=== PATIENT | female | born 1960 | race Caucasian/White ===

== ENCOUNTER 2017-05-31 10:57 | Day surgery (SDC) | payer MEDICAID, SELFPAY ==
[2017-05-31 11:23] VITALS: BP 133/95; PULSE 97; TEMP 36.8; O2SAT 99; BMI 27.8
--- NOTE | 2017-05-31 13:07 | RAD_ITS ---
STUDY: X-RAY - CERVICAL SPINE REASON FOR EXAM: Female, 57 years old. C6-C7 epidural injection. TECHNIQUE: Single coned-down intraoperative view(s) of the cervical spine were obtained. COMPARISON: None FINDINGS: Fluoroscopic services provided for C6-C7 epidural injection. RAD/Spine 1 View Any Level IMPRESSION: Fluoroscopic services provided for C6-C7 epidural injection. Electronically Signed: Magdiel Neal MD at 14:36 EST Tel [phone], Service support ,
[2017-05-31] MEDS: Triamcinolone Acetonide 40 MG/ML Vial (13:24)
[2017-05-31 13:35] VITALS: BP 117/82; BP 133/95; PULSE 100; RESP 16; TEMP 36.6; O2SAT 100
[2017-05-31 13:40] VITALS: BP 115/81; BP 133/95; PULSE 97; RESP 16; O2SAT 99
[2017-05-31 13:45] VITALS: BP 121/86; BP 133/95; PULSE 89; RESP 16; O2SAT 100
[2017-05-31 13:50] VITALS: BP 123/83; BP 133/95; PULSE 89; RESP 16; TEMP 36.4; O2SAT 99
[2017-05-31 14:19] VITALS: BP 133/95
== END 2017-05-31 14:20 | disposition home or self-care (01) ==
LOC: SDC 10:59 → AC 11:06
PROVIDERS: Family Provider Family Medicine; PCP Family Medicine; Visit Provider Anesthesiology Pain Medicine
PROC: 3E0S3BZ Introduction of Anesthetic Agent into Epidural Space, Percutaneous Approach (ICD-10-PCS; CPT 62320; principal; 2017-05-31 12:10)
DX: M54.2 Cervicalgia (principal); J44.9 Chronic obstructive pulmonary disease, unspecified; E03.9 Hypothyroidism, unspecified; F17.200 Nicotine dependence, unspecified, uncomplicated; M79.603 Pain in arm, unspecified; F41.9 Anxiety disorder, unspecified; F32.9 Major depressive disorder, single episode, unspecified; Z79.899 Other long term (current) drug therapy
CPT/HCPCS: 01922; 62321; 64490; 72020; J7120; J3490

== ENCOUNTER → 2017-07-18 13:44 | Outpatient (CLI) | payer MEDICAID, SELFPAY ==
[2017-07-18 15:51] LABS: Absolute Lymphocyte Count 3.25 X10^3/ul (0.83-4.51); Absolute Neutrophil Count 3.1 X10^3/uL (2.0-7.7); Basophil# 0.05 X10^3/uL; Basophil% 0.7 % (0-1); Eosinophil# 0.13 X10^3/uL; Eosinophils% 1.7 % (0-5); Hematocrit 43.2 % (37-47); Hemoglobin 14.2 g/dl (12.0-15.0); Lymphocyte # 3.25 X10^3/ul (4.0); Lymphocyte % 43.3 % (19-41); Mean Corp Hgb Conc 32.9 g/gl (32-36); Mean Corpuscular Volume 100.5 fL (81-99); Mean Platelet Vol. 10.5 fl (6.2-12.0); Monocyte# 0.94 X10^3/uL; Monocyte% 12.5 % (0-10); Neutrophil % 41.3 % (47-70); Platelet Count 222 K/mm3 (150-450); RBC Distribution Width CV 13.6 % (11.6-14.6); RBC Distribution Width SD 49.7 fl (35.1-43.9); White Blood Count 7.5 K/mm3 (4.4-11.0)
[2017-07-18 15:54] LABS: POSITIVE COUNT NO; POSITIVE DIFFERENTIAL NO; POSITIVE MORPHOLOGY NO
[2017-07-18 16:12] LABS: Vitamin D,25 Hydroxy 75.1 ng/mL (29.95-100.01)
[2017-07-18 16:17] LABS: ALB/GLOB Ratio 0.7 RATIO (0.9-2.4); AST(SGOT) 154 U/L (15-37); Alanine Aminotransfer ALT/SGPT 97 U/L (13-56); Albumin, Serum 3.2 g/dL (3.2-5.0); Alkaline Phosphatase 150 U/L (45-117); Anion Gap 10 (5-15); BUN 6 mg/dL (7-18); BUN/Creat Ratio 8.4 RATIO (10-20); Calcium,Total 8.9 mg/dL (8.5-10.1); Chloride 96 mmol/L (98-107); Creatinine, Serum 0.71 mg/dL (0.55-1.02); EST Glomerular Filtration Rate 90 mL/min (>60); Est Glom Filt Rate - Afr Amer 109 mL/min (>60); Globulin 4.3 g/dL (2.2-4.2); Glucose 97 mg/dL (74-106); Potassium 3.5 mmol/L (3.5-5.1); Protein, Total 7.5 g/dL (6.4-8.2); Sodium Level 132 mmol/L (136-145); T4 Free Direct 0.82 ng/dL (0.76-1.46); Thyroid Stim Hormone (TSH) 4.07 uIU/mL (0.358-3.74)
== END ==
PROVIDERS: Visit Provider Family Medicine
DX: E55.9 Vitamin D deficiency, unspecified (principal); E06.3 Autoimmune thyroiditis; F17.200 Nicotine dependence, unspecified, uncomplicated
CPT/HCPCS: 80053; 82306; 84439; 84443; 85025

== ENCOUNTER → 2017-08-14 14:36 | Outpatient (CLI) | payer MEDICAID, SELFPAY ==
[2017-08-17 14:31] LABS: HPV Reflexed? NOT INDICATED
== END ==
PROVIDERS: Family Provider Family Medicine; PCP Family Medicine; Visit Provider Family Medicine
DX: Z01.419 Encounter for gynecological examination (general) (routine) without abnormal findings (principal)
CPT/HCPCS: 88175; G0145

== ENCOUNTER → 2017-08-16 13:56 | Outpatient (CLI) | payer MEDICAID, SELFPAY ==
--- NOTE | 2017-08-16 13:57 | BI_ITS ---
MAMMOGRAPHY - BILATERAL SCREENING 3-D KATTY SYNTHESIS REASON FOR EXAM: Female, 57 years old. Bilateral Screening 3-D tomosynthesis PERTINENT HISTORY: Positive family history. Sister at unknown age with breast cancer. Prior exams unavailable.. TECHNIQUE: 2-D mammograms and 3-D Katty synthesis of the breast (s) were performed. CAD was performed. COMPARISON: None. FINDINGS: The breast composition is composed of scattered fibroglandular density. No dense spiculated masses or suspicious microcalcifications are identified. No architectural distortion is identified. There is no skin thickening or retraction BI/SCREENING MAMM (CAD), BILAT IMPRESSION: No mammographic signs of malignancy. Routine yearly mammograms recommended. ASSESSMENT CATEGORY: BIRADS Category 1: Negative. A letter regarding these results will be sent to the patient by the facility within 30 days. FOLLOW UP RECOMMENDATION: Yearly follow up mammogram recommended. (A) Approximately 10% of breast cancers are not detected by mammography. A normal mammogram should not delay biopsy of a clinically suspicious abnormality. Electronically Signed: Yan Sood MD at 16:00 EDT , Service support ,
== END ==
PROVIDERS: Family Provider Family Medicine; PCP Family Medicine; Visit Provider Family Medicine
DX: Z12.31 Encounter for screening mammogram for malignant neoplasm of breast (principal)
CPT/HCPCS: 77063; 77067

== ENCOUNTER 2017-12-11 10:10 | Outpatient (RCR) | payer MEDICAID, SELFPAY ==
--- NOTE | 2017-12-12 13:19 | HP.FCE ---
HP OT Functional Capacity Eval - Task Lift Comments: Pt unemployed since 2009. - Reference Duration Sedentary Sedentary Light Light Light Medium Medium Medium Heavy Very Heavy Heavy Occasional (0-33% of day) Frequent (34-66% of day) Constant (67-100% of day) 10 # Negligible Negligible 15 # 8 # Negligible 20 # 10# Negli. 35 # 18 # 7 # 50 # 25 # 10 # 75 # 100 # >100 # 38 # 50 # >50 # 15 # 20 # >20 # - Patient Information Height: 5 ft 9.5 in Weight:: 86.183 kg Hand Dominance: Right handed - Medical History Medical History Including Restrictions: Chronic back pain, GERD, chronic alcohol abuse, tobacco abuse disorder, debility, epidural hematoma, Pt states; Degenitive Disc Disorder, short term memory loss from fall/concussion October 2016. R wrist fx from fall down steps. - Diagnoses Diagnoses: Chronic back pain, GERD, chronic alcohol abuse, tobacco abuse disorder, debility, epidural hematoma - Symptoms Symptoms: Pt states constant back pain lower back that effects bilateral hips - Pain Pain: 7/10 pain lower back during evaluation while sitting. Pt states gets shots from Dr. Renteria for lower back pain every 3 months and has had a shot in cervical spine previously. 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 She lives in the basement, but also goes up to the main level. Ambulates no device. Pt has std toilet seats, walk in shower with grab bars. She stands to shower. Independent with BADL's, IADL's, laundry on main level and she has to carry in basket up/down flight of steps, friend states it goes better when someone can carry the basket for her. Does not drive. Does go grocery shopping, pushes cart and carries grocery bags from car to house. Independent with caring for her cats and their liter box. - Physical Examination Physical Examination: Pt demonstrates increased edema bilateral feet/ankles, pitting edema. ROM: BUE WFL. BLE WFL Strength: Generalized BUE 3+/5, BLE 3+/5 Right Food Cooking Machine Operator Strength Average: 46.66 Left Food Cooking Machine Operator Strength Average: 40.00 Right Lateral Pinch Average: 10.00 Left Lateral Pinch Average: 13.33 Right Tripod Pinch Average: 10.66 Left Tripod Pinch Average: 10.00 Sensation: Pt states no numbness or tingling. Fine Motor: Pt states okay most of the time with fine motor skills other than sometimes feels her signature and writing looks a little different Balance: No falls in last 3 months, pt states feels pretty steady, pt feels uncomfortable to walk on feet secondary to edema. Pt did report she walks up/down the uneven driveway to get the mail. - Non Material Handling Activities Bendin slow bend down to touch floor plus 4 faster pace. Unable to complete all 10 bends secondary to pain in lower back. Squattin plus 4 faster pace squats, had to rest leaning on R side of desk unable to complete all ten secondary to pain in lower back. Kneelin plus 4 kneels unable to complete anymore secondary to pain in back. Reaching out/up: reaching out and up without any difficulty and no loss of balance. Pt demonstrates good righting reactions. Walking: Pt completed 15 minute walk test, taking one standing rest break to stretch back out during walk bending forward and backwards. Standing: Stands for comfort and to relieve back pain during evaluation instead of sitting down after lifting part of test. No difficulty with standing. Sitting: Pt sat for first 15 minutes of evaluation moving around in chair occassionally for increased comfort. No difficulty sitting or transfering from sit<>stand. Climbing Stairs: Pt completed 10 steps using R hand on handrail. Pt saw other flight of steps and decided to trial the 14 steps up to second floor. Pt completed 14 steps up and down using R hand on handrail. - Dynamic Occasional Lifting Capacity Floor Lift: 15# max weight Knee Lift: 15# max weight Waist Lift: 15# max weight Shoulder Lift: 15# max weight Overhead Lift: 15# max weight Carryin# max weight Comments: Pt completed functional activities questionnaire stating the following: No I don't exercise regularly. Yes I can do yard work if I pace myself and do it over the course of the day. No I can't sit through a movie play or concert. Yes I can walk around in my yard. No I can't walk the block. Yes I am able to shop for groceries. Yes I am able to carry my groceries into the house and put them away. No I am not able to do my laundry. No I can't walk up and down steps. Sometimes pending on the pain I am able to cook and do housework such as sweeping, vacumming and cleaning. No I am not able to bath, feed, dress and otherwise care for myself. I can drive or ride in a car for 1 hr before I need to get out and stretch. I can walk at a mall fair or event for 1 hr before I have to sit down. I usually sit for 2-3 hrs a day. I usually stand/walk for 1-2 hrs a day. I usually lie/recline for 4-5 hrs a day. My most comfortable position varies.
== END 2017-12-11 19:00 | disposition home or self-care (01) ==
LOC: OT 10:10
PROVIDERS: Family Provider Family Medicine; PCP Family Medicine; Visit Provider Anesthesiology Pain Medicine
DX: M54.9 Dorsalgia, unspecified (principal)
CPT/HCPCS: 97165; 97166

== ENCOUNTER → 2017-12-14 11:21 | Outpatient (CLI) | payer MEDICAID, SELFPAY ==
[2017-12-14 14:35] LABS: Absolute Lymphocyte Count 2.18 X10^3/ul (0.83-4.51); Absolute Neutrophil Count 2.8 X10^3/uL (2.0-7.7); Basophil# 0.04 X10^3/uL; Basophil% 0.7 % (0-1); Eosinophil# 0.11 X10^3/uL; Eosinophils% 1.9 % (0-5); Hemoglobin 13.1 g/dl (12.0-15.0); Lymphocyte # 2.18 X10^3/ul (4.0); Lymphocyte % 36.8 % (19-41); Mean Corp Hgb Conc 33.6 g/gl (32-36); Mean Corpuscular Hgb 33.9 pg (27.0-32.0); Mean Platelet Vol. 10.3 fl (6.2-12.0); Monocyte# 0.76 X10^3/uL; Monocyte% 12.8 % (0-10); Neutrophil % 47.3 % (47-70); Platelet Count 211 K/mm3 (150-450); RBC Distribution Width CV 12.7 % (11.6-14.6); RBC Distribution Width SD 46.3 fl (35.1-43.9); Red Blood Count 3.86 M/mm3 (4.2-5.4); White Blood Count 5.9 K/mm3 (4.4-11.0)
[2017-12-14 14:36] LABS: POSITIVE COUNT NO; POSITIVE DIFFERENTIAL NO; POSITIVE MORPHOLOGY NO; Vitamin D,25 Hydroxy 27.7 ng/mL (29.95-100.01)
[2017-12-14 14:40] LABS: ALB/GLOB Ratio 0.8 RATIO (0.9-2.4); AST(SGOT) 53 U/L (15-37); Alanine Aminotransfer ALT/SGPT 44 U/L (13-56); Albumin, Serum 3.2 g/dL (3.2-5.0); Alkaline Phosphatase 165 U/L (45-117); Anion Gap 12 (5-15); BUN 8 mg/dL (7-18); BUN/Creat Ratio 11.6 RATIO (10-20); Calcium,Total 8.2 mg/dL (8.5-10.1); Chloride 104 mmol/L (98-107); Creatinine, Serum 0.69 mg/dL (0.55-1.02); EST Glomerular Filtration Rate 93 mL/min (>60); Est Glom Filt Rate - Afr Amer 113 mL/min (>60); Globulin 4.2 g/dL (2.2-4.2); Glucose 74 mg/dL (74-106); Potassium 3.9 mmol/L (3.5-5.1); Protein, Total 7.4 g/dL (6.4-8.2); Sodium Level 139 mmol/L (136-145); T4 Free Direct 0.95 ng/dL (0.76-1.46); Thyroid Stim Hormone (TSH) 0.95 uIU/mL (0.358-3.74)
== END ==
PROVIDERS: Family Provider Family Medicine; PCP Family Medicine; Visit Provider Family Medicine
DX: E55.9 Vitamin D deficiency, unspecified (principal); E06.3 Autoimmune thyroiditis; F17.200 Nicotine dependence, unspecified, uncomplicated; F10.20 Alcohol dependence, uncomplicated
CPT/HCPCS: 36415; 80053; 82306; 84425; 84439; 84443; 85025

== ENCOUNTER → 2018-05-01 09:15 | Outpatient (CLI) | payer MEDICAID, SELFPAY ==
[2018-05-01 11:03] LABS: Vitamin D,25 Hydroxy 39.6 ng/mL (29.95-100.01)
[2018-05-01 11:21] LABS: Absolute Lymphocyte Count 2.61 X10^3/ul (0.83-4.51); Absolute Neutrophil Count 4.3 X10^3/uL (2.0-7.7); Basophil# 0.07 X10^3/uL; Basophil% 0.9 % (0-1); Differential Indicated SCAN CRITERIA MET; Eosinophil# 0.26 X10^3/uL; Eosinophils% 3.2 % (0-5); Hemoglobin 13.6 g/dl (12.0-15.0); Lymphocyte # 2.61 X10^3/ul (4.0); Lymphocyte % 31.9 % (19-41); Mean Corp Hgb Conc 32.4 g/gl (32-36); Mean Platelet Vol. 11.2 fl (6.2-12.0); Monocyte# 0.93 X10^3/uL; Monocyte% 11.4 % (0-10); Neutrophil # 4.26 X10^3/uL (2.7-7.7); Neutrophil % 52.1 % (47-70); POSITIVE COUNT YES; POSITIVE DIFFERENTIAL NO; POSITIVE MORPHOLOGY NO; Platelet Count 239 K/mm3 (150-450); RBC Distribution Width CV 13.4 % (11.6-14.6); RBC Distribution Width SD 51.6 fl (35.1-43.9); White Blood Count 8.2 K/mm3 (4.4-11.0)
[2018-05-01 11:22] LABS: BUN 3 mg/dL (7-18); Creatinine, Serum 0.64 mg/dL (0.55-1.02); EST Glomerular Filtration Rate 101 mL/min (>60); Glucose 91 mg/dL (74-106)
[2018-05-01 11:23] LABS: ALB/GLOB Ratio 0.7 RATIO (0.9-2.4); AST(SGOT) 86 U/L (15-37); Alanine Aminotransfer ALT/SGPT 61 U/L (13-56); Albumin, Serum 2.8 g/dL (3.2-5.0); Alkaline Phosphatase 233 U/L (45-117); Anion Gap 13 (5-15); BUN/Creat Ratio 4.7 RATIO (10-20); Calcium,Total 8.3 mg/dL (8.5-10.1); Chloride 105 mmol/L (98-107); Est Glom Filt Rate - Afr Amer 122 mL/min (>60); Potassium 3.4 mmol/L (3.5-5.1); Protein, Total 6.8 g/dL (6.4-8.2); Sodium Level 138 mmol/L (136-145); Thyroid Stim Hormone (TSH) 3.87 uIU/mL (0.358-3.74)
== END ==
PROVIDERS: Family Provider Family Medicine; PCP Family Medicine; Visit Provider Family Medicine
DX: E06.3 Autoimmune thyroiditis (principal); E55.9 Vitamin D deficiency, unspecified; F10.20 Alcohol dependence, uncomplicated; F17.200 Nicotine dependence, unspecified, uncomplicated
CPT/HCPCS: 36415; 80053; 82306; 84439; 84443; 85025

== ENCOUNTER → 2018-11-07 10:17 | Outpatient (CLI) | payer MEDICAID, SELFPAY ==
[2018-11-07 12:07] LABS: Absolute Lymphocyte Count 2.26 X10^3/uL (0.83-4.51); Absolute Neutrophil Count 4.1 X10^3/uL (2.0-7.7); Basophil# 0.08 X10^3/uL; Basophil% 1.1 % (0-1); Eosinophil# 0.15 X10^3/uL; Hematocrit 42.1 % (37-47); Hemoglobin 13.9 g/dL (12.0-15.0); Lymphocyte # 2.26 X10^3/ul (4.0); Lymphocyte % 30.3 % (19-41); Mean Corpuscular Hgb 35.1 pg (27.0-32.0); Mean Corpuscular Volume 106.3 fL (81-99); Mean Platelet Vol. 11.3 fl (6.2-12.0); Monocyte# 0.88 X10^3/uL; Monocyte% 11.8 % (0-10); NRBC Flagged by Analyzer 0 % (0-5); Neutrophil # 4.05 X10^3/uL (2.7-7.7); Neutrophil % 54.3 % (47-70); Platelet Count 241 K/mm3 (150-450); RBC Distribution Width CV 12.8 % (11.6-14.6); RBC Distribution Width SD 50.6 fl (35.1-43.9); Red Blood Count 3.96 M/mm3 (4.2-5.4); White Blood Count 7.5 K/mm3 (4.4-11.0)
[2018-11-07 12:22] LABS: Vitamin B12 723 pg/mL (211-911); Vitamin D,25 Hydroxy 43.8 ng/mL (29.95-100.01)
[2018-11-07 12:57] LABS: ALB/GLOB Ratio 0.6 RATIO (0.9-2.4); AST(SGOT) 153 U/L (15-37); Alanine Aminotransfer ALT/SGPT 73 U/L (13-56); Albumin, Serum 2.7 g/dL (3.2-5.0); Alkaline Phosphatase 223 U/L (45-117); Anion Gap 6 (5-15); BUN 4 mg/dL (7-18); BUN/Creat Ratio 6.7 RATIO (10-20); Calcium,Total 9.1 mg/dL (8.5-10.1); Chloride 103 mmol/L (98-107); Cholesterol 168 mg/dL (200); EST Glomerular Filtration Rate 109 mL/min (>60); Est Glom Filt Rate - Afr Amer 132 mL/min (>60); Globulin 4.4 g/dL (2.2-4.2); Glucose 90 mg/dL (74-106); High Density Lipoprotein 53 mg/dL; Potassium 3.7 mmol/L (3.5-5.1); Protein, Total 7.1 g/dL (6.4-8.2); Sodium Level 134 mmol/L (136-145); T4 Free Direct 1.32 ng/dL (0.76-1.46); Thyroid Stim Hormone (TSH) 1.33 uIU/mL (0.358-3.74); Triglycerides 158 mg/dL; Very Low Density Lipoprotein 32 mg/dL (5-40)
[2018-11-08 12:57] LABS: GGTP 527 U/L (5-55)
[2018-11-13 16:08] LABS: Vitamin B1, Thiamine 63.4 nmol/L (66.5-200.0)
== END ==
PROVIDERS: Family Provider Family Medicine; PCP Family Medicine; Referring Provider Family Medicine; Visit Provider Family Medicine
DX: R74.8 Abnormal levels of other serum enzymes (principal); E55.9 Vitamin D deficiency, unspecified; E06.3 Autoimmune thyroiditis; F10.20 Alcohol dependence, uncomplicated; F17.200 Nicotine dependence, unspecified, uncomplicated
CPT/HCPCS: 36415; 80053; 80061; 82306; 82607; 82746; 82977; 84425; 84439; 84443; 85025

== ENCOUNTER → 2018-11-13 10:01 | Outpatient (CLI) | payer MEDICAID, SELFPAY ==
--- NOTE | 2018-11-13 10:04 | US_ITS ---
STUDY: ABDOMINAL ULTRASOUND - RIGHT UPPER QUADRANT REASON FOR VISIT: Female, 58 years old. Elevated LFTs TECHNIQUE: Ultrasound evaluation of the right upper quadrant was performed with real-time and static sheppard-scale imaging. TECHNICAL QUALITY: Adequate. COMPARISON: 2014 FINDINGS: Liver: The liver measures 19.0 cm. There is increased echogenicity consistent with fatty infiltration. The bile ducts are within normal limits. There is hepatic color flow. The direction of portal flow is hepatopetal. There is no demonstrated mass lesion. There is a thin rim of ascites around the liver. Gallbladder: Normal distended gallbladder. The gallbladder wall measures 2.8 mm. There is a negative sonographic Mejia's sign. There is no pericholecystic fluid. There is biliary sludge dependent within the gallbladder. Common Bile Duct (C.B.D.): The common bile duct measures 3.3 mm. Pancreas: Normal size of the head, body and tail of the pancreas. There is normal echogenicity of the pancreas. There is no demonstrated pancreatic mass or cyst. Right Kidney: Normal size of the right kidney. The right kidney measures 10.2 x 4.7 x 3.8 cm. Normal renal cortex. The right cortex measures 1.4 cm. There is no demonstrated renal mass or cyst. There is no right hydronephrosis. US/Liver IMPRESSION: Diffuse fatty infiltration of liver, no discrete lesion Echogenic sludge within the gallbladder but no sonographic evidence of acute cholecystitis Thin rim of ascites around the periphery of the liver Electronically Signed: Matt Smith MD at 12:37 EDT , Service support ,
== END ==
PROVIDERS: Family Provider Family Medicine; PCP Family Medicine; Referring Provider Family Medicine; Visit Provider Family Medicine
DX: R94.5 Abnormal results of liver function studies (principal)
CPT/HCPCS: 76705

== ENCOUNTER → 2018-12-11 11:45 | Outpatient (CLI) | payer MEDICAID, SELFPAY ==
--- NOTE | 2018-12-11 11:54 | RAD_ITS ---
STUDY: X-RAY - SACRUM/COCCYX REASON FOR EXAM: Female, 58 years old. Fall, pain TECHNIQUE: 3 view(s) of the sacrum and coccyx were obtained. COMPARISON: None. FINDINGS: Normal bilateral sacroiliac joints. Normal visualized sacral ala and fused sacral bodies. Normal sacrococcygeal junction with a normal angulation. Normal coccygeal segments. The presacral soft tissue structures are unremarkable. RAD/Sacrum-Coccyx min 2 Views IMPRESSION: Normal x-rays of the sacrum and coccyx. Electronically Signed: Carlo Melendez MD at 12:38 EDT Tel , Service support ,
== END ==
PROVIDERS: Family Provider Family Medicine; PCP Family Medicine; Referring Provider Anesthesiology Pain Medicine; Visit Provider Anesthesiology Pain Medicine
DX: Z04.3 Encounter for examination and observation following other accident (principal)
CPT/HCPCS: 72220

== ENCOUNTER → 2019-03-19 13:40 | Outpatient (CLI) | payer MEDICARE, SELFPAY ==
[2019-03-19 17:43] LABS: Absolute Lymphocyte Count 2.48 X10^3/uL (0.83-4.51); Absolute Neutrophil Count 4.3 X10^3/uL (2.0-7.7); Basophil# 0.06 X10^3/uL; Basophil% 0.8 % (0-1); Eosinophil# 0.06 X10^3/uL; Eosinophils% 0.8 % (0-5); Hematocrit 46.2 % (37-47); Hemoglobin 15.2 g/dL (12.0-15.0); Lymphocyte # 2.48 X10^3/ul (4.0); Lymphocyte % 32.2 % (19-41); Mean Corp Hgb Conc 32.9 g/dL (32-36); Mean Corpuscular Hgb 35.2 pg (27.0-32.0); Mean Corpuscular Volume 106.9 fL (81-99); Mean Platelet Vol. 11.2 fl (6.2-12.0); Monocyte# 0.79 X10^3/uL; Monocyte% 10.3 % (0-10); NRBC Flagged by Analyzer 0 % (0-5); Neutrophil # 4.25 X10^3/uL (2.7-7.7); Neutrophil % 55.2 % (47-70); Platelet Count 208 K/mm3 (150-450); RBC Distribution Width CV 13.6 % (11.6-14.6); RBC Distribution Width SD 54.4 fl (35.1-43.9); Red Blood Count 4.32 M/mm3 (4.2-5.4); White Blood Count 7.7 K/mm3 (4.4-11.0)
[2019-03-19 18:06] LABS: Vitamin D,25 Hydroxy 59.9 ng/mL (29.95-100.01)
[2019-03-19 19:00] LABS: ALB/GLOB Ratio 0.7 RATIO (0.9-2.4); AST(SGOT) 92 U/L (15-37); Alanine Aminotransfer ALT/SGPT 52 U/L (13-56); Alkaline Phosphatase 242 U/L (45-117); Anion Gap 11 (5-15); BUN 3 mg/dL (7-18); BUN/Creat Ratio 3.8 RATIO (10-20); Calcium,Total 8.8 mg/dL (8.5-10.1); Chloride 97 mmol/L (98-107); Creatinine, Serum 0.79 mg/dL (0.55-1.02); EST Glomerular Filtration Rate 79 mL/min (>60); Est Glom Filt Rate - Afr Amer 95 mL/min (>60); Globulin 4.6 g/dL (2.2-4.2); Glucose 113 mg/dL (74-106); Potassium 3.5 mmol/L (3.5-5.1); Protein, Total 7.6 g/dL (6.4-8.2); Sodium Level 133 mmol/L (136-145); Thyroid Stim Hormone (TSH) 3.24 uIU/mL (0.358-3.74)
[2019-03-24 21:17] LABS: Vitamin B1, Thiamine 141.7 nmol/L (66.5-200.0)
== END ==
PROVIDERS: Family Provider Family Medicine; PCP Family Medicine; Referring Provider Family Medicine; Visit Provider Family Medicine
DX: E55.9 Vitamin D deficiency, unspecified (principal); F10.20 Alcohol dependence, uncomplicated; E06.3 Autoimmune thyroiditis; F17.200 Nicotine dependence, unspecified, uncomplicated
CPT/HCPCS: 36415; 80053; 82306; 82746; 84425; 84443; 85025

== ENCOUNTER → 2019-06-17 11:40 | Outpatient (CLI) | payer MEDICARE, SELFPAY ==
[2019-06-17 15:20] LABS: Absolute Lymphocyte Count 2.77 X10^3/uL (0.83-4.51); Absolute Neutrophil Count 7.6 X10^3/uL (2.0-7.7); Basophil# 0.07 X10^3/uL; Basophil% 0.6 % (0-1); Eosinophil# 0.07 X10^3/uL; Eosinophils% 0.6 % (0-5); Hematocrit 42.2 % (37-47); Hemoglobin 13.9 g/dL (12.0-15.0); Lymphocyte # 2.77 X10^3/ul (4.0); Lymphocyte % 23.5 % (19-41); Mean Corp Hgb Conc 32.9 g/dL (32-36); Mean Corpuscular Hgb 36.9 pg (27.0-32.0); Mean Corpuscular Volume 111.9 fL (81-99); Mean Platelet Vol. 11.1 fl (6.2-12.0); Monocyte# 1.21 X10^3/uL; Monocyte% 10.2 % (0-10); NRBC Flagged by Analyzer 0 % (0-5); Neutrophil # 7.57 X10^3/uL (2.7-7.7); Neutrophil % 64.1 % (47-70); Platelet Count 208 K/mm3 (150-450); RBC Distribution Width CV 13.6 % (11.6-14.6); RBC Distribution Width SD 56.8 fl (35.1-43.9); Red Blood Count 3.77 M/mm3 (4.2-5.4); White Blood Count 11.8 K/mm3 (4.4-11.0)
[2019-06-17 15:29] LABS: Vitamin B12 660 pg/mL (211-911); Vitamin D,25 Hydroxy 93.3 ng/mL
[2019-06-17 16:11] LABS: ALB/GLOB Ratio 0.5 RATIO (0.9-2.4); AST(SGOT) 87 U/L (15-37); Alanine Aminotransfer ALT/SGPT 37 U/L (13-56); Albumin, Serum 2.2 g/dL (3.2-5.0); Alkaline Phosphatase 398 U/L (45-117); Anion Gap 7 (5-15); BUN 2 mg/dL (7-18); BUN/Creat Ratio 2.9 RATIO (10-20); Calcium,Total 8.4 mg/dL (8.5-10.1); Chloride 101 mmol/L (98-107); Creatinine, Serum 0.68 mg/dL (0.55-1.02); EST Glomerular Filtration Rate 94 mL/min (>60); Est Glom Filt Rate - Afr Amer 114 mL/min (>60); Globulin 4.8 g/dL (2.2-4.2); Glucose 88 mg/dL (74-106); Potassium 3.3 mmol/L (3.5-5.1); Sodium Level 134 mmol/L (136-145); Thyroid Stim Hormone (TSH) 4.89 uIU/mL (0.358-3.74)
[2019-06-18 15:38] LABS: GGTP 1013 U/L (5-55)
== END ==
PROVIDERS: PCP Family Medicine; Referring Provider Family Medicine; Visit Provider Family Medicine
DX: F10.20 Alcohol dependence, uncomplicated (principal); E06.3 Autoimmune thyroiditis; F17.200 Nicotine dependence, unspecified, uncomplicated; E55.9 Vitamin D deficiency, unspecified
CPT/HCPCS: 36415; 80053; 82306; 82607; 82746; 82977; 84439; 84443; 85025

== ENCOUNTER → 2019-06-23 09:53 | Outpatient (CLI) | payer MEDICARE, SELFPAY ==
--- NOTE | 2019-06-23 09:56 | US_ITS ---
We are attempting to reach an attending provider to discuss findings. An addendum with communication details will be sent when the communication is complete. STUDY: ABDOMINAL ULTRASOUND - RIGHT UPPER QUADRANT REASON FOR VISIT: Female, 59 years old ELEVATED LFTS TECHNIQUE: Ultrasound evaluation of the right upper quadrant was performed with real-time and static sheppard-scale imaging. TECHNICAL QUALITY: Adequate. COMPARISON: CT abdomen and pelvis July 20, 2014 FINDINGS: Liver: The liver measures 22 cm. There is increased echogenicity consistent with fatty infiltration. The bile ducts are within normal limits. There is hepatic color flow. The direction of portal flow is hepatopetal. There is no demonstrated mass lesion. Gallbladder: The gallbladder is distended. The gallbladder wall measures 2.6 mm. There is a positive sonographic Mejia''s sign. There is no pericholecystic fluid. There is sludge in the gallbladder. Common Bile Duct (C.B.D.): The common bile duct measures 2. mm. Pancreas: Normal size of the head, body and tail of the pancreas. There is normal echogenicity of the pancreas. There is no demonstrated pancreatic mass or cyst. Right Kidney: Normal size of the right kidney. The right kidney measures 10.0 x 5.4 x 3.7 cm. Normal renal cortex. The right cortex measures 1.1 cm. There is no demonstrated renal mass or cyst. There is mild right pelviectasis. US/Abdomen Limited IMPRESSION: Enlarged fatty infiltrated liver. Gallbladder sludge. Positive sonographic Mejia''s sign. Borderline wall thickening of the gallbladder up to 2.6 mm. Normal common duct. Recommend correlation with clinical history clinical exam. A prior study July 20, 2014 CT abdomen and pelvis the gallbladder is also distended with sludge. Findings could represent chronic or acute cholecystitis with a positive sonographic Mejia sign. Mild right pelviectasis. Recommend correlation with renal laboratory values. Electronically Signed: Macie Payne MD at 13:57 EST Tel , Service support ,
== END ==
PROVIDERS: PCP Family Medicine; Referring Provider Family Medicine; Visit Provider Family Medicine
DX: R94.5 Abnormal results of liver function studies (principal)
CPT/HCPCS: 76705

== ENCOUNTER → 2019-07-04 12:42 | Outpatient (CLI) | payer MEDICARE, SELFPAY ==
[2019-06-30 13:34] VITALS: BMI 27.8
--- NOTE | 2019-07-04 12:46 | RAD_ITS ---
STUDY: X-RAY - RIGHT SHOULDER REASON FOR EXAM: Female, 59 years old. patient complains of neck pain and shoulder pain TECHNIQUE: 4 view(s) of the shoulder. COMPARISON: None. FINDINGS: There is mild degenerative arthrosis of the glenohumeral articulation. Normal acromioclavicular joint. Normal acromion. There is demineralization of the humerus and visualized osseous structures. The soft tissue structures are unremarkable. There is no demonstrated fracture. Normal visualized pulmonary apex. RAD/Shoulder min 2 Views IMPRESSION: Diffuse osteopenia along with mild degenerative disease as described. Otherwise normal x-ray examination of the shoulder. Electronically Signed: Mandy Marin MD at 1:36 EDT , Service support ,
--- NOTE | 2019-07-04 12:46 | RAD_ITS ---
STUDY: X-RAY - CERVICAL SPINE REASON FOR EXAM: Female, 59 years old. patient complains of neck pain and shoulder pain TECHNIQUE: 3 view(s) of the cervical spine were obtained. COMPARISON: None FINDINGS: There are degenerative changes of the anterior atlantoaxial articulation. Normal odontoid process. Normal cervical lordosis. There is multi-level endplate spondylosis. There is multi-level degenerative disc disease with multilevel disc space narrowing. Multilevel bilateral apophyseal hypertrophy. The soft tissue structures are unremarkable. There is no demonstrated fracture of the cervical spine. RAD/Cerv Spine 2 or 3 Views IMPRESSION: Multilevel spondylosis/degenerative disease with no acute fracture or subluxation. Electronically Signed: Mandy Marin MD at 1:35 EDT , Service support ,
--- NOTE | 2019-07-04 13:00 | RAD_ITS ---
STUDY: X-RAY - LEFT SHOULDER REASON FOR EXAM: Female, 59 years old. patient complains of neck pain and shoulder pain TECHNIQUE: 4 view(s) of the shoulder. COMPARISON: None. FINDINGS: There is mild degenerative arthrosis of the glenohumeral articulation. Normal acromioclavicular joint. Normal acromion. There is demineralization of the humerus and visualized osseous structures. The soft tissue structures are unremarkable. There is no demonstrated fracture. Normal visualized pulmonary apex. RAD/Shoulder min 2 Views IMPRESSION: Diffuse osteopenia along with mild degenerative disease. Otherwise normal x-ray examination of the shoulder. Electronically Signed: Mandy aMrin MD at 1:35 EDT , Service support ,
== END ==
PROVIDERS: PCP Family Medicine; Referring Provider Anesthesiology Pain Medicine; Visit Provider Anesthesiology Pain Medicine
DX: M54.2 Cervicalgia (principal); M25.519 Pain in unspecified shoulder
CPT/HCPCS: 72040; 73030

== ENCOUNTER 2019-07-14 07:11 | Day surgery (SDC) | payer MEDICARE, SELFPAY ==
[2019-06-30 13:34] VITALS: BMI 27.8
--- NOTE | 2019-07-02 04:27 | HP_ITS ---
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: No Is patient in pain?: No Allergies bee venom protein (honey bee) Allergy (Verified 06/30/19 14:30) Unknown oxycodone Adverse Reaction (Intermediate, Verified 06/30/19 14:30) Other Medications Potassium Chloride 10 meq PO BID 10/17/16 [History Confirmed 06/30/19] Albuterol Inhaler [Ventolin Hfa (SP)] 1 - 2 puff INHALATION Q4H PRN PRN 05/29/17 [History Confirmed 06/30/19] Furosemide [Lasix] 20 mg PO DAILY PRN 05/29/17 [History Confirmed 06/30/19] famotidine 20 mg tablet 20 mg PO DAILY 06/30/19 [History Confirmed 06/30/19] fluticasone furoate 100 mcg-vilanterol 25 mcg/dose inhalation powder 1 inh INHALATION DAILY 06/30/19 [History Confirmed 06/30/19] levothyroxine 75 mcg tablet 100 mcg PO DAILY tab 06/30/19 [History Confirmed 06/30/19] omeprazole 20 mg tablet,delayed release 40 mg PO DAILY tab 06/30/19 [History Confirmed 06/30/19] thiamine HCl (vitamin B1) 100 mg tablet 100 mg PO DAILY 06/30/19 [History Confirmed 06/30/19] tiotropium bromide 2.5 mcg/actuation mist for inhalation 2 puff INHALATION DAILY 06/30/19 [History Confirmed 06/30/19] [facility] Medical History Chronic back pain (Chronic) GERD (gastroesophageal reflux disease) (Chronic) Chronic alcohol abuse (Chronic) Tobacco abuse disorder (Chronic) Debility (Acute) Epidural hematoma (Acute) Social History (Updated 07/02/19 @ 16:[address] Jacoby Rodriguez MD) Smoking Status: Current every day smoker alcohol intake: current alcohol intake frequency: 3 or more drinks per day HPI HPI HPI: JUDY KLEIN, is a 59 F who presents to the office today for HPI HPI Surgical H&P: Yes HPI: JUDY KLEIN, is a 59 F who presents to the office today for Evaluation for vomiting. She normally vomits in the morning occasionally it has been coffee grounds. She has had some significant issues with morning vertigo she will state that this will get better throughout the day. She has continued her use of a PPI and added Pepcid at her last visit with her primary care physician however the vomiting has not really changed that much. She is undergone a gallbladder ultrasound which showed a distended gallbladder wall measured 2.6 mm she was tender for the ultrasound which she states that she is tender bilaterally in the subcostal areas. There was no pericholecystic fluid and there was sludge in the gallbladder itself. The common bile duct measured 2 mm. Patient is due for colonoscopy this fall. ROS General General: Yes weight change and fatigue; no appetite, colon cancer, breast cancer or weakness HEENT HEENT: No difficulty swallowing, eye injury, eye surgery, swollen glands or hoarseness Endo Endocrine: Yes thyroid disease; no diabetes mellitus, thyroid cancer, Hair loss, heat intolerance or cold intolerance Skin Skin: No rash or changing moles Breast Breast: No left breast lump, right breast lump, nipple discharge, breast pain, abnormal mammogram, abnormal US or breast enlargement Musc Musculoskeletal: Yes back problems; no arthritis, rheumatoid arthritis, gout or joint pain Cardio Cardiovascular: No murmur, pacemaker, heart disease, atrial fibrillation, high blood pressure, heart attack, heart stent, palpitations, shortness of breat with exertion or chest pain Psych Psychiatric: No depression, anxiety or hearing voices Resp Respiratory: Yes shortness of breath, No sleep apnea, No cough, Yes COPD, No asthma, No emphysema, No wheezing Gastro Gastrointestinal: Yes abdominal pain, Yes nausea or vomiting, Yes diarrhea, No constipation, No blood in stool, No acid reflux, No hemorrhoids, No ulcers, No gallbladder problem, No black,tarry stools David Hematologic: No blood thinners, No blood disorders, No bleeding, No anemia, No blood clots Neuro Neurologic: No system reviewed and no additional complaints, except as docu, No as per HPI, No abnormal walking, No abnormal hearing, No abnormal movements, No abnormal speech, No behavioral changes, No burning sensations, No confusion, No seizure-like activity, No unsteadiness, No dizziness, No localized weakness, No frequent falls, No headache(s), No lack of coordination, No loss of vision, No memory loss, No numbness, No other visual disturbances, No radiating pain, No restless legs, No sensory deficit, No fainting, No tingling, No tremor(s), No weakness, No other Exam Const General: no acute distress, well developed, well hydrated Orientation: oriented to person, oriented to place, oriented to time [facility] Head: normocephalic, atraumatic Ears: external ears normal Mouth: moist mucous membranes Eyes Sclera: sclerae normal Pupils: normal by confrontation Neck Neck: no lymphadenopathy noted Neck mass: No Thyroid: thyroid normal, symmetrical Chest Chest palpation & inspection: normal inspection of the chest Breast Palpation: No nipple discharge Resp Effort & Inspection: normal respiratory effort Auscultation: clear to auscultation bilaterally Percussion: percussion normal Cardio Rate: regular rate Rhythm: regular rhythm Heart Sounds: no murmurs GI Palpation: soft, no hepatosplenomegaly, no masses, nontender Rectal Exam: other Other: Rectal exam deferred. Extrem General: normal to inspection, no clubbing, cyanosis or edema Assessment & Plan Problems 1. Coffee ground emesis K92.0 2. Gallbladder sludge K82.8 3. Upper abdominal pain R10.10 Plan I have discussed the above with the patient. I have offered the patient esophagogastroduodenoscopy for evaluation. I have explained the risks/benefits of the procedure and described the procedure. I have discussed the risks with the patient, including but not limited to: infection, bleeding, perforation of the GI tract requiring emergency surgery, inability to complete the procedure, injury to any internal organs, complications of anesthesia, etc. - the patient understands and agrees to proceed. I have answered all the patient's questions to the patient's satisfaction and the patient has no further questions. The patient has been given instructions for the colon cleansing preparation. I do not think that her vomiting at this point is related to the gallbladder sludge. There does not appear to be a cause and effect with p.o. intake and emesis it seems to happen in the morning with no food intake triggering. If this EGD is negative then I think she is probably can have to have a gastric emptying study to make sure that the stomach is working properly and then probably have an ear nose and throat consultation to see if there is something going on with her inner ear. Coding Level of Care Code Off vis,new,level 3 Diagnoses Coffee ground emesis K92.0 Gallbladder sludge K82.8 Upper abdominal pain R10.10 07/02/19 1628 <Electronically signed by Jacoby cochran MD> Date _ Jacoby Rodriguez MD I have re-examined the patient. There are no clinical changes since date of exam.
[2019-07-14 07:43] VITALS: BP 119/74; PULSE 98; RESP 16; TEMP 37.2; O2SAT 98; BMI 28.0
[2019-07-14] MEDS: Lactated Ringers 1,000 ML 100 ML IV (07:53)
--- NOTE | 2019-07-14 08:30 | EGD_PTH ---
PATIENT: JUDY MAYO LOC: EN U#:[id number] AGE/SX: 59/F ROOM: RE07/14/[address]: Dr. Jacoby Rodriguez MD : 1960 BED: DIS: 07/14/2019 SPEC #: [id number] RECD: 07/14/19 09:53 STATUS: FIGUEROA LAURA #: [id number] REZA: 07/14/19 08:[address]: Jacoby Rodriguez DEPT: SURGICAL PATHOLOGY RECD BY: Gideon Quezada ENTERED: 07/14/19 11:56 SP TYPE: EGD BIOPSY OT DR: Dr. Tony Kulkarni MD Tissues: Gastric mucous membrane Procedures: Surgery Specimen Level IV HEADER OPERATION: EGD ([facility] [place]) PRE-OP DIAGNOSIS: Coffee ground emesis, abdomen pain TISSUE SUBMITTED: Antrum biopsy for histo and H. pylori MICROSCOPIC DIAGNOSIS Gastric antrum, biopsy: Mild chronic gastritis. See comment. AM:danyelle 07/15/19 COMMENT The results of immunohistochemistry for Helicobacter pylori will be reported separately ([id number]). MICROSCOPIC DESCRIPTION Slides are reviewed. GROSS DESCRIPTION Received in fixative is one container labeled with the patient's name and designated antrum biopsy. The specimen consists of one irregular fragment of light luna soft tissue that measures 0.6 x 0.3 x 0.1 cm. The specimen is totally submitted in one cassette. / SJ:danyelle 07/14/19 TC:3 CPT: 86383
--- NOTE | 2019-07-14 08:30 | IMM_PTH ---
PATIENT: JUDY MAYO LOC: EN U#:[id number] AGE/SX: 59/F ROOM: RE07/14/[address]: Dr. Jacoby Rodriguez MD : 1960 BED: DIS: 07/14/2019 SPEC #: [id number] RECD: 07/14/19 14:46 STATUS: FIGUEROA RENatanael #: [id number] REZA: 07/14/19 08:[address]: Jacoby Rodriguez DEPT: IMMUNOHISTOCHEMISTRY RECD BY: Janine Muse ENTERED: 07/14/19 14:46 SP TYPE: IMMUNO OTHR DR: Dr. Tony Kulkarni MD Tissues: Stomach, NOS Procedures: H Pylori (initial) PHYSICIAN & INSTITUTION [place] [id number] SPECIMEN INFORMATION: Tissue Source: Antrum biopsy Clinical Info: Coffee ground emesis, abdomen pain Specimen Number: [id number] CPT code: 66919 METHODOLOGY: Deparaffinized sections of prefer/formalin-fixed tissue or PAP/DQ stained slides are incubated with monoclonal/polyclonal antibodies/oligonucleotide probes. Localization is made via biotin free immunoperoxidase method. Appropriate controls are performed and reacted as expected. Results on target cell population are indicated in the following table: RESULTS: ANTIBODY / CLONE RESULT H Pylori (polyclonal) negative These tests were developed and their performance characteristics determined by [facility]. They may not have been cleared or approved by the U.S. Food and Drug Administration. The FDA has determined that such clearance or approval is not necessary. INTERPRETATION: Antrum biopsy: Negative for Helicobacter pylori organisms. AM:danyelle 07/15/19
[2019-07-14 08:51] VITALS: BP 119/74; BP 99/60; PULSE 99; RESP 14; TEMP 36.9; O2SAT 90
[2019-07-14 08:55] VITALS: BP 119/74; BP 98/75; PULSE 98; RESP 16; O2SAT 94
--- NOTE | 2019-07-14 08:57 | OP.EGD_ITS ---
Patient Name: Fouzia Gorman Procedure Date: 07/14/2019 8:18 AM Date of : 1960 Age: 59 Procedure: Upper GI endoscopy Indications: Epigastric abdominal pain, Coffee-ground emesis Providers: Jacoby Rodriguez MD Referring MD: Tony Kulkarni Medicines: See the Anesthesia note for documentation of the administered medications Patient Profile: This is a 59 year old female. Refer to note in patient chart for documentation of history and physical. Complications: No immediate complications. Procedure: Pre-Anesthesia Assessment: - Prior to the procedure, a History and Physical was performed, and patient medications and allergies were reviewed. The patient's tolerance of previous anesthesia was also reviewed. The risks and benefits of the procedure and the sedation options and risks were discussed with the patient. All questions were answered, and informed consent was obtained. Prior Anticoagulants: The patient has taken no previous anticoagulant or antiplatelet agents. ASA Grade Assessment: II - A patient with mild systemic disease. After reviewing the risks and benefits, the patient was deemed in satisfactory condition to undergo the procedure. After obtaining informed consent, the endoscope was passed under direct vision. Throughout the procedure, the patient's blood pressure, pulse, and oxygen saturations were monitored continuously. The gastroscope was introduced through the mouth, and advanced to the second part of duodenum. The upper GI endoscopy was accomplished without difficulty. The patient tolerated the procedure well. Scope In: 8:39:17 AM Scope Out: 8:44:46 AM Total Procedure Duration Time 0 hours 5 minutes 29 seconds Findings: The Z-line was regular and was found 40 cm from the incisors. No biopsies or other specimens were collected for this exam. The examined esophagus was normal. Diffuse mild inflammation characterized by congestion (edema), erythema, friability and granularity was found on the greater curvature of the stomach. Biopsies were taken with a cold forceps for Helicobacter pylori testing. The examined duodenum was normal. No biopsies or other specimens were collected for this exam. Impression: - Z-line regular, 40 cm from the incisors. No specimens collected. - Normal esophagus. - Mucosal changes suspicious for gastritis. Biopsied. - Normal examined duodenum. No specimens collected. Recommendation: - Discharge patient to home. - Resume previous diet. - Continue present medications. - Await pathology results. - Repeat upper endoscopy (date not yet determined) for surveillance. - Return to my office in 1 week. Procedure Code(s): --- Professional --- 73999, Esophagogastroduodenoscopy, flexible, transoral; with biopsy, single or multiple Diagnosis Code(s): --- Professional --- K31.89, Other diseases of stomach and duodenum R10.13, Epigastric pain K92.0, Hematemesis CPT copyright 2017 [employer]. All rights reserved. The codes documented in this report are preliminary and upon invoice coder review may be revised to meet current compliance requirements. MD Jcaoby Salinas MD 07/14/2019 8:57:13 AM This report has been signed electronically. Number of Addenda: 0 Note Initiated On: 07/14/2019 8:18 AM
--- NOTE | 2019-07-14 08:57 | OP.CCLET_ITS ---
07/14/2019 Tony Kulkarni [address] [place] [address] Re : Upper GI endoscopy procedure for Fouzia Espinosa Sherif Dear Dr. Kulkarni This procedure was performed on Sunday, July 14, 2019. My impressions and recommendations are as follows: Impressions : - Z-line regular, 40 cm from the incisors. No specimens collected. - Normal esophagus. - Mucosal changes suspicious for gastritis. Biopsied. - Normal examined duodenum. No specimens collected. Recommendations : - Discharge patient to home. - Resume previous diet. - Continue present medications. - Await pathology results. - Repeat upper endoscopy (date not yet determined) for surveillance. - Return to my office in 1 week. My findings are described in the full procedure note, which is enclosed. If I can be of further assistance, please feel free to contact me at Doctor phone number(s): , Fax: [phone], Work: . Sincerely, MD Jacoby Salinas MD 07/14/2019 8:57:13 AM This report has been signed electronically.
[2019-07-14 09:00] VITALS: BP 106/80; BP 119/74; PULSE 99; RESP 16; O2SAT 99
[2019-07-14 09:05] VITALS: BP 111/72; BP 119/74; PULSE 98; RESP 17; TEMP 36.8; O2SAT 99
[2019-07-14 09:30] VITALS: BP 119/74
== END 2019-07-14 09:48 | disposition home or self-care (01) ==
LOC: EN 07:12 → AC 07:14
PROVIDERS: PCP Family Medicine; Referring Provider Family Medicine; Visit Provider Surgery
PROC: 0DJ08ZZ Inspection of Upper Intestinal Tract, Via Natural or Artificial Opening Endoscopic (ICD-10-PCS; CPT 43235; principal; 2019-07-14 08:25)
DX: K29.50 Unspecified chronic gastritis without bleeding (principal); R10.13 Epigastric pain; K92.0 Hematemesis; K82.8 Other specified diseases of gallbladder; K21.9 Gastro-esophageal reflux disease without esophagitis; F10.10 Alcohol abuse, uncomplicated; Y90.9 Presence of alcohol in blood, level not specified; F17.200 Nicotine dependence, unspecified, uncomplicated
CPT/HCPCS: 43239; 88305; 88342; J7120; J2405

== ENCOUNTER → 2019-07-23 09:52 | Outpatient (CLI) | payer MEDICARE, SELFPAY ==
[2019-07-14 07:43] VITALS: BMI 28.0
[2019-07-23 12:43] LABS: ALB/GLOB Ratio 0.4 RATIO (0.9-2.4); AST(SGOT) 116 U/L (15-37); Alanine Aminotransfer ALT/SGPT 37 U/L (13-56); Albumin, Serum 2.3 g/dL (3.2-5.0); Alkaline Phosphatase 431 U/L (45-117); Anion Gap 11 (5-15); BUN 2 mg/dL (7-18); BUN/Creat Ratio 3.4 RATIO (10-20); Calcium,Total 8.4 mg/dL (8.5-10.1); Chloride 102 mmol/L (98-107); EST Glomerular Filtration Rate 109 mL/min (>60); Est Glom Filt Rate - Afr Amer 132 mL/min (>60); Globulin 5.2 g/dL (2.2-4.2); Glucose 117 mg/dL (74-106); Potassium 3.6 mmol/L (3.5-5.1); Protein, Total 7.5 g/dL (6.4-8.2); Sodium Level 136 mmol/L (136-145)
[2019-07-23 15:27] LABS: Prealbumin 10.5 mg/dL (20.0-40.0)
== END ==
PROVIDERS: PCP Family Medicine; Referring Provider Family Medicine; Visit Provider Family Medicine
DX: E88.09 Other disorders of plasma-protein metabolism, not elsewhere classified (principal); K70.0 Alcoholic fatty liver
CPT/HCPCS: 36415; 80053; 84134

== ENCOUNTER → 2019-08-14 09:53 | Outpatient (CLI) | payer MEDICARE, SELFPAY ==
--- NOTE | 2019-08-14 09:59 | ECHOD_ITS ---
Reason For Study: SOB Procedure This was a 2D Doppler, Color Flow transthoracic echocardiogram. Exam performed in department. Left Ventricle Normal LV size. The estimated ejection fraction is 60 %. No evidence for diastolic dysfunction. No regional wall motion abnormalities noted. Right Ventricle Normal RV size. Normal systolic function. Atria Normal left atrium. Normal right atrium. No doppler evidence for ASD. Mitral Valve There is no mitral valve stenosis. No mitral valve insufficiency. Tricuspid Valve There is no tricuspid stenosis. Trivial tricuspid valve insufficiency. Pulmonary artery systolic pressure is 35 mmHg. Aortic Valve The aortic valve is not well visualized. There is no aortic stenosis. No aortic valve insufficiency. Pulmonic Valve There is no pulmonic valvular stenosis. No pulmonic valve insufficiency. Great Vessels Normal aortic root. Pericardium/Pleural No pericardial effusion. MMode/2D Measurements & Calculations LVIDd: 5.1 cm IVSd: 1.1 cm Ao root diam: 3.0 cm LVIDs: 3.8 cm LVPWd: 1.0 cm RVDd: 3.0 cm FS: 25.7 % LAV(MOD-bp): 61.9 ml LA A4 area: 20.1 cm2 LA dimension(2D): 3.8 cm LAV(MOD-bp) Indexed: 31.3 ml/m2 LAV(MOD-sp2): 54.7 ml LAV(MOD-sp4): 66.6 ml RA A4 area: 12.8 cm2 Time Measurements MV dec time: 0.16 sec Doppler Measurements & Calculations MV E max manuel: 102.0 cm/sec Lat Peak E' Manuel: 14.3 cm/sec Med Peak E' Manuel: 13.4 cm/sec MV A max manuel: 36.3 cm/sec E/E' lat: 7.1 E/E' med: 7.6 MV E/A: 2.8 Ao V2 max: 119.6 cm/sec LV V1 max: 98.8 cm/sec PA V2 max: 84.9 cm/sec Ao max P.7 mmHg LV V1 max P.9 mmHg TR max manuel: 259.9 cm/sec TR max P.0 mmHg Interpretation Summary The estimated ejection fraction is 60 %. No evidence for diastolic dysfunction. Ordering Physician: Tony Kulkarni Referring Physician: Tony Kulkarni Performed By: Sally Pedro RDCS, RVT
--- NOTE | 2019-08-14 10:09 | NM_ITS ---
CLINICAL: Female, 59 years old. GASTRITIS -- VOMITING GASTRIC EMPTYING-SULFUR COLLOID TECHNIQUE: The patient was orally administered 1.1 mCi of Tc-sulfur colloid. Gamma camera imaging acquisitions at 1-60 minutes post radiopharmaceutical administration was performed. FINDINGS: There is normal filling and emptying of the stomach. NM/Gastric Emptying Study IMPRESSION: Normal gastric emptying nuclear medicine scan. Electronically Signed: Magdiel Neal, at 14:17 EDT , Service support ,
== END ==
PROVIDERS: PCP Family Medicine; Referring Provider Family Medicine; Visit Provider Family Medicine
DX: R06.02 Shortness of breath (principal)
CPT/HCPCS: 78264; 93306; A9541

== ENCOUNTER → 2019-08-19 11:43 | Outpatient (CLI) | payer MEDICARE, SELFPAY ==
[2019-08-19 15:15] LABS: ALB/GLOB Ratio 0.5 RATIO (0.9-2.4); AST(SGOT) 95 U/L (15-37); Alanine Aminotransfer ALT/SGPT 37 U/L (13-56); Albumin, Serum 2.1 g/dL (3.2-5.0); Alkaline Phosphatase 525 U/L (45-117); Anion Gap 8 (5-15); BUN 2 mg/dL (7-18); BUN/Creat Ratio 3.5 RATIO (10-20); Chloride 102 mmol/L (98-107); Creatinine, Serum 0.56 mg/dL (0.55-1.02); EST Glomerular Filtration Rate 116 mL/min (>60); Est Glom Filt Rate - Afr Amer 141 mL/min (>60); Globulin 4.6 g/dL (2.2-4.2); Glucose 86 mg/dL (74-106); Potassium 3.8 mmol/L (3.5-5.1); Prealbumin 7.6 mg/dL (20.0-40.0); Protein, Total 6.7 g/dL (6.4-8.2); Sodium Level 133 mmol/L (136-145)
== END ==
PROVIDERS: PCP Family Medicine; Referring Provider Family Medicine; Visit Provider Family Medicine
DX: E46 Unspecified protein-calorie malnutrition (principal)
CPT/HCPCS: 36415; 80053; 84134

== ENCOUNTER 2019-10-14 01:15 | Emergency (ER) | payer MEDICARE, SELFPAY ==
[2019-10-14 01:16] VITALS: BP 114/83; PULSE 80; RESP 18; TEMP 35.5; O2SAT 97; BMI 34.5
--- NOTE | 2019-10-14 01:54 | CT_ITS ---
STUDY: CT BRAIN WITHOUT CONTRAST REASON FOR EXAM: Female, 59 years old. FALL X 2,WEAKNESS -- HX:PRIOR BRAIN INJURY,HYPOTHYROID,COPD RADIATION DOSAGE (If Supplied By Facility): CTDIvol = ( 44.99 ) mGy, DLP = ( 796.11 ) mGycm TECHNIQUE: Transaxial CT imaging of the brain was performed without administration of intravenous contrast material. Individualized dose optimization techniques were used for this CT. COMPARISON: No relevant priors. FINDINGS: Normal soft tissue structures. There are postcraniotomy changes on the left side from prior evacuation of an epidural hematoma. Normal size ventricles and extra-axial spaces for the patient''s age. Cortical and subcortical low attenuation lesions are seen in bilateral frontal and temporal lobes consistent with resolved prior hemorrhagic contusions. There is possible new hemorrhagic contusion in the left temporal lobe. There are postcraniotomy changes on the left side from prior evacuation of an epidural hematoma. Normal basal ganglia and thalami. Normal brainstem. Normal cerebellum. There is no intracranial hemorrhage. There are no findings of an acute ischemic infarction. Normal visualized paranasal sinuses. CT/Brain/Head without Contrast IMPRESSION: There is possible new hemorrhagic contusion in the left temporal lobe measures 2 cm. Electronically Signed: Cleo Sierra, at 3:53 EDT Tel , Service support ,
--- NOTE | 2019-10-14 01:55 | RAD_ITS ---
STUDY: X-RAY CHEST REASON FOR EXAM: Female, 59 years old. S/P FALL -- DENIES ANY CHEST PAIN OR BREATHING PROBLEMS TECHNIQUE: Single AP portable view of the chest. COMPARISON: None. FINDINGS: The lungs are clear and expanded. There is no demonstrated pleural abnormality. Normal size heart. Normal mediastinum and eva. Normal visualized pulmonary arteries. Normal visualized aortic arch and descending thoracic aorta. Normal visualized thoracic spine. Normal visualized ribs, clavicles, and shoulders. There is no demonstrated abnormality of the visualized soft tissue structures of the upper abdomen. RAD/Chest 1 View (Portable) IMPRESSION: Normal x-ray examination of the chest. Electronically Signed: Cleo Sierra, at 3:46 EDT Tel , Service support ,
--- NOTE | 2019-10-14 01:55 | EKG12_ITS ---
Test Reason : FALL Blood Pressure : / mmHG Vent. Rate : 082 BPM Atrial Rate : 082 BPM P-R Int : 142 ms QRS Dur : 096 ms QT Int : 400 ms P-R-T Axes : 058 066 072 degrees QTc Int : 467 ms Sinus rhythm with Premature supraventricular complexes Otherwise normal ECG Confirmed by JESUS MACIAS ([id number]), video editor DIONNA MASTERSON ([id number]) on 10/21/2019 8:17:14 AM Referred By: SHAYLA Confirmed By:JESUS MACIAS
[2019-10-14 02:02] LABS: Absolute Lymphocyte Count 2.04 X10^3/uL (0.83-4.51); Absolute Neutrophil Count 9.8 X10^3/uL (2.0-7.7); Basophil# 0.07 X10^3/uL; Basophil% 0.5 % (0-1); Eosinophil# 0.16 X10^3/uL; Eosinophils% 1.2 % (0-5); Hematocrit 34.4 % (37-47); Hemoglobin 11.9 g/dL (12.0-15.0); Lymphocyte # 2.04 X10^3/ul (4.0); Lymphocyte % 15.2 % (19-41); Mean Corp Hgb Conc 34.6 g/dL (32-36); Mean Corpuscular Hgb 37.8 pg (27.0-32.0); Mean Corpuscular Volume 109.2 fL (81-99); Mean Platelet Vol. 10.9 fl (6.2-12.0); Monocyte# 1.15 X10^3/uL; Monocyte% 8.6 % (0-10); NRBC Flagged by Analyzer 0 % (0-5); Neutrophil # 9.75 X10^3/uL (2.7-7.7); Neutrophil % 72.9 % (47-70); Platelet Count 160 K/mm3 (150-450); RBC Distribution Width CV 12.7 % (11.6-14.6); RBC Distribution Width SD 50.6 fl (35.1-43.9); Red Blood Count 3.15 M/mm3 (4.2-5.4); White Blood Count 13.4 K/mm3 (4.4-11.0)
--- NOTE | 2019-10-14 02:05 | ED.DCSUM_ITS ---
- ER Visit Summary Date of Service: 10/14/19 Chief Complaint: Frequent falls History of Present Illness: The patient is a 59 F presenting due to frequent falls. She states she has fallen twice in the past 24 hours. She states she hit her head but did not lose consciousness. She states both times her legs just gave out. She feels generally weak. She denies fever. Denies chest pain or shortness of breath. Denies abdominal pain. Denies bowel or bladder incontinence. Physical Examination: Vitals are stable. Patient is afebrile. Alert no acute distress. Unkempt HEENT exam is unremarkable. Neck is supple. Lungs are clear and equal bilaterally. Heart is regular rate and rhythm. Abdomen is soft nontender nondistended. Erythema and excoriations of groin and buttock Extremities symmetric edema Skin skin tear left upper extremity No focal neurologic deficit. Answers questions appropriately, slow to respond Remainder of exam is unremarkable. Emergency Department Course and Treatment: Left upper extremity wound was cleaned and dressed. She was given tetanus IM. CBC shows white count 13.4, hemoglobin 11.9. Chemistries show sodium 115, potassium 5.2, glucose 122. Troponin 0.222. She was given IV fluids. EKG is sinus rhythm rate of 82 with no acute ischemic changes. CT head shows there is possible new hemorrhagic contusion in the left temporal lobe measures 2 cm. Patient prefers [facility]. Discussed with [facility] for transfer. Disposition: Transfer [facility] Impression: Hyponatremia, multiple falls, hemorrhagic contusion temporal lobe This note was generated with [employer] dictation software. It may contain incorrect words, spelling, and punctuation that were not noted in review of the chart prior to signing ED Disposition - Plan for ED Patient: Referrals: Tony Kulkarni MD [Primary Care Provider] -
[2019-10-14 02:26] LABS: Anion Gap 10 (5-15); BUN 2 mg/dL (7-18); BUN/Creat Ratio 3.8 RATIO (10-20); Calcium,Total 8.3 mg/dL (8.5-10.1); Chloride 85 mmol/L (98-107); Creatinine, Serum 0.52 mg/dL (0.55-1.02); EST Glomerular Filtration Rate 127 mL/min (>60); Est Glom Filt Rate - Afr Amer 154 mL/min (>60); Estimated Creatinine Clearance 120.24 ml/min; Glucose 122 mg/dL (74-106); Potassium 5.2 mmol/L (3.5-5.1); Sodium Level 115 mmol/L (136-145)
[2019-10-14] MEDS: 0.9% Normal Saline 1,000 ML 999 ML IV (02:45)
[2019-10-14 02:53] LABS: Mucous, Urine 0 SEEN /hpf (<or=2+); Red Blood Cells-Urine 0 SEEN /hpf (0-5)
[2019-10-14 02:55] LABS: Color, Urine Yellow (Yellow); Glucose, Dipstick Normal (Normal); Ketone-Dipstick Negative (Negative); Leukocyte Esterase-Dipstick 25 /ul (Negative); Nitrite-Dipstick Positive (Negative); Occult Blood-Urine Negative /ul (Negative); Protein-Dipstick Negative (Negative); Specific Gravity, Urine 1.015 (1.002-1.030); Urine Bilirubin Dipstick Negative (Negative); Urine Clarity Sl. Cloudy (Clear); Urine Urobilinogen 1 mg/dl (Normal)
[2019-10-14] MEDS: Diphth,Pertuss(Acell),Tet Vac 0.5 ML Vial IM (02:58)
[2019-10-14 03:08] LABS: Bacteria 4+ /hpf (None Seen)
[2019-10-14 03:09] LABS: Amorphous Sediment 2+
[2019-10-14 03:11] LABS: Squamous Epithelial Cells - UA 0-5 SEEN /hpf (5-10)
[2019-10-14 03:12] LABS: White Blood Cells 5-10 SEEN /hpf (0-5)
[2019-10-14 03:23] VITALS: BP 115/75; PULSE 90; RESP 15; O2SAT 97
[2019-10-14] MEDS: Acetaminophen 500 MG Tablet 1000 MG PO (03:33)
[2019-10-14] MEDS: Ceftriaxone 1 GM/50 ML BAG IV (03:43)
[2019-10-14 03:45] VITALS: BP 128/96; PULSE 102; RESP 18; TEMP 36.4; O2SAT 99
[2019-10-14 04:16] VITALS: BP 121/81; PULSE 102; RESP 18; O2SAT 98
== END 2019-10-14 04:54 | disposition short-term general hospital (02) ==
PROVIDERS: Emergency Provider Emergency Medicine; PCP Family Medicine
DX: E87.1 Hypo-osmolality and hyponatremia (principal); S06.2X0A Diffuse traumatic brain injury without loss of consciousness, initial encounter; W18.00XA Striking against unspecified object with subsequent fall, initial encounter; Y93.9 Activity, unspecified; Y92.89 Other specified places as the place of occurrence of the external cause; Y99.9 Unspecified external cause status; R29.6 Repeated falls; E03.9 Hypothyroidism, unspecified; J44.9 Chronic obstructive pulmonary disease, unspecified; N39.0 Urinary tract infection, site not specified; F10.129 Alcohol abuse with intoxication, unspecified; Y90.9 Presence of alcohol in blood, level not specified; K21.9 Gastro-esophageal reflux disease without esophagitis; Z72.0 Tobacco use; Z79.899 Other long term (current) drug therapy
CPT/HCPCS: 70450; 71045; 80048; 80320; 81001; 84484; 85025; 87077; 87086; 87088; 87186; 90715; 93005; 96361; 96365; 99285; J7030; J7050; A4216; G0480

== ENCOUNTER 2019-11-06 19:18 | Inpatient (IN) | payer MEDICARE, SELFPAY ==
[2019-11-06 19:21] VITALS: BP 116/78; PULSE 100; RESP 18; TEMP 36.7; O2SAT 99; BMI 37.7
--- NOTE | 2019-11-06 19:44 | EKG12_ITS ---
Test Reason : DYSRHYTHMIA Blood Pressure : / mmHG Vent. Rate : 104 BPM Atrial Rate : 104 BPM P-R Int : 146 ms QRS Dur : 086 ms QT Int : 388 ms P-R-T Axes : 079 056 067 degrees QTc Int : 510 ms Sinus tachycardia Low voltage QRS Borderline ECG Confirmed by MARIANA PEGUERO, SUSI ([id number]), editorial project manager DIONNA MASTERSON ([id number]) on 11/10/2019 11:02:22 AM Referred By: MAU Confirmed By:SUSI PEÑA MD
--- NOTE | 2019-11-06 19:45 | CT_ITS ---
STUDY: CT BRAIN WITHOUT CONTRAST REASON FOR EXAM: Female, 59 years old. AMS, URINARY RETENTION, CURRENT TX FOR UTI, NO BM FOR 7 DAYS, HX EPIDURAL HEMATOMA WITH SURGERY RADIATION DOSAGE (If Supplied By Facility): CTDIvol = ( 44.99 ) mGy, DLP = ( 796.11 ) mGycm TECHNIQUE: Transaxial CT imaging of the brain was performed without administration of intravenous contrast material. Individualized dose optimization techniques were used for this CT. COMPARISON: 10/14/2019. FINDINGS: Normal soft tissue structures. Prior left frontotemporoparietal craniotomy. There is mild cerebral atrophy with widening of the extra-axial spaces and ventricular dilatation. Left frontal microvascular ischemic changes are unchanged. There is no intracranial hemorrhage. No acute territorial infarct. 1.9 x 1.3 cm isodense lesion in the left temporal lobe is unchanged compared to the prior study, possible residual hematoma versus mass. Encephalomalacia in the left temporal lobe is unchanged. Encephalomalacic change in the right frontal and temporal lobes is unchanged. Mucosal thickening and fluid level in the right sphenoid sinus. CT/Brain/Head without Contrast IMPRESSION: 1. Stable left temporal density compared to the prior study, question residual hematoma versus mass. 2. Chronic encephalomalacic changes in the right frontal and temporal lobes. 3. Chronic microvascular ischemic changes in the left frontal lobe. Electronically Signed: Ashley Almazan MD at 21:30 EDT Tel , Service support ,
--- NOTE | 2019-11-06 19:47 | ED.DCSUM_ITS ---
History of Present Illness Chief Complaint: Constipation Informant: Inventory Checker, [facility] Onset: Days Context: Gradual Onset Timing: Intermittent Narrative: Patient is a 59-year-old female with history of encephalopathy, alcohol abuse and brain contusion [facility] for worsening mentation, concern for worsening UTI, urinary retention and constipation. Patient had a bowel movement past 7 days. Staff reports that the only way they can get her to urinate is rolling her from side to side. Patient seems to be moaning and having discomfort in her abdomen. They have tried lax atives and enemas with no success. Patient is currently on Bactrim and Macrobid for UTI. This was started 2 days ago. Patient is unable to contribute to her history. Per chart review patient had a fall and was seen in the ER on 10/13. She is on have a hemorrhagic contusion of the left temporal lobe and transferred to [facility]. Patient does not appear to be on any anticoagulation . Past Medical History - Allergies and Home Meds Allergies/Adverse Reactions: Allergies bee venom protein (honey bee) Allergy (Verified 10/14/19 01:39) Unknown oxycodone Adverse Reaction (Intermediate, Verified 10/14/19 01:39) Other LIGHTHEADED DIZZY Past Medical History: - - Chronic back pain, GERD, alcohol abuse, epidural hematoma [place]: [place] Smoking Status: Former smoker - Family History Maternal Family History: Reports: Unknown Paternal Family History: Reports: - - No reported market maternal or paternal family history including heart disease, diabetes or cancer but reported possible substance/alcohol abuse. Review of Systems ROS: Unable to Obtain - Secondary to mental status change Physical Exam Vital Signs/Narrative: Vital Signs Temp Pulse Resp BP Pulse Ox 11/06/19 19:21 98.1 F 100 18 116/78 99 Inital Vital Signs reviewed: Yes General: Well nourished, Well developed, Obese, No Acute Distress Head: Normocephalic, Atraumatic Eyes: Perrl, EOMI. Negative for: Scleral icterus ENT: Moist mucous membranes, No rhinorrhea Neck: Supple, Nontender, No JVD Cardiovascular: Regular rhythm, No murmurs, Tachycardia Respiratory: No distress, CTA bilaterally, Chest nontender Abdomen: Soft, Normal bowel sounds, Tender - Generalized, vague, - - Abdomen is diffusely distended, no fluid wave is appreciated. Negative for: Guarding, Rebound tenderness Rectal: - - Large amount of medium to soft stool in the rectal vault. Good amount is disimpacted however there is still a large amount of stool in her rectum. Back: Nontender, Normal Inspection Extremities: Nontender, Edema - 2+ bilateral up to the knees Skin: Normal color, No rash Neurological: Cranial nerves II-XII grossly intact, Normal Strength, Normal Sensation, - - Somnolent, moaning in bed, minimally responsive external stimuli Diagnostic/Tx/Re-eval Clinical Impression(s) from Imaging Studies Brain CT 11/06/19 19:45 IMPRESSION: 1. Stable left temporal density compared to the prior study, question residual hematoma versus mass. 2. Chronic encephalomalacic changes in the right frontal and temporal lobes. 3. Chronic microvascular ischemic changes in the left frontal lobe. Electronically Signed: Ashley Almazan MD at 21:30 EDT Tel , Service support , Abdomen/Pelvis CT 11/06/19 20:59 IMPRESSION: 1. Somewhat limited due to artifact. 2. Mild ascites. 3. Mild right hydronephrosis. No obstructing mass or stone is demonstrated. 4. Pancreatic head calcifications may be due to chronic pancreatitis versus CBD stone. 5. Extensive soft tissue edema. Electronically Signed: Ashley Almazan MD at 21:46 EDT Tel , Service support , Laboratory Data 11/06/19 11/06/19 11/06/19 19:46 19:46 19:46 WBC 10.2 RBC 3.04 L Hgb 11.0 L Hct 33.0 L MCV 108.6 H MCH 36.2 H MCHC 33.3 RDW Std Deviation 51.8 H RDW Coeff of Judith 13.1 Plt Count 179 MPV 12.5 H Immature Gran % (Auto) 0.600 Neut % (Auto) 62.8 Lymph % (Auto) 23.7 [place] % (Auto) 11.0 H Eos % (Auto) 1.1 Baso % (Auto) 0.8 Absolute Neuts (auto) 6.4 Absolute Lymphs (auto) 2.43 Nucleated RBC % 0 Sodium 136 Potassium 5.2 H Chloride 103 Carbon Dioxide 25.0 Anion Gap 8 BUN 24 H Creatinine 1.69 H Estim Creat Clear Calc 31.85 Est GFR (MDRD) Af Amer 40 L Est GFR (MDRD) Non-Af 33 L BUN/Creatinine Ratio 14.2 Glucose 88 Lactic Acid Calcium 8.6 Magnesium 2.1 Total Bilirubin 1.10 H Direct Bilirubin 0.47 H AST 51 H ALT 23 Alkaline Phosphatase 247 H Ammonia 89.0 H Troponin I 0.107 H Total Protein 6.4 Albumin 2.0 L Globulin 4.4 H Lipase 36 L TSH 3.72 Urine Color Urine Clarity Urine pH Ur Specific [place] Urine Protein Urine Glucose (UA) Urine Ketones Urine Occult Blood Urine Nitrite Urine Bilirubin Urine Urobilinogen Ur Leukocyte Esterase Urine RBC Urine WBC Ur Squamous Epith Cells Urine Bacteria Urine Mucus 11/06/19 11/06/19 19:46 20:14 WBC RBC Hgb Hct MCV MCH MCHC RDW Std Deviation RDW Coeff of Judith Plt Count MPV Immature Gran % (Auto) Neut % (Auto) Lymph % (Auto) [place] % (Auto) Eos % (Auto) Baso % (Auto) Absolute Neuts (auto) Absolute Lymphs (auto) Nucleated RBC % Sodium Potassium Chloride Carbon Dioxide Anion Gap BUN Creatinine Estim Creat Clear Calc Est GFR (MDRD) Af Amer Est GFR (MDRD) Non-Af BUN/Creatinine Ratio Glucose Lactic Acid 1.7 Calcium Magnesium Total Bilirubin Direct Bilirubin AST ALT Alkaline Phosphatase Ammonia Troponin I Total Protein Albumin Globulin Lipase TSH Urine Color Yellow Urine Clarity Cloudy Urine pH 8.0 Ur Specific [place] 1.010 Urine Protein 30 H Urine Glucose (UA) Normal Urine Ketones 5 H Urine Occult Blood 250 H Urine Nitrite Negative Urine Bilirubin Negative Urine Urobilinogen 8 H Ur Leukocyte Esterase 500 H Urine RBC 0-5 SEEN Urine WBC >100 SEEN Ur Squamous Epith Cells 0-5 SEEN Urine Bacteria 3+ Urine Mucus 0 SEEN - Rhythm Strip Rhythm Strip: Sinus Tach Rate: 104 Ectopy: None - EKG Initial EKG Interpretation: Sinus Tachycardia, - - Tachycardia at a rate of 104 Normal axis Normal intervals Normal ST segments Low voltage QRS Compared to prior EKG on patient has lower voltage but no other acute changes - Medical Decision Making Patient is evaluated for urinary retention, abdominal pain and change in mentation. Burns catheter is placed and patient has 1.5 L of urine that is blood-tinged and then grossly bloody out. She still seems to have abdominal pain but she is difficult exam secondary to her global encephalopathy. Given her recent head trauma, repeat head CT is obtained which does not show any acute intracranial process. Suspect patient is having encephalopathy. Her white blood cell count and lactate are normal. Patient does have acute kidney injury with almost triple her baseline creatinine which I suspect is associated with her acute renal urinary retention. Patient is started on maintenance fluid in the emergency room. She is also found to have an elevated troponin which could be correlated to her elevated acute kidney failure. EKG does not show any signs of ACS. Finally patient has an elevated ammonia level 89. Hepatic encephalopathy could be contributing to her presentation however I do not have a prior ammonia level to compare to. Patient only has a mild transaminitis with her AST and alkaline phosphatase. She is only minimally elevated bilirubin and is not jaundiced. Urinalysis is also consistent with infection which she has known UTI. Urine culture is pending. CT of the abdomen pelvis shows a large amount of stool and mild right hydronephrosis. Patient also has mild ascites on CT. I suspect patient has urinary tension secondary to her fecal impaction. Patient be admitted for further medical management. Family is at the bedside is agreeable with this plan. ED Disposition - Plan for ED Patient: Disposition: Acute [facility] Diagnosis: NAILA (acute kidney injury), Constipation, Fecal impaction, Elevation of cardiac enzymes, Urinary retention, UTI (urinary tract infection), Hyperammonemia, Encephalopathy
[2019-11-06 20:06] LABS: Absolute Lymphocyte Count 2.43 X10^3/uL (0.83-4.51); Absolute Neutrophil Count 6.4 X10^3/uL (2.0-7.7); Basophil# 0.08 X10^3/uL; Basophil% 0.8 % (0-1); Eosinophil# 0.11 X10^3/uL; Eosinophils% 1.1 % (0-5); Lymphocyte # 2.43 X10^3/ul (4.0); Lymphocyte % 23.7 % (19-41); Mean Corp Hgb Conc 33.3 g/dL (32-36); Mean Corpuscular Hgb 36.2 pg (27.0-32.0); Mean Corpuscular Volume 108.6 fL (81-99); Mean Platelet Vol. 12.5 fl (6.2-12.0); Monocyte# 1.13 X10^3/uL; NRBC Flagged by Analyzer 0 % (0-5); Neutrophil # 6.43 X10^3/uL (2.7-7.7); Neutrophil % 62.8 % (47-70); Platelet Count 179 K/mm3 (150-450); RBC Distribution Width CV 13.1 % (11.6-14.6); RBC Distribution Width SD 51.8 fl (35.1-43.9); Red Blood Count 3.04 M/mm3 (4.2-5.4); White Blood Count 10.2 K/mm3 (4.4-11.0)
[2019-11-06 20:22] LABS: Mucous, Urine 0 SEEN /hpf (<or=2+)
[2019-11-06 20:24] LABS: Color, Urine Yellow (Yellow); Glucose, Dipstick Normal (Normal); Ketone-Dipstick 5 mg/dl (Negative); Leukocyte Esterase-Dipstick 500 /ul (Negative); Nitrite-Dipstick Negative (Negative); Occult Blood-Urine 250 /ul (Negative); Protein-Dipstick 30 mg/dl (Negative); Urine Bilirubin Dipstick Negative (Negative); Urine Clarity Cloudy (Clear); Urine Urobilinogen 8 mg/dl (Normal)
[2019-11-06 20:26] VITALS: BP 102/63; PULSE 106; RESP 18; TEMP 36.9; O2SAT 100
[2019-11-06 20:31] LABS: Lactic Acid 1.7 mmol/L (0.4-1.9)
[2019-11-06 20:32] LABS: Squamous Epithelial Cells - UA 0-5 SEEN /hpf (5-10)
[2019-11-06 20:33] LABS: Bacteria 3+ /hpf (None Seen); Red Blood Cells-Urine 0-5 SEEN /hpf (0-5); White Blood Cells >100 SEEN /hpf (0-5)
[2019-11-06 20:55] LABS: AST(SGOT) 51 U/L (15-37); Alanine Aminotransfer ALT/SGPT 23 U/L (13-56); Alkaline Phosphatase 247 U/L (45-117); Anion Gap 8 (5-15); BUN 24 mg/dL (7-18); BUN/Creat Ratio 14.2 RATIO (10-20); Bilirubin, Direct 0.47 mg/dL (0.00-0.30); Calcium,Total 8.6 mg/dL (8.5-10.1); Chloride 103 mmol/L (98-107); Creatinine, Serum 1.69 mg/dL (0.55-1.02); EST Glomerular Filtration Rate 33 mL/min (>60); Est Glom Filt Rate - Afr Amer 40 mL/min (>60); Estimated Creatinine Clearance 31.85 ml/min; Globulin 4.4 g/dL (2.2-4.2); Glucose 88 mg/dL (74-106); Lipase 36 U/L (73-393); Potassium 5.2 mmol/L (3.5-5.1); Protein, Total 6.4 g/dL (6.4-8.2); Sodium Level 136 mmol/L (136-145)
--- NOTE | 2019-11-06 20:59 | CT_ITS ---
STUDY: CT ABDOMEN AND PELVIS WITHOUT CONTRAST REASON FOR EXAM: Female, 59 years old. AMS, URINARY RETENTION, CURRENT TX FOR UTI, NO BM FOR 7 DAYS, HX EPIDURAL HEMATOMA WITH SURGERY, KEARNS IS FULL OF BLOOD RADIATION DOSAGE (If Supplied By Facility): CTDIvol = ( 21.32 ) mGy, DLP = ( 1139.73 ) mGycm TECHNIQUE: Transaxial images were obtained from the dome of the diaphragm to the symphysis pubis without oral contrast, and without intravenous contrast. Sagittal and coronal images were reconstructed. Individualized dose optimization techniques were used for this CT. COMPARISON: None. FINDINGS: Images are degraded by patient motion and beam hardening artifact from arm position. Lung bases are clear. Heart size is normal. Mild ascites. The liver is unremarkable. The gallbladder is unremarkable. Spleen is unremarkable. Calcifications in the head of the pancreas or distal common duct. Pancreas is otherwise unremarkable. The adrenal glands are normal. Mild right hydronephrosis. Mild hydroureter. Transition in the mid ureter without visualized stone. Punctate nonobstructing calcifications in the left kidney. Left kidney is otherwise unremarkable. The aorta is normal in caliber. There is no free fluid, free air, or organized collection. No bowel obstruction or inflammatory change. Distended, stool-filled rectum. Urinary bladder is catheterized and decompressed. Extensive soft tissue edema along the flanks bilaterally. Normal osseous structures. CT/Abdomen/Pelvis without Cont IMPRESSION: 1. Somewhat limited due to artifact. 2. Mild ascites. 3. Mild right hydronephrosis. No obstructing mass or stone is demonstrated. 4. Pancreatic head calcifications may be due to chronic pancreatitis versus CBD stone. 5. Extensive soft tissue edema. Electronically Signed: Ashley Almazan MD at 21:46 EDT Tel , Service support ,
[2019-11-06 21:26] VITALS: BP 103/69; PULSE 104; RESP 18; TEMP 37; O2SAT 99
--- NOTE | 2019-11-06 22:04 | PCM.HP.STD ---
Problem List (1) UTI (urinary tract infection) Status: Acute Qualifiers: Urinary tract infection type: site unspecified (2) Urinary retention Status: Acute (3) Hyperammonemia Status: Acute (4) Elevation of cardiac enzymes Status: Acute (5) Constipation Status: Acute Qualifiers: Constipation type: unspecified constipation type Qualified Code(s): K59.00 - Constipation, unspecified (6) Fecal impaction Status: Acute (7) NAILA (acute kidney injury) Status: Acute (8) Hypothyroidism Status: Chronic Qualifiers: Hypothyroidism type: unspecified Qualified Code(s): E03.9 - Hypothyroidism, unspecified (9) Chronic back pain Status: Chronic Qualifiers: Back pain location: back pain in unspecified location Back pain laterality: unspecified Qualified Code(s): M54.9 - Dorsalgia, unspecified; G89.29 - Other chronic pain (10) GERD (gastroesophageal reflux disease) Status: Chronic Qualifiers: Esophagitis presence: esophagitis presence not specified Qualified Code(s): K21.9 - Gastro-esophageal reflux disease without esophagitis (11) Chronic alcohol abuse Status: Chronic (12) Tobacco abuse disorder Status: Chronic (13) Epidural hematoma Status: Resolved History of Present Illness Date of Admission: 11/06/19 Chief Complaint: Abdominal pain, constipation, confusion The patient is a 59 y/o F w/ PMHx: Tobacco use, GERD, HTN, HLD, EtOH Abuse history sober since recent hospitalization, Alcoholic Cirrhosis, Hypothyroidism, Hx Epidural hematoma s/p craniotomy/CVA with memory impairment, Chronic pain syndrome who presents to the [facility] ED on 11/06/19 with history of several days of failure to have a bowel movement with worsening lower quadrant abdominal discomfort, described as cramping and sharp, currently 10 out of 10 in severity with no specifically associated nausea or emesis and onset of urinary retention prompting referral by senior care facility to ED for evaluation. Patient and friend deny any recent fevers or chills. Work-up in the ED included T 98.1, heart rate 100, BP 116/78, respiratory rate 18, 99% on room air, CBC with WBC 10.2, hemoglobin 11, platelet 179 without any evidence of left shift, CMP potassium 5.2, BUN/creatinine 24/1.69, lactic acid 1.7, total bilirubin 1.10, direct bilirubin 0.47, AST/ALT 51/23, alk phos 247, ammonia level 89, troponin 0 0.107, lipase 36, evidence significant urinary retention with Burns placement with 1.5 L output with significant urinalysis for UTI, urine culture pending per ED, CT brain with stable left temporal density compared to prior study, chronic encephalomalacia changes in the right frontal and temporal lobes, chronic microvascular ischemic changes in the left frontal lobe, CT abdomen and pelvis limited secondary to artifact with noted mild ascites, mild right hydronephrosis with no obstructing mass or stone demonstrated, pancreatic head calcifications suspected secondary to chronic pancreatitis, distended stool filled rectum, urinary bladder catheterized and decompressed, soft tissue edema along the flanks bilaterally. In the ED patient disimpacted per ED physician. Past Medical History Past Medical History (Chronic Problems): Chronic Problems (Last Reviewed 07/02/19 @ 16:[address] Jacoby Rodriguez MD) Hypothyroidism (Chronic) Chronic back pain (Chronic) GERD (gastroesophageal reflux disease) (Chronic) Chronic alcohol abuse (Chronic) Tobacco abuse disorder (Chronic) Medical History: Medical History (Last Reviewed 07/02/19 @ 16:[address] Jacoby Rodriguez MD) Chronic back pain (Chronic) M54.9, G89.29 GERD (gastroesophageal reflux disease) (Chronic) K21.9 Chronic alcohol abuse (Chronic) F10.10 Tobacco abuse disorder (Chronic) Z72.0 Debility (Acute) R53.81 Epidural hematoma (Acute) S06.4X9A Allergies bee venom protein (honey bee) Allergy (Verified 10/14/19 01:39) Unknown oxycodone Adverse Reaction (Intermediate, Verified 10/14/19 01:39) Other LIGHTHEADED DIZZY Home Medications: Ambulatory Orders Medication Instructions Recorded Acetaminophen [Tylenol Extra 500 mg PO Q6H PRN PRN 11/06/19 Strength] Bumetanide [Bumex] 0.5 mg PO DAILY 11/06/19 Fluticasone Furoate [Veramyst] 1 spray NS DAILY 11/06/19 Lactobacillus Rhamnosus GG 1 cap PO DAILY 11/06/19 [Culturelle] Levothyroxine Sodium [Synthroid] 112 mcg PO DAILY 11/06/19 Midodrine HCl 10 mg PO TID 11/06/19 Multivitamin with Minerals 1 ea PO DAILY 11/06/19 [Multivitamins with Minerals] Nitrofurantoin Macrocrystal 100 mg PO BID 11/06/19 [Macrodantin] Omeprazole 40 mg PO DAILY 11/06/19 Potassium Chloride [Klor-Con M20] 20 meq PO DAILY 11/06/19 Pregabalin [Lyrica] 75 mg PO BID 11/06/19 Sodium Phosphate,[place]-Dibasic 1 bottle [place] DAILY PRN PRN 11/06/19 [Fleet Enema] Tiotropium [place] [Spiriva 2 puff INHALATION DAILY 11/06/19 Respimat] Surgical History: - - Craniotomy. 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 Paternal History Items: - - No reported market maternal or paternal family history including heart disease, diabetes or cancer but reported possible substance/alcohol abuse. Review of Systems Constitutional: Reports: Anorexia, Malaise, Weakness, Fatigue. Denies: Chills, Fever, Weight Change HEENT: Denies: Head Aches, Sinus Congestion, Sinus Drainage Cardiovascular: Denies: Chest Pain, Palpitations Respiratory: Denies: Cough, Shortness of breath at rest, Sputum production Gastrointestinal: Reports: Abdominal Pain, Constipation. Denies: Nausea, Vomiting Genitourinary: Reports: Retention. Denies: Dysuria Musculoskeletal: Reports: Back Pain, Joint Pain. Denies: Joint Tenderness Skin: Denies: Rash, Wounds Neurological: Reports: Confusion. Denies: Focal weakness, Numbness, Tingling Psychiatric: Denies: Anxiety, Depression, Homicidal Ideations, Suicidal Ideations Hematologic/ Lymphatic: Reports: Anemia, Easy Bruising, Easy Bleeding VTE Information - Inpt Only VTE Present on Admission: No VTE Mechan Device Prophylaxis: SCD's VTE Pharm Prophylaxis ordered?: Yes Patient Problems: Active and Suspected Problems (Last Reviewed 07/02/19 @ 16:[address] Jacoby Rodriguez MD) UTI (urinary tract infection) (Acute) Urinary retention (Acute) Hyperammonemia (Acute) Elevation of cardiac enzymes (Acute) Constipation (Acute) Fecal impaction (Acute) NAILA (acute kidney injury) (Acute) Subjective: Patient laying in the ED bed, uncomfortable appearing, groaning, prior to disimpaction. Objective: Physical Examination: General: awake, alert, oriented to self but confused and extremely uncomfortable, groaning, prior to disimpaction, following commands, laying in the ED bed, extremely uncomfortable appearing. Skin: normal color, turgor, no icterus, cyanosis. HEENT: AT/NC, EOMI, PERRLA, dry MM, no carotid bruits or JVD noted. Lungs: Diminished breath sounds, greater bases, decreased effort, no rales, ronchi or wheezing. Heart: Tachycardic with regular rhythm; no gallop, rub audible. Abdomen: soft, generalized discomfort, worse bilateral lower quadrants, suprapubic discomfort concurrently, Burns catheter now in place, moderately distended, hypoactive bowel sounds, difficult assessment of HSM secondary to discomfort. Extremities: no cyanosis, clubbing, or edema. Neurological: patient awake, alert, oriented as noted; cognitive function not baseline intact; pupils equally reactive to light and accomodation; cranial nerves II-XII grossly normal, moving all 4 extremities, no focal deficits, strength severely global decrease secondary to acute presentation and severe pain. Psychiatric: affect appears extremely uncomfortable, no acute evidence of depressive or anxiety feelings. - Physical Exam Vitals/I&O's: Vital Signs Temp Pulse Resp BP Pulse Ox 98.6 F 104 H 18 103/69 99 11/06/19 21:26 11/06/19 21:26 11/06/19 21:26 11/06/19 21:26 11/06/19 21:26 Oxygen Delivery Method Room Air Weight: 226 lb 10.163 oz Body Mass Index (BMI) 37.7 Laboratory Results 11/06/19 19:46: WBC 10.2, RBC 3.04 L, Hgb 11.0 L, Hct 33.0 L, MCV 108.6 H, MCH 36.2 H, MCHC 33.3, RDW Std Deviation 51.8 H, RDW Coeff of Judith 13.1, Plt Count 179, MPV 12.5 H, Immature Gran % (Auto) 0.600, Neut % (Auto) 62.8, Lymph % (Auto) 23.7, [place] % (Auto) 11.0 H, Eos % (Auto) 1.1, Baso % (Auto) 0.8, Absolute Neuts (auto) 6.4, Absolute Lymphs (auto) 2.43, Nucleated RBC % 0 11/06/19 19:46: Sodium 136, Potassium 5.2 H, Chloride 103, Carbon Dioxide 25.0, Anion Gap 8, BUN 24 H, Creatinine 1.69 H, Estim Creat Clear Calc 31.85, Est GFR (MDRD) Af Amer 40 L, Est GFR (MDRD) Non-Af 33 L, BUN/Creatinine Ratio 14.2, Glucose 88, Calcium 8.6, Total Bilirubin 1.10 H, Direct Bilirubin 0.47 H, AST 51 H, ALT 23, Alkaline Phosphatase 247 H, Troponin I 0.107 H, Total Protein 6.4, Albumin 2.0 L, Globulin 4.4 H, Lipase 36 L 11/06/19 19:46: Ammonia 89.0 H 11/06/19 19:46: Lactic Acid 1.7 11/06/19 20:14: Urine Color Yellow, Urine Clarity Cloudy, Urine pH 8.0, Ur Specific [place] 1.010, Urine Protein 30 H, Urine Glucose (UA) Normal, Urine Ketones 5 H, Urine Occult Blood 250 H, Urine Nitrite Negative, Urine Bilirubin Negative, Urine Urobilinogen 8 H, Ur Leukocyte Esterase 500 H, Urine RBC 0-5 SEEN, Urine WBC >100 SEEN, Ur Squamous Epith Cells 0-5 SEEN, Urine Bacteria 3+, Urine Mucus 0 SEEN Current Medications Iopamidol (Contrast Allergy Check) 0 ml IV X1 [facility] Assessment/Plan All Active Problems (Last Reviewed 07/02/19 @ 16:[address] Jacoby Rodriguez MD) UTI (urinary tract infection) (Acute) Urinary retention (Acute) Hyperammonemia (Acute) Elevation of cardiac enzymes (Acute) Constipation (Acute) Fecal impaction (Acute) NAILA (acute kidney injury) (Acute) Debility (Acute) Epidural hematoma (Resolved) The patient is a 59 y/o F w/ PMHx: Tobacco use, GERD, HTN, HLD, EtOH Abuse history sober since recent hospitalization, Alcoholic Cirrhosis, Hypothyroidism, Hx Epidural hematoma s/p craniotomy/CVA with memory impairment, Chronic pain syndrome who presents to the [facility] ED on 11/06/19 with history of several days of failure to have a bowel movement with worsening lower quadrant abdominal discomfort, described as cramping and sharp, currently 10 out of 10 in severity with no specifically associated nausea or emesis and onset of urinary retention prompting referral by senior care facility. 1. Acute Urinary Tract Infection with acute urinary retention likely secondary to acute on chronic constipation: UA upon ED evaluation remarkable, pending UCx, judicious IVFs, monitor I/Os, continue IV Rocephin from review of prior cultures has sensitivity w/ transition as able pending sensitivities and speciation. Continue Burns catheter given retention with expected improvement once resolution of acute on chronic constipation. 2. Hyperammonia with encephalopathy, mild, multifactorial with underlying alcoholic cirrhosis: Admission ammonia level 89, confusion also likely secondary to acute UTI, acute kidney injury and acute on chronic constipation, plan disimpaction in the ED with following initiation plan for lactulose aggressive regimen with repeat ammonia level in a.m. as well as repeat CMP with chronically elevated bilirubin, liver functions. 3. Indeterminate cardiac enzyme chronically elevated: Admission cardiac troponin 0 0.107, EKG with no acute evidence of ischemia, previous trending noted 10/14/2019 troponin 0 0.222, to be cautious given presentation will maintain on cardiac monitoring and trend cardiac enzymes. 4. Acute kidney injury: Secondary to urinary retention, UTI associate with acute on chronic constipation. Admission BUN/Cr 24/1.69, prior baseline creatinine noted to be 0.5. Will hydrate, hold nephrotoxic medications and repeat chemistry in AM. If no improvement would plan FeNa assessment. 5. Acute on chronic constipation with rectal impaction: Likely contributing to patient's UTI, urinary retention and hyperammonia presentation with confusion and can acute kidney injury, plan disimpaction in the emergency room with continued aggressive bowel regimen following including lactulose therapy given hyperammonia levels, maintain n.p.o. status except medications until bowel movements have been initiated and mental status improving with then allowance of diet once appropriate. 6. Hyperkalemia, mild: Admission potassium 5.2, judiciously hydrating given a liver cirrhosis, repeat CMP in a.m. 7. History epidural hematoma/CVA: Status post craniotomy, memory impairment is chronic deficit per discussion with friend present, defer any aspirin therapy, continue PT, OT, speech therapy evaluations, case management for discharge planning back to senior care facility once clinically appropriate. 8. Hypothyroidism: Continue home synthroid regimen, TSH pending. 9. Alcohol abuse history with alcoholic cirrhosis as noted above: Recent sobriety following recent admission and transition to rehab/senior care facility, will continue multivitamin/thiamine/folic acid regimen. 10. Tobacco Abuse: Encouraged cessation, inpatient consultation per RT, NR if desired. 11. GERD: We will continue PPI. 12. DVT prophylaxis: SCDs, defer chemoprophylaxis given history of recent epidural hematoma. 13. CODE status: Patient ROCAEL is her close friend who is present with whom she lives previous to senior care facility placement and living will is currently in place. Discussed CODE status at length including difference between FULL code, DNR-CCA and DNR-CC status. Following discussions about the differences in these status, requested continuation full CODE STATUS. Advanced Care Planning Face to Face Time: 16 minutes. Inpatient E&M: 45728 Init Hosp L3 Procedures: 64376 Advncd Care Plan 30 Min
[2019-11-06 22:26] VITALS: BP 109/61; PULSE 100; RESP 18; TEMP 36.9; O2SAT 100
--- NOTE | 2019-11-06 22:34 | ED.RN ---
[facility] made aware of admission
[2019-11-06] MEDS: 0.9% Normal Saline 1,000 ML 125 ML IV (22:55)
[2019-11-06 23:04] VITALS: BMI 33.3; BMI 33.4
[2019-11-06 23:24] VITALS: BP 105/64; PULSE 104; RESP 14; TEMP 36.7; O2SAT 99
[2019-11-06] MEDS: 0.9% Normal Saline 1,000 ML 100 ML IV (23:30)
[2019-11-06] MEDS: Lactulose 20 GM/30 ML UDC PO (23:47)
[2019-11-07] VITALS (14 sets, daily range): BP systolic 117–134; BP diastolic 68–77; PULSE 76–105; RESP 12–20; TEMP 36.2–36.6; O2SAT 96–99
[2019-11-07 00:14] LABS: Magnesium 2.1 mg/dL (1.6-2.6); Thyroid Stim Hormone (TSH) 3.72 uIU/mL (0.358-3.74)
[2019-11-07] MEDS: Morphine 2 MG/ML Syringe IV (04:57)
[2019-11-07] MEDS: Midodrine HCl 5 MG Tablet 10 MG PO ×3 (04:58→22:06)
[2019-11-07] MEDS: Lactulose 20 GM/30 ML UDC PO ×3 (04:58→17:27)
[2019-11-07] MEDS: Levothyroxine 112 MCG Tablet PO (04:58)
--- NOTE | 2019-11-07 05:55 | EKG12_ITS ---
Test Reason : AM EKG Blood Pressure : / mmHG Vent. Rate : 082 BPM Atrial Rate : 082 BPM P-R Int : 172 ms QRS Dur : 070 ms QT Int : 418 ms P-R-T Axes : 081 054 055 degrees QTc Int : 488 ms Normal sinus rhythm Low voltage QRS Septal infarct , age undetermined Abnormal ECG Confirmed by MARIANA PEGUERO, SUSI ([id number]), associate editor DIONNA MASTERSON ([id number]) on 11/10/2019 11:11:20 AM Referred By: AMY Confirmed By:SUSI PEÑA MD
[2019-11-07 06:12] LABS: Absolute Lymphocyte Count 2.77 X10^3/uL (0.83-4.51); Absolute Neutrophil Count 4.7 X10^3/uL (2.0-7.7); Basophil# 0.05 X10^3/uL; Basophil% 0.6 % (0-1); Eosinophil# 0.26 X10^3/uL; Eosinophils% 2.9 % (0-5); Hematocrit 31.2 % (37-47); Hemoglobin 10.4 g/dL (12.0-15.0); Lymphocyte # 2.77 X10^3/ul (4.0); Lymphocyte % 30.9 % (19-41); Mean Corp Hgb Conc 33.3 g/dL (32-36); Mean Corpuscular Hgb 35.9 pg (27.0-32.0); Mean Corpuscular Volume 107.6 fL (81-99); Monocyte# 1.04 X10^3/uL; Monocyte% 11.6 % (0-10); NRBC Flagged by Analyzer 0 % (0-5); Neutrophil # 4.74 X10^3/uL (2.7-7.7); Neutrophil % 52.9 % (47-70); POSITIVE MORPHOLOGY YES; Platelet Count 165 K/mm3 (150-450); RBC Distribution Width CV 12.7 % (11.6-14.6); RBC Distribution Width SD 50.2 fl (35.1-43.9)
[2019-11-07 06:17] LABS: Differential Indicated SCAN CRITERIA MET
[2019-11-07 06:34] LABS: Differential Comment SCANNED; Reactive Lymphocyte RARE
[2019-11-07 06:37] LABS: ALB/GLOB Ratio 0.5 RATIO (0.9-2.4); AST(SGOT) 27 U/L (15-37); Alanine Aminotransfer ALT/SGPT 18 U/L (13-56); Albumin, Serum 1.9 g/dL (3.2-5.0); Alkaline Phosphatase 214 U/L (45-117); Anion Gap 7 (5-15); BUN 20 mg/dL (7-18); Calcium,Total 8.2 mg/dL (8.5-10.1); Chloride 106 mmol/L (98-107); Creatinine, Serum 1.43 mg/dL (0.55-1.02); EST Glomerular Filtration Rate 40 mL/min (>60); Est Glom Filt Rate - Afr Amer 48 mL/min (>60); Estimated Creatinine Clearance 40.68 ml/min; Globulin 3.9 g/dL (2.2-4.2); Glucose 85 mg/dL (74-106); Potassium 3.6 mmol/L (3.5-5.1); Protein, Total 5.8 g/dL (6.4-8.2); Sodium Level 139 mmol/L (136-145)
[2019-11-07] MEDS: Ipratropium 0.5 MG/2.5 ML SOLUTION INHALATION ×2 (07:01→18:55)
[2019-11-07] MEDS: 0.9% Normal Saline 1,000 ML 100 ML IV ×2 (09:50→19:55)
[2019-11-07] MEDS: Pantoprazole Sodium 40 MG Tablet PO (09:51)
[2019-11-07] MEDS: Fluticasone 0.05% 1 SPRAY NASAL.SRY NASAL (09:51)
[2019-11-07] MEDS: Bumetanide 0.5 MG Tablet PO (09:51)
[2019-11-07] MEDS: Pregabalin 75 MG Capsule PO (09:52)
[2019-11-07] MEDS: Acetaminophen 325 MG Tablet 650 MG PO (09:57)
--- NOTE | 2019-11-07 10:05 | CASEMGMT ---
Social Work Pt is a current resident at [facility]. ALEC met with pt. Pt presents with eyes open and moaning. Pt does not respond to questions but does shake head when asked if ALEC can contact Rosanne, who is listed as pt contact. Phone call to Rosanne Temitope who states she is pt HCPOA. According to Rosanne, pt had a serious head injury 3 years ago and pt has been living with Rosanne and is able to bath and dress self as well as feed self although pt has not been eating well. In September pt had a fall and hit head and was admitted to [facility]. From [facility] pt went to [facility]. Rosanne reports pt has not been out of bed since she has been at [facility] (admitted October 22). Pt has not been talking either which is not the baseline for this patient. Of note, pt does have history of ETOH abuse but per Rosanne, last drink was October 13 when taken to ED after fall. Rosanne does not wish pt to return to [facility] but would prefer TCU. ALEC explained medicare coverage and that pt has 6 days of 100% Medicare coverage and then pt will be in copay days of $170/day. Rosanne stating pt will need to apply for Medicaid and ALEC explained TCU does not accept Medicaid. Area SNFs that would accept both medicare and medicaid provided to Rosanne. Rosanne states assisted plan is for pt to return home after rehabe. First choice is [facility] and second choice is [facility]. Rosanne will be in later today and bring HCPOA documents and ALEC will provide Medicaid application. Phone call to [facility] and they do not have beds available. Phone call to [facility] and they do have beds available. Referral faxed. Will await determination if they can accept. ALEC will meet with pt friend when she arrives. Plan: SNF, awaiting acceptance. STEPHEN Goldberg
--- NOTE | 2019-11-07 11:50 | CASEMGMT ---
Social Work Pt ROCAEL Lay present in room. Copy of Living will and Health Care POA made and placed on chart. SW received update from [place] and they cannot make decision of acceptance until they have more information. SW will fax additional information when is it available. SW updated pt and ROCAEL Lay. STEPHEN Goldberg
--- NOTE | 2019-11-07 12:15 | PN_ITS ---
<Angi Dumont - Last Filed: 11/07/19 12:51> Patient Problems: Active and Suspected Problems (Last Reviewed 07/02/19 @ 16:[address] Jacoby Rodriguez MD) UTI (urinary tract infection) (Acute) Urinary retention (Acute) Hyperammonemia (Acute) Elevation of cardiac enzymes (Acute) Constipation (Acute) Fecal impaction (Acute) NAILA (acute kidney injury) (Acute) Encephalopathy (Acute) Subjective: Patient seen and examined. Drowsy this morning. Awakens briefly during exam however falls asleep during conversation. Per daughter at bedside, patient had recent fall 10/14/2019 where she was seen at [facility] ED and transferred to [facility] due to hemorrhagic contusion of the left frontal lobe. Daughter reports prior to this episode, she was independent at home and functioning fairly well. She does have a history of alcohol abuse. Patient was discharged from [facility] to SNF and daughter reports patient has not gotten out of bed since that time and has had altered mental status. - Physical Exam Vitals/I&O's: Vital Signs Temp Pulse Resp BP Pulse Ox 97.5 F L 76 18 117/68 98 11/07/19 09:48 11/07/19 11:05 11/07/19 09:48 11/07/19 09:48 11/07/19 09:48 Oxygen Delivery Method Room Air Weight: 215 lb 6.266 oz Body Mass Index (BMI) 33.3 Intake and Output for Last 24 Hours 11/05/19 11/06/19 11/07/19 23:59 23:59 23:59 Intake Total 110.42 / 110.42 1060 / 1060 Output Total 650 / 650 650 / 650 Balance -539.58 / -539.58 410 / 410 General: - - Drowsy, no apparent distress HEENT: Atraumatic, PERRLA, EOMI, Normocephalic Oral: Dry Mucosa Neck: Supple, No JVD, Negative Carotid Bruits Lungs: Clear to auscultation, Diminished Cardiovascular: Regular rate, No murmurs Abdomen: Bowel Sounds Present, Soft, Non Tender, Non-Distended Extremities: No clubbing, No cyanosis, No edema Skin: No rashes, No breakdown Musculoskeletal: No Tenderness to Palpation of Joints or Extremities Neurological: Cranial nerves II-XII grossly intact, Neuro grossly intact Psych/Mental Status: Flat Affect Laboratory Results 11/06/19 19:46: WBC 10.2, RBC 3.04 L, Hgb 11.0 L, Hct 33.0 L, MCV 108.6 H, MCH 36.2 H, MCHC 33.3, RDW Std Deviation 51.8 H, RDW Coeff of Judith 13.1, Plt Count 179, MPV 12.5 H, Immature Gran % (Auto) 0.600, Neut % (Auto) 62.8, Lymph % (Auto) 23.7, [place] % (Auto) 11.0 H, Eos % (Auto) 1.1, Baso % (Auto) 0.8, Absolute Neuts (auto) 6.4, Absolute Lymphs (auto) 2.43, Nucleated RBC % 0 11/06/19 19:46: Sodium 136, Potassium 5.2 H, Chloride 103, Carbon Dioxide 25.0, Anion Gap 8, BUN 24 H, Creatinine 1.69 H, Estim Creat Clear Calc 31.85, Est GFR (MDRD) Af Amer 40 L, Est GFR (MDRD) Non-Af 33 L, BUN/Creatinine Ratio 14.2, Glucose 88, Calcium 8.6, Magnesium 2.1, Total Bilirubin 1.10 H, Direct Bilirubin 0.47 H, AST 51 H, ALT 23, Alkaline Phosphatase 247 H, Troponin I 0.107 H, Total Protein 6.4, Albumin 2.0 L, Globulin 4.4 H, Lipase 36 L, TSH 3.72 11/06/19 19:46: Ammonia 89.0 H 11/06/19 19:46: Lactic Acid 1.7 11/06/19 20:14: Urine Color Yellow, Urine Clarity Cloudy, Urine pH 8.0, Ur Specific [place] 1.010, Urine Protein 30 H, Urine Glucose (UA) Normal, Urine Ketones 5 H, Urine Occult Blood 250 H, Urine Nitrite Negative, Urine Bilirubin Negative, Urine Urobilinogen 8 H, Ur Leukocyte Esterase 500 H, Urine RBC 0-5 SEEN, Urine WBC >100 SEEN, Ur Squamous Epith Cells 0-5 SEEN, Urine Bacteria 3+, Urine Mucus 0 SEEN 11/07/19 00:53: Troponin I 0.104 H 11/07/19 03:30: Troponin I 0.096 H 11/07/19 06:00: WBC 9.0, RBC 2.90 L, Hgb 10.4 L, Hct 31.2 L, MCV 107.6 H, MCH 35.9 H, MCHC 33.3, RDW Std Deviation 50.2 H, RDW Coeff of Judith 12.7, Plt Count 165, MPV 12.0, Immature Gran % (Auto) 1.100 H, Neut % (Auto) 52.9, Lymph % (Auto) 30.9, [place] % (Auto) 11.6 H, Eos % (Auto) 2.9, Baso % (Auto) 0.6, Absolute Neuts (auto) 4.7, Absolute Lymphs (auto) 2.77, Nucleated RBC % 0, Differential Comment SCANNED, Reactive Lymphocytes RARE 11/07/19 06:00: Ammonia 51.0 H 11/07/19 06:00: Sodium 139, Potassium 3.6, Chloride 106, Carbon Dioxide 26.0, Anion Gap 7, BUN 20 H, Creatinine 1.43 H, Estim Creat Clear Calc 40.68, Est GFR (MDRD) Af Amer 48 L, Est GFR (MDRD) Non-Af 40 L, BUN/Creatinine Ratio 14.0, Glucose 85, Calcium 8.2 L, Total Bilirubin 0.80, AST 27, ALT 18, Alkaline Phos phatase 214 H, Troponin I 0.093 H, Total Protein 5.8 L, Albumin 1.9 L, Globulin 3.9, Albumin/Globulin Ratio 0.5 L Current Medications Acetaminophen (Tylenol) 650 mg RECTAL Q4H PRN PRN PRN Reason: Pain Score 1-10/Temp > 100.7 F Acetaminophen (Tylenol) 650 mg PO Q6H PRN PRN PRN Reason: Pain Score 1-10/Temp > 100.7 F Last Admin: 11/07/19 09:57 Dose: 650 mg Documented by: Al Hydroxide/Mg Hydroxide (Mylanta Ii) 30 ml PO Q6H PRN PRN PRN Reason: Gastric Burning Albuterol Sulfate (Ventolin Aerosols) 2.5 mg INHALATION Q2H PRN PRN PRN Reason: Dyspnea, wheezing Bisacodyl (Dulcolax) 5 mg PO DAILY PRN PRN PRN Reason: Constipation Bumetanide (Bumex) 0.5 mg PO DAILY [facility] Last Admin: 11/07/19 09:51 Dose: 0.5 mg Documented by: Calamine/Phenol (Calmoseptine Ointment) 1 applic TOPICAL TID [facility]; Protocol Dextrose (D50w Syringe) 0 gm IV X1 PRN; Protocol PRN Reason: Hypoglycemia Fluticasone Propionate (Flonase Nasal [place]) 1 spray NASAL DAILY [facility] Last Admin: 11/07/19 09:51 Dose: 1 spray Documented by: Glucagon () 1 mg IM .X1 PRN PRN Reason: Hypoglycemia Hydralazine HCl (Apresoline Iv) 10 mg IV Q4H PRN PRN PRN Reason: SBP > 160 Sodium Chloride () 1,000 mls @ 100 mls/hr IV .Q10H [facility] Last Admin: 11/07/19 09:50 Dose: 100 mls/hr Documented by: Ipratropium [place] (Atrovent) 0.5 mg INHALATION Q6HWA.RT [facility] Last Admin: 11/07/19 07:01 Dose: 0.5 mg Documented by: Lactobacillus Acidophilus (Acidophilus) 1 tablet PO DAILY [facility] Last Admin: 11/07/19 09:51 Dose: 1 tablet Documented by: Lactulose (Chronulac, Cephulac) 20 gm PO Q6H [facility] Last Admin: 11/07/19 11:54 Dose: 20 gm Documented by: Levothyroxine Sodium (Synthroid) 112 mcg PO DAILY@0600 [facility] Last Admin: 11/07/19 04:58 Dose: 112 mcg Documented by: Magnesium Hydroxide (Milk Of Magnesia) 30 ml PO DAILY PRN PRN PRN Reason: Constipation Melatonin (Melatonin) 3 mg PO QHS PRN PRN PRN Reason: INSOMNIA Midodrine (Proamatine) 10 mg PO TID [facility] Last Admin: 11/07/19 04:58 Dose: 10 mg Documented by: Morphine Sulfate () 2 mg IV Q3H PRN PRN PRN Reason: Pain Score 6-10/10 Last Admin: 11/07/19 04:57 Dose: 2 mg Documented by: Nicotine (Nicoderm Cq (Pbkc)) 21 mg TRANSDERM. DAILY [facility] Last Admin: 11/07/19 09:51 Dose: 21 mg Documented by: Nitroglycerin (Nitrostat) 0.4 mg SUBLINGUAL Q5M PRN PRN Reason: CARDIAC/CHEST PAIN Ondansetron HCl (Zofran) 4 mg IV Q8H PRN PRN PRN Reason: NAUSEA/VOMITING Oxycodone HCl (Oxyir) 5 mg PO Q4H PRN PRN PRN Reason: Pain Score 4-5/10 Pantoprazole Sodium (Protonix) 40 mg PO DAILY [facility] Last Admin: 11/07/19 09:51 Dose: 40 mg Documented by: Pregabalin (Lyrica) 75 mg PO BID [facility] Last Admin: 11/07/19 09:52 Dose: 75 mg Documented by: Prochlorperazine Edisylate (Compazine Iv) 5 mg IV Q4H PRN PRN PRN Reason: Breakthrough Nausea/Vomiting Psyllium Hydrophilic Mucilloid (Metamucil) 1 packet PO DAILY PRN PRN PRN Reason: Constipation Senna/Docusate Sodium (Senokot-S, Sherice-Colace) 2 tablet PO BID PRN PRN PRN Reason: Constipation Sodium Chloride () 10 - 40 ml IV UD PRN PRN Reason: SALINE FLUSH Medical Necessity - Tobacco Use Smoking Status: Current every day smoker Tobacco Use: Cigarettes Assessment/Plan All Active Problems (Last Reviewed 07/02/19 @ 16:[address] Jacoby Rodriguez MD) UTI (urinary tract infection) (Acute) Urinary retention (Acute) Hyperammonemia (Acute) Elevation of cardiac enzymes (Acute) Constipation (Acute) Fecal impaction (Acute) NAILA (acute kidney injury) (Acute) Encephalopathy (Acute) Debility (Acute) Epidural hematoma (Resolved) 1. Acute metabolic encephalopathy multifactorial secondary to acute UTI, NAILA, hyperammonia-treat underlying processes. PT/OT. Reduce home Lyrica regimen to 50 mg twice daily given lethargy. 2. Acute UTI-continue IV Rocephin pending urine cultures. 3. Acute on chronic constipation with rectal impaction-disimpacted in ER. Continue aggressive bowel regimen. 4. Acute urinary retention-suspect secondary to #2/#3. Burns in place. Voiding trial prior to discharge. 5. Acute kidney injury-secondary to retention. Creatinine trending down. Burns in place. Trend BMP. 6. Indeterminate troponin-enzymes chronically elevated. EKG without ST-T changes. Troponins did not trend. 7. Recent hemorrhagic contusion of the left frontal lobe-treated at [facility] following fall 10/14/2019. 8. Chronic alcohol abuse with alcoholic cirrhosis-continue lactulose regimen. Patient has history of prior falls related to alcohol use. Recent alcohol cessation secondary to hospitalization/SNF. 9. Hypotension-continue home midodrine regimen. 10. Hypothyroidism-continue Synthroid regimen. 11. GERD-continue PPI. 12. Tobacco dependence-encouraged cessation. Nicotine replacement patch. 13. History of left epidural hematoma status post craniotomy 2017 DVT prophylaxis-SCDs. Pharmacologic prophylaxis contraindicated due to recent hemorrhagic contusion. Discharge planning: Patient choosing a new SNF, return to SNF when medically stable. This patient was seen by GERA Tripp under the supervision of Dr. Tracy. <Phill Tracy - Last Filed: 11/07/19 14:47> - Physical Exam Vitals/I&O's: Vital Signs Temp Pulse Resp BP Pulse Ox 97.1 F L 89 18 131/76 H 99 11/07/19 14:01 11/07/19 14:01 11/07/19 14:01 11/07/19 14:01 11/07/19 14:01 Oxygen Delivery Method Room Air Weight: 97.7 kg Body Mass Index (BMI) 33.3 Intake and Output for Last 24 Hours 11/05/19 11/06/19 11/07/19 23:59 23:59 23:59 Intake Total 110.42 / 110.42 1060 / 1060 Output Total 650 / 650 650 / 650 Balance -539.58 / -539.58 410 / 410 Microbiology Past 72 Hours 11/06/19 20:14 Urine Catheter - Catheter Urine Culture - Preliminary Gram negative kami Laboratory Results 11/06/19 19:46: WBC 10.2, RBC 3.04 L, Hgb 11.0 L, Hct 33.0 L, MCV 108.6 H, MCH 36.2 H, MCHC 33.3, RDW Std Deviation 51.8 H, RDW Coeff of Judith 13.1, Plt Count 179, MPV 12.5 H, Immature Gran % (Auto) 0.600, Neut % (Auto) 62.8, Lymph % (Auto) 23.7, [place] % (Auto) 11.0 H, Eos % (Auto) 1.1, Baso % (Auto) 0.8, Absolute Neuts (auto) 6.4, Absolute Lymphs (auto) 2.43, Nucleated RBC % 0 11/06/19 19:46: Sodium 136, Potassium 5.2 H, Chloride 103, Carbon Dioxide 25.0, Anion Gap 8, BUN 24 H, Creatinine 1.69 H, Estim Creat Clear Calc 31.85, Est GFR (MDRD) Af Amer 40 L, Est GFR (MDRD) Non-Af 33 L, BUN/Creatinine Ratio 14.2, Glucose 88, Calcium 8.6, Magnesium 2.1, Total Bilirubin 1.10 H, Direct Bilirubin 0.47 H, AST 51 H, ALT 23, Alkaline Phosphatase 247 H, Troponin I 0.107 H, Total Protein 6.4, Albumin 2.0 L, Globulin 4.4 H, Lipase 36 L, TSH 3.72 11/06/19 19:46: Ammonia 89.0 H 11/06/19 19:46: Lactic Acid 1.7 11/06/19 20:14: Urine Color Yellow, Urine Clarity Cloudy, Urine pH 8.0, Ur Specific [place] 1.010, Urine Protein 30 H, Urine Glucose (UA) Normal, Urine Ketones 5 H, Urine Occult Blood 250 H, Urine Nitrite Negative, Urine Bilirubin Negative, Urine Urobilinogen 8 H, Ur Leukocyte Esterase 500 H, Urine RBC 0-5 SEEN, Urine WBC >100 SEEN, Ur Squamous Epith Cells 0-5 SEEN, Urine Bacteria 3+, Urine Mucus 0 SEEN 11/07/19 00:53: Troponin I 0.104 H 11/07/19 03:30: Troponin I 0.096 H 11/07/19 06:00: WBC 9.0, RBC 2.90 L, Hgb 10.4 L, Hct 31.2 L, MCV 107.6 H, MCH 35.9 H, MCHC 33.3, RDW Std Deviation 50.2 H, RDW Coeff of Judith 12.7, Plt Count 165, MPV 12.0, Immature Gran % (Auto) 1.100 H, Neut % (Auto) 52.9, Lymph % (Auto) 30.9, [place] % (Auto) 11.6 H, Eos % (Auto) 2.9, Baso % (Auto) 0.6, Absolute Neuts (auto) 4.7, Absolute Lymphs (auto) 2.77, Nucleated RBC % 0, Differential Comment SCANNED, Reactive Lymphocytes RARE 11/07/19 06:00: Ammonia 51.0 H 11/07/19 06:00: Sodium 139, Potassium 3.6, Chloride 106, Carbon Dioxide 26.0, Anion Gap 7, BUN 20 H, Creatinine 1.43 H, Estim Creat Clear Calc 40.68, Est GFR (MDRD) Af Amer 48 L, Est GFR (MDRD) Non-Af 40 L, BUN/Creatinine Ratio 14.0, Glucose 85, Calcium 8.2 L, Total Bilirubin 0.80, AST 27, ALT 18, Alkaline Ph osphatase 214 H, Troponin I 0.093 H, Total Protein 5.8 L, Albumin 1.9 L, Globulin 3.9, Albumin/Globulin Ratio 0.5 L Current Medications Acetaminophen (Tylenol) 650 mg RECTAL Q4H PRN PRN PRN Reason: Pain Score 1-10/Temp > 100.7 F Acetaminophen (Tylenol) 650 mg PO Q6H PRN PRN PRN Reason: Pain Score 1-10/Temp > 100.7 F Last Admin: 11/07/19 09:57 Dose: 650 mg Documented by: Al Hydroxide/Mg Hydroxide (Mylanta Ii) 30 ml PO Q6H PRN PRN PRN Reason: Gastric Burning Albuterol Sulfate (Ventolin Aerosols) 2.5 mg INHALATION Q2H PRN PRN PRN Reason: Dyspnea, wheezing Bisacodyl (Dulcolax) 5 mg PO DAILY PRN PRN PRN Reason: Constipation Bumetanide (Bumex) 0.5 mg PO DAILY [facility] Last Admin: 11/07/19 09:51 Dose: 0.5 mg Documented by: Calamine/Phenol (Calmoseptine Ointment) 1 applic TOPICAL TID [facility]; Protocol Last Admin: 11/07/19 13:57 Dose: 1 applicatio Documented by: Dextrose (D50w Syringe) 0 gm IV X1 PRN; Protocol PRN Reason: Hypoglycemia Fluticasone Propionate (Flonase Nasal [place]) 1 spray NASAL DAILY [facility] Last Admin: 11/07/19 09:51 Dose: 1 spray Documented by: Glucagon () 1 mg IM .X1 PRN PRN Reason: Hypoglycemia Hydralazine HCl (Apresoline Iv) 10 mg IV Q4H PRN PRN PRN Reason: SBP > 160 Sodium Chloride () 1,000 mls @ 100 mls/hr IV .Q10H [facility] Last Admin: 11/07/19 09:50 Dose: 100 mls/hr Documented by: Ceftriaxone Sodium 2 gm/ (Sodium Chloride) 50 mls @ 100 mls/hr IV Q24 [facility] Ipratropium [place] (Atrovent) 0.5 mg INHALATION Q6HWA.RT [facility] Last Admin: 11/07/19 13:17 Dose: Not Given Documented by: Lactobacillus Acidophilus (Acidophilus) 1 tablet PO DAILY [facility] Last Admin: 11/07/19 09:51 Dose: 1 tablet Documented by: Lactulose (Chronulac, Cephulac) 20 gm PO Q6H [facility] Last Admin: 11/07/19 11:54 Dose: 20 gm Documented by: Levothyroxine Sodium (Synthroid) 112 mcg PO DAILY@0600 [facility] Last Admin: 11/07/19 04:58 Dose: 112 mcg Documented by: Magnesium Hydroxide (Milk Of Magnesia) 30 ml PO DAILY PRN PRN PRN Reason: Constipation Melatonin (Melatonin) 3 mg PO QHS PRN PRN PRN Reason: INSOMNIA Midodrine (Proamatine) 10 mg PO TID [facility] Last Admin: 11/07/19 13:57 Dose: 10 mg Documented by: Morphine Sulfate () 2 mg IV Q3H PRN PRN PRN Reason: Pain Score 6-10/10 Last Admin: 11/07/19 04:57 Dose: 2 mg Documented by: Nicotine (Nicoderm Cq (Pbkc)) 21 mg TRANSDERM. DAILY [facility] Last Admin: 11/07/19 09:51 Dose: 21 mg Documented by: Nitroglycerin (Nitrostat) 0.4 mg SUBLINGUAL Q5M PRN PRN Reason: CARDIAC/CHEST PAIN Ondansetron HCl (Zofran) 4 mg IV Q8H PRN PRN PRN Reason: NAUSEA/VOMITING Oxycodone HCl (Oxyir) 5 mg PO Q4H PRN PRN PRN Reason: Pain Score 4-5/10 Pantoprazole Sodium (Protonix) 40 mg PO DAILY [facility] Last Admin: 11/07/19 09:51 Dose: 40 mg Documented by: Pregabalin (Lyrica) 50 mg PO BID [facility] Prochlorperazine Edisylate (Compazine Iv) 5 mg IV Q4H PRN PRN PRN Reason: Breakthrough Nausea/Vomiting Psyllium Hydrophilic Mucilloid (Metamucil) 1 packet PO DAILY PRN PRN PRN Reason: Constipation Senna/Docusate Sodium (Senokot-S, Sherice-Colace) 2 tablet PO BID PRN PRN PRN Reason: Constipation Sodium Chloride () 10 - 40 ml IV UD PRN PRN Reason: SALINE FLUSH Assessment/Plan This patient was seen in conjunction with GERA Tripp . I have inde pendently interviewed and examined the patient and reviewed pertinent historical, laboratory, and other data. Please refer to GERA Tripp note for details of this patient's presentation, findings, and recommendations. I have reviewed GERA Tripp note and concur with documented findings. In brief, patient is a 61-year-old lady admitted with acute encephalopathy diagnosed with acute cystitis as well as constipation admitted to a monitored bed for further management Physical Examination: GENERAL: Lethargic but arousable HEENT: Atraumatic; EYES; Anicteric, NECK; supple, normal thyroid, RESPIRATORY: Diminished to auscultation CARDIOVASCULAR: Regular S1 S2, GI: soft, normoactive bowel sounds, : No Renal angle tenderness; EXTREMITIES: No edema, no clubbing, NEURO: Awake; no lateralizing signs. SKIN: No Rash PSYCH; Flat affect Assessment: 1. Acute encephalopathy 2. Acute cystitis 3. Acute on chronic constipation 4. Hypothyroidism 5. GERD 6. Elevated troponin secondary to demand ischemia 7. Acute urinary retention 8. Hypotension?patient on midodrine 9. GERD 10. Tobacco dependence 11. Acute kidney injury Recommendations: 1. I have discussed the results of my overview and impressions with the patient 2. Options for management were reviewed Inpatient E&M: [id number] [facility] [place] [facility] L3
[2019-11-07] MEDS: Menthol/Lanolin/Calamine/Znox 113 GM Tube 1 APPLIC TOPICAL ×2 (13:57→22:09)
--- NOTE | 2019-11-07 14:07 | CASEMGMT ---
Social Work Pt POA completed medicaid john and application faxed to [facility]. Additional clinicals faxed to [facility]. SW notified LUCIO Yen that pt will need covid test to return to SNF. Plan: [facility], pending acceptance and negative covid test [facility] Goldberg
--- NOTE | 2019-11-07 16:17 | CASEMGMT ---
Social Work [facility] is able to accept pt when medically ready, However Pt cannot go to [facility] until she receives negative Covid test. Results will need to be faxed to [facility] prior to discharge. ALEC spoke with MAKENNA Lay and updated her and she is agreeable to d/c plan. Phone call to [facility] and informed pt will not be returning and requested HENS [id number] be faxed to [facility]. Plan: [facility], pending covid test [facility]
[2019-11-07] MEDS: Pregabalin 50 MG Capsule PO (22:05)
[2019-11-08] VITALS (13 sets, daily range): BP systolic 99–110; BP diastolic 64–69; PULSE 68–101; RESP 12–18; TEMP 36.5–36.6; O2SAT 95–99
[2019-11-08] MEDS: Lactulose 20 GM/30 ML UDC PO ×5 (00:10→23:23)
[2019-11-08] MEDS: 0.9% Normal Saline 1,000 ML 100 ML IV ×2 (06:22→18:49)
[2019-11-08] MEDS: Levothyroxine 112 MCG Tablet PO (06:24)
[2019-11-08] MEDS: Menthol/Lanolin/Calamine/Znox 113 GM Tube 1 APPLIC TOPICAL ×3 (06:24→23:14)
[2019-11-08] MEDS: Midodrine HCl 5 MG Tablet 10 MG PO ×3 (06:24→23:15)
[2019-11-08 06:39] LABS: Hemoglobin 10.2 g/dL (12.0-15.0); Mean Corp Hgb Conc 32.9 g/dL (32-36); Mean Corpuscular Hgb 35.8 pg (27.0-32.0); Mean Corpuscular Volume 108.8 fL (81-99); Mean Platelet Vol. 12.4 fl (6.2-12.0); Platelet Count 157 K/mm3 (150-450); RBC Distribution Width CV 12.8 % (11.6-14.6); RBC Distribution Width SD 51.7 fl (35.1-43.9); Red Blood Count 2.85 M/mm3 (4.2-5.4); White Blood Count 6.7 K/mm3 (4.4-11.0)
[2019-11-08 07:05] LABS: Anion Gap 9 (5-15); BUN 15 mg/dL (7-18); BUN/Creat Ratio 14.2 RATIO (10-20); Calcium,Total 7.9 mg/dL (8.5-10.1); Chloride 108 mmol/L (98-107); Creatinine, Serum 1.06 mg/dL (0.55-1.02); EST Glomerular Filtration Rate 56 mL/min (>60); Est Glom Filt Rate - Afr Amer 68 mL/min (>60); Estimated Creatinine Clearance 54.88 ml/min; Glucose 70 mg/dL (74-106); Potassium 3.1 mmol/L (3.5-5.1); Sodium Level 143 mmol/L (136-145)
[2019-11-08] MEDS: Ipratropium 0.5 MG/2.5 ML SOLUTION INHALATION ×3 (07:50→18:49)
[2019-11-08] MEDS: Pantoprazole Sodium 40 MG Tablet PO (11:03)
[2019-11-08] MEDS: Bumetanide 0.5 MG Tablet PO (11:03)
[2019-11-08] MEDS: Fluticasone 0.05% 1 SPRAY NASAL.SRY NASAL (11:03)
[2019-11-08] MEDS: Pregabalin 50 MG Capsule PO (11:04)
[2019-11-08] MEDS: Acetaminophen 325 MG Tablet 650 MG PO (11:07)
--- NOTE | 2019-11-08 11:16 | PN_ITS ---
<Angi Dumont - Last Filed: 11/08/19 11:31> Patient Problems: Active and Suspected Problems (Last Reviewed 07/02/19 @ 16:[address] Jacoby Rodriguez MD) UTI (urinary tract infection) (Acute) Urinary retention (Acute) Hyperammonemia (Acute) Elevation of cardiac enzymes (Acute) Constipation (Acute) Fecal impaction (Acute) NAILA (acute kidney injury) (Acute) Encephalopathy (Acute) Subjective: Patient seen and examined. Remains drowsy this morning however awakens to voice. Responding more appropriately today. Denies complaints. - Physical Exam Vitals/I&O's: Vital Signs Temp Pulse Resp BP Pulse Ox 97.7 F L 85 16 110/64 99 11/08/19 10:34 11/08/19 10:34 11/08/19 10:34 11/08/19 10:34 11/08/19 10:34 Oxygen Delivery Method Room Air Weight: 214 lb 15.211 oz Body Mass Index (BMI) 33.3 Intake and Output for Last 24 Hours 11/06/19 11/07/19 11/08/19 23:59 23:59 23:59 Intake Total 110.42 / 110.42 2590 / 2690 1300 / 1300 Output Total 650 / 650 900 / 1200 650 / 650 Balance -539.58 / -539.58 1690 / 1490 650 / 650 General: No apparent distress, - - Drowsy HEENT: Atraumatic, PERRLA, EOMI, Normocephalic Oral: Dry Mucosa Neck: Supple, No JVD, Negative Carotid Bruits Lungs: Clear to auscultation, Diminished Cardiovascular: Regular rate, No murmurs Abdomen: Bowel Sounds Present, Soft, Non Tender Extremities: No clubbing, No cyanosis, No edema, Capillary Refill Less than 3 Seconds Skin: No rashes, No breakdown Musculoskeletal: No Tenderness to Palpation of Joints or Extremities Neurological: Cranial nerves II-XII grossly intact, Neuro grossly intact Psych/Mental Status: Flat Affect Microbiology Past 72 Hours 11/06/19 20:14 Urine Catheter - Catheter Urine Culture - Preliminary Pseudomonas aeroginosa Laboratory Results 11/07/19 : COVID-19 ([facility]) Negative 11/08/19 05:45: WBC 6.7, RBC 2.85 L, Hgb 10.2 L, Hct 31.0 L, MCV 108.8 H, MCH 35.8 H, MCHC 32.9, RDW Std Deviation 51.7 H, RDW Coeff of Judith 12.8, Plt Count 157, MPV 12.4 H 11/08/19 05:45: Sodium 143, Potassium 3.1 L, Chloride 108 H, Carbon Dioxide 26.0, Anion Gap 9, BUN 15, Creatinine 1.06 H, Estim Creat Clear Calc 54.88, Est GFR (MDRD) Af Amer 68, Est GFR (MDRD) Non-Af 56 L, BUN/Creatinine Ratio 14.2, Glucose 70 L, Calcium 7.9 L Current Medications Acetaminophen (Tylenol) 650 mg RECTAL Q4H PRN PRN PRN Reason: Pain Score 1-10/Temp > 100.7 F Acetaminophen (Tylenol) 650 mg PO Q6H PRN PRN PRN Reason: Pain Score 1-10/Temp > 100.7 F Last Admin: 11/08/19 11:07 Dose: 650 mg Documented by: Al Hydroxide/Mg Hydroxide (Mylanta Ii) 30 ml PO Q6H PRN PRN PRN Reason: Gastric Burning Albuterol Sulfate (Ventolin Aerosols) 2.5 mg INHALATION Q2H PRN PRN PRN Reason: Dyspnea, wheezing Bisacodyl (Dulcolax) 5 mg PO DAILY PRN PRN PRN Reason: Constipation Bumetanide (Bumex) 0.5 mg PO DAILY [facility] Last Admin: 11/08/19 11:03 Dose: 0.5 mg Documented by: Calamine/Phenol (Calmoseptine Ointment) 1 applic TOPICAL TID [facility]; Protocol Last Admin: 11/08/19 06:24 Dose: 1 applicatio Documented by: Dextrose (D50w Syringe) 0 gm IV X1 PRN; Protocol PRN Reason: Hypoglycemia Fluticasone Propionate (Flonase Nasal [place]) 1 spray NASAL DAILY [facility] Last Admin: 11/08/19 11:03 Dose: 1 spray Documented by: Glucagon () 1 mg IM .X1 PRN PRN Reason: Hypoglycemia Hydralazine HCl (Apresoline Iv) 10 mg IV Q4H PRN PRN PRN Reason: SBP > 160 Sodium Chloride () 1,000 mls @ 100 mls/hr IV .Q10H [facility] Last Admin: 11/08/19 06:22 Dose: 100 mls/hr Documented by: Ceftriaxone Sodium 2 gm/ (Sodium Chloride) 50 mls @ 100 mls/hr IV Q24 [facility] Ipratropium Rossiter (Atrovent) 0.5 mg INHALATION Q6HWA.RT [facility] Last Admin: 11/08/19 07:50 Dose: 0.5 mg Documented by: Lactobacillus Acidophilus (Acidophilus) 1 tablet PO DAILY [facility] Last Admin: 11/08/19 11:03 Dose: 1 tablet Documented by: Lactulose (Chronulac, Cephulac) 20 gm PO Q6H [facility] Last Admin: 11/08/19 11:03 Dose: 20 gm Documented by: Levothyroxine Sodium (Synthroid) 112 mcg PO DAILY@0600 [facility] Last Admin: 11/08/19 06:24 Dose: 112 mcg Documented by: Magnesium Hydroxide (Milk Of Magnesia) 30 ml PO DAILY PRN PRN PRN Reason: Constipation Melatonin (Melatonin) 3 mg PO QHS PRN PRN PRN Reason: INSOMNIA Midodrine (Proamatine) 10 mg PO TID [facility] Last Admin: 11/08/19 06:24 Dose: 10 mg Documented by: Morphine Sulfate () 2 mg IV Q3H PRN PRN PRN Reason: Pain Score 6-10/10 Last Admin: 11/07/19 04:57 Dose: 2 mg Documented by: Nicotine (Nicoderm Cq (Pbkc)) 21 mg TRANSDERM. DAILY [facility] Last Admin: 11/08/19 11:04 Dose: 21 mg Documented by: Nitroglycerin (Nitrostat) 0.4 mg SUBLINGUAL Q5M PRN PRN Reason: CARDIAC/CHEST PAIN Ondansetron HCl (Zofran) 4 mg IV Q8H PRN PRN PRN Reason: NAUSEA/VOMITING Oxycodone HCl (Oxyir) 5 mg PO Q4H PRN PRN PRN Reason: Pain Score 4-5/10 Pantoprazole Sodium (Protonix) 40 mg PO DAILY [facility] Last Admin: 11/08/19 11:03 Dose: 40 mg Documented by: Pregabalin (Lyrica) 50 mg PO BID [facility] Last Admin: 11/08/19 11:04 Dose: 50 mg Documented by: Prochlorperazine Edisylate (Compazine Iv) 5 mg IV Q4H PRN PRN PRN Reason: Breakthrough Nausea/Vomiting Psyllium Hydrophilic Mucilloid (Metamucil) 1 packet PO DAILY PRN PRN PRN Reason: Constipation Senna/Docusate Sodium (Senokot-S, Sherice-Colace) 2 tablet PO BID PRN PRN PRN Reason: Constipation Sodium Chloride () 10 - 40 ml IV UD PRN PRN Reason: SALINE FLUSH Medical Necessity - Tobacco Use Smoking Status: Current every day smoker Tobacco Use: Cigarettes Assessment/Plan All Active Problems (Last Reviewed 07/02/19 @ 16:[address] Jacoby Rodriguez MD) UTI (urinary tract infection) (Acute) Urinary retention (Acute) Hyperammonemia (Acute) Elevation of cardiac enzymes (Acute) Constipation (Acute) Fecal impaction (Acute) NAILA (acute kidney injury) (Acute) Encephalopathy (Acute) Debility (Acute) Epidural hematoma (Resolved) 1. Acute metabolic encephalopathy multifactorial secondary to acute UTI, NAILA, hyperammonia-treat underlying processes. PT/OT. Reduce home Lyrica regimen to 25 mg twice daily given lethargy. 2. Acute Pseudomonas UTI-switch to IV cefepime given sensitivities. 3. Acute on chronic constipation with rectal impaction-disimpacted in ER. Continue aggressive bowel regimen. 4. Acute urinary retention-suspect secondary to #2/#3. Burns in place. Voiding trial prior to discharge. 5. Acute kidney injury-secondary to retention. Creatinine trending down. Burns in place. Trend BMP. 6. Indeterminate troponin-enzymes chronically elevated. EKG without ST-T changes. Troponins did not trend. 7. Recent hemorrhagic contusion of the left frontal lobe-treated at [facility] following fall 10/14/2019. 8. Chronic alcohol abuse with alcoholic cirrhosis-continue lactulose regimen. Patient has history of prior falls related to alcohol use. Recent alcohol cessation secondary to hospitalization/SNF. 9. Hypotension-continue home midodrine regimen. 10. Hypothyroidism-continue Synthroid regimen. 11. GERD-continue PPI. 12. Tobacco dependence-encouraged cessation. Nicotine replacement patch. 13. History of left epidural hematoma status post craniotomy 2017 DVT prophylaxis-SCDs. Pharmacologic prophylaxis contraindicated due to recent hemorrhagic contusion. Discharge planning: Patient choosing a new SNF, return to SNF when medically stable. This patient was seen by Angi Tim, [facility] under the supervision of Dr. Tracy. <Phill Tracy - Last Filed: 11/08/19 11:47> - Physical Exam Vitals/I&O's: Vital Signs Temp Pulse Resp BP Pulse Ox 97.7 F L 85 16 110/64 99 11/08/19 10:34 11/08/19 10:34 11/08/19 10:34 11/08/19 10:34 11/08/19 10:34 Oxygen Delivery Method Room Air Weight: 97.5 kg Body Mass Index (BMI) 33.3 Intake and Output for Last 24 Hours 11/06/19 11/07/19 11/08/19 23:59 23:59 23:59 Intake Total 110.42 / 110.42 2590 / 2690 1300 / 1300 Output Total 650 / 650 900 / 1200 650 / 650 Balance -539.58 / -539.58 1690 / 1490 650 / 650 Microbiology Past 72 Hours 11/06/19 20:14 Urine Catheter - Catheter Urine Culture - Preliminary Pseudomonas aeroginosa Laboratory Results 11/07/19 : COVID-19 ([facility]) Negative 11/08/19 05:45: WBC 6.7, RBC 2.85 L, Hgb 10.2 L, Hct 31.0 L, MCV 108.8 H, MCH 35.8 H, MCHC 32.9, RDW Std Deviation 51.7 H, RDW Coeff of Judith 12.8, Plt Count 157, MPV 12.4 H 11/08/19 05:45: Sodium 143, Potassium 3.1 L, Chloride 108 H, Carbon Dioxide 26.0, Anion Gap 9, BUN 15, Creatinine 1.06 H, Estim Creat Clear Calc 54.88, Est GFR (MDRD) Af Amer 68, Est GFR (MDRD) Non-Af 56 L, BUN/Creatinine Ratio 14.2, Glucose 70 L, Calcium 7.9 L Current Medications Acetaminophen (Tylenol) 650 mg RECTAL Q4H PRN PRN PRN Reason: Pain Score 1-10/Temp > 100.7 F Acetaminophen (Tylenol) 650 mg PO Q6H PRN PRN PRN Reason: Pain Score 1-10/Temp > 100.7 F Last Admin: 11/08/19 11:07 Dose: 650 mg Documented by: Al Hydroxide/Mg Hydroxide (Mylanta Ii) 30 ml PO Q6H PRN PRN PRN Reason: Gastric Burning Albuterol Sulfate (Ventolin Aerosols) 2.5 mg INHALATION Q2H PRN PRN PRN Reason: Dyspnea, wheezing Bisacodyl (Dulcolax) 5 mg PO DAILY PRN PRN PRN Reason: Constipation Bumetanide (Bumex) 0.5 mg PO DAILY [facility] Last Admin: 11/08/19 11:03 Dose: 0.5 mg Documented by: Calamine/Phenol (Calmoseptine Ointment) 1 applic TOPICAL TID [facility]; Protocol Last Admin: 11/08/19 06:24 Dose: 1 applicatio Documented by: Dextrose (D50w Syringe) 0 gm IV X1 PRN; Protocol PRN Reason: Hypoglycemia Fluticasone Propionate (Flonase Nasal [place]) 1 spray NASAL DAILY [facility] Last Admin: 11/08/19 11:03 Dose: 1 spray Documented by: Glucagon () 1 mg IM .X1 PRN PRN Reason: Hypoglycemia Hydralazine HCl (Apresoline Iv) 10 mg IV Q4H PRN PRN PRN Reason: SBP > 160 Sodium Chloride () 1,000 mls @ 100 mls/hr IV .Q10H [facility] Last Admin: 11/08/19 06:22 Dose: 100 mls/hr Documented by: Cefepime HCl 1 gm/ Sodium (Chloride) 50 mls @ 100 mls/hr IV Q8 [facility] Ipratropium Rossiter (Atrovent) 0.5 mg INHALATION Q6HWA.RT [facility] Last Admin: 11/08/19 07:50 Dose: 0.5 mg Documented by: Lactobacillus Acidophilus (Acidophilus) 1 tablet PO DAILY [facility] Last Admin: 11/08/19 11:03 Dose: 1 tablet Documented by: Lactulose (Chronulac, Cephulac) 20 gm PO Q6H [facility] Last Admin: 11/08/19 11:03 Dose: 20 gm Documented by: Levothyroxine Sodium (Synthroid) 112 mcg PO DAILY@0600 [facility] Last Admin: 11/08/19 06:24 Dose: 112 mcg Documented by: Magnesium Hydroxide (Milk Of Magnesia) 30 ml PO DAILY PRN PRN PRN Reason: Constipation Melatonin (Melatonin) 3 mg PO QHS PRN PRN PRN Reason: INSOMNIA Midodrine (Proamatine) 10 mg PO TID [facility] Last Admin: 11/08/19 06:24 Dose: 10 mg Documented by: Morphine Sulfate () 2 mg IV Q3H PRN PRN PRN Reason: Pain Score 6-10/10 Last Admin: 11/07/19 04:57 Dose: 2 mg Documented by: Nicotine (Nicoderm Cq (Pbkc)) 21 mg TRANSDERM. DAILY [facility] Last Admin: 11/08/19 11:04 Dose: 21 mg Documented by: Nitroglycerin (Nitrostat) 0.4 mg SUBLINGUAL Q5M PRN PRN Reason: CARDIAC/CHEST PAIN Ondansetron HCl (Zofran) 4 mg IV Q8H PRN PRN PRN Reason: NAUSEA/VOMITING Oxycodone HCl (Oxyir) 5 mg PO Q4H PRN PRN PRN Reason: Pain Score 4-5/10 Pantoprazole Sodium (Protonix) 40 mg PO DAILY [facility] Last Admin: 11/08/19 11:03 Dose: 40 mg Documented by: Pregabalin (Lyrica) 25 mg PO BID [facility] Prochlorperazine Edisylate (Compazine Iv) 5 mg IV Q4H PRN PRN PRN Reason: Breakthrough Nausea/Vomiting Psyllium Hydrophilic Mucilloid (Metamucil) 1 packet PO DAILY PRN PRN PRN Reason: Constipation Senna/Docusate Sodium (Senokot-S, Sherice-Colace) 2 tablet PO BID PRN PRN PRN Reason: Constipation Sodium Chloride () 10 - 40 ml IV UD PRN PRN Reason: SALINE FLUSH Assessment/Plan This patient was seen in conjunction with GERA Tripp . I have independently interviewed and examined the patient and reviewed pertinent historical, laboratory, and other data. Please refer to GERA Tripp note for details of this patient's presentation, findings, and recommendations. I have reviewed GERA Tripp note and concur with documented findings. In brief, patient is a 61-year-old lady admitted with acute encephalopathy diagnosed with acute cystitis as well as constipation admitted to a monitored bed for further management 11/08/2019: Patient seen still remains relatively lethargic. Urine culture came back positive for Pseudomonas on cefepime, potassium 3.1 Physical Examination: GENERAL: Lethargic but arousable HEENT: Atraumatic; EYES; Anicteric, NECK; supple, normal thyroid, RESPIRATORY: Diminished to auscultation CARDIOVASCULAR: Regular S1 S2, GI: soft, normoactive bowel sounds, : No Renal angle tenderness; EXTREMITIES: No edema, no clubbing, NEURO: Awake; no lateralizing signs. SKIN: No Rash PSYCH; Flat affect Assessment: 1. Acute encephalopathy 2. Acute cystitis with Pseudomonas 3. Acute on chronic constipation 4. Hypothyroidism 5. GERD 6. Elevated troponin secondary to demand ischemia 7. Acute urinary retention 8. Hypotension?patient on midodrine 9. GERD 10. Tobacco dependence 11. Acute kidney injury Recommendations: 1. I have discussed the results of my overview and impressions with the patient 2. Options for management were reviewed Inpatient E&M: [id number] [facility]
[2019-11-08] MEDS: 0.9% Saline Lock 10 ML Syringe IV (18:51)
[2019-11-08] MEDS: Pregabalin 25 MG Capsule PO (23:15)
[2019-11-09] VITALS (12 sets, daily range): BP systolic 105–116; BP diastolic 69–75; PULSE 80–100; RESP 16–18; TEMP 36.6–36.8; O2SAT 94–100
[2019-11-09] MEDS: 0.9% Normal Saline 1,000 ML 100 ML IV ×2 (05:04→15:19)
[2019-11-09] MEDS: Lactulose 20 GM/30 ML UDC PO ×4 (05:05→23:56)
[2019-11-09] MEDS: Menthol/Lanolin/Calamine/Znox 113 GM Tube 1 APPLIC TOPICAL ×3 (05:10→21:18)
[2019-11-09] MEDS: Midodrine HCl 5 MG Tablet 10 MG PO ×3 (05:11→21:20)
[2019-11-09] MEDS: Levothyroxine 112 MCG Tablet PO (05:12)
[2019-11-09 05:18] LABS: Hematocrit 31.8 % (37-47); Hemoglobin 10.4 g/dL (12.0-15.0); Mean Corp Hgb Conc 32.7 g/dL (32-36); Mean Platelet Vol. 11.8 fl (6.2-12.0); Platelet Count 166 K/mm3 (150-450); RBC Distribution Width SD 51.4 fl (35.1-43.9); Red Blood Count 2.89 M/mm3 (4.2-5.4); White Blood Count 6.6 K/mm3 (4.4-11.0)
[2019-11-09 05:43] LABS: Anion Gap 8 (5-15); BUN 10 mg/dL (7-18); BUN/Creat Ratio 11.3 RATIO (10-20); Calcium,Total 7.9 mg/dL (8.5-10.1); Chloride 112 mmol/L (98-107); Creatinine, Serum 0.88 mg/dL (0.55-1.02); EST Glomerular Filtration Rate 69 mL/min (>60); Est Glom Filt Rate - Afr Amer 84 mL/min (>60); Estimated Creatinine Clearance 66.11 ml/min; Glucose 71 mg/dL (74-106); Potassium 3.4 mmol/L (3.5-5.1); Sodium Level 144 mmol/L (136-145)
[2019-11-09] MEDS: Ipratropium 0.5 MG/2.5 ML SOLUTION INHALATION ×2 (06:25→20:59)
[2019-11-09] MEDS: Bumetanide 0.5 MG Tablet PO (10:13)
[2019-11-09] MEDS: Pantoprazole Sodium 40 MG Tablet PO (10:13)
[2019-11-09] MEDS: Fluticasone 0.05% 1 SPRAY NASAL.SRY NASAL (10:13)
[2019-11-09] MEDS: Pregabalin 25 MG Capsule PO ×2 (10:21→21:19)
--- NOTE | 2019-11-09 12:16 | PN_ITS ---
<Angi Dumont - Last Filed: 11/09/19 12:19> Patient Problems: Active and Suspected Problems (Last Reviewed 07/02/19 @ 16:[address] Jacoby Rodriguez MD) UTI (urinary tract infection) (Acute) Urinary retention (Acute) Hyperammonemia (Acute) Elevation of cardiac enzymes (Acute) Constipation (Acute) Fecal impaction (Acute) NAILA (acute kidney injury) (Acute) Encephalopathy (Acute) Subjective: Patient seen and examined. Continues to be drowsy this morning however responding more appropriately while awake. Denies symptoms or complaints. - Physical Exam Vitals/I&O's: Vital Signs Temp Pulse Resp BP Pulse Ox 97.9 F 88 16 115/73 98 11/09/19 09:59 11/09/19 09:59 11/09/19 09:59 11/09/19 09:59 11/09/19 09:59 Oxygen Delivery Method Room Air Weight: 223 lb 5.252 oz Body Mass Index (BMI) 33.3 Intake and Output for Last 24 Hours 11/07/19 11/08/19 11/09/19 23:59 23:59 23:59 Intake Total 2590 / 2690 3496.67 / 3496.67 1013.33 / 1013.33 Output Total 900 / 1200 1650 / 1650 550 / 550 Balance 1690 / 1490 1846.67 / 1846.67 463.33 / 463.33 General: No apparent distress, - - Drowsy, awakens to voice HEENT: Atraumatic, PERRLA, EOMI, Normocephalic Oral: Dry Mucosa Neck: Supple, No JVD, Negative Carotid Bruits Lungs: Clear to auscultation, Diminished Cardiovascular: Regular rate, No murmurs Abdomen: Bowel Sounds Present, Soft, Non Tender, Non-Distended Extremities: No clubbing, No cyanosis, No edema, Capillary Refill Less than 3 Seconds Skin: No rashes, No breakdown Musculoskeletal: No Tenderness to Palpation of Joints or Extremities Neurological: Cranial nerves II-XII grossly intact, Neuro grossly intact Psych/Mental Status: Flat Affect Microbiology Past 72 Hours 11/06/19 20:14 Urine Catheter - Catheter Urine Culture - Final Pseudomonas aeroginosa Laboratory Results 11/09/19 05:08: WBC 6.6, RBC 2.89 L, Hgb 10.4 L, Hct 31.8 L, MCV 110.0 H, MCH 36.0 H, MCHC 32.7, RDW Std Deviation 51.4 H, RDW Coeff of Judith 13.0, Plt Count 166, MPV 11.8 11/09/19 05:08: Sodium 144, Potassium 3.4 L, Chloride 112 H, Carbon Dioxide 24.0, Anion Gap 8, BUN 10, Creatinine 0.88, Estim Creat Clear Calc 66.11, Est GFR (MDRD) Af Amer 84, Est GFR (MDRD) Non-Af 69, BUN/Creatinine Ratio 11.3, Glucose 71 L, Calcium 7.9 L 11/09/19 05:08: Ammonia 27.0 Current Medications Acetaminophen (Tylenol) 650 mg RECTAL Q4H PRN PRN PRN Reason: Pain Score 1-10/Temp > 100.7 F Acetaminophen (Tylenol) 650 mg PO Q6H PRN PRN PRN Reason: Pain Score 1-10/Temp > 100.7 F Last Admin: 11/08/19 11:07 Dose: 650 mg Documented by: Al Hydroxide/Mg Hydroxide (Mylanta Ii) 30 ml PO Q6H PRN PRN PRN Reason: Gastric Burning Albuterol Sulfate (Ventolin Aerosols) 2.5 mg INHALATION Q2H PRN PRN PRN Reason: Dyspnea, wheezing Bisacodyl (Dulcolax) 5 mg PO DAILY PRN PRN PRN Reason: Constipation Bumetanide (Bumex) 0.5 mg PO DAILY [facility] Last Admin: 11/09/19 10:13 Dose: 0.5 mg Documented by: Calamine/Phenol (Calmoseptine Ointment) 1 applic TOPICAL TID [facility]; Protocol Last Admin: 11/09/19 05:10 Dose: 1 applicatio Documented by: Dextrose (D50w Syringe) 0 gm IV X1 PRN; Protocol PRN Reason: Hypoglycemia Fluticasone Propionate (Flonase Nasal [place]) 1 spray NASAL DAILY [facility] Last Admin: 11/09/19 10:13 Dose: 1 spray Documented by: Glucagon () 1 mg IM .X1 PRN PRN Reason: Hypoglycemia Hydralazine HCl (Apresoline Iv) 10 mg IV Q4H PRN PRN PRN Reason: SBP > 160 Sodium Chloride () 1,000 mls @ 100 mls/hr IV .Q10H [facility] Last Admin: 11/09/19 05:04 Dose: 100 mls/hr Documented by: Cefepime HCl 1 gm/ Sodium (Chloride) 50 mls @ 100 mls/hr IV Q8 [facility] Last Infusion: 11/09/19 05:40 Dose: Infused Documented by: Ipratropium [place] (Atrovent) 0.5 mg INHALATION Q6HWA.RT [facility] Last Admin: 11/09/19 06:25 Dose: 0.5 mg Documented by: Lactobacillus Acidophilus (Acidophilus) 1 tablet PO DAILY [facility] Last Admin: 11/09/19 10:13 Dose: 1 tablet Documented by: Lactulose (Chronulac, Cephulac) 20 gm PO Q6H [facility] Last Admin: 11/09/19 12:01 Dose: 20 gm Documented by: Levothyroxine Sodium (Synthroid) 112 mcg PO DAILY@0600 [facility] Last Admin: 11/09/19 05:12 Dose: 112 mcg Documented by: Magnesium Hydroxide (Milk Of Magnesia) 30 ml PO DAILY PRN PRN PRN Reason: Constipation Melatonin (Melatonin) 3 mg PO QHS PRN PRN PRN Reason: INSOMNIA Midodrine (Proamatine) 10 mg PO TID [facility] Last Admin: 11/09/19 05:11 Dose: 10 mg Documented by: Morphine Sulfate () 2 mg IV Q3H PRN PRN PRN Reason: Pain Score 6-10/10 Last Admin: 11/07/19 04:57 Dose: 2 mg Documented by: Nicotine (Nicoderm Cq (Pbkc)) 21 mg TRANSDERM. DAILY [facility] Last Admin: 11/09/19 10:13 Dose: 21 mg Documented by: Nitroglycerin (Nitrostat) 0.4 mg SUBLINGUAL Q5M PRN PRN Reason: CARDIAC/CHEST PAIN Ondansetron HCl (Zofran) 4 mg IV Q8H PRN PRN PRN Reason: NAUSEA/VOMITING Oxycodone HCl (Oxyir) 5 mg PO Q4H PRN PRN PRN Reason: Pain Score 4-5/10 Pantoprazole Sodium (Protonix) 40 mg PO DAILY [facility] Last Admin: 11/09/19 10:13 Dose: 40 mg Documented by: Pregabalin (Lyrica) 25 mg PO BID [facility] Last Admin: 11/09/19 10:21 Dose: 25 mg Documented by: Prochlorperazine Edisylate (Compazine Iv) 5 mg IV Q4H PRN PRN PRN Reason: Breakthrough Nausea/Vomiting Psyllium Hydrophilic Mucilloid (Metamucil) 1 packet PO DAILY PRN PRN PRN Reason: Constipation Senna/Docusate Sodium (Senokot-S, Sherice-Colace) 2 tablet PO BID PRN PRN PRN Reason: Constipation Sodium Chloride () 10 - 40 ml IV UD PRN PRN Reason: SALINE FLUSH Last Admin: 11/08/19 18:51 Dose: 10 ml Documented by: Medical Necessity - Tobacco Use Smoking Status: Current every day smoker Tobacco Use: Cigarettes Assessment/Plan All Active Problems (Last Reviewed 07/02/19 @ 16:[address] Jacoby Rodriguez MD) UTI (urinary tract infection) (Acute) Urinary retention (Acute) Hyperammonemia (Acute) Elevation of cardiac enzymes (Acute) Constipation (Acute) Fecal impaction (Acute) NAILA (acute kidney injury) (Acute) Encephalopathy (Acute) Debility (Acute) Epidural hematoma (Resolved) 1. Acute metabolic encephalopathy multifactorial secondary to acute UTI, NAILA, hyperammonia-treat underlying processes. PT/OT. Reduce home Lyrica regimen to 25 mg twice daily given lethargy. 2. Acute Pseudomonas UTI-continue IV cefepime. 3. Acute on chronic constipation with rectal impaction-disimpacted in ER. Continue aggressive bowel regimen. 4. Acute urinary retention-suspect secondary to #2/#3. Burns in place. Voiding trial prior to discharge. 5. Acute kidney injury-secondary to retention. Creatinine now normal. Burns in place. Trend BMP. 6. Indeterminate troponin-enzymes chronically elevated. EKG without ST-T changes. Troponins did not trend. 7. Recent hemorrhagic contusion of the left frontal lobe-treated at [facility] following fall 10/14/2019. 8. Chronic alcohol abuse with alcoholic cirrhosis-continue lactulose regimen. Patient has history of prior falls related to alcohol use. Recent alcohol cessation secondary to hospitalization/SNF. 9. Hypotension-continue home midodrine regimen. 10. Hypothyroidism-continue Synthroid regimen. 11. GERD-continue PPI. 12. Tobacco dependence-encouraged cessation. Nicotine replacement patch. 13. History of left epidural hematoma status post craniotomy 2017 DVT prophylaxis-SCDs. Pharmacologic prophylaxis contraindicated due to recent hemorrhagic contusion. Discharge planning: Patient choosing a new SNF, return to SNF when medically stable/pending approval. This patient was seen by GERA Tripp under the supervision of Dr. Tracy. <Phill Tracy - Last Filed: 11/09/19 13:24> - Physical Exam Vitals/I&O's: Vital Signs Temp Pulse Resp BP Pulse Ox 97.9 F 88 16 115/73 98 11/09/19 09:59 11/09/19 09:59 11/09/19 09:59 11/09/19 09:59 11/09/19 09:59 Oxygen Delivery Method Room Air Weight: 101.3 kg Body Mass Index (BMI) 33.3 Intake and Output for Last 24 Hours 11/07/19 11/08/19 11/09/19 23:59 23:59 23:59 Intake Total 2590 / 2690 3496.67 / 3496.67 1013.33 / 1013.33 Output Total 900 / 1200 1650 / 1650 550 / 550 Balance 1690 / 1490 1846.67 / 1846.67 463.33 / 463.33 Microbiology Past 72 Hours 11/06/19 20:14 Urine Catheter - Catheter Urine Culture - Final Pseudomonas aeroginosa Laboratory Results 11/09/19 05:08: WBC 6.6, RBC 2.89 L, Hgb 10.4 L, Hct 31.8 L, MCV 110.0 H, MCH 36.0 H, MCHC 32.7, RDW Std Deviation 51.4 H, RDW Coeff of Judith 13.0, Plt Count 166, MPV 11.8 11/09/19 05:08: Sodium 144, Potassium 3.4 L, Chloride 112 H, Carbon Dioxide 24.0, Anion Gap 8, BUN 10, Creatinine 0.88, Estim Creat Clear Calc 66.11, Est GFR (MDRD) Af Amer 84, Est GFR (MDRD) Non-Af 69, BUN/Creatinine Ratio 11.3, Glucose 71 L, Calcium 7.9 L 11/09/19 05:08: Ammonia 27.0 Current Medications Acetaminophen (Tylenol) 650 mg RECTAL Q4H PRN PRN PRN Reason: Pain Score 1-10/Temp > 100.7 F Acetaminophen (Tylenol) 650 mg PO Q6H PRN PRN PRN Reason: Pain Score 1-10/Temp > 100.7 F Last Admin: 11/08/19 11:07 Dose: 650 mg Documented by: Al Hydroxide/Mg Hydroxide (Mylanta Ii) 30 ml PO Q6H PRN PRN PRN Reason: Gastric Burning Albuterol Sulfate (Ventolin Aerosols) 2.5 mg INHALATION Q2H PRN PRN PRN Reason: Dyspnea, wheezing Bisacodyl (Dulcolax) 5 mg PO DAILY PRN PRN PRN Reason: Constipation Bumetanide (Bumex) 0.5 mg PO DAILY [facility] Last Admin: 11/09/19 10:13 Dose: 0.5 mg Documented by: Calamine/Phenol (Calmoseptine Ointment) 1 applic TOPICAL TID [facility]; Protocol Last Admin: 11/09/19 05:10 Dose: 1 applicatio Documented by: Dextrose (D50w Syringe) 0 gm IV X1 PRN; Protocol PRN Reason: Hypoglycemia Fluticasone Propionate (Flonase Nasal [place]) 1 spray NASAL DAILY [facility] Last Admin: 11/09/19 10:13 Dose: 1 spray Documented by: Glucagon () 1 mg IM .X1 PRN PRN Reason: Hypoglycemia Hydralazine HCl (Apresoline Iv) 10 mg IV Q4H PRN PRN PRN Reason: SBP > 160 Sodium Chloride () 1,000 mls @ 100 mls/hr IV .Q10H [facility] Last Admin: 11/09/19 05:04 Dose: 100 mls/hr Documented by: Cefepime HCl 1 gm/ Sodium (Chloride) 50 mls @ 100 mls/hr IV Q8 [facility] Last Infusion: 11/09/19 05:40 Dose: Infused Documented by: Ipratropium [place] (Atrovent) 0.5 mg INHALATION Q6HWA.RT [facility] Last Admin: 11/09/19 06:25 Dose: 0.5 mg Documented by: Lactobacillus Acidophilus (Acidophilus) 1 tablet PO DAILY [facility] Last Admin: 11/09/19 10:13 Dose: 1 tablet Documented by: Lactulose (Chronulac, Cephulac) 20 gm PO Q6H [facility] Last Admin: 11/09/19 12:01 Dose: 20 gm Documented by: Levothyroxine Sodium (Synthroid) 112 mcg PO DAILY@0600 [facility] Last Admin: 11/09/19 05:12 Dose: 112 mcg Documented by: Magnesium Hydroxide (Milk Of Magnesia) 30 ml PO DAILY PRN PRN PRN Reason: Constipation Melatonin (Melatonin) 3 mg PO QHS PRN PRN PRN Reason: INSOMNIA Midodrine (Proamatine) 10 mg PO TID [facility] Last Admin: 11/09/19 05:11 Dose: 10 mg Documented by: Morphine Sulfate () 2 mg IV Q3H PRN PRN PRN Reason: Pain Score 6-10/10 Last Admin: 11/07/19 04:57 Dose: 2 mg Documented by: Nicotine (Nicoderm Cq (Pbkc)) 21 mg TRANSDERM. DAILY [facility] Last Admin: 11/09/19 10:13 Dose: 21 mg Documented by: Nitroglycerin (Nitrostat) 0.4 mg SUBLINGUAL Q5M PRN PRN Reason: CARDIAC/CHEST PAIN Ondansetron HCl (Zofran) 4 mg IV Q8H PRN PRN PRN Reason: NAUSEA/VOMITING Oxycodone HCl (Oxyir) 5 mg PO Q4H PRN PRN PRN Reason: Pain Score 4-5/10 Pantoprazole Sodium (Protonix) 40 mg PO DAILY [facility] Last Admin: 11/09/19 10:13 Dose: 40 mg Documented by: Pregabalin (Lyrica) 25 mg PO BID [facility] Last Admin: 11/09/19 10:21 Dose: 25 mg Documented by: Prochlorperazine Edisylate (Compazine Iv) 5 mg IV Q4H PRN PRN PRN Reason: Breakthrough Nausea/Vomiting Psyllium Hydrophilic Mucilloid (Metamucil) 1 packet PO DAILY PRN PRN PRN Reason: Constipation Senna/Docusate Sodium (Senokot-S, Sherice-Colace) 2 tablet PO BID PRN PRN PRN Reason: Constipation Sodium Chloride () 10 - 40 ml IV UD PRN PRN Reason: SALINE FLUSH Last Admin: 11/08/19 18:51 Dose: 10 ml Documented by: Assessment/Plan This patient was seen in conjunction with EMANUEL TrippC . I have independently interviewed and examined the patient and reviewed pertinent historical, laboratory, and other data. Please refer to GERA Tripp note for details of this patient's presentation, findings, and recommendations. I have reviewed GERA Tripp note and concur with documented findings. In brief, patient is a 61-year-old lady admitted with acute encephalopathy diagnosed with acute cystitis as well as constipation admitted to a monitored bed for further management 11/08/2019: Patient seen still remains relatively lethargic. Urine culture came back positive for Pseudomonas on cefepime, potassium 3.1 11/09/2019: Seen still remains drowsy Physical Examination: GENERAL: Drowsy HEENT: Atraumatic; EYES; Anicteric, NECK; supple, normal thyroid, RESPIRATORY: Diminished to auscultation CARDIOVASCULAR: Regular S1 S2, GI: soft, normoactive bowel sounds, : No Renal angle tenderness; EXTREMITIES: No edema, no clubbing, NEURO: no lateralizing signs. SKIN: No Rash Assessment: 1. Acute encephalopathy 2. Acute cystitis with Pseudomonas 3. Acute on chronic constipation 4. Hypothyroidism 5. GERD 6. Elevated troponin secondary to demand ischemia 7. Acute urinary retention 8. Hypotension?patient on midodrine 9. GERD 10. Tobacco dependence 11. Acute kidney injury Recommendations: 1. I have discussed the results of my overview and impressions with the patient 2. Options for management were reviewed Inpatient E&M: 33183 Subs Hosp L2
[2019-11-10] MEDS: 0.9% Normal Saline 1,000 ML 100 ML IV (02:17)
[2019-11-10 03:00] VITALS: PULSE 100
[2019-11-10 03:11] VITALS: BP 99/62; PULSE 99; RESP 18; TEMP 36.8; O2SAT 98
[2019-11-10] MEDS: Lactulose 20 GM/30 ML UDC PO ×2 (05:09→10:49)
[2019-11-10] MEDS: Menthol/Lanolin/Calamine/Znox 113 GM Tube 1 APPLIC TOPICAL (05:11)
[2019-11-10] MEDS: Midodrine HCl 5 MG Tablet 10 MG PO (05:14)
[2019-11-10] MEDS: Levothyroxine 112 MCG Tablet PO (05:14)
[2019-11-10 05:37] LABS: Anion Gap 7 (5-15); BUN 7 mg/dL (7-18); BUN/Creat Ratio 8.8 RATIO (10-20); Calcium,Total 7.6 mg/dL (8.5-10.1); Chloride 113 mmol/L (98-107); EST Glomerular Filtration Rate 78 mL/min (>60); Est Glom Filt Rate - Afr Amer 94 mL/min (>60); Estimated Creatinine Clearance 72.72 ml/min; Glucose 78 mg/dL (74-106); Potassium 3.3 mmol/L (3.5-5.1); Sodium Level 142 mmol/L (136-145)
[2019-11-10 06:47] VITALS: PULSE 98; RESP 16
[2019-11-10] MEDS: Ipratropium 0.5 MG/2.5 ML SOLUTION INHALATION (06:47)
[2019-11-10 07:38] VITALS: PULSE 93
[2019-11-10 09:00] VITALS: BP 124/71; PULSE 94; RESP 16; TEMP 36.9; O2SAT 99
--- NOTE | 2019-11-10 09:28 | CASEMGMT ---
[facility] faxed updated information along with negative COVID test result to [place]. Daksha DOLAN TRAVERSE ROD ASSEMBLER
--- NOTE | 2019-11-10 10:48 | TREXTCA.CO_ITS ---
- Diet 11/07/19 12:23 Diet: Regular Diet Food consistency:: Soft Liquid Consistency:: Regular/Thin Is pt able to select menu?: No Diet Comments: Direct 1:1 supervision, GERD precautions - Routine Orders/Code Status Enema Type: Fleetz Enema Frequency: Daily PRN Suppository Type: Dulcolax 10mg Suppository Frequency: Daily PRN Routine Lab Work: - - BMP daily X3 days to repeat potassium. Then weekly BMP, CBC. Code Status: Full Code - Suggestions for Active Care Change Position every (hours): 2 Times a day to sit in chair: 3 - Therapies Physical Therapy: Eval and Treat Occupational Therapy: Eval and Treat Speech Therapy: Eval and Treat - Problem/Diagnosis (1) UTI (urinary tract infection) Status: Acute Comment: Pseudomonas Current Visit: Yes (2) Urinary retention Status: Acute Current Visit: Yes (3) Hyperammonemia Status: Acute Current Visit: Yes (4) Elevation of cardiac enzymes Status: Chronic Current Visit: Yes (5) Fecal impaction Status: Acute Current Visit: Yes (6) NAILA (acute kidney injury) Status: Acute Current Visit: Yes (7) Hypothyroidism Status: Chronic Current Visit: No (8) Encephalopathy Status: Acute Current Visit: Yes (9) Chronic back pain Status: Chronic Current Visit: No (10) GERD (gastroesophageal reflux disease) Status: Chronic Current Visit: No (11) Chronic alcohol abuse Status: Chronic Current Visit: No (12) Tobacco abuse disorder Status: Chronic Current Visit: No (13) Epidural hematoma Status: Resolved Current Visit: No - Allergies/Procedures Done in Hospital Allergies/Adverse Reactions: Allergies bee venom protein (honey bee) Allergy (Verified 10/14/19 01:39) Unknown oxycodone Adverse Reaction (Intermediate, Verified 10/14/19 01:39) Other [facility] Procedures: None - Type of Care/Length of Stay Estimated LOS: Convalescent Care Less Than 30 days Type of Care Needed: Skilled Rehab Potential: Fair Prognosis: Fair - Additional Orders/Day of Discharge H&P will serve as current which was dated: 11/06/19 Day of Discharge: 11/10/19 - Dietary and Speech Recommendations Dietitian Recommendations/Changes: Will continue Regular diet at this time as PO intake to be established and ensure pt tolerating soft diet. If pt w/ good intake will adjust diet to Cardiac/low cholesterol/ low sodium w/ fluid restriction as indicated d/t pt hx of CHF- texture modifications per ATTENDANT ARCADE. Will provide ONS as indicated. Speech Linguistic Eval Summary: Pt's friend and POA, Rosanne, present for evaluation. Rosanne reported she has not seen Fouzia in a month. She has improved cognition from last night but still is not at baseline function. Orientation: Pt oriented to self, , and year. Reoriented pt to place (twice during session d/t poor recall), age, month. Verbal expression: Pt appeared to have anomia in simple conversation with ATTENDANT ARCADE. Pt would hesitate mid sentence and change what she was saying. Pt with deficited attention which also negatively affected verbal communication. Immediate recall: 2/3 accuracy. Poor recall t hroughout session during orientation and following direction tasks. Following directions: 1-step - 90% acc, 2-step 70% acc independently. Attention: Pt with frequent topic changes and required frequent redirection to task. Pt with impulsivity in responses and actions. Social interaction: Pt impulsive and with inappropriate responses and actions throughout session (e.g. frog noises, pig noises). Pt presents with mod-severe cognitive-linguistic impairment characterized by deficits in orientation, attention, recall, expressive/receptive language, and social interaction. Plan to follow for jaime oing cognitive assessment to set additional goals as needed. - Follow Up Care Primary Care Physician: Tony Kulkarni MD [STAFF PHYSICIAN] - Please follow up with your Primary Care Physician in: 1 Week
[2019-11-10] MEDS: Pantoprazole Sodium 40 MG Tablet PO (10:49)
[2019-11-10] MEDS: Pregabalin 25 MG Capsule PO (10:49)
[2019-11-10] MEDS: Fluticasone 0.05% 1 SPRAY NASAL.SRY NASAL (10:49)
[2019-11-10] MEDS: Bumetanide 0.5 MG Tablet PO (10:49)
--- NOTE | 2019-11-10 10:53 | CASEMGMT ---
CAGE/VAULT SUPERVISOR indicated patient will need IV Cefepime 1g Q8 until 7. ALEC called Debby at [facility] and asked if this would be a problem. She will check on cost and get back to ALEC. Daksha DOLAN TELEVISION DIRECTOR
--- NOTE | 2019-11-10 10:58 | DS.PCM_ITS ---
<Angi Dumont - Last Filed: 11/10/19 11:03> Discharge Date and Diagnosis Date of Admission: 11/06/19 Date of Discharge: 11/10/19 - Primary Discharge Diagnosis Acute Problems: Active Problems (Last Reviewed 07/02/19 @ 16:[address] Jacoby Rodriguez MD) 1. Acute metabolic encephalopathy multifactorial secondary to acute UTI, NAILA, hyperammonia 2. Acute Pseudomonas UTI 3. Acute on chronic constipation with rectal impaction 4. Acute urinary retention 5. Acute kidney injury 6. Indeterminate troponin, ACS ruled out 7. Recent hemorrhagic contusion of the left frontal lobe-treated at [facility] following fall 10/14/2019. 8. Chronic alcohol abuse with alcoholic cirrhosis 9. Hypotension 10. Hypothyroidism 11. GERD 12. Tobacco dependence 13. History of left epidural hematoma status post craniotomy 2017 - Secondary Discharge Diagnosis Chronic Problems: Chronic Problems (Last Reviewed 07/02/19 @ 16:[address] Jacoby Rodriguez MD) Elevation of cardiac enzymes (Chronic) Hypothyroidism (Chronic) Chronic back pain (Chronic) GERD (gastroesophageal reflux disease) (Chronic) Chronic alcohol abuse (Chronic) Tobacco abuse disorder (Chronic) Hospital Course and Treatment Imaging Results: Diagnostic Data Brain CT 11/06/19 19:45 IMPRESSION: 1. Stable left temporal density compared to the prior study, question residual hematoma versus mass. 2. Chronic encephalomalacic changes in the right frontal and temporal lobes. 3. Chronic microvascular ischemic changes in the left frontal lobe. Electronically Signed: Ashley Almazan MD at 21:30 EDT Tel , Service support , Abdomen/Pelvis CT 11/06/19 20:59 IMPRESSION: 1. Somewhat limited due to artifact. 2. Mild ascites. 3. Mild right hydronephrosis. No obstructing mass or stone is demonstrated. 4. Pancreatic head calcifications may be due to chronic pancreatitis versus CBD stone. 5. Extensive soft tissue edema. Electronically Signed: Ashley Almazan MD at 21:46 EDT Tel , Service support , Operations: None Procedures: None Summary of Care Provided: The patient is a 59 year old F admitted 11/06/2019 due to abdominal pain, c onstipation and confusion. 1. Acute metabolic encephalopathy multifactorial secondary to acute UTI, NAILA, hyperammonia-significantly improved following treatment of underlying processes. Home Lyrica regimen reduced to 25 mg twice daily given previous lethargy. Recommend continuing this dose at discharge. Return to SNF at discharge. 2. Acute Pseudomonas UTI-continue IV cefepime for 7-day course. 3. Acute on chronic constipation with rectal impaction-disimpacted in ER. Continue lactulose and PRN bowel regimen. 4. Acute urinary retention-suspect secondary to #2/#3. Voiding trial prior to discharge. 5. Acute kidney injury-secondary to retention and home diuretic regimen with poor oral intake. Creatinine now normal. Bumex discontinued at discharge. 6. Indeterminate troponin-enzymes chronically elevated. EKG without ST-T changes. Troponins did not trend. Patient asymptomatic. 7. Recent hemorrhagic contusion of the left frontal lobe-treated at [facility] following fall 10/14/2019. 8. Chronic alcohol abuse with alcoholic cirrhosis-continue lactulose regimen. Patient has history of prior falls related to alcohol use. Recent alcohol cessation secondary to hospitalization/SNF. 9. Hypotension-continue home midodrine regimen. 10. Hypothyroidism-continue Synthroid regimen. 11. GERD-continue PPI. 12. Tobacco dependence-encouraged cessation. Nicotine replacement patch. 13. History of left epidural hematoma status post craniotomy 2017 General: No apparent distress, alert and oriented HEENT: Atraumatic, PERRLA, EOMI, Normocephalic Oral: Dry Mucosa Neck: Supple, No JVD, Negative Carotid Bruits Lungs: Clear to auscultation, Diminished Cardiovascular: Regular rate, No murmurs Abdomen: Bowel Sounds Present, Soft, Non Tender, Non-Distended Extremities: No clubbing, No cyanosis, No edema, Capillary Refill Less than 3 Seconds Skin: No rashes, No breakdown Musculoskeletal: No Tenderness to Palpation of Joints or Extremities Neurological: Cranial nerves II-XII grossly intact, Neuro grossly intact Psych/Mental Status: Flat Affect Patient seen and examined prior to discharge. Physical assessment as noted above. Patient is stable for discharge with follow up recommendations as noted above. This patient was seen by GERA Tripp under the supervision of Dr. Campos. - Physical Exam Vitals/I&O's: Vital Signs Temp Pulse Resp BP Pulse Ox 98.4 F 94 16 124/71 H 99 11/10/19 09:00 11/10/19 09:00 11/10/19 09:00 11/10/19 09:00 11/10/19 09:00 Oxygen Delivery Method Room Air Weight: 223 lb 12.307 oz Body Mass Index (BMI) 33.3 Intake and Output for Last 24 Hours 11/08/19 11/09/19 11/10/19 23:59 23:59 23:59 Intake Total 3496.67 / 3496.67 3900.00 / 3900.00 423.33 / 423.33 Output Total 1650 / 1650 1900 / 1900 350 / 350 Balance 1846.67 / 1846.67 1999.00 / 1999. 73.33 / 73.33 Microbiology Past 72 Hours 11/06/19 20:14 Urine Catheter - Catheter Urine Culture - Final Pseudomonas aeroginosa Laboratory Results 11/10/19 04:58: Sodium 142, Potassium 3.3 L, Chloride 113 H, Carbon Dioxide 22.0, Anion Gap 7, BUN 7, Creatinine 0.80, Estim Creat Clear Calc 72.72, Est GFR (MDRD) Af Amer 94, Est GFR (MDRD) Non-Af 78, BUN/Creatinine Ratio 8.8 L, Glucose 78, Calcium 7.6 L Current Medications Acetaminophen (Tylenol) 650 mg RECTAL Q4H PRN PRN PRN Reason: Pain Score 1-10/Temp > 100.7 F Acetaminophen (Tylenol) 650 mg PO Q6H PRN PRN PRN Reason: Pain Score 1-10/Temp > 100.7 F Last Admin: 11/08/19 11:07 Dose: 650 mg Documented by: Al Hydroxide/Mg Hydroxide (Mylanta Ii) 30 ml PO Q6H PRN PRN PRN Reason: Gastric Burning Albuterol Sulfate (Ventolin Aerosols) 2.5 mg INHALATION Q2H PRN PRN PRN Reason: Dyspnea, wheezing Bisacodyl (Dulcolax) 5 mg PO DAILY PRN PRN PRN Reason: Constipation Bumetanide (Bumex) 0.5 mg PO DAILY [facility] Last Admin: 11/10/19 10:49 Dose: 0.5 mg Documented by: Calamine/Phenol (Calmoseptine Ointment) 1 applic TOPICAL TID [facility]; Protocol Last Admin: 11/10/19 05:11 Dose: 1 applicatio Documented by: Dextrose (D50w Syringe) 0 gm IV X1 PRN; Protocol PRN Reason: Hypoglycemia Fluticasone Propionate (Flonase Nasal [place]) 1 spray NASAL DAILY [facility] Last Admin: 11/10/19 10:49 Dose: 1 spray Documented by: Glucagon () 1 mg IM .X1 PRN PRN Reason: Hypoglycemia Hydralazine HCl (Apresoline Iv) 10 mg IV Q4H PRN PRN PRN Reason: SBP > 160 Sodium Chloride () 1,000 mls @ 100 mls/hr IV .Q10H [facility] Last Admin: 11/10/19 02:17 Dose: 100 mls/hr Documented by: Cefepime HCl 1 gm/ Sodium (Chloride) 50 mls @ 100 mls/hr IV Q8 [facility] Last Infusion: 11/10/19 05:45 Dose: Infused Documented by: Ipratropium [place] (Atrovent) 0.5 mg INHALATION Q6HWA.RT [facility] Last Admin: 11/10/19 06:47 Dose: 0.5 mg Documented by: Lactobacillus Acidophilus (Acidophilus) 1 tablet PO DAILY [facility] Last Admin: 11/10/19 10:49 Dose: 1 tablet Documented by: Lactulose (Chronulac, Cephulac) 20 gm PO Q6H [facility] Last Admin: 11/10/19 10:49 Dose: 20 gm Documented by: Levothyroxine Sodium (Synthroid) 112 mcg PO DAILY@0600 [facility] Last Admin: 11/10/19 05:14 Dose: 112 mcg Documented by: Magnesium Hydroxide (Milk Of Magnesia) 30 ml PO DAILY PRN PRN PRN Reason: Constipation Melatonin (Melatonin) 3 mg PO QHS PRN PRN PRN Reason: INSOMNIA Midodrine (Proamatine) 10 mg PO TID [facility] Last Admin: 11/10/19 05:14 Dose: 10 mg Documented by: Morphine Sulfate () 2 mg IV Q3H PRN PRN PRN Reason: Pain Score 6-10/10 Last Admin: 11/07/19 04:57 Dose: 2 mg Documented by: Nicotine (Nicoderm Cq (Pbkc)) 21 mg TRANSDERM. DAILY [facility] Last Admin: 11/10/19 10:48 Dose: Not Given Documented by: Nitroglycerin (Nitrostat) 0.4 mg SUBLINGUAL Q5M PRN PRN Reason: CARDIAC/CHEST PAIN Ondansetron HCl (Zofran) 4 mg IV Q8H PRN PRN PRN Reason: NAUSEA/VOMITING Oxycodone HCl (Oxyir) 5 mg PO Q4H PRN PRN PRN Reason: Pain Score 4-5/10 Pantoprazole Sodium (Protonix) 40 mg PO DAILY [facility] Last Admin: 11/10/19 10:49 Dose: 40 mg Documented by: Pregabalin (Lyrica) 25 mg PO BID [facility] Last Admin: 11/10/19 10:49 Dose: 25 mg Documented by: Prochlorperazine Edisylate (Compazine Iv) 5 mg IV Q4H PRN PRN PRN Reason: Breakthrough Nausea/Vomiting Psyllium Hydrophilic Mucilloid (Metamucil) 1 packet PO DAILY PRN PRN PRN Reason: Constipation Senna/Docusate Sodium (Senokot-S, [place]-Colace) 2 tablet PO BID PRN PRN PRN Reason: Constipation Sodium Chloride () 10 - 40 ml IV UD PRN PRN Reason: SALINE FLUSH Last Admin: 11/08/19 18:51 Dose: 10 ml Documented by: Home Medications: Medications to take at Discharge Acetaminophen [Tylenol] 500 mg PO Q6H PRN PRN 11/06/19 Fluticasone Furoate [Veramyst] 1 spray NS DAILY 11/06/19 Lactobacillus Rhamnosus GG [Culturelle] 1 cap PO DAILY 11/06/19 Levothyroxine Sodium [Synthroid] 112 mcg PO DAILY 11/06/19 Midodrine HCl 10 mg PO TID 11/06/19 Multivitamin with Minerals [Multivitamins with Minerals] 1 ea PO DAILY 11/06/19 Omeprazole 40 mg PO DAILY 11/06/19 Potassium Chloride [Klor-Con M20] 20 meq PO DAILY 11/06/19 Sodium Phosphate,[place]-Dibasic [Fleet Enema] 1 bottle [place] DAILY PRN PRN 11/06/19 Tiotropium [place] [Spiriva Respimat] 2 puff INHALATION DAILY 11/06/19 Cefepime HCl [Maxipime] 1 gm IV Q8 vial 11/10/19 Lactulose [Chronulac] 20 gm PO Q8H udc 11/10/19 Nicotine [Nicoderm Cq] 21 mg TRANSDERM. DAILY patch 11/10/19 Pregabalin [Lyrica] 25 mg PO BID cap 11/10/19 Primary Care Physician: Tony Kulkarni MD [STAFF PHYSICIAN] - Please follow up with your Primary Care Physician in: 1 Week Disposition: Senior Care facility Minutes spent on discharge:: 35 Patient Condition:: Stable Medical Necessity - Tobacco Use Smoking Status: Current every day smoker Tobacco Use: Cigarettes Meaningful Use Info Meaningful Use Diagnoses (Choose all that apply): None applicable <Arthur Campos Nereida - Last Filed: 11/10/19 12:00> Discharge Date and Diagnosis - Secondary Discharge Diagnosis Chronic Problems: Chronic Problems (Last Reviewed 07/02/19 @ 16:[address] Jacoby Rodriguez MD) Elevation of cardiac enzymes (Chronic) Hypothyroidism (Chronic) Chronic back pain (Chronic) GERD (gastroesophageal reflux disease) (Chronic) Chronic alcohol abuse (Chronic) Tobacco abuse disorder (Chronic) Hospital Course and Treatment Summary of Care Provided: Hospitalist note: Discharge summary above reviewed and I concur with the above discharge treatment plan. Patient presented to the emergency room because of constipation with fecal impaction, found to have acute cystitis, acute urinary tension, acute kidney injury as well as acute metabolic encephalopathy. CT scan abdomen and pelvis revealed mild ascites, mild right hydronephrosis without evidence of obstructing kidney stones or masses. CT scan brain without contrast revealed stable left temporal density with questionable residual hematoma, chronic encephalomalacia, no acute infarct or hemorrhage. Patient was treated conservatively with laxatives and stool softeners as well as IV fluids. She was found to have acute kidney injury which was treated with IV fluids and her kidney function returned back to normal. She was treated with IV cefepime for pseudomonas aeruginosa acute cystitis. She was found to have indeterminate troponin which seemed to be chronic. Patient had a chest pain during this hospital stay. Her EKG revealed low voltage EKG, normal sinus rhythm, no evidence of acute segment changes. She had 2D echocardiogram done on July, that revealed ejection fraction of 60%, there was no evidence of wall motion abnormalities or diastolic dysfunction. At that time, her troponin was also slightly elevated. Patient discharged to custodial facility in a stable medical condition, discharged on IV cefepime to complete total of 7 days of treatment for pseudomonas aeruginosa acute cystitis, discharged on lactulose, discharged on her previous home medications without any changes, recommended follow-up with PCP in 1 week. - Physical Exam General: Alert, Oriented , Cooperative, No apparent distress. HEENT: Atraumatic, PERRLA, EOMI. Neck: Supple, No JVD, Negative Carotid Bruits, Trachea Midline, Thyroid Normal. Lungs: Clear to auscultation, Normal air movement, No rhonchi, No wheeze, No rales. Cardiovascular: Regular rate, Regular Rhythm, Normal S1, Normal S2, PMI Normal. Abdomen: Bowel Sounds Present, Soft, Non Tender, Non-Distended, No Hepato- splenomegaly. Extremities: No clubbing, No cyanosis, edema Skin: No rashes, No breakdown Neurological: Cranial nerves are intact, neuro grossly intact Vital Signs are stable. This note was generated with [employer] dictation software. It may contain incorrect words, spelling, and punctuation that were not noted in checking the note before signing. - Physical Exam Vitals/I&O's: Vital Signs Temp Pulse Resp BP Pulse Ox 98.4 F 94 16 124/71 H 99 11/10/19 09:00 11/10/19 09:00 11/10/19 09:00 11/10/19 09:00 11/10/19 09:00 Oxygen Delivery Method Room Air Weight: 223 lb 12.307 oz Body Mass Index (BMI) 33.3 Intake and Output for Last 24 Hours 11/08/19 11/09/19 11/10/19 23:59 23:59 23:59 Intake Total 3496.67 / 3496.67 3900.00 / 3900.00 423.33 / 423.33 Output Total 1650 / 1650 1900 / 1900 350 / 350 Balance 1846.67 / 1846.67 2000.00 / 1999.00 73.33 / 73.33 Microbiology Past 72 Hours 11/06/19 20:14 Urine Catheter - Catheter Urine Culture - Final Pseudomonas aeroginosa Laboratory Results 11/10/19 04:58: Sodium 142, Potassium 3.3 L, Chloride 113 H, Carbon Dioxide 22.0, Anion Gap 7, BUN 7, Creatinine 0.80, Estim Creat Clear Calc 72.72, Est GFR (MDRD) Af Amer 94, Est GFR (MDRD) Non-Af 78, BUN/Creatinine Ratio 8.8 L, Glucose 78, Calcium 7.6 L Current Medications Acetaminophen (Tylenol) 650 mg RECTAL Q4H PRN PRN PRN Reason: Pain Score 1-10/Temp > 100.7 F Acetaminophen (Tylenol) 650 mg PO Q6H PRN PRN PRN Reason: Pain Score 1-10/Temp > 100.7 F Last Admin: 11/08/19 11:07 Dose: 650 mg Documented by: Al Hydroxide/Mg Hydroxide (Mylanta Ii) 30 ml PO Q6H PRN PRN PRN Reason: Gastric Burning Albuterol Sulfate (Ventolin Aerosols) 2.5 mg INHALATION Q2H PRN PRN PRN Reason: Dyspnea, wheezing Bisacodyl (Dulcolax) 5 mg PO DAILY PRN PRN PRN Reason: Constipation Bumetanide (Bumex) 0.5 mg PO DAILY [facility] Last Admin: 11/10/19 10:49 Dose: 0.5 mg Documented by: Calamine/Phenol (Calmoseptine Ointment) 1 applic TOPICAL TID [facility]; Protocol Last Admin: 11/10/19 05:11 Dose: 1 applicatio Documented by: Dextrose (D50w Syringe) 0 gm IV X1 PRN; Protocol PRN Reason: Hypoglycemia Fluticasone Propionate (Flonase Nasal [place]) 1 spray NASAL DAILY [facility] Last Admin: 11/10/19 10:49 Dose: 1 spray Documented by: Glucagon () 1 mg IM .X1 PRN PRN Reason: Hypoglycemia Hydralazine HCl (Apresoline Iv) 10 mg IV Q4H PRN PRN PRN Reason: SBP > 160 Sodium Chloride () 1,000 mls @ 100 mls/hr IV .Q10H [facility] Last Admin: 11/10/19 02:17 Dose: 100 mls/hr Documented by: Cefepime HCl 1 gm/ Sodium (Chloride) 50 mls @ 100 mls/hr IV Q8 [facility] Last Infusion: 11/10/19 05:45 Dose: Infused Documented by: Ipratropium [place] (Atrovent) 0.5 mg INHALATION Q6HWA.RT [facility] Last Admin: 11/10/19 06:47 Dose: 0.5 mg Documented by: Lactobacillus Acidophilus (Acidophilus) 1 tablet PO DAILY [facility] Last Admin: 11/10/19 10:49 Dose: 1 tablet Documented by: Lactulose (Chronulac, Cephulac) 20 gm PO Q6H [facility] Last Admin: 11/10/19 10:49 Dose: 20 gm Documented by: Levothyroxine Sodium (Synthroid) 112 mcg PO DAILY@0600 [facility] Last Admin: 11/10/19 05:14 Dose: 112 mcg Documented by: Magnesium Hydroxide (Milk Of Magnesia) 30 ml PO DAILY PRN PRN PRN Reason: Constipation Melatonin (Melatonin) 3 mg PO QHS PRN PRN PRN Reason: INSOMNIA Midodrine (Proamatine) 10 mg PO TID [facility] Last Admin: 11/10/19 05:14 Dose: 10 mg Documented by: Morphine Sulfate () 2 mg IV Q3H PRN PRN PRN Reason: Pain Score 6-10/10 Last Admin: 11/07/19 04:57 Dose: 2 mg Documented by: Nicotine (Nicoderm Cq (Pbkc)) 21 mg TRANSDERM. DAILY [facility] Last Admin: 11/10/19 10:48 Dose: Not Given Documented by: Nitroglycerin (Nitrostat) 0.4 mg SUBLINGUAL Q5M PRN PRN Reason: CARDIAC/CHEST PAIN Ondansetron HCl (Zofran) 4 mg IV Q8H PRN PRN PRN Reason: NAUSEA/VOMITING Oxycodone HCl (Oxyir) 5 mg PO Q4H PRN PRN PRN Reason: Pain Score 4-5/10 Pantoprazole Sodium (Protonix) 40 mg PO DAILY [facility] Last Admin: 11/10/19 10:49 Dose: 40 mg Documented by: Pregabalin (Lyrica) 25 mg PO BID [facility] Last Admin: 11/10/19 10:49 Dose: 25 mg Documented by: Prochlorperazine Edisylate (Compazine Iv) 5 mg IV Q4H PRN PRN PRN Reason: Breakthrough Nausea/Vomiting Psyllium Hydrophilic Mucilloid (Metamucil) 1 packet PO DAILY PRN PRN PRN Reason: Constipation Senna/Docusate Sodium (Senokot-S, [place]ice-Colace) 2 tablet PO BID PRN PRN PRN Reason: Constipation Sodium Chloride () 10 - 40 ml IV UD PRN PRN Reason: SALINE FLUSH Last Admin: 11/08/19 18:51 Dose: 10 ml Documented by: Disposition: Senior Care facility Minutes spent on discharge:: 32 Patient Condition:: Stable Meaningful Use Info Meaningful Use Diagnoses (Choose all that apply): None applicable Inpatient E&M: 13660 Disch Hosp
--- NOTE | 2019-11-10 11:22 | PHA.DC.MR ---
Pharmacy Service has performed discharge medication reconciliation for this patient upon transfer to [facility]. The patient's discharge medication list was reviewed for discrepancies and discrepancies were resolved. Home Medications Acetaminophen [Tylenol] 500 mg PO Q6H PRN PRN 11/06/19 Fluticasone Furoate [Veramyst] 1 spray NS DAILY 11/06/19 Lactobacillus Rhamnosus GG [Culturelle] 1 cap PO DAILY 11/06/19 Levothyroxine Sodium [Synthroid] 112 mcg PO DAILY 11/06/19 Midodrine HCl 10 mg PO TID 11/06/19 Multivitamin with Minerals [Multivitamins with Minerals] 1 ea PO DAILY 11/06/19 Omeprazole 40 mg PO DAILY 11/06/19 Potassium Chloride [Klor-Con M20] 20 meq PO DAILY 11/06/19 Sodium Phosphate,[place]-Dibasic [Fleet Enema] 1 bottle [place] DAILY PRN PRN 11/06/19 Tiotropium [place] [Spiriva Respimat] 2 puff INHALATION DAILY 11/06/19 Cefepime HCl [Maxipime] 1 gm IV Q8 vial 11/10/19 Lactulose [Chronulac] 20 gm PO Q8H udc 11/10/19 Nicotine [Nicoderm Cq] 21 mg TRANSDERM. DAILY patch 11/10/19 Pregabalin [Lyrica] 25 mg PO BID cap 11/10/19
--- NOTE | 2019-11-10 11:47 | CASEMGMT ---
Patient is ready for discharge to [facility]. She will be on IV Cefepime until 725. ALEC spoke with Debby at [facility] and she said that is not a problem. ALEC obtained orders and faxed them to [facility]. SW called [facility] and arranged for patient to get picked up at via cot. SW notified RN, administrative secretary, Debby at [facility], and left a message for patient's HCPOA, Rosanne. Plan: d/c to [facility] under skilled level of care. [facility] transported patient via cot. Daksha [employer]
--- NOTE | 2019-11-10 12:37 | NURSING ---
Report called to [facility], spoke with nurse Florencia at 1232.
== END 2019-11-10 13:30 | disposition skilled nursing facility (03) | DRG 689 ==
LOC: ED 19:53 → PCU 11-07 01:05
PROVIDERS: Nurse Practitioner Family; Admitting Provider Family Medicine; Emergency Provider Emergency Medicine; PCP Family Medicine; Visit Provider Hospitalist
DX: N13.6 Pyonephrosis (principal); G93.41 Metabolic encephalopathy; I24.8 Other forms of acute ischemic heart disease; K56.49 Other impaction of intestine; E72.20 Disorder of urea cycle metabolism, unspecified; N17.9 Acute kidney failure, unspecified; N39.0 Urinary tract infection, site not specified; K56.41 Fecal impaction; F10.10 Alcohol abuse, uncomplicated; K21.9 Gastro-esophageal reflux disease without esophagitis; I10 Essential (primary) hypertension; E87.5 Hyperkalemia; B96.5 Pseudomonas (aeruginosa) (mallei) (pseudomallei) as the cause of diseases classified elsewhere; K70.31 Alcoholic cirrhosis of liver with ascites; E03.9 Hypothyroidism, unspecified; I95.9 Hypotension, unspecified; M54.9 Dorsalgia, unspecified; G89.29 Other chronic pain; Z91.81 History of falling; G93.89 Other specified disorders of brain; Z86.73 Personal history of transient ischemic attack (TIA), and cerebral infarction without residual deficits; Z79.890 Hormone replacement therapy; F17.210 Nicotine dependence, cigarettes, uncomplicated; Z66 Do not resuscitate; E78.5 Hyperlipidemia, unspecified; S06.32 Contusion and laceration of left cerebrum; W19.XXXD Unspecified fall, subsequent encounter; Y90.9 Presence of alcohol in blood, level not specified
CPT/HCPCS: 36415; 51702; 70450; 74176; 80048; 80053; 80076; 81001; 82140; 83605; 83690; 83735; 84443; 84484; 85025; 85027; 87077; 87086; 87088; 87184; 87186; 87635; 92523; 92526; 92610; 93005; 94640; 97110; 97116; 97162; 97166; 97530; 97535; 99251; 99285; 99406; G2023; J7030; A4216; G0463; J0696; U0003

== ENCOUNTER → 2019-12-18 12:26 | Outpatient (CLI) | payer MEDICARE, SELFPAY ==
[2019-11-06 23:04] VITALS: BMI 33.3
[2019-12-18 16:17] LABS: ALB/GLOB Ratio 0.5 RATIO (0.9-2.4); AST(SGOT) 67 U/L (15-37); Alanine Aminotransfer ALT/SGPT 23 U/L (13-56); Albumin, Serum 2.3 g/dL (3.2-5.0); Alkaline Phosphatase 180 U/L (45-117); Anion Gap 10 (5-15); BUN 3 mg/dL (7-18); BUN/Creat Ratio 4.3 RATIO (10-20); Calcium,Total 8.3 mg/dL (8.5-10.1); Chloride 102 mmol/L (98-107); EST Glomerular Filtration Rate 90 mL/min (>60); Est Glom Filt Rate - Afr Amer 109 mL/min (>60); Globulin 4.5 g/dL (2.2-4.2); Glucose 78 mg/dL (74-106); Potassium 3.7 mmol/L (3.5-5.1); Prealbumin 5.6 mg/dL (20.0-40.0); Protein, Total 6.8 g/dL (6.4-8.2); Sodium Level 136 mmol/L (136-145)
== END ==
PROVIDERS: PCP Family Medicine; Referring Provider Family Medicine; Visit Provider Family Medicine
DX: E46 Unspecified protein-calorie malnutrition (principal)
CPT/HCPCS: 36415; 80053; 82140; 84134

== ENCOUNTER → 2020-01-23 13:54 | Outpatient (CLI) | payer MEDICARE, SELFPAY ==
[2019-11-06 23:04] VITALS: BMI 33.3
[2020-01-23 15:15] LABS: Absolute Lymphocyte Count 2.08 X10^3/uL (0.83-4.51); Absolute Neutrophil Count 2.4 X10^3/uL (2.0-7.7); Basophil# 0.07 X10^3/uL; Basophil% 1.3 % (0-1); Eosinophil# 0.09 X10^3/uL; Eosinophils% 1.7 % (0-5); Hematocrit 36.8 % (37-47); Hemoglobin 12.8 g/dL (12.0-15.0); Lymphocyte # 2.08 X10^3/ul (4.0); Lymphocyte % 38.7 % (19-41); Mean Corp Hgb Conc 34.8 g/dL (32-36); Mean Corpuscular Hgb 32.7 pg (27.0-32.0); Mean Corpuscular Volume 94.1 fL (81-99); Mean Platelet Vol. 10.5 fl (6.2-12.0); NRBC Flagged by Analyzer 0 % (0-5); Neutrophil # 2.42 X10^3/uL (2.7-7.7); Neutrophil % 44.9 % (47-70); Platelet Count 191 K/mm3 (150-450); RBC Distribution Width CV 18.3 % (11.6-14.6); RBC Distribution Width SD 63.2 fl (35.1-43.9); Red Blood Count 3.91 M/mm3 (4.2-5.4); White Blood Count 5.4 K/mm3 (4.4-11.0)
[2020-01-23 15:50] LABS: Vitamin B12 637 pg/mL (211-911); Vitamin D,25 Hydroxy 55.4 ng/mL
[2020-01-23 16:37] LABS: ALB/GLOB Ratio 0.5 RATIO (0.9-2.4); AST(SGOT) 80 U/L (15-37); Alanine Aminotransfer ALT/SGPT 26 U/L (13-56); Albumin, Serum 2.3 g/dL (3.2-5.0); Alkaline Phosphatase 359 U/L (45-117); Anion Gap 8 (5-15); BUN 3 mg/dL (7-18); BUN/Creat Ratio 5.7 RATIO (10-20); Calcium,Total 8.3 mg/dL (8.5-10.1); Chloride 96 mmol/L (98-107); Creatinine, Serum 0.53 mg/dL (0.55-1.02); EST Glomerular Filtration Rate 125 mL/min (>60); Est Glom Filt Rate - Afr Amer 152 mL/min (>60); Globulin 4.8 g/dL (2.2-4.2); Glucose 78 mg/dL (74-106); Potassium 3.6 mmol/L (3.5-5.1); Prealbumin 12.3 mg/dL (20.0-40.0); Protein, Total 7.1 g/dL (6.4-8.2); Sodium Level 128 mmol/L (136-145); T4 Free Direct 1.22 ng/dL (0.76-1.46); Thyroid Stim Hormone (TSH) 8.19 uIU/mL (0.358-3.74)
[2020-01-29 05:12] LABS: Vitamin B1, Thiamine 98.5 nmol/L (66.5-200.0)
== END ==
PROVIDERS: PCP Family Medicine; Referring Provider Family Medicine; Visit Provider Family Medicine
DX: E06.3 Autoimmune thyroiditis (principal); E46 Unspecified protein-calorie malnutrition; F10.20 Alcohol dependence, uncomplicated; J44.9 Chronic obstructive pulmonary disease, unspecified; E55.9 Vitamin D deficiency, unspecified
CPT/HCPCS: 36415; 80053; 82140; 82306; 82607; 82746; 84134; 84425; 84439; 84443; 85025

== ENCOUNTER → 2020-02-26 14:54 | Outpatient (CLI) | payer MEDICARE, SELFPAY ==
[2019-11-06 23:04] VITALS: BMI 33.3
--- NOTE | 2020-02-26 15:05 | RAD_ITS ---
STUDY: X-RAY - THORACIC SPINE REASON FOR EXAM: Female, 59 years old. severe pain TECHNIQUE: 3 view(s) of the thoracic spine were obtained. COMPARISON: Prior PA and lateral chest of 03/22/2017 FINDINGS: Increased lower thoracic kyphosis. There is no substantial scoliosis. She has bilateral cervical ribs at C7. Chronic moderate compression deformities at T11 and T12 which are not substantially changed from prior chest radiograph of 03/22/2017. Normal vertebral body height at other thoracic levels. Degenerative disc findings are mild to moderate without extensive spondylitic endplate changes. The soft tissue structures are unremarkable. RAD/Thoracic Spine 3 Views IMPRESSION: Increased lower thoracic kyphosis secondary to moderate chronic compression deformities at T11 and T12 which are not substantially changed from prior chest radiograph of 03/22/2017. Mild to moderate degenerative disc narrowing without extensive spondylitic endplate changes. Electronically Signed: Kennedi Ivey MD at 16:13 EST , Service support ,
== END ==
PROVIDERS: PCP Family Medicine; Referring Provider Anesthesiology Pain Medicine; Visit Provider Anesthesiology Pain Medicine
DX: M54.9 Dorsalgia, unspecified (principal)
CPT/HCPCS: 72072

== ENCOUNTER → 2020-04-28 09:51 | Outpatient (CLI) | payer MEDICARE, SELFPAY ==
[2019-11-06 23:04] VITALS: BMI 33.3
[2020-04-28 12:39] LABS: Vitamin B12 800 pg/mL (211-911)
[2020-04-28 12:51] LABS: Absolute Lymphocyte Count 2.57 X10^3/uL (0.83-4.51); Absolute Neutrophil Count 3.3 X10^3/uL (2.0-7.7); Basophil# 0.09 X10^3/uL; Basophil% 1.3 % (0-1); Eosinophil# 0.07 X10^3/uL; Hematocrit 43.3 % (37-47); Hemoglobin 14.3 g/dL (12.0-15.0); Lymphocyte # 2.57 X10^3/ul (4.0); Lymphocyte % 37.6 % (19-41); Mean Corpuscular Hgb 34.7 pg (27.0-32.0); Mean Corpuscular Volume 105.1 fL (81-99); Mean Platelet Vol. 10.8 fl (6.2-12.0); Monocyte# 0.78 X10^3/uL; Monocyte% 11.4 % (0-10); NRBC Flagged by Analyzer 0 % (0-5); Neutrophil % 48.4 % (47-70); Platelet Count 219 K/mm3 (150-450); RBC Distribution Width CV 13.7 % (11.6-14.6); RBC Distribution Width SD 54.1 fl (35.1-43.9); Red Blood Count 4.12 M/mm3 (4.2-5.4); White Blood Count 6.8 K/mm3 (4.4-11.0)
[2020-04-28 13:44] LABS: ALB/GLOB Ratio 0.8 RATIO (0.9-2.4); AST(SGOT) 62 U/L (15-37); Alanine Aminotransfer ALT/SGPT 33 U/L (13-56); Albumin, Serum 3.3 g/dL (3.2-5.0); Alkaline Phosphatase 282 U/L (45-117); Anion Gap 11 (5-15); BUN 8 mg/dL (7-18); BUN/Creat Ratio 9.9 RATIO (10-20); Calcium,Total 9.1 mg/dL (8.5-10.1); Chloride 94 mmol/L (98-107); Creatinine, Serum 0.81 mg/dL (0.55-1.02); EST Glomerular Filtration Rate 76 mL/min (>60); Est Glom Filt Rate - Afr Amer 92 mL/min (>60); Globulin 4.1 g/dL (2.2-4.2); Glucose 76 mg/dL (74-106); Potassium 3.8 mmol/L (3.5-5.1); Prealbumin 13.8 mg/dL (20.0-40.0); Protein, Total 7.4 g/dL (6.4-8.2); Sodium Level 130 mmol/L (136-145); T4 Free Direct 1.41 ng/dL (0.76-1.46); Thyroid Stim Hormone (TSH) 2.22 uIU/mL (0.358-3.74)
[2020-05-06 08:55] LABS: Vitamin B1, Thiamine 104.4 nmol/L (66.5-200.0)
== END ==
PROVIDERS: PCP Family Medicine; Referring Provider Family Medicine; Visit Provider Family Medicine
DX: F10.20 Alcohol dependence, uncomplicated (principal); E46 Unspecified protein-calorie malnutrition; E06.3 Autoimmune thyroiditis; E72.20 Disorder of urea cycle metabolism, unspecified
CPT/HCPCS: 36415; 80053; 82140; 82607; 82746; 84134; 84425; 84439; 84443; 85025

== ENCOUNTER → 2020-05-07 13:42 | Outpatient (CLI) | payer MEDICARE, SELFPAY ==
[2019-11-06 23:04] VITALS: BMI 33.3
[2020-05-07 17:52] LABS: AST(SGOT) 86 U/L (15-37); Alanine Aminotransfer ALT/SGPT 51 U/L (13-56); Albumin, Serum 3.2 g/dL (3.2-5.0); Alkaline Phosphatase 251 U/L (45-117); Bilirubin, Direct 0.42 mg/dL (0.00-0.30); Globulin 4.4 g/dL (2.2-4.2); Protein, Total 7.6 g/dL (6.4-8.2)
== END ==
PROVIDERS: PCP Family Medicine; Referring Provider Family Medicine; Visit Provider Family Medicine
DX: R17 Unspecified jaundice (principal)
CPT/HCPCS: 36415; 80076

== ENCOUNTER → 2020-05-19 13:09 | Outpatient (CLI) | payer MEDICARE, SELFPAY ==
[2019-11-06 23:04] VITALS: BMI 33.3
--- NOTE | 2020-05-19 13:11 | CT_ITS ---
STUDY: CT ABDOMEN AND PELVIS WITH CONTRAST REASON FOR EXAM: Female, 60 years old. HYPERBILIRUBINEMIA, FOLLOW UP FROM LAB WORK RADIATION DOSAGE (If Supplied By Facility): CTDIvol = ( 14.02 ) mGy, DLP = ( 971.71 ) mGycm TECHNIQUE: Transaxial images were obtained from the dome of the diaphragm to the symphysis pubis with oral contrast. Oral and amp; IV Readi-CAT and amp; 100mL Isovue-300 was administered. Sagittal and coronal images were reconstructed. Individualized dose optimization techniques were used for this CT. COMPARISON: Comparison is made with prior study dated 11/06/2019. FINDINGS: The visualized lung bases are unremarkable. Coronary artery calcification. Heterogeneous appearance of the liver with evidence of scattered low density nodular densities. The largest is in the medial inferior aspect of the right lobe measuring 2.8 cm x 2.8 cm. There are multiple gallstones. Normal spleen. Normal pancreas. Normal bilateral adrenal glands. Normal right kidney. Normal left kidney. Normal visualized stomach. Normal small intestine. There are scattered colonic diverticula consistent with diverticulosis. The appendix is visualized and appears normal. There is diffuse atherosclerotic calcification of the abdominal aorta, without a demonstrated aneurysm. Normal inferior vena cava. There is borderline retroperitoneal lymphadenopathy with enlarged nodes no greater than 10mm in the short axis diameter. Mild degree of diffusely thickened urinary bladder wall. Small bilateral inguinal lymph nodes. Normal abdominal wall. There are diffuse degenerative changes of the visualized lumbar spine. This almost complete collapse of the T10 and T11 vertebrae. CT/Abdomen/Pelvis WITH Contrast IMPRESSION: Heterogeneous appearance of the liver with the innumerable small hypodense nodules. The largest is in the inferior medial portion of the right lobe and measures 2.8 cm x 2.8 cm. Gallstones. Thickening of the urinary bladder wall. Electronically Signed: Magdiel Neal MD at 14:05 EST , Service support ,
== END ==
PROVIDERS: PCP Family Medicine; Referring Provider Family Medicine; Visit Provider Family Medicine
DX: E80.6 Other disorders of bilirubin metabolism (principal)
CPT/HCPCS: 74177; Q9967

== ENCOUNTER → 2020-08-25 11:15 | Outpatient (CLI) | payer MEDICARE, SELFPAY ==
[2019-11-06 23:04] VITALS: BMI 33.3
--- NOTE | 2020-08-25 11:19 | RAD_ITS ---
STUDY: X-RAY CHEST REASON FOR EXAM: Female, 60 years old. ABD WEIGHT LOSS TECHNIQUE: 2 views COMPARISON: Prior portable chest of 10/14/2019 and prior PA and lateral chest of 03/22/2017 FINDINGS: The lungs are clear and expanded. There is no demonstrated pleural abnormality. Normal size heart. Normal mediastinum and eva. Normal visualized pulmonary arteries. There is atherosclerotic calcification of the aortic arch with tortuosity. She hasn''t increased lower thoracic kyphosis secondary to multiple chronic appearing compression deformities. Normal visualized ribs, clavicles, and shoulders. There is no demonstrated abnormality of the visualized soft tissue structures of the upper abdomen. RAD/Chest PA and Lateral IMPRESSION: No acute cardiopulmonary findings or changes. Negative for new consolidation, atelectasis, pulmonary nodules or masses. Negative for gross mediastinal adenopathy. Normal cardiac size. Increased lower thoracic kyphosis from 2017 secondary to multiple chronic appearing compression deformities. Electronically Signed: Kennedi Ivey MD at 17:40 EDT , Service support ,
[2020-08-25 12:39] LABS: Absolute Neutrophil Count 8.1 X10^3/uL (2.0-7.7); Basophil# 0.07 X10^3/uL; Basophil% 0.6 % (0-1); Eosinophil# 0.01 X10^3/uL; Eosinophils% 0.1 % (0-5); Hematocrit 34.1 % (37-47); Lymphocyte % 17.7 % (19-41); Mean Corp Hgb Conc 35.2 g/dL (32-36); Mean Corpuscular Hgb 37.9 pg (27.0-32.0); Mean Corpuscular Volume 107.6 fL (81-99); Mean Platelet Vol. 10.8 fl (6.2-12.0); Monocyte# 0.97 X10^3/uL; Monocyte% 8.6 % (0-10); NRBC Flagged by Analyzer 0 % (0-5); Neutrophil # 8.13 X10^3/uL (2.7-7.7); Platelet Count 194 K/mm3 (150-450); RBC Distribution Width CV 14.1 % (11.6-14.6); RBC Distribution Width SD 55.8 fl (35.1-43.9); Red Blood Count 3.17 M/mm3 (4.2-5.4); White Blood Count 11.3 K/mm3 (4.4-11.0)
[2020-08-25 12:45] LABS: Ammonia < 10.0 umol/L (11-32)
[2020-08-25 13:13] LABS: Vitamin B12 1859 pg/mL (211-911); Vitamin D,25 Hydroxy 82.4 ng/mL
[2020-08-25 13:53] LABS: ALB/GLOB Ratio 0.5 RATIO (0.9-2.4); AST(SGOT) 92 U/L (15-37); Alanine Aminotransfer ALT/SGPT 27 U/L (13-56); Albumin, Serum 2.5 g/dL (3.2-5.0); Alkaline Phosphatase 232 U/L (45-117); Anion Gap 12 (5-15); BUN 9 mg/dL (7-18); BUN/Creat Ratio 7.6 RATIO (10-20); Chloride 78 mmol/L (98-107); Creatinine, Serum 1.19 mg/dL (0.55-1.02); EST Glomerular Filtration Rate 49 mL/min (>60); Est Glom Filt Rate - Afr Amer 59 mL/min (>60); Globulin 5.2 g/dL (2.2-4.2); Glucose 131 mg/dL (74-106); Potassium 2.1 mmol/L (3.5-5.1); Protein, Total 7.7 g/dL (6.4-8.2); Sodium Level 123 mmol/L (136-145); T4 Free Direct 1.68 ng/dL (0.76-1.46)
[2020-08-30 08:00] LABS: Vitamin B1, Thiamine 81.2 nmol/L (66.5-200.0)
== END ==
PROVIDERS: PCP Family Medicine; Referring Provider Family Medicine; Visit Provider Family Medicine
DX: R63.4 Abnormal weight loss (principal); E55.9 Vitamin D deficiency, unspecified; F17.200 Nicotine dependence, unspecified, uncomplicated; F10.20 Alcohol dependence, uncomplicated; E46 Unspecified protein-calorie malnutrition; E51.9 Thiamine deficiency, unspecified; E72.20 Disorder of urea cycle metabolism, unspecified; E06.3 Autoimmune thyroiditis
CPT/HCPCS: 36415; 71046; 80053; 82140; 82306; 82607; 82746; 84134; 84425; 84439; 84443; 85025

== ENCOUNTER 2020-08-25 14:38 | Inpatient (IN) | payer MEDICARE, SELFPAY ==
[2019-11-06 23:04] VITALS: BMI 33.3
[2020-08-25] VITALS (7 sets, daily range): BP systolic 80–105; BP diastolic 44–74; PULSE 95–111; RESP 14–18; TEMP 36.2–37; O2SAT 97–100; BMI 20.7; BMI 20.8
--- NOTE | 2020-08-25 15:03 | EKG12_ITS ---
Test Reason : ABN LABS Blood Pressure : / mmHG Vent. Rate : 097 BPM Atrial Rate : 097 BPM P-R Int : 200 ms QRS Dur : 086 ms QT Int : 382 ms P-R-T Axes : 086 054 052 degrees QTc Int : 485 ms Normal sinus rhythm Low voltage QRS Nonspecific ST and T wave abnormality Prolonged QT Abnormal ECG Confirmed by MARIANA PEGUREO, SUSI ([id number]), assistant film editor DIONNA MASTERSON ([id number]) on 08/30/2020 12:26:18 PM Referred By: ALINA Confirmed By:SUSI PEÑA MD
[2020-08-25] MEDS: 0.9% Normal Saline 1,000 ML 1000 ML IV (15:23)
[2020-08-25] MEDS: Potassium Chloride Oral Tablet 20 MEQ 60 MEQ PO (15:24)
--- NOTE | 2020-08-25 15:25 | EX.ED.DYSGE1 ---
HPI History of Present Illness Chief Complaint: Abn Labs Informant: patient and family Onset/Context/Timing Context: Gradual Onset Quality: Off balance Location: Generalized Narrative Narrative: Patient presents with abnormal labs that were noticed today. Patient had outpatient labs drawn by her primary care physician which showed a hypokalemia of 2.1. Patient also has a hyponatremia of 123. Patient states she has been feeling off balance. Family states that the patient has been noncompliant with her medications for the past 2 weeks. Patient also admits to approximately 30 pound weight loss over the last 5 months. Patient denies any fevers or chills. Patient does admit to some nausea and vomiting. Patient also admits to drinking 4-6 beers per day. [facility] Medical History (Updated 08/25/20 @ 18:[address] Juan Ramon Holcomb, ) Chronic alcohol abuse Chronic back pain COPD (chronic obstructive pulmonary disease) Debility Degenerated intervertebral disc Epidural hematoma GERD (gastroesophageal reflux disease) Hypothyroidism Smoker TBI (traumatic brain injury) Tobacco abuse disorder Home Medications acetaminophen 500 - 1,000 mg PO Q6H PRN PRN 11/06/19 [History Last Taken 11/04/19] levothyroxine 112 mcg PO DAILY 11/06/19 [History Last Taken 11/06/19] multivitamin with minerals 1 ea PO DAILY 11/06/19 [History Last Taken 11/06/19] omeprazole 40 mg PO DAILY 11/06/19 [History Last Taken 11/06/19] tiotropium bromide 2 puff INHALATION DAILY 11/06/19 [History Last Taken 11/06/19] lactulose 20 gm PO Q8H udc 11/10/19 [Rx Last Taken Unknown] fluticasone propionate 1 spray INTRANASAL DAILY 08/25/20 [History Last Taken 08/25/20] furosemide 20 mg PO DAILY 08/25/20 [History Last Taken Unknown] potassium chloride 20 meq PO DAILY 08/25/20 [History Last Taken Unknown] Allergy/AdvReac Type Severity Reaction Status Date / Time bee venom protein (honey bee) Allergy Unknown Verified 08/25/20 14:41 oxycodone AdvReac Intermediate Other Verified 08/25/20 14:41 Family History (Updated 08/25/20 @ 17:54 by Winifred Medellin) Father Cancer Mother COPD (chronic obstructive pulmonary disease) Uncle Pulmonary embolism Surgical History (Updated 08/25/20 @ 15:[address] Juan Ramon Holcomb, DO) History of craniotomy Social History (Updated 08/25/20 @ 17:56 by Winifred Medellin) Smoking Status: Current every day smoker Tobacco: How many years used: 45 alcohol intake: current alcohol intake frequency: 3 or more drinks per day ROS ROS ED Constitutional Constitutional ED: Denies chills or fever(s) Eyes Eyes: Denies blurry vision or change in vision ENT ENT ED: Denies rhinorrhea or sore throat Cardiovascular Cardiovascular: Denies chest pain or palpitations Respiratory/Chest Respiratory/Chest: Denies cough or dyspnea Gastrointestinal Gastrointestinal: Reports nausea and vomiting Genitourinary Genitourinary ED: Denies dysuria or hematuria Musculoskeletal Musculoskeletal: Reports back pain and neck pain Integumentary Denies abscess or rash Neurologic Neurologic: Denies paresthesias or weakness Hematologic/Lymphatic Hematologic/Lymphatic: Reports easy bruising Allergic/Immunologic Allergic/Immunologic ED: Denies mouth swelling or urticaria EXAM Physical Exam Const Vital Signs: 08/25/20 14:39 08/25/20 14:59 08/25/20 16:38 Temperature 97.6 F L Temperature Source Temporal Pulse Rate 111 H 100 Respiratory Rate 16 14 Respiratory Effort Normal Blood Pressure 92/55 L 101/74 Blood Pressure Mean 67 83 Blood Pressure Source Blood Pressure Position Blood Pressure Location Pulse Ox 99 99 Oxygen Delivery Method Room Air Room Air 08/25/20 16:56 Temperature Temperature Source Pulse Rate 98 Respiratory Rate 18 Respiratory Effort Blood Pressure 104/63 Blood Pressure Mean 76 Blood Pressure Source Monitor Blood Pressure Position Semi-Fowlers Blood Pressure Location Right Arm Pulse Ox 99 Oxygen Delivery Method Room Air Positive well nourished and well developed General Appearance ED: well developed HEENT Reports moist mucous membranes Neck supple and no JVD Resp normal respiratory effort and clear to auscultation bilaterally Cardio regular rate and regular rhythm GI normal to inspection, nondistended, normoactive bowel sounds GI Narrative: There is mild diffuse tenderness. There is no rebound or guarding noted. Palpation: soft and tender LLQ, RLQ, LUQ and RUQ; Negative for guarding or rebound tenderness present Extremity General Extremety ED: Negative for edema or tenderness General Extremity: Negative for edema Neuro oriented x3, CN's II-XII intact bilaterally and no sensory deficits noted Sensorium / Orientation: alert Motor Exam: strength 5/5 throughout Psych mental status grossly normal MDM MDM MDM Narrative Medical decision making narrative: Patient's labs from earlier were reviewed which showed a potassium of 2.1 and a sodium of 123. Total bilirubin was also elevated at 5.0. PT with INR and PTT were obtained here and INR was 1.4. Magnesium was obtained and was 1.7. Troponin was obtained and was slightly elevated at 0.325. I recommended admission to the hospital. Patient is agreeable with this. Case was discussed with the hospitalist. He recommended getting a CT scan of the abdomen and pelvis. This was ordered. There is no evidence of cancer. There is a distended gallbladder with bile or sludge. There are no other acute findings. Hospitalist will admit the patient to PCU. Patient and family understood and were agreeable with the plan. All questions were answered. Lab Data Attestation: I reviewed the patient's lab results. Labs: Laboratory Results - last 24 hr 08/25/20 08/25/20 15:15 15:15 PT 16.2 H INR 1.4 APTT 37.8 H Magnesium 1.7 Troponin I 0.325 H Radiography Diagnostic Testing: Radiology Impression Abdomen/Pelvis CT 08/25/20 17:15 IMPRESSION: The liver appears generally normal in size and density. She does have a portal vein that measures smaller than normal, 9 mm which suggests portal hypertension. Spleen size remains within normal limits, coronal length of 11 cm. Large volume gallbladder with a dense layer of bile or sludge. There is no dilatation of the common bile duct or intrahepatic bile ducts. The pancreas generally appears normal in size and density without dilatation of the pancreatic duct. There are 2 tiny calcifications of the pancreatic head which I would described as linear or curvilinear of uncertain etiology. These have been present on preceding exams of 05/19/2020 and 11/08/2019 but not present on a prior exam of 07/20/2014. These don''t appear to be causing dilatation of the common bile duct. 1 nonobstructing calcification in the upper left kidney with an otherwise unremarkable left kidney. Normal right kidney. No acute bowel related findings. Nondistended thick walled urinary bladder. Negative for pelvic mass. Electronically Signed: Kennedi Ivey MD at 18:35 EDT , Service support , EKG Initial EKG: Attestation: I personally reviewed and interpreted this EKG as follows: Interpretation: Sinus Rhythm (97) and Non-Specific ST Changes Prior EKG tracings: available for review Prior: Unchanged (11/06/2019) Treatment and Re-Evaluation Vital Sign Attestation:: Vital signs were reviewed and were stable prior to admission. Discharge Plan Dx/Rx/DC Orders Clinical Impression: Acute hypokalemia, Acute hyponatremia, Elevated troponin Disposition Disposition: Acute Care Hospital [facility]
[2020-08-25] MEDS: Potassium Chloride 10mEq/100mL 10 MEQ/100 ML IV.SOLN. 100 MEQ IV BOLUS (15:28)
[2020-08-25 15:38] LABS: International Normalized Ratio 1.4; Prothrombin Time (Protime)PT. 16.2 SECONDS (11.7-14.9)
[2020-08-25 15:39] LABS: Partial Thromboplast Time 37.8 Seconds (24.1-36.2)
[2020-08-25 15:40] LABS: Magnesium 1.7 mg/dL (1.6-2.6)
[2020-08-25] MEDS: Aspirin 81 MG TAB.CHEW 324 MG PO (16:50)
--- NOTE | 2020-08-25 17:12 | NURSING ---
DR CISNEROS FOR DR ANGULO
--- NOTE | 2020-08-25 17:15 | CT_ITS ---
STUDY: CT ABDOMEN AND PELVIS WITH CONTRAST REASON FOR EXAM: Female, 60 years old. Jaundice RADIATION DOSAGE (If Supplied By Facility): CTDIvol = ( 18.42 ) mGy, DLP = ( 696.76 ) mGycm TECHNIQUE: Transaxial images were obtained from the dome of the diaphragm to the symphysis pubis without oral contrast. IV 100mL Isovue-300 was administered. Sagittal and coronal images were reconstructed. Individualized dose optimization techniques were used for this CT. COMPARISON: Prior abdomen and pelvic CT exam of 05/19/2020 and 11/08/2019 and 07/20/2014 FINDINGS: The visualized lung bases are unremarkable. The visualized portions of the heart are within normal limits. Normal size and density of the liver. She does have a small diameter portal vein, 9 mm diameter, less than normal Large volume gallbladder with a layer of dense bile or sludge without well formed visible stones. There are 2 juxtaposed calcifications appearing in the pancreatic head which could be related to the common bile duct but there is no distention of the common bile duct or intrahepatic bile ducts. Normal spleen. The pancreas is otherwise unremarkable without mass density or dilatation of the pancreatic duct. Normal bilateral adrenal glands. Normal right kidney. 1 mm nonobstructing calcification in the upper pole of the left kidney with an otherwise unremarkable left kidney. Food filled stomach. Normal small intestine. Diverticulosis of the colon without evidence of acute diverticulitis. The appendix is visualized and appears normal. There is diffuse atherosclerotic calcification of the abdominal aorta, without a demonstrated aneurysm. Normal inferior vena cava. Normal retroperitoneum. Nondistended thick walled urinary bladder. Negative for pelvic mass or free fluid of the pelvis. Normal abdominal wall. Degenerative changes of the lumbar spine. Old stable lower thoracic compression deformities. CT/Abdomen/Pelvis W IV Cont ONLY IMPRESSION: The liver appears generally normal in size and density. She does have a portal vein that measures smaller than normal, 9 mm which suggests portal hypertension. Spleen size remains within normal limits, coronal length of 11 cm. Large volume gallbladder with a dense layer of bile or sludge. There is no dilatation of the common bile duct or intrahepatic bile ducts. The pancreas generally appears normal in size and density without dilatation of the pancreatic duct. There are 2 tiny calcifications of the pancreatic head which I would described as linear or curvilinear of uncertain etiology. These have been present on preceding exams of 05/19/2020 and 11/08/2019 but not present on a prior exam of 07/20/2014. These don''t appear to be causing dilatation of the common bile duct. 1 nonobstructing calcification in the upper left kidney with an otherwise unremarkable left kidney. Normal right kidney. No acute bowel related findings. Nondistended thick walled urinary bladder. Negative for pelvic mass. Electronically Signed: Kennedi Ivey MD at 18:35 EDT , Service support ,
[2020-08-25] MEDS: Ondansetron 4 MG/2 ML Vial IV (17:47)
--- NOTE | 2020-08-25 19:06 | HP.PCM_ITS ---
Documented by User: GERA Marr 08/25/20 19:55 HPI - General General Date of Admission: 08/25/20 HPI Narrative JUDY KLEIN, is a 60 F who presents today from her PCP with abnormal labs. Patient reports that she has stopped taking her meds for approximately the past month. Patient states that she stopped taking them because they are not making her feel any better and she is sick of taking them. Patient also complains of nausea, 30 pound unintentional weight loss over the past 5 months, and poor appetite. [facility] Medical History Chronic alcohol abuse Chronic back pain COPD (chronic obstructive pulmonary disease) Debility Degenerated intervertebral disc Epidural hematoma GERD (gastroesophageal reflux disease) Hypothyroidism Smoker TBI (traumatic brain injury) Tobacco abuse disorder Home Medications acetaminophen 500 - 1,000 mg PO Q6H PRN PRN 11/06/19 [History Last Taken 0 11/04/19] levothyroxine 112 mcg PO DAILY 11/06/19 [History Last Taken 11/06/19] multivitamin with minerals 1 ea PO DAILY 11/06/19 [History Last Taken 11/06/19] omeprazole 40 mg PO DAILY 11/06/19 [History Last Taken 11/06/19] tiotropium bromide 2 puff INHALATION DAILY 11/06/19 [History Last Taken 11/06/19] lactulose 20 gm PO Q8H udc 11/10/19 [Rx Last Taken Unknown] fluticasone propionate 1 spray INTRANASAL DAILY 08/25/20 [History Last Taken 08/25/20] furosemide 20 mg PO DAILY 08/25/20 [History Last Taken Unknown] potassium chloride 20 meq PO DAILY 08/25/20 [History Last Taken Unknown] Allergy/AdvReac Type Severity Reaction Status Date / Time bee venom protein (honey bee) Allergy Unknown Verified 08/25/20 14:41 oxycodone AdvReac Intermediate Other Verified 08/25/20 14:41 Family History Father Cancer Mother COPD (chronic obstructive pulmonary disease) Uncle Pulmonary embolism Surgical History History of craniotomy Social History Smoking Status: Current every day smoker Tobacco: How many years used: 45 alcohol intake: current alcohol intake frequency: 3 or more drinks per day ROS Constitutional Constitutional: Reports change in weight, malaise, weakness and weight loss; Denies chills or fever(s) Cardiovascular Cardiovascular: Denies chest pain, edema or palpitations Respiratory/Chest Respiratory/Chest: Denies cough or hemoptysis Gastrointestinal Gastrointestinal: Reports nausea and vomiting; Denies abdominal pain Genitourinary Genitourinary: Denies dysuria Musculoskeletal Musculoskeletal: Reports back pain; Denies extremity pain Integumentary Integumentary: Reports jaundice; Denies dry skin Neurologic Neurologic: Reports lack of coordination and weakness Psychiatric Psychiatric: Denies anxiety or depression Endocrine Endocrinology: Denies change in body appearance Hematologic/Lymphatic Hematologic/Lymphatic: Reports easy bruising Vital Signs Vital Signs Vital Signs: 08/25/20 14:39 08/25/20 14:59 08/25/20 16:38 Temperature 97.6 F L Temperature Source Temporal Pulse Rate 111 H 100 Respiratory Rate 16 14 Respiratory Effort Normal Blood Pressure 92/55 L 101/74 Blood Pressure Mean 67 83 Blood Pressure Source Blood Pressure Position Blood Pressure Location Pulse Ox 99 99 Oxygen Delivery Method Room Air Room Air 08/25/20 16:56 08/25/20 18:57 Temperature 97.1 F L Temperature Source Temporal Pulse Rate 98 99 Respiratory Rate 18 16 Respiratory Effort Blood Pressure 104/63 105/67 Blood Pressure Mean 76 79 Blood Pressure Source Monitor Blood Pressure Position Semi-Fowlers Blood Pressure Location Right Arm Pulse Ox 99 100 Oxygen Delivery Method Room Air Room Air Physical Exam Const alert and oriented x3 General Appearance: cooperative HEENT normocephalic and head/scalp atraumatic Eyes PERRL and EOMs intact bilaterally Sclera: sclera abnormal Positive for bilateral Details: other (Scleral icterus noted) Neck supple and no JVD General: trachea midline Lymph Lymphatic: no lymphadenopathy noted Resp normal respiratory effort, normal air movement and clear to auscultation bilaterally Cardio regular rate, regular rhythm, S1 normal heart sound and S2 normal heart sound GI normal to inspection, nondistended, normoactive bowel sounds and soft to palpation Palpation: tender Extremity normal capillary refill and no clubbing, cyanosis or edema General Extremity: no tenderness to palpation of joints or extremities Skin no rashes or lesions noted and no wounds General Skin Exam: turgor normal and jaundice Rashes: no rashes Neuro CN's II-XII intact bilaterally Psych cooperative Appearance: appropriate Mood & Affect: flat affect Lab / Micro Data Labs: Laboratory Results - last 24 hr 08/25/20 08/25/20 15:15 15:15 PT 16.2 H INR 1.4 APTT 37.8 H Magnesium 1.7 Troponin I 0.325 H Radiology Impression Abdomen/Pelvis CT 08/25/20 17:15 IMPRESSION: The liver appears generally normal in size and density. She does have a portal vein that measures smaller than normal, 9 mm which suggests portal hypertension. Spleen size remains within normal limits, coronal length of 11 cm. Large volume gallbladder with a dense layer of bile or sludge. There is no dilatation of the common bile duct or intrahepatic bile ducts. The pancreas generally appears normal in size and density without dilatation of the pancreatic duct. There are 2 tiny calcifications of the pancreatic head which I would described as linear or curvilinear of uncertain etiology. These have been present on preceding exams of 05/19/2020 and 11/08/2019 but not present on a prior exam of 07/20/2014. These don''t appear to be causing dilatation of the common bile duct. 1 nonobstructing calcification in the upper left kidney with an otherwise unremarkable left kidney. Normal right kidney. No acute bowel related findings. Nondistended thick walled urinary bladder. Negative for pelvic mass. Electronically Signed: Kennedi Ivey MD at 18:35 EDT , Service support , Assessment & Plan Assessment/Plan (1) Elevated troponin: (2) Acute hyponatremia: (3) Acute hypokalemia: (4) Jaundice: (5) GERD (gastroesophageal reflux disease): QUALIFIERS: Esophagitis presence: esophagitis presence not specified Qualified Code(s): K21.9 - Gastro-esophageal reflux disease without esophagitis (6) Chronic back pain: QUALIFIERS: Back pain laterality: unspecified Back pain location: back pain in unspecified location Qualified Code(s): M54.9 - Dorsalgia, unspecified; G89.29 - Other chronic pain (7) Hypothyroidism: QUALIFIERS: Hypothyroidism type: unspecified Qualified Code(s): E03.9 - Hypothyroidism, unspecified (8) Tobacco abuse disorder: (9) Chronic alcohol abuse: PLAN: 1. Elevated troponin -Admit to PCU for cardiac monitoring due to low potassium -Trend cardiac enzymes -CMP in a.m. -Vital signs per protocol -Strict intake and output 2. Acute hypokalemia -Patient received 10 mEq IV potassium chloride and 60 mEq p.o. potassium chloride in ER -CMP in a.m. -Continuous cardiac monitoring 3. Acute hyponatremia -Patient received 1 L sodium chloride bolus in ER -CMP in a.m. -Normal saline 125ml/hr 4. Jaundice -Direct bilirubin ordered -Liver ultrasound ordered -Trend liver enzymes 5. Acute kidney injury -CMP daily -Normal saline 125ml/hr -Strict I&O to monitor urinary output 6. GERD -Continue pantoprazole 7. Chronic back pain 8. Hypothyroidism -Will restart patient home dose levothyroxine 112 mcg daily 9. Tobacco abuse disorder -Patient denies need for NicoDerm patch at this time 10. chronic alcohol abuse -CIWA per protocol with Ativan per protocol ordered -Thiamine and folic acid ordered DVT prophylaxis- This patient was seen by GERA Marr under the supervision of Dr. Morfin. Documented by User: Dr. Rogelio Morfin MD 08/25/20 20:04 HPI - General General Date of Admission: 08/25/20 [facility] Medical History Chronic alcohol abuse Chronic back pain COPD (chronic obstructive pulmonary disease) Debility Degenerated intervertebral disc Epidural hematoma GERD (gastroesophageal reflux disease) Hypothyroidism Smoker TBI (traumatic brain injury) Tobacco abuse disorder Home Medications acetaminophen 500 - 1,000 mg PO Q6H PRN PRN 11/06/19 [History Last Taken 11/04/19] levothyroxine 112 mcg PO DAILY 11/06/19 [History Last Taken 11/06/19] multivitamin with minerals 1 ea PO DAILY 11/06/19 [History Last Taken 11/06/19] omeprazole 40 mg PO DAILY 11/06/19 [History Last Taken 11/06/19] tiotropium bromide 2 puff INHALATION DAILY 11/06/19 [History Last Taken 11/06/19] lactulose 20 gm PO Q8H udc 11/10/19 [Rx Last Taken Unknown] fluticasone propionate 1 spray INTRANASAL DAILY 08/25/20 [History Last Taken 08/25/20] furosemide 20 mg PO DAILY 08/25/20 [History Last Taken Unknown] potassium chloride 20 meq PO DAILY 08/25/20 [History Last Taken Unknown] Allergy/AdvReac Type Severity Reaction Status Date / Time bee venom protein (honey bee) Allergy Unknown Verified 08/25/20 14:41 oxycodone AdvReac Intermediate Other Verified 08/25/20 14:41 Family History Father Cancer Mother COPD (chronic obstructive pulmonary disease) Uncle Pulmonary embolism Surgical History History of craniotomy Social History Smoking Status: Current every day smoker Tobacco: How many years used: 45 alcohol intake: current alcohol intake frequency: 3 or more drinks per day Addendum Addendum: Dr. Morfin: I personally reviewed the chart and examined the patient, and agree with the above findings. 60-year-old female presents from her PCPs office for abnormal labs. She also states that she has had a 30 pound weight loss since April that was partially unintentional. Her potassium was 2.1 and she stopping potassium supplementation she is on lactulose and Lasix. She has had an elevated bilirubin here in the ER and has jaundice and scleral icterus. She has a slight NAILA, her baseline creatinine is around 0.7 and she is currently 1.2. We will continue with IV fluids and placed on a CIWA protocol secondary to her 4-6 beers a day habit. Her troponin is elevated but she is negative for chest pain, will trend. She did have a CT scan of her abdomen and pelvis in the ER secondary to painless jaundice and this was negative for a pancreatic cancer however will obtain a right upper quadrant ultrasound and she may need an MRCP for further characterization of her biliary tree. In the meantime will continue with IV fluids for her hyponatremia and hypochloremia. Also her hypothyroidism is out of control, her TSH is 11.4 and she has not been taking her Synthroid, will restarted her home dose. Visit Charges Inpatient E&M: 89151 Init Hosp L3
--- NOTE | 2020-08-25 20:35 | US_ITS ---
STUDY: ABDOMINAL ULTRASOUND - RIGHT UPPER QUADRANT REASON FOR VISIT: Female, 60 years old jaundice, elevated liver enzymes TECHNIQUE: Ultrasound evaluation of the right upper quadrant was performed with real-time and static sheppard-scale imaging. TECHNICAL QUALITY: Adequate. COMPARISON: Abdomen and pelvic CT exam of 08/25/2020 FINDINGS: Liver: The liver measures 18.5 cm. There is increased echogenicity consistent with fatty infiltration. The bile ducts are within normal limits. There is hepatic color flow. There is no demonstrated mass lesion. Gallbladder: [place] distended. The gallbladder wall measures 3 mm. There is a negative sonographic Mejia''s sign. There is no pericholecystic fluid. Large amount of sludge and one identified small gallstone. Common Bile Duct (C.B.D.): The common bile duct measures 3 mm. Pancreas: Normal head and body of the pancreas. Nonvisualized pancreatic tail secondary to bowel gas. There is normal echogenicity of the pancreas. There is no demonstrated pancreatic mass or cyst. Right Kidney: Normal size of the right kidney. The right kidney measures 9.8 x 4.2 x 3.8 cm. Normal renal cortex. The right cortex measures 1.6 cm. There is no demonstrated renal mass or cyst. There is no right hydronephrosis. US/Liver IMPRESSION: Hepatomegaly with heterogeneous mildly echogenic parenchyma/mild diffuse fatty change. [place] distended gallbladder with a large amount of sludge and one identified small gallstone. Nondistended common bile duct. Normal pancreatic head and body. Tail obscured by bowel gas. Normal right kidney. Electronically Signed: Kennedi Ivey MD at 22:48 EDT , Service support ,
[2020-08-25] MEDS: 0.9% Normal Saline 1,000 ML 125 ML IV (21:32)
[2020-08-25 21:42] LABS: Bilirubin, Direct 2.93 mg/dL (0.00-0.30)
[2020-08-26] VITALS (14 sets, daily range): BP systolic 79–92; BP diastolic 47–64; PULSE 63–94; RESP 16; TEMP 36.3–37.1; O2SAT 94–99; BMI 20.8
[2020-08-26] MEDS: 0.9% Normal Saline 1,000 ML 125 ML IV ×3 (01:43→17:09)
--- NOTE | 2020-08-26 02:24 | PCM.PN.BLA ---
Progress Note Patient with persistent hypotension despite fluid boluses. Patient with a history of liver disease. Will start patient on midodrine. Of note review of records shows that in the past patient had received midodrine for hypotension. Will give 25 g of albumin x1.
[2020-08-26] MEDS: Midodrine HCl 5 MG Tablet 10 MG PO ×4 (03:04→17:05)
[2020-08-26] MEDS: Albumin Human 25% (100 mL) 25 GM/100 ML BAG IV (03:22)
[2020-08-26 03:43] LABS: Absolute Lymphocyte Count 2.53 X10^3/uL (0.83-4.51); Absolute Neutrophil Count 4.5 X10^3/uL (2.0-7.7); Basophil# 0.05 X10^3/uL; Basophil% 0.6 % (0-1); Eosinophil# 0.07 X10^3/uL; Eosinophils% 0.9 % (0-5); Hematocrit 25.1 % (37-47); Hemoglobin 8.7 g/dL (12.0-15.0); Lymphocyte # 2.53 X10^3/ul (0.83-4.51); Lymphocyte % 32.1 % (19-41); Mean Corp Hgb Conc 34.7 g/dL (32-36); Mean Corpuscular Hgb 37.5 pg (27.0-32.0); Mean Corpuscular Volume 108.2 fL (81-99); Mean Platelet Vol. 10.9 fl (6.2-12.0); Monocyte# 0.65 X10^3/uL; Monocyte% 8.3 % (0-10); NRBC Flagged by Analyzer 0 % (0-5); Neutrophil # 4.54 X10^3/uL (2.7-7.7); Neutrophil % 57.7 % (47-70); Platelet Count 108 K/mm3 (150-450); RBC Distribution Width CV 13.9 % (11.6-14.6); RBC Distribution Width SD 55.2 fl (35.1-43.9); Red Blood Count 2.32 M/mm3 (4.2-5.4); White Blood Count 7.9 K/mm3 (4.4-11.0)
[2020-08-26 04:19] LABS: ALB/GLOB Ratio 0.5 RATIO (0.9-2.4); AST(SGOT) 69 U/L (15-37); Alanine Aminotransfer ALT/SGPT 20 U/L (13-56); Albumin, Serum 1.8 g/dL (3.2-5.0); Alkaline Phosphatase 187 U/L (45-117); Anion Gap 9 (5-15); BUN 9 mg/dL (7-18); BUN/Creat Ratio 8.7 RATIO (10-20); Calcium,Total 7.8 mg/dL (8.5-10.1); Chloride 88 mmol/L (98-107); Creatinine, Serum 1.04 mg/dL (0.55-1.02); EST Glomerular Filtration Rate 57 mL/min (>60); Est Glom Filt Rate - Afr Amer 69 mL/min (>60); Estimated Creatinine Clearance 57.48 ml/min; Globulin 3.7 g/dL (2.2-4.2); Glucose 104 mg/dL (74-106); Potassium 2.7 mmol/L (3.5-5.1); Protein, Total 5.5 g/dL (6.4-8.2); Sodium Level 128 mmol/L (136-145)
[2020-08-26] MEDS: Potassium Chloride 10mEq/100mL 10 MEQ/100 ML IV.SOLN. 100 MEQ IV BOLUS ×4 (04:59→07:55)
[2020-08-26] MEDS: Magnesium Sulfate 4gm/100mL 4 GM/100 ML IV.SOLN. IV (05:04)
[2020-08-26] MEDS: Potassium Chloride Oral Tablet 20 MEQ 40 MEQ PO ×3 (05:28→17:05)
[2020-08-26] MEDS: Levothyroxine 112 MCG Tablet PO (05:29)
[2020-08-26] MEDS: Thiamine Hydrochloride 100 MG Tablet PO ×2 (09:43→17:06)
[2020-08-26] MEDS: Pantoprazole Sodium 40 MG Tablet PO (09:44)
[2020-08-26] MEDS: Folic Acid 1 MG Tablet PO (09:44)
[2020-08-26] MEDS: Fluticasone 0.05% 1 SPRAY NASAL.SRY NASAL (09:45)
[2020-08-26 11:02] LABS: Anion Gap 6 (5-15); BUN 8 mg/dL (7-18); BUN/Creat Ratio 10.7 RATIO (10-20); Calcium,Total 8.2 mg/dL (8.5-10.1); Chloride 93 mmol/L (98-107); Creatinine, Serum 0.75 mg/dL (0.55-1.02); EST Glomerular Filtration Rate 83 mL/min (>60); Est Glom Filt Rate - Afr Amer 101 mL/min (>60); Estimated Creatinine Clearance 79.71 ml/min; Glucose 86 mg/dL (74-106); Potassium 3.9 mmol/L (3.5-5.1); Sodium Level 128 mmol/L (136-145)
--- NOTE | 2020-08-26 11:05 | CASEMGMT ---
[address] Assessment: Face to Face with pt for initial transition planning/care coordination assessment. [facility] [address] introduced self and role at [facility], pt voices understanding and consents to assessment. Pt is A/O x4 and answers all questions appropriately at this time. Pt sitting up in bed in no distress. Care providers, pharmacy, and demographics verified/updated. Admitting Dx: hypokalemia and hyperbilirubinemia PCP: [facility] Specialists: Pt denies having any specialists. Preferred Pharmacy: [facility] Insurance: [facility] Prescription Benefit: yes LW/HPOA: Pt has a LW/DPOA and it is on file at [facility]. DPOA is her friend Rosanen Linn. LNOK: Rosanne Linn, friend Living Arrangements: Pt lives in the basement of a 2 story house with 2 steps to enter. Pt lives in the basement which has 17 steps down with rail. Pt friend Rosanne and her live in the upstairs. Pt and Rosanne's adult son live in the basement. Pt reports she is I in ADL's. Denies concerns at home. Transportation: Rosanne provides transportation to pt. Denies concerns with transportation. DME/HHC/SNF: Pt reports having a walker and elevated toilet seat. Pt states she has previously had HHC but is unsure from which agency. Pt has been at [facility] prior. Pt states no concerns with going home at time of dc. Pt states no further concerns/needs. Pt did state she loses her balance at time. CM asked if pt would be open to therapy in the home if it is recommended. Pt states she teaches herself exercises and denies need for HHC. CM to follow therapy. Advised pt to ask CM if any further question/concerns/needs arise, voices understanding. Pt Goal: Home Plan: Home with friend support, follow therapy.
--- NOTE | 2020-08-26 11:11 | CASEMGMT ---
Social Work SW met with pt for alcohol use. SW introduced self and role of SW. Pt states she drinks 3-4 beers daily and has for many many years. Pt states she attempted to go through an alcohol program several years ago and it was unsuccessful. SW offered information on [facility] programs for alcohol cessation and pt declines. Pt states she has no intentions to stop drinking. Pt states alcohol use does not prohibit her life and that she is a functional drunk. Pt states she will accept written information from [facility] and will read it, but she will not followup with any community programs. Alcohol Cessation program information left with pt. No further SW needs. STEPHEN Goldberg
[2020-08-26] MEDS: Lactulose 20 GM/30 ML UDC PO ×2 (13:11→21:03)
--- NOTE | 2020-08-26 13:32 | PCM.PN.HOSP ---
Documented by User: Angi Dumont NP, [employer] 08/26/20 15:45 Subjective Subjective: Patient seen and examined. Denies abdominal pain. States she stopped taking her medications and stopped eating a month ago because she was tired of taking her medications and they made her feel sick. She continues to drink daily and is not interested in quitting. Objective Data Objective Data Vital Signs: Vital Signs Temp Pulse Resp BP Pulse Ox 98.7 F 66 16 85/53 L 95 08/26/20 13:00 08/26/20 13:00 08/26/20 13:00 08/26/20 13:00 08/26/20 13:00 Oxygen Delivery Method Room Air Weight: 141 lb 5.061 oz Body Mass Index (BMI) 20.8 Intake & Output: Intake and Output for Last 24 Hours 08/24/20 08/25/20 08/26/20 23:59 23:59 23:59 Intake Total 1100 / 1100 2742.92 / 2742.92 Output Total 0 / 0 Balance 1100 / 1100 2742.92 / 2742.92 Lab / Micro Data Result Diagrams: 08/26/20 03:16 08/26/20 10:34 Labs: Laboratory Results - last 24 hr 08/25/20 08/25/20 08/25/20 15:15 15:15 21:05 WBC RBC Hgb Hct MCV MCH MCHC RDW Std Deviation RDW Coeff of Judith Plt Count MPV Immature Gran % (Auto) Neut % (Auto) Lymph % (Auto) [place] % (Auto) Eos % (Auto) Baso % (Auto) Absolute Neuts (auto) Absolute Lymphs (auto) Nucleated RBC % PT 16.2 H INR 1.4 APTT 37.8 H Sodium Potassium Chloride Carbon Dioxide Anion Gap BUN Creatinine Estim Creat Clear Calc Est GFR (MDRD) Af Amer Est GFR (MDRD) Non-Af BUN/Creatinine Ratio Glucose Calcium Magnesium 1.7 Total Bilirubin Direct Bilirubin 2.93 H AST ALT Alkaline Phosphatase Troponin I 0.325 H 0.305 H Total Protein Albumin Globulin Albumin/Globulin Ratio 08/26/20 08/26/20 08/26/20 00:05 03:16 03:16 WBC 7.9 RBC 2.32 L Hgb 8.7 L Hct 25.1 L MCV 108.2 H MCH 37.5 H MCHC 34.7 RDW Std Deviation 55.2 H RDW Coeff of Judith 13.9 Plt Count 108 L MPV 10.9 Immature Gran % (Auto) 0.400 Neut % (Auto) 57.7 Lymph % (Auto) 32.1 [place] % (Auto) 8.3 Eos % (Auto) 0.9 Baso % (Auto) 0.6 Absolute Neuts (auto) 4.5 Absolute Lymphs (auto) 2.53 Nucleated RBC % 0 PT INR APTT Sodium 128 L Potassium 2.7 L* Chloride 88 L Carbon Dioxide 31.0 Anion Gap 9 BUN 9 Creatinine 1.04 H Estim Creat Clear Calc 57.48 Est GFR (MDRD) Af Amer 69 Est GFR (MDRD) Non-Af 57 L BUN/Creatinine Ratio 8.7 L Glucose 104 Calcium 7.8 L Magnesium Total Bilirubin 2.90 H Direct Bilirubin AST 69 H ALT 20 Alkaline Phosphatase 187 H Troponin I 0.294 H Total Protein 5.5 L Albumin 1.8 L Globulin 3.7 Albumin/Globulin Ratio 0.5 L 08/26/20 08/26/20 03:16 10:34 WBC RBC Hgb Hct MCV MCH MCHC RDW Std Deviation RDW Coeff of Judith Plt Count MPV Immature Gran % (Auto) Neut % (Auto) Lymph % (Auto) [place] % (Auto) Eos % (Auto) Baso % (Auto) Absolute Neuts (auto) Absolute Lymphs (auto) Nucleated RBC % PT INR APTT Sodium 128 L Potassium 3.9 Chloride 93 L Carbon Dioxide 29.0 Anion Gap 6 BUN 8 Creatinine 0.75 Estim Creat Clear Calc 79.71 Est GFR (MDRD) Af Amer 101 Est GFR (MDRD) Non-Af 83 BUN/Creatinine Ratio 10.7 Glucose 86 Calcium 8.2 L Magnesium Total Bilirubin Direct Bilirubin AST ALT Alkaline Phosphatase Troponin I 0.269 H Total Protein Albumin Globulin Albumin/Globulin Ratio Radiography Diagnostic Testing: Radiology Impression Abdomen/Pelvis CT 08/25/20 17:15 IMPRESSION: The liver appears generally normal in size and density. She does have a portal vein that measures smaller than normal, 9 mm which suggests portal hypertension. Spleen size remains within normal limits, coronal length of 11 cm. Large volume gallbladder with a dense layer of bile or sludge. There is no dilatation of the common bile duct or intrahepatic bile ducts. The pancreas generally appears normal in size and density without dilatation of the pancreatic duct. There are 2 tiny calcifications of the pancreatic head which I would described as linear or curvilinear of uncertain etiology. These have been present on preceding exams of 05/19/2020 and 11/08/2019 but not present on a prior exam of 07/20/2014. These don''t appear to be causing dilatation of the common bile duct. 1 nonobstructing calcification in the upper left kidney with an otherwise unremarkable left kidney. Normal right kidney. No acute bowel related findings. Nondistended thick walled urinary bladder. Negative for pelvic mass. Electronically Signed: Kennedi Ivey MD at 18:35 EDT , Service support , Liver Ultrasound 08/25/20 20:35 IMPRESSION: Hepatomegaly with heterogeneous mildly echogenic parenchyma/mild diffuse fatty change. [place] distended gallbladder with a large amount of sludge and one identified small gallstone. Nondistended common bile duct. Normal pancreatic head and body. Tail obscured by bowel gas. Normal right kidney. Electronically Signed: Kennedi Ivey MD at 22:48 EDT , Service support , Physical Exam Const alert, oriented x3 and no apparent distress Orientation / Consciousness: awake, oriented to person, oriented to place and oriented to time HEENT normocephalic and moist oral mucous membranes Eyes PERRL, EOMs intact bilaterally and conjunctivae normal Neck no lymphadenopathy Resp normal respiratory effort and clear to auscultation bilaterally Cardio regular rate, regular rhythm and no murmurs Peripheral Pulses: pulses 2+ throughout GI normal to inspection, nondistended, normoactive bowel sounds, non-tender and non-distended Extremity normal to inspection Skin no rashes or lesions noted General Skin Exam: jaundice Lesions: no lesions Rashes: no rashes Trauma: no lacerations or abrasions Neuro oriented x3 Sensorium / Orientation: awake and alert Psych affect normal Assessment & Plan Assessment/Plan (1) Acute hypokalemia: (2) Acute hyponatremia: (3) Elevated troponin: (4) Jaundice: PLAN: 1. Hypokalemia/hyponatremia-due to hypovolemia, poor oral intake. Improving, replace per protocol. Trend BMP. 2. Hyperbilirubinemia/jaundice-bilirubin trending down., Nondistended, bile duct. Will obtain MRCP to be cautious. 3. Abnormal troponin-patient has chronically elevated enzymes. Asymptomatic. EKG without ST-T changes. Liver ultrasound shows overly distended gallbladder with large amount of sludge 4. Acute kidney injury-resolved with IV fluids. 5. Hypotension-IV fluids, initiated on midodrine. Asymptomatic. 6. Chronic alcohol abuse with alcoholic cirrhosis-not interested in quitting drinking. Thiamine, folic acid, multivitamin supplementation. CIWA protocol. 7. Hypothyroidism-thyroid studies abnormal due to patient being off medication for 1 month. Home Synthroid resumed. 8. GERD-continue PPI. 9. Tobacco dependence-encouraged cessation. DVT prophylaxis- Lovenox sc This patient was seen by GERA Tripp under the supervision of Dr. Iniguez. Documented by User: Dr. Hua Iniguez MD 08/26/20 16:28 Subjective Subjective: Patient history of chronic alcohol use, drinks about 4-6 beers every day since age of 15. Patient also has low blood pressure seems chronically low as her BMI is 20.9 kg/m? and looks chronically severely malnourished. Patient lost 30 pounds in last 5 months. Denies history of cirrhosis. Objective Data Lab / Micro Data Result Diagrams: 08/26/20 03:16 08/26/20 10:34 Physical Exam Narrative Denies dizziness, lightheadedness or fainting. General: Alert, Oriented x3, Cooperative, severely malnourished HEENT: Atraumatic, PERRLA, EOMI, Normocephalic Oral: No Gingival or Mucosal Lesions/ Ulcerations Neck: Supple, No JVD, Negative Carotid Bruits Lungs: Air entry diminished in bilateral lung bases. No crepitation/rhonchi Cardiovascular: Regular rate, Regular Rhythm, Normal S1, Normal S2, No murmurs Abdomen: Bowel Sounds Present, Soft, Non Tender, Non-Distended : No renal angle tenderness. No suprapubic tenderness. Extremities: No edema, Capillary Refill Less than 3 Seconds Skin: No rashes, No breakdown Musculoskeletal: Moderate atrophy of muscles of extremities loss of subcutaneous fat. No Tenderness to Palpation of Joints or Extremities Neurological: Cranial nerves II-XII grossly intact, Deep Tendon Reflexes 2+/4 and Symmetrical, Neuro grossly intact Psych/Mental Status: Flat affect Assessment & Plan Assessment/Plan (1) Acute hypokalemia: (2) Acute hyponatremia: (3) Jaundice: (4) Chronic alcohol abuse: (5) NAILA (acute kidney injury): PLAN: This patient was seen in conjunction with Angi BERMAN. I have independently interviewed and examined the patient and reviewed pertinent history, examination findings, laboratory and plan of management. I have reviewed the note and agree with the documented findings with the few additional points. In brief, patient is admitted for abnormal labs, not eating or drinking and stopped taking medication for past month. Patient also had severe weight loss 30 pounds in last 5 months. Chronic alcohol use and severely malnourished. Patient is admitted with hypokalemia, hyponatremia and hypotension. Patient does not have symptoms of hypotension. Patient also has direct hyperbilirubinemia, T bili 5.0, direct 2.93, AST 69, alkaline phosphatase 187. Right upper quadrant sonogram shows hepatomegaly with heterogeneous mildly echogenic parenchyma/mild diffuse fatty change. Distended gallbladder with a large amount of sludge and one identified small gallstone. Nondistended common bile duct. Normal pancreatic head and body. TSH and free T4 elevated possible secondary hypothyroidism. Synthroid regimen. K2.1 replaced and repeat K3.9. Sodium improving. Patient had leukocytosis is resolved. Patient has microcytic anemia, hemoglobin dropped after IV fluid rehydration to 8.7. Platelet count 138. B12 elevated. MRCP is ordered. On folic acid and thiamine. I have discussed my assessment with Angi BERMAN and orders have been reviewed. Total time of the visit including total time spent in counseling or coordination of care, (more than 50% of the total time, spent in obtaining medical information from nurses and other ancillary care providers,explaining to the patient about labs, imaging, diagnosis and management), , review of labs and imaging is 30 minutes. Clinical Impression(s) from Imaging Studies Abdomen/Pelvis CT 08/25/20 17:15 IMPRESSION: The liver appears generally normal in size and density. She does have a portal vein that measures smaller than normal, 9 mm which suggests portal hypertension. Spleen size remains within normal limits, coronal length of 11 cm. Large volume gallbladder with a dense layer of bile or sludge. There is no dilatation of the common bile duct or intrahepatic bile ducts. The pancreas generally appears normal in size and density without dilatation of the pancreatic duct. There are 2 tiny calcifications of the pancreatic head which I would described as linear or curvilinear of uncertain etiology. These have been present on preceding exams of 05/19/2020 and 11/08/2019 but not present on a prior exam of 07/20/2014. These don''t appear to be causing dilatation of the common bile duct. 1 nonobstructing calcification in the upper left kidney with an otherwise unremarkable left kidney. Normal right kidney. No acute bowel related findings. Nondistended thick walled urinary bladder. Negative for pelvic mass. Electronically Signed: Kennedi Ivey MD at 18:35 EDT , Service support , Liver Ultrasound 08/25/20 20:35 IMPRESSION: Hepatomegaly with heterogeneous mildly echogenic parenchyma/mild diffuse fatty change. [place] distended gallbladder with a large amount of sludge and one identified small gallstone. Nondistended common bile duct. Normal pancreatic head and body. Tail obscured by bowel gas. Normal right kidney. Visit Charges Inpatient E&M: 16531 Init Hosp L3
--- NOTE | 2020-08-26 15:45 | MRI_ITS ---
STUDY: MR MRCP WITHOUT CONTRAST REASON FOR EXAM: Female, 60 years old. Hyperbilirubinemia, abnormal liver US TECHNIQUE: Standard MRCP technique was utilized. COMPARISON: None. FINDINGS: Liver: Slightly nodular contour. Heterogeneous parenchyma. No suspicious hepatic masses. Gallbladder: Large amount of layering sludge. Bile Ducts: No intrahepatic or extrahepatic biliary ductal dilatation. No obstructing stone or stricture. Pancreas: Unremarkable Spleen: Unremarkable Adrenal Glands: Unremarkable Kidneys: Unremarkable GI Tract: Colonic interposition. Lymphadenopathy: Absent Ascites: Trace subphrenic ascites. Bones: Degenerative changes of the lumbar spine. Old stable lower thoracic compression deformities. MRI/MRCP Abdomen without Contrast IMPRESSION: Gallbladder sludge. No evidence of choledocholithiasis or biliary dilatation. Findings concerning for possible early cirrhosis with evidence of portal hypertension including trace ascites. No suspicious hepatic mass. Electronically Signed: Bony Maxwell MD at 21:43 EDT Tel , Service support ,
--- NOTE | 2020-08-26 16:29 | PCM.NTREPORT ---
Nutrition Therapy Report - History Current diet / nutrition support order:: clear liquids - Anthropometric Measurements Height:: 5 ft 9 in Weight:: 64.1 kg Body Mass Index (BMI):: 20.8 - Relevant Labs Relevant Labs:: RBC 2.32 M/mm3 (4.2-5.4) L 08/26/20 03:16 Hgb 8.7 g/dL (12.0-15.0) L 08/26/20 03:16 Hct 25.1 % (37-47) L 08/26/20 03:16 MCV 108.2 fL (81-99) H 08/26/20 03:16 MCH 37.5 pg (27.0-32.0) H 08/26/20 03:16 RDW Std Deviation 55.2 fl (35.1-43.9) H 08/26/20 03:16 Plt Count 108 K/mm3 (150-450) L 08/26/20 03:16 PT 16.2 SECONDS (11.7-14.9) H 08/25/20 15:15 APTT 37.8 Seconds (24.1-36.2) H 08/25/20 15:15 Sodium 128 mmol/L (136-145) L 08/26/20 10:34 Potassium 2.7 mmol/L (3.5-5.1) L* 08/26/20 03:16 Chloride 93 mmol/L (98-107) L 08/26/20 10:34 Creatinine 1.04 mg/dL (0.55-1.02) H 08/26/20 03:16 Est GFR (MDRD) Non-Af 57 mL/min (>60) L 08/26/20 03:16 BUN/Creatinine Ratio 8.7 RATIO (10-20) L 08/26/20 03:16 Calcium 8.2 mg/dL (8.5-10.1) L 08/26/20 10:34 Total Bilirubin 2.90 mg/dL (0.20-1.00) H 08/26/20 03:16 Direct Bilirubin 2.93 mg/dL (0.00-0.30) H 08/25/20 21:05 AST 69 U/L (15-37) H 08/26/20 03:16 Alkaline Phosphatase 187 U/L (45-117) H 08/26/20 03:16 Troponin I 0.269 ng/mL (<0.045) H 08/26/20 03:16 Total Protein 5.5 g/dL (6.4-8.2) L 08/26/20 03:16 Albumin 1.8 g/dL (3.2-5.0) L 08/26/20 03:16 Albumin/Globulin Ratio 0.5 RATIO (0.9-2.4) L 08/26/20 03:16 - Assessment Food / Nutrition-Related History:: Currently hungry at time of assessment. States last PO intake was yesterday AM. Pt states she quit feeling like eating ~1 month ago. She has unintentionally lost 30# in the past 5 months. UBW 170# and CBW 141.3#-28.7#/17% wt loss is significant for malnutrition. - Nutrition Diagnosis Problem / Etiology / Signs & Symptoms (PES):: severe malnutrition in context of social/behavioral circumstances r/t inadequate protein/calorie intake w/ excessive ETOH intake as evidenced by consumption of 4-6 beers/day, significant wt loss of 28.7#/17% x 5 months, estimated PO intake meeting <75% of pt calorie/protein needs Evidence of Malnutrition Exists:: Yes Severe PCM:: Social & Environmental circumstances - Nutrition Intervention Nutrition Prescription:: [id number] calories/day (RMRx1.3). 54-64 g protein/day (1g/kg). 1600mL fluid/day (25mL/kg) - Food / Nutrient Delivery Interventions Summary of nutrition intervention:: Pt w/ no questions for RDN at this time. Nutrition support ordered as / adjusted to:: advance diet as tolerated to regular w/ 120mL ensure enlive 4x/day. - MNT Monitoring Further MNT monitoring and evaluation required?: Yes MNT Follow-up in:: 3-5 days
[2020-08-27 03:00] VITALS: PULSE 76
[2020-08-27] MEDS: 0.9% Normal Saline 1,000 ML 125 ML IV (03:23)
[2020-08-27 04:30] VITALS: BP 85/51; PULSE 70; RESP 16; TEMP 36.9; O2SAT 97
[2020-08-27 05:36] LABS: Hematocrit 26.6 % (37-47); Hemoglobin 8.9 g/dL (12.0-15.0); Mean Corp Hgb Conc 33.5 g/dL (32-36); Mean Corpuscular Hgb 37.4 pg (27.0-32.0); Mean Corpuscular Volume 111.8 fL (81-99); Mean Platelet Vol. 10.7 fl (6.2-12.0); Platelet Count 131 K/mm3 (150-450); RBC Distribution Width CV 14.6 % (11.6-14.6); RBC Distribution Width SD 59.4 fl (35.1-43.9); Red Blood Count 2.38 M/mm3 (4.2-5.4); White Blood Count 9.5 K/mm3 (4.4-11.0)
[2020-08-27 05:54] LABS: Anion Gap 6 (5-15); BUN 7 mg/dL (7-18); Calcium,Total 8.1 mg/dL (8.5-10.1); Chloride 102 mmol/L (98-107); EST Glomerular Filtration Rate 91 mL/min (>60); Est Glom Filt Rate - Afr Amer 110 mL/min (>60); Glucose 75 mg/dL (74-106); Potassium 4.3 mmol/L (3.5-5.1); Sodium Level 133 mmol/L (136-145)
[2020-08-27] MEDS: Levothyroxine 112 MCG Tablet PO (05:56)
[2020-08-27] MEDS: Lactulose 20 GM/30 ML UDC PO ×2 (05:56→13:04)
[2020-08-27] MEDS: Enoxaparin 40 MG/0.4 ML Syringe SC (05:56)
[2020-08-27 06:15] VITALS: BP 82/46; PULSE 81; RESP 16; TEMP 37; O2SAT 98
[2020-08-27 07:01] VITALS: PULSE 78
[2020-08-27 08:02] VITALS: BP 85/55; PULSE 83; RESP 16; TEMP 36.9; O2SAT 97
[2020-08-27] MEDS: Folic Acid 1 MG Tablet PO (08:10)
[2020-08-27] MEDS: Midodrine HCl 5 MG Tablet 10 MG PO ×2 (08:11→13:04)
[2020-08-27] MEDS: Potassium Chloride Oral Tablet 20 MEQ 40 MEQ PO (08:11)
[2020-08-27] MEDS: Fluticasone 0.05% 1 SPRAY NASAL.SRY NASAL (08:11)
[2020-08-27] MEDS: Thiamine Hydrochloride 100 MG Tablet PO (08:11)
[2020-08-27] MEDS: Pantoprazole Sodium 40 MG Tablet PO (08:11)
[2020-08-27 10:00] VITALS: BP 91/52; PULSE 103; RESP 18; TEMP 36.8; O2SAT 98
--- NOTE | 2020-08-27 14:10 | PCM.DC ---
Discharge Instructions Diet Discharge Diet: No restrictions Activity Discharge Activity: Return to Normal Activity Dressing / Incision Call your doctor if you observe: Fever of 101 or Higher, Shortness of breath, Dizziness and Chest pain Follow Up Care Test Results: Test results from this visit will be discussed in further detail at your follow-up appointment, if applicable. Discharge Plan Admission Admit Date/Time: 08/25/20 18:56 Attending Provider: Hua Iniguez Primary Care Provider: Tony Kulkarni Discharge Orders/Prescriptions Prescriptions: New midodrine 5 mg Tablet 10 mg PO TIDCM Qty: 90 RF: 0 Continued omeprazole 40 MG capsule,delayed release(DR/EC) 40 mg PO DAILY RF: 0 acetaminophen 500 MG tablet 500 - 1,000 mg PO Q6H PRN PRN (Reason: Pain Or Fever) RF: 0 multivitamin with minerals 1 EACH tablet 1 ea PO DAILY RF: 0 levothyroxine 112 MCG tablet 112 mcg PO DAILY RF: 0 tiotropium bromide 4 GM mist 2 puff inhalation DAILY RF: 0 lactulose 20 GM/30 ML solution 20 gm PO Q8H RF: 0 furosemide 20 mg tablet 20 mg PO DAILY RF: 0 fluticasone propionate 50 mcg/actuation spray,suspension 1 spray INTRANASAL DAILY RF: 0 potassium chloride 20 mEq tablet extended release 20 meq PO DAILY RF: 0 Referrals / Follow Up: Tony Kulkarni MD [Primary Care Provider] - In 1 Week Disposition Disposition (needs filled in before D/C Order can be placed): Home, self care
--- NOTE | 2020-08-27 14:15 | PCM.DC.SUM ---
Documented by User: Angi Dumont NP, HYDRAULIC BULL RIVETER OPERATOR-C 08/27/20 14:20 Providers Date of Admission: 08/25/20 Primary Care Physician: Dr. Tony Kulkarni MD Reason For Visit: HYPOKALEMIA AND HYPERBILIRUBINEMIA Diagnosis Discharge Diagnosis (1) Acute hypokalemia: Status: Acute Code(s): E87.6 - Hypokalemia (2) Acute hyponatremia: Status: Acute Code(s): E87.1 - Hypo-osmolality and hyponatremia (3) Jaundice: Status: Acute Code(s): R17 - Unspecified jaundice (4) Chronic alcohol abuse: Status: Chronic Code(s): F10.10 - Alcohol abuse, uncomplicated (5) NAILA (acute kidney injury): Status: Acute Code(s): N17.9 - Acute kidney failure, unspecified Medications at Discharge Home Medications acetaminophen 500 - 1,000 mg PO Q6H PRN PRN 11/06/19 levothyroxine 112 mcg PO DAILY 11/06/19 multivitamin with minerals 1 ea PO DAILY 11/06/19 omeprazole 40 mg PO DAILY 11/06/19 tiotropium bromide 2 puff INHALATION DAILY 11/06/19 lactulose 20 gm PO Q8H udc 11/10/19 fluticasone propionate 1 spray INTRANASAL DAILY 08/25/20 furosemide 20 mg PO DAILY 08/25/20 potassium chloride 20 meq PO DAILY 08/25/20 midodrine 10 mg PO TIDCM #90 tab 08/27/20 Hospital Course Operations None Procedures - (MRCP) Summary of Care Provided Minutes Spent on Discharge: 35 Hospital Course: Patient is a 60-year-old female admitted 08/25/2020 due to abnormal labs, referred by PCP. 1. Hypokalemia/hyponatremia-due to hypovolemia, poor oral intake. Hypokalemia resolved, hyponatremia significantly improved. Follow-up with PCP in 1 week for repeat labs. 2. Hyperbilirubinemia/jaundice-bilirubin trending down., Nondistended, bile duct. MRCP showed gallbladder sludge, no evidence of choledocholithiasis or biliary dilatation. Suspected early cirrhosis with evidence of portal hypertension and trace ascites. 3. Abnormal troponin-patient has chronically elevated enzymes. Asymptomatic. EKG without ST-T changes. Previous echo 08/11/2019 demonstrated an EF of 60%. 4. Acute kidney injury-resolved with IV fluids. 5. Hypotension-asymptomatic, initiated on midodrine which she will continue at discharge. 6. Chronic alcohol abuse with alcoholic cirrhosis-not interested in quitting drinking. Declined 180 consult. On lactulose, Lasix. 7. Hypothyroidism-thyroid studies abnormal due to patient being off medication for 1 month. Home Synthroid resumed. Recommend repeat thyroid studies in 4 to 6 weeks. 8. GERD-continue PPI. 9. Tobacco dependence-encouraged cessation. 10. Severe protein calorie malnutrition-as evidenced by poor oral intake, recent weight loss, cachectic appearance. Dietitian consult during admission. Physical Exam Const alert, oriented x3 and no apparent distress Orientation / Consciousness: awake, oriented to person, oriented to place and oriented to time HEENT normocephalic and moist oral mucous membranes Eyes PERRL, EOMs intact bilaterally and conjunctivae normal Neck no lymphadenopathy Resp normal respiratory effort and clear to auscultation bilaterally Cardio regular rate, regular rhythm and no murmurs Peripheral Pulses: pulses 2+ throughout GI normal to inspection, nondistended, normoactive bowel sounds, non-tender and non-distended Extremity normal to inspection Skin no rashes or lesions noted General Skin Exam: jaundice Lesions: no lesions Rashes: no rashes Trauma: no lacerations or abrasions Neuro oriented x3 Sensorium / Orientation: awake and alert Psych affect normal Patient seen and examined prior to discharge. Physical assessment as noted above. Patient is stable for discharge with follow up recommendations as noted above. This patient was seen by GERA Tripp under the supervision of Dr. Iniguez. ABG / Lab / Microbiology Data Result Diagrams: 08/27/20 05:22 08/27/20 05:22 Laboratory: Laboratory Results - last 24 hr 08/27/20 08/27/20 05:22 05:22 WBC 9.5 RBC 2.38 L Hgb 8.9 L Hct 26.6 L MCV 111.8 H MCH 37.4 H MCHC 33.5 RDW Std Deviation 59.4 H RDW Coeff of Judith 14.6 Plt Count 131 L MPV 10.7 Sodium 133 L Potassium 4.3 Chloride 102 Carbon Dioxide 25.0 Anion Gap 6 BUN 7 Creatinine 0.70 Estim Creat Clear Calc 85.40 Est GFR (MDRD) Af Amer 110 Est GFR (MDRD) Non-Af 91 BUN/Creatinine Ratio 10.0 Glucose 75 Calcium 8.1 L Radiography Diagnostic Testing: Radiology Impression MRCP 08/26/20 15:45 IMPRESSION: Gallbladder sludge. No evidence of choledocholithiasis or biliary dilatation. Findings concerning for possible early cirrhosis with evidence of portal hypertension including trace ascites. No suspicious hepatic mass. Electronically Signed: Bony Maxwell MD at 21:43 EDT Tel , Service support , D/C Instructions Discharge Diet: No restrictions Discharge Activity: Return to Normal Activity Call your doctor if you observe: Fever of 101 or Higher, Shortness of breath, Dizziness and Chest pain Meaningful Use Info Meaningful Use Diagnoses (Choose all that apply): None applicable Discharge Plan Admission Admit Date/Time: 08/25/20 18:56 Primary Reason for Your Visit: Hypokalemia, hyponatremia, acute kidney injury and jaundice due to ALCHOL Attending Provider: Hua Iniguez Primary Care Provider: Tony Kulkarni Discharge Orders/Prescriptions Prescriptions: New midodrine 5 mg Tablet 10 mg PO TIDCM Qty: 90 RF: 0 Continued omeprazole 40 MG capsule,delayed release(DR/EC) 40 mg PO DAILY RF: 0 acetaminophen 500 MG tablet 500 - 1,000 mg PO Q6H PRN PRN (Reason: Pain Or Fever) RF: 0 multivitamin with minerals 1 EACH tablet 1 ea PO DAILY RF: 0 levothyroxine 112 MCG tablet 112 mcg PO DAILY RF: 0 tiotropium bromide 4 GM mist 2 puff inhalation DAILY RF: 0 lactulose 20 GM/30 ML solution 20 gm PO Q8H RF: 0 furosemide 20 mg tablet 20 mg PO DAILY RF: 0 fluticasone propionate 50 mcg/actuation spray,suspension 1 spray INTRANASAL DAILY RF: 0 potassium chloride 20 mEq tablet extended release 20 meq PO DAILY RF: 0 Referrals / Follow Up: Tony Kulkarni MD [Primary Care Provider] - In 1 Week Disposition Disposition (needs filled in before D/C Order can be placed): Home, self care Documented by User: Dr. Hua Iniguez MD 08/27/20 14:46 Providers Date of Admission: 08/25/20 Reason For Visit: HYPOKALEMIA AND HYPERBILIRUBINEMIA Medications at Discharge Home Medications acetaminophen 500 - 1,000 mg PO Q6H PRN PRN 11/06/19 levothyroxine 112 mcg PO DAILY 11/06/19 multivitamin with minerals 1 ea PO DAILY 11/06/19 omeprazole 40 mg PO DAILY 11/06/19 tiotropium bromide 2 puff INHALATION DAILY 11/06/19 lactulose 20 gm PO Q8H udc 11/10/19 fluticasone propionate 1 spray INTRANASAL DAILY 08/25/20 furosemide 20 mg PO DAILY 08/25/20 potassium chloride 20 meq PO DAILY 08/25/20 midodrine 10 mg PO TIDCM #90 tab 08/27/20 Hospital Course Summary of Care Provided Hospital Course: This patient was seen in conjunction with HYDRAULIC B[employer] RIVETER OPERATOR, Angi. I have independently interviewed and examined the patient and reviewed pertinent history, examination findings, laboratory and plan of management. I have reviewed the note and agree with the documented findings with the few additional points. In brief, patient is admitted for abnormal labs, not eating or drinking and stopped taking medication for past month. Patient also had severe weight loss 30 pounds in last 5 months. Chronic alcohol use and severely malnourished. Patient is admitted with hypokalemia, hyponatremia and hypotension. Patient does not have symptoms of hypotension. Patient also has direct hyperbilirubinemia, T bili 5.0, direct 2.93, AST 69, alkaline phosphatase 187. Right upper quadrant sonogram shows hepatomegaly with heterogeneous mildly echogenic parenchyma/mild diffuse fatty change. Distended gallbladder with a large amount of sludge and one identified small gallstone. Nondistended common bile duct. Normal pancreatic head and body. ERCP was done which shows biliary sludge, no choledocholithiasis or biliary dilatation but early cirrhosis with evidence of portal hypertension with trace ascites. No suspicious hepatic mass. This was discussed with the surgeon and seems cholelithiasis probably due to chronic alcohol use/early alcoholic cirrhotic changes TSH and free T4 elevated possible secondary hypothyroidism or euthyroid sick syndrome. Synthroid regimen. Hypokalemia, hyponatremia was corrected. GGT elevated 1013 it was 127 in October 2018 suggestive of chronic cholestasis. NAILA, Prerenal resolved Patient had leukocytosis is resolved. Patient has microcytic anemia, hemoglobin dropped after IV fluid rehydration to 8.7. Platelet count 138. B12 elevated. On folic acid and thiamine. Discharge medication reconciliation done. Discharge follow-up instructions completed. Discharge process discussed with the patient and all questions were answered to patient's satisfaction. Total time spent, exact 35 minutes on discharge meds reconciliation, examination, coordination of care with nurses and ancillary staff, review of imaging and blood test and discussion with the patient on follow-up instructions I have discussed my assessment with HYDRAULIC BULL RIVETER OPERATORAngi and orders have been reviewed. Clinical Impression(s) from Imaging Studies MRCP 08/26/20 15:45 IMPRESSION: Gallbladder sludge. No evidence of choledocholithiasis or biliary dilatation. Findings concerning for possible early cirrhosis with evidence of portal hypertension including trace ascites. No suspicious hepatic mass. Electronically Signed: Bony Maxwell MD at 21:43 EDT Tel , Service support , Physical Exam Narrative Patient has history of chronic alcohol use but denies history of previous cholecystitis or gallbladder stone issues.. Denies dizziness, lightheadedness or fainting. Patient baseline blood pressure is low owing to malnourished, chronic alcohol use and possible early cirrhosis. BP 90/52. General: Alert, Oriented x3, Cooperative, severely malnourished HEENT: Atraumatic, PERRLA, EOMI, Normocephalic Oral: No Gingival or Mucosal Lesions/ Ulcerations Neck: Supple, No JVD, Negative Carotid Bruits Lungs: Air entry diminished in bilateral lung bases. No crepitation/rhonchi Cardiovascular: Regular rate, Regular Rhythm, Normal S1, Normal S2, No murmurs Abdomen: Bowel Sounds Present, Soft, Non Tender, Non-Distended. No palpable ascites : No renal angle tenderness. No suprapubic tenderness. Extremities: No edema, Capillary Refill Less than 3 Seconds Skin: No rashes, No breakdown Musculoskeletal: Moderate atrophy of muscles of extremities loss of subcutaneous fat. No Tenderness to Palpation of Joints or Extremities Neurological: Cranial nerves II-XII grossly intact, Deep Tendon Reflexes 2+/4 and Symmetrical, Neuro grossly intact Psych/Mental Status: Flat affect ABG / Lab / Microbiology Data Result Diagrams: 08/27/20 05:22 08/27/20 05:22 Discharge Plan Admission Admit Date/Time: 08/25/20 18:56 Primary Reason for Your Visit: Hypokalemia, hyponatremia, acute kidney injury and jaundice due to ALCHOL Attending Provider: Hua Iniguez Primary Care Provider: Tony Kulkarni Discharge Orders/Prescriptions Prescriptions: New midodrine 5 mg Tablet 10 mg PO TIDCM Qty: 90 RF: 0 Continued omeprazole 40 MG capsule,delayed release(DR/EC) 40 mg PO DAILY RF: 0 acetaminophen 500 MG tablet 500 - 1,000 mg PO Q6H PRN PRN (Reason: Pain Or Fever) RF: 0 multivitamin with minerals 1 EACH tablet 1 ea PO DAILY RF: 0 levothyroxine 112 MCG tablet 112 mcg PO DAILY RF: 0 tiotropium bromide 4 GM mist 2 puff inhalation DAILY RF: 0 lactulose 20 GM/30 ML solution 20 gm PO Q8H RF: 0 furosemide 20 mg tablet 20 mg PO DAILY RF: 0 fluticasone propionate 50 mcg/actuation spray,suspension 1 spray INTRANASAL DAILY RF: 0 potassium chloride 20 mEq tablet extended release 20 meq PO DAILY RF: 0 Referrals / Follow Up: Tony Kulkarni MD [Primary Care Provider] - In 1 Week Disposition Disposition (needs filled in before D/C Order can be placed): Home, self care Visit Charges Inpatient E&M: 83130 Disch Hosp
--- NOTE | 2020-08-30 14:04 | CASEMGMT ---
[address] Discharge F/U Phone Call LACE: 10 Strata: 3 Discharge date: 08/27/20 Call date: 08/30/20 Call time: [id number] Admission dx: Hypokalemia and hyperbilirubinemia Pt's friend, Rosanne, answered phone and states pt is unable to come to phone at this time. Per Rosanne, pt is 'doing good.' Rosanne states no questions regarding discharge instructions/medications. Rosanne states that she set up appt for pt tomorrow with PCP and states 'hopefully, she learned her lesson and won't stop taking her meds again.' Rosanne voices no further questions/concerns/needs. [place] [address]
== END 2020-08-27 15:54 | disposition home or self-care (01) | DRG 640 ==
LOC: ED 18:52 → PCU 08-26 05:12
PROVIDERS: Hospitalist; Nurse Practitioner Family; Admitting Provider Family Medicine; Emergency Provider Emergency Medicine; PCP Family Medicine; Visit Provider Internal Medicine
DX: E86.1 Hypovolemia (principal); E43 Unspecified severe protein-calorie malnutrition; N17.9 Acute kidney failure, unspecified; K76.6 Portal hypertension; E87.6 Hypokalemia; E87.1 Hypo-osmolality and hyponatremia; R79.89 Other specified abnormal findings of blood chemistry; Z91.14 Patient's other noncompliance with medication regimen; E87.8 Other disorders of electrolyte and fluid balance, not elsewhere classified; I95.9 Hypotension, unspecified; D50.9 Iron deficiency anemia, unspecified; K70.31 Alcoholic cirrhosis of liver with ascites; F17.200 Nicotine dependence, unspecified, uncomplicated; K21.9 Gastro-esophageal reflux disease without esophagitis; M54.9 Dorsalgia, unspecified; G89.29 Other chronic pain; E03.9 Hypothyroidism, unspecified; F10.10 Alcohol abuse, uncomplicated; Z79.899 Other long term (current) drug therapy; Z68.20 Body mass index [BMI] 20.0-20.9, adult
CPT/HCPCS: 36415; 71046; 74177; 74181; 76705; 80048; 80053; 82140; 82248; 82306; 82607; 82746; 83735; 84134; 84425; 84439; 84443; 84484; 85025; 85027; 85610; 85730; 93005; 99285; J7030; J7040; P9047; Q9967; A4216; J2405

== ENCOUNTER → 2020-09-07 11:47 | Outpatient (CLI) | payer MEDICARE, SELFPAY ==
[2020-08-26 16:31] VITALS: BMI 20.8
[2020-09-07 15:37] LABS: Absolute Lymphocyte Count 2.63 X10^3/uL (0.83-4.51); Absolute Neutrophil Count 7.8 X10^3/uL (2.0-7.7); Basophil# 0.07 X10^3/uL; Basophil% 0.6 % (0-1); Eosinophil# 0.08 X10^3/uL; Eosinophils% 0.7 % (0-5); Hematocrit 26.9 % (37-47); Hemoglobin 9.1 g/dL (12.0-15.0); Lymphocyte # 2.63 X10^3/ul (0.83-4.51); Lymphocyte % 22.9 % (19-41); Mean Corp Hgb Conc 33.8 g/dL (32-36); Mean Corpuscular Hgb 38.2 pg (27.0-32.0); Mean Platelet Vol. 10.6 fl (6.2-12.0); Monocyte# 0.85 X10^3/uL; Monocyte% 7.4 % (0-10); NRBC Flagged by Analyzer 0 % (0-5); Neutrophil # 7.83 X10^3/uL (2.7-7.7); Neutrophil % 68.1 % (47-70); POSITIVE MORPHOLOGY YES; Platelet Count 152 K/mm3 (150-450); RBC Distribution Width CV 16.3 % (11.6-14.6); RBC Distribution Width SD 66.4 fl (35.1-43.9); Red Blood Count 2.38 M/mm3 (4.2-5.4); White Blood Count 11.5 K/mm3 (4.4-11.0)
[2020-09-07 16:03] LABS: AST(SGOT) 79 U/L (15-37); Alanine Aminotransfer ALT/SGPT 31 U/L (13-56); Albumin, Serum 2.3 g/dL (3.2-5.0); Alkaline Phosphatase 207 U/L (45-117); Anion Gap 11 (5-15); BUN 3 mg/dL (7-18); BUN/Creat Ratio 4.5 RATIO (10-20); Bilirubin, Direct 2.09 mg/dL (0.00-0.30); Calcium,Total 8.4 mg/dL (8.5-10.1); Chloride 101 mmol/L (98-107); Creatinine, Serum 0.67 mg/dL (0.55-1.02); EST Glomerular Filtration Rate 95 mL/min (>60); Est Glom Filt Rate - Afr Amer 114 mL/min (>60); Globulin 4.5 g/dL (2.2-4.2); Glucose 79 mg/dL (74-106); Potassium 3.5 mmol/L (3.5-5.1); Protein, Total 6.8 g/dL (6.4-8.2); Sodium Level 133 mmol/L (136-145)
[2020-09-07 16:23] LABS: Anisocytosis 1+; Differential Comment SCANNED; Differential Indicated SCAN CRITERIA MET
== END ==
PROVIDERS: PCP Family Medicine; Referring Provider Family Medicine; Visit Provider Family Medicine
DX: E80.6 Other disorders of bilirubin metabolism (principal); K70.30 Alcoholic cirrhosis of liver without ascites; E87.1 Hypo-osmolality and hyponatremia
CPT/HCPCS: 36415; 80048; 80076; 85025

== ENCOUNTER → 2020-12-23 12:07 | Outpatient (CLI) | payer MEDICARE, MEDICAID, SELFPAY ==
[2020-12-23 15:33] LABS: ALB/GLOB Ratio 0.4 RATIO (0.9-2.4); AST(SGOT) 40 U/L (15-37); Alanine Aminotransfer ALT/SGPT 21 U/L (13-56); Albumin, Serum 1.8 g/dL (3.2-5.0); Alkaline Phosphatase 157 U/L (45-117); Anion Gap 13 (5-15); BUN 13 mg/dL (7-18); BUN/Creat Ratio 11.2 RATIO (10-20); Calcium,Total 8.1 mg/dL (8.5-10.1); Chloride 100 mmol/L (98-107); Creatinine, Serum 1.16 mg/dL (0.55-1.02); EST Glomerular Filtration Rate 50 mL/min (>60); Est Glom Filt Rate - Afr Amer 61 mL/min (>60); Glucose 105 mg/dL (74-106); Potassium 3.7 mmol/L (3.5-5.1); Prealbumin 5.1 mg/dL (20.0-40.0); Protein, Total 6.8 g/dL (6.4-8.2); Sodium Level 132 mmol/L (136-145)
[2020-12-28 14:08] LABS: PROEL- A/G Ratio 0.6 (0.7-1.7); PROEL- Albumin 2.5 g/dL (2.9-4.4); PROEL- Alpha-1 Globulin 0.2 g/dL (0.0-0.4); PROEL- Alpha-2 Globulin 0.5 g/dL (0.4-1.0); PROEL- Beta Globulin 1.3 g/dL (0.7-1.3); PROEL- Gamma Globulin 2.1 g/dL (0.4-1.8); PROEL- Globulin, Total 4.1 g/dL (2.2-3.9); PROEL- TOTAL PROTEIN 6.6 g/dL (6.0-8.5)
[2020-12-28 23:35] LABS: AFP, Tumor Marker 3.3 ng/mL (0.0-8.3)
== END ==
PROVIDERS: PCP Family Medicine; Referring Provider Family Medicine; Visit Provider Family Medicine
DX: R77.1 Abnormality of globulin (principal); E72.20 Disorder of urea cycle metabolism, unspecified; K70.30 Alcoholic cirrhosis of liver without ascites
CPT/HCPCS: 36415; 80053; 82105; 82140; 84134; 84165

== ENCOUNTER 2020-12-24 10:05 | Emergency (ER) | payer MEDICARE, MEDICAID, SELFPAY ==
[2020-12-24 10:06] VITALS: BP 97/69; PULSE 110; RESP 18; TEMP 36.6; O2SAT 100; BMI 22.7
--- NOTE | 2020-12-24 11:12 | EKG12_ITS ---
Test Reason : WEAKNESS Blood Pressure : / mmHG Vent. Rate : 105 BPM Atrial Rate : 105 BPM P-R Int : 152 ms QRS Dur : 080 ms QT Int : 370 ms P-R-T Axes : 060 045 067 degrees QTc Int : 489 ms Sinus tachycardia Low voltage QRS Borderline ECG Confirmed by CAROLINE PEGUERO, VINICIO ([id number]), development editor DIONNA MASTERSON ([id number]) on 12/28/2020 8:35:11 AM Referred By: LUDWIG Confirmed By:JUAN FRANCISCO VELAZQUEZ MD
--- NOTE | 2020-12-24 11:12 | RAD_ITS ---
STUDY: X-RAY CHEST REASON FOR EXAM: Female, 60 years old. Chest pain TECHNIQUE: Single AP portable view of the chest. COMPARISON: August 25, 2020 FINDINGS: There is right lower chest opacity with consolidation and pleural effusion. Normal size heart. Normal mediastinum and eva. Normal visualized pulmonary arteries. Normal visualized aortic arch and descending thoracic aorta. There is demineralization of the osseous structures. Normal visualized ribs, clavicles, and shoulders. There is no demonstrated abnormality of the visualized soft tissue structures of the upper abdomen. RAD/Chest 1 View (Portable) IMPRESSION: Right lower lung infiltrate and effusion. Electronically Signed: Carlos Enrique Jamil MD at 12:53 EDT , Service support ,
--- NOTE | 2020-12-24 11:30 | EDS_ITS ---
HPI History of Present Illness Chief Complaint: Weakness Narrative Narrative: Patient with history of EtOH abuse, hypokalemia, hyponatremia, jaundice presenting with generalized weakness. Patient states she was walking up the stairs today and just felt too weak to go on. She denies shortness of breath or chest pain. Patient has noted that she has lost weight recently. She notes that her abdomen is more distended than it usually is. Patient is jaundiced but she feels she is about her normal color. Patient was seen by her primary care doctor yesterday who ordered lab work and a total abdominal ultrasound today. She did not make the appointment for the ultrasound due to weakness. [facility] Medical History Chronic alcohol abuse Chronic back pain COPD (chronic obstructive pulmonary disease) Debility Degenerated intervertebral disc Epidural hematoma GERD (gastroesophageal reflux disease) Hypothyroidism Smoker TBI (traumatic brain injury) Tobacco abuse disorder Home Medications acetaminophen 500 - 1,000 mg PO Q6H PRN PRN 11/06/19 [History Last Taken 11/04/19] levothyroxine 112 mcg PO DAILY 11/06/19 [History Last Taken 11/06/19] multivitamin with minerals 1 ea PO DAILY 11/06/19 [History Last Taken 11/06/19] omeprazole 40 mg PO DAILY 11/06/19 [History Last Taken 11/06/19] tiotropium bromide 2 puff INHALATION DAILY 11/06/19 [History Last Taken 11/06/19] lactulose 20 gm PO Q8H udc 11/10/19 [Rx Last Taken Unknown] fluticasone propionate 1 spray INTRANASAL DAILY 08/25/20 [History Last Taken 08/25/20] furosemide 20 mg PO DAILY 08/25/20 [History Last Taken Unknown] potassium chloride 20 meq PO DAILY 08/25/20 [History Last Taken Unknown] midodrine 10 mg PO TIDCM #90 tab 08/27/20 [Rx Last Taken Unknown] sulfamethoxazole-trimethoprim [Bactrim DS] 1 tab PO Q12H #6 tab 12/24/20 [Rx Last Taken Unknown] Allergy/AdvReac Type Severity Reaction Status Date / Time bee venom protein (honey bee) Allergy Unknown Verified 12/24/20 10:11 oxycodone AdvReac Intermediate Other Verified 12/24/20 10:11 Family History Father Cancer Mother COPD (chronic obstructive pulmonary disease) Uncle Pulmonary embolism Surgical History History of craniotomy Social History Smoking Status: Current every day smoker tobacco type: cigarettes Tobacco: How many years used: 45 alcohol intake: current alcohol intake frequency: 3 or more drinks per day ROS ROS ED Constitutional Constitutional ED: Denies chills or fever(s) Eyes Eyes: Denies blurry vision or diplopia ENT ENT ED: Denies rhinorrhea or sore throat Cardiovascular Cardiovascular: Denies chest pain or palpitations Respiratory/Chest Respiratory/Chest: Denies cough or dyspnea Gastrointestinal Gastrointestinal: Reports abdominal pain and other Details: Abdominal distention Genitourinary Genitourinary ED: Denies dysuria Musculoskeletal Musculoskeletal: Denies arthralgias or myalgias Integumentary Denies abscess or rash Neurologic Neurologic: Denies headache(s) or paresthesias EXAM Physical Exam Const Vital Signs: 12/24/20 10:06 12/24/20 11:54 12/24/20 13:20 Temperature 97.8 F Temperature Source Temporal Pulse Rate 110 H 102 H Respiratory Rate 18 18 Blood Pressure 97/69 90/65 Blood Pressure Mean 78 73 Pulse Ox 100 98 Oxygen Delivery Method Room Air Room Air 12/24/20 13:44 12/24/20 14:58 Temperature Temperature Source Pulse Rate 103 H 106 H Respiratory Rate 18 18 Blood Pressure 85/47 L 92/63 Blood Pressure Mean 59 72 Pulse Ox 96 98 Oxygen Delivery Method Nasal Cannula Positive unkempt General Appearance ED: unkempt and NAD HEENT Reports dry mucous membranes Negative for trauma Mouth ED: Yes dry mucous membranes Mouth: dry mucous membranes Eyes PERRL and EOMs intact bilaterally General Eye ED: Yes scleral icterus Resp normal respiratory effort and clear to auscultation bilaterally Cardio regular rate Rate: tachycardic GI GI Narrative: Distended abdomen with positive fluid wave. Extremity General Extremety ED: Negative for edema or tenderness General Extremity: Negative for edema Neuro oriented x3 and CN's II-XII intact bilaterally Sensorium / Orientation: alert Motor Exam: general weakness Psych mental status grossly normal Appearance: unkempt Skin General Skin Exam: jaundice MDM MDM MDM Narrative Medical decision making narrative: 60-year-old female presenting with generalized weakness and states he was unable to get up her stairs today had to stop walking. She denies chest pain or shortness of breath. Patient did bruise her right medial goodson. Patient does admit to drinking daily but states is only a few beers. She is jaundiced and has scleral icterus. She was supposed to have an ultrasound of her abdomen today outpatient but did not make it to the appointment. Patient had an EKG which on my interpretation shows a sinus tachycardia at 105 bpm without sign of ischemic changes. Chest x-ray on my interpretation shows a right lower lobe effusion on my interpretation. Radiologist reads this as infiltrate as well however patient is not having any respiratory complaints and does not have a leukocytosis. Hemoglobin is at baseline. Renal function is stable. Total bilirubin is 4.0 direct bilirubin 2.32 AST 84 ALT 20 alk phos 161. Patient is found to have a UTI I did give her a dose of Rocephin in the ED. I did x-ray her right tibia on my interpretation there is an age-indeterminate fibular shaft fracture. This is not adjacent to the bruising on her goodson. Patient also does have ascites and was scheduled for an ultrasound today but did not go to the appointment. I do not believe she needs an emergent paracentesis. She states she does not want to stay in the hospital. I did ask her how often she takes her lactulose and at first she did not know what that was and that she states she takes it when she remembers. Her troponin is elevated at 316 which she was also counseled on but it does appear that she has elevated troponins quite often. She is not complaining of chest pain or shortness of breath. Given the multiple findings that are abnormal as well as her generalized weakness and inability to get around I did try to admit the patient however she refused. She has somebody that can help her as long as she does not stay in the basement and stays upstairs. I spoke with Dr. Kulkarni who did state that she was noncompliant and that he had seen her yesterday and he was supposed to have the ultrasound performed today. I counseled him that she did not make this appointment and she would still need to have this scheduled and that she was leaving AMA. He recommended starting Bactrim. Patient was pancultured and these are still pending. Patient did sign appropriate documentation for AMA and I believe she has capacity to make this decision. She is counseled that she may return at any time if she is doing worse. Impression: 1. Generalized weakness 2. Elevated troponin 3. Transaminitis 4. Hyperammonemia 5. UTI 6. Pleural effusion Lab Data Attestation: I reviewed the patient's lab results. Labs: Laboratory Results - last 24 hr 12/24/20 12/24/20 12/24/20 11:45 11:45 11:45 WBC 9.3 RBC 2.29 L Hgb 8.9 L Hct 26.6 L MCV 116.2 H MCH 38.9 H MCHC 33.5 RDW Std Deviation 73.1 H RDW Coeff of Judith 17.2 H Plt Count 147 L MPV 9.7 Immature Gran % (Auto) 1.000 H Neut % (Auto) 69.7 Lymph % (Auto) 16.7 L [place] % (Auto) 12.2 H Eos % (Auto) 0.2 Baso % (Auto) 0.2 Absolute Neuts (auto) 6.5 Absolute Lymphs (auto) 1.56 Nucleated RBC % 0 Differential Comment SCANNED Anisocytosis 1+ PT INR Sodium 134 L Potassium 4.1 Chloride 103 Carbon Dioxide 25.0 Anion Gap 6 BUN 15 Creatinine 1.24 H Estim Creat Clear Calc 49.79 Est GFR (MDRD) Af Amer 56 L Est GFR (MDRD) Non-Af 47 L BUN/Creatinine Ratio 12.1 Glucose 120 H Calcium 8.5 Magnesium 1.7 Total Bilirubin 4.00 H Direct Bilirubin 2.32 H AST 44 H ALT 20 Alkaline Phosphatase 161 H Ammonia Troponin I High Sens 316 H* Total Protein 7.0 Albumin 1.6 L Globulin 5.4 H Urine Color Urine Clarity Urine pH Ur Specific [place] Urine Protein Urine Glucose (UA) Urine Ketones Urine Occult Blood Urine Nitrite Urine Bilirubin Urine Urobilinogen Ur Leukocyte Esterase Urine RBC Urine WBC Ur Squamous Epith Cells Urine Bacteria Urine Mucus Ethyl Alcohol 12/24/20 12/24/20 12/24/20 11:45 11:45 12:10 WBC RBC Hgb Hct MCV MCH MCHC RDW Std Deviation RDW Coeff of Judith Plt Count MPV Immature Gran % (Auto) Neut % (Auto) Lymph % (Auto) [place] % (Auto) Eos % (Auto) Baso % (Auto) Absolute Neuts (auto) Absolute Lymphs (auto) Nucleated RBC % Differential Comment Anisocytosis PT 16.9 H INR 1.5 Sodium Potassium Chloride Carbon Dioxide Anion Gap BUN Creatinine Estim Creat Clear Calc Est GFR (MDRD) Af Amer Est GFR (MDRD) Non-Af BUN/Creatinine Ratio Glucose Calcium Magnesium Total Bilirubin Direct Bilirubin AST ALT Alkaline Phosphatase Ammonia 107.0 H Troponin I High Sens Total Protein Albumin Globulin Urine Color Urine Clarity Urine pH Ur Specific [place] Urine Protein Urine Glucose (UA) Urine Ketones Urine Occult Blood Urine Nitrite Urine Bilirubin Urine Urobilinogen Ur Leukocyte Esterase Urine RBC Urine WBC Ur Squamous Epith Cells Urine Bacteria Urine Mucus Ethyl Alcohol 5.0 12/24/20 13:40 WBC RBC Hgb Hct MCV MCH MCHC RDW Std Deviation RDW Coeff of Judith Plt Count MPV Immature Gran % (Auto) Neut % (Auto) Lymph % (Auto) [place] % (Auto) Eos % (Auto) Baso % (Auto) Absolute Neuts (auto) Absolute Lymphs (auto) Nucleated RBC % Differential Comment Anisocytosis PT INR Sodium Potassium Chloride Carbon Dioxide Anion Gap BUN Creatinine Estim Creat Clear Calc Est GFR (MDRD) Af Amer Est GFR (MDRD) Non-Af BUN/Creatinine Ratio Glucose Calcium Magnesium Total Bilirubin Direct Bilirubin AST ALT Alkaline Phosphatase Ammonia Troponin I High Sens Total Protein Albumin Globulin Urine Color Yellow Urine Clarity Cloudy Urine pH 8.0 Ur Specific [place] 1.015 Urine Protein 100 H Urine Glucose (UA) Normal Urine Ketones 5 H Urine Occult Blood 50 H Urine Nitrite Positive H Urine Bilirubin 1 H Urine Urobilinogen 8 H Ur Leukocyte Esterase 500 H Urine RBC 0-5 SEEN Urine WBC 10-25 SEEN Ur Squamous Epith Cells 0-5 SEEN Urine Bacteria 4+ Urine Mucus RARE Ethyl Alcohol Radiography Diagnostic Testing: Radiology Impression Chest X-Ray 12/24/20 11:12 IMPRESSION: Right lower lung infiltrate and effusion. Electronically Signed: Carlos Enrique Jamil MD at 12:53 EDT , Service support , Tibia/Fibula X-Ray 12/24/20 14:00 IMPRESSION: Demineralization of the osseous structures. Fibular shaft fracture of uncertain age. Electronically Signed: Carlos Enrique Jamil MD at 15:27 EDT , Service support , Discharge Plan Triage Chief Complaint: Weakness ED Provider: Lakhwinder Pool Dx/Rx/DC Orders Instructions: ED Ascites, ED CYSTITIS Female Adult, ED Weakness (Uncertain Cause) Prescriptions: New sulfamethoxazole-trimethoprim [Bactrim DS] 800-160 mg tablet 1 tab PO Q12H Qty: 6 RF: 0 No Action omeprazole 40 MG capsule,delayed release(DR/EC) 40 mg PO DAILY RF: 0 acetaminophen 500 MG tablet 500 - 1,000 mg PO Q6H PRN PRN (Reason: Pain Or Fever) RF: 0 multivitamin with minerals 1 EACH tablet 1 ea PO DAILY RF: 0 levothyroxine 112 MCG tablet 112 mcg PO DAILY RF: 0 tiotropium bromide 4 GM mist 2 puff inhalation DAILY RF: 0 lactulose 20 GM/30 ML solution 20 gm PO Q8H RF: 0 furosemide 20 mg tablet 20 mg PO DAILY RF: 0 fluticasone propionate 50 mcg/actuation spray,suspension 1 spray INTRANASAL DAILY RF: 0 potassium chloride 20 mEq tablet extended release 20 meq PO DAILY RF: 0 midodrine 5 mg Tablet 10 mg PO TIDCM Qty: 90 RF: 0 Primary Care Provider: Tony Kulkarni Referrals: Tony Kulkarni MD [Primary Care Provider] - Disposition Disposition: Home, Self Care
[2020-12-24 12:06] LABS: Absolute Lymphocyte Count 1.56 X10^3/uL (0.83-4.51); Absolute Neutrophil Count 6.5 X10^3/uL (2.0-7.7); Basophil# 0.02 X10^3/uL; Basophil% 0.2 % (0-1); Eosinophil# 0.02 X10^3/uL; Eosinophils% 0.2 % (0-5); Hematocrit 26.6 % (37-47); Hemoglobin 8.9 g/dL (12.0-15.0); Lymphocyte # 1.56 X10^3/ul (0.83-4.51); Lymphocyte % 16.7 % (19-41); Mean Corp Hgb Conc 33.5 g/dL (32-36); Mean Corpuscular Hgb 38.9 pg (27.0-32.0); Mean Corpuscular Volume 116.2 fL (81-99); Mean Platelet Vol. 9.7 fl (6.2-12.0); Monocyte# 1.14 X10^3/uL; Monocyte% 12.2 % (0-10); NRBC Flagged by Analyzer 0 % (0-5); Neutrophil # 6.51 X10^3/uL (2.7-7.7); Neutrophil % 69.7 % (47-70); POSITIVE MORPHOLOGY YES; Platelet Count 147 K/mm3 (150-450); RBC Distribution Width CV 17.2 % (11.6-14.6); RBC Distribution Width SD 73.1 fl (35.1-43.9); Red Blood Count 2.29 M/mm3 (4.2-5.4); White Blood Count 9.3 K/mm3 (4.4-11.0)
[2020-12-24 12:07] LABS: Differential Indicated SCAN CRITERIA MET
[2020-12-24] MEDS: Aspirin 81 MG TAB.CHEW 324 MG PO (12:07)
[2020-12-24 12:12] LABS: International Normalized Ratio 1.5; Prothrombin Time (Protime)PT. 16.9 SECONDS (11.7-14.9)
[2020-12-24 12:28] LABS: AST(SGOT) 44 U/L (15-37); Alanine Aminotransfer ALT/SGPT 20 U/L (13-56); Albumin, Serum 1.6 g/dL (3.2-5.0); Alkaline Phosphatase 161 U/L (45-117); Bilirubin, Direct 2.32 mg/dL (0.00-0.30); Globulin 5.4 g/dL (2.2-4.2)
[2020-12-24 12:30] LABS: Anion Gap 6 (5-15); BUN 15 mg/dL (7-18); BUN/Creat Ratio 12.1 RATIO (10-20); Calcium,Total 8.5 mg/dL (8.5-10.1); Chloride 103 mmol/L (98-107); Creatinine, Serum 1.24 mg/dL (0.55-1.02); EST Glomerular Filtration Rate 47 mL/min (>60); Est Glom Filt Rate - Afr Amer 56 mL/min (>60); Estimated Creatinine Clearance 49.79 ml/min; Glucose 120 mg/dL (74-106); Magnesium 1.7 mg/dL (1.6-2.6); Potassium 4.1 mmol/L (3.5-5.1); Sodium Level 134 mmol/L (136-145); Troponin-I HS 316 pg/mL (3.0-54.0)
[2020-12-24 12:32] LABS: Anisocytosis 1+; Differential Comment SCANNED
[2020-12-24 13:20] VITALS: BP 90/65; PULSE 102; RESP 18; O2SAT 98
[2020-12-24] MEDS: fentaNYL 100 MCG/2 ML Ampul 25 MCG IV (13:26)
[2020-12-24 13:44] VITALS: BP 85/47; PULSE 103; RESP 18; O2SAT 96
[2020-12-24 13:51] LABS: Color, Urine Yellow (Yellow); Glucose, Dipstick Normal (Normal); Ketone-Dipstick 5 mg/dl (Negative); Leukocyte Esterase-Dipstick 500 /ul (Negative); Nitrite-Dipstick Positive (Negative); Occult Blood-Urine 50 /ul (Negative); Protein-Dipstick 100 mg/dl (Negative); Specific Gravity, Urine 1.015 (1.002-1.030); Urine Clarity Cloudy (Clear); Urine Urobilinogen 8 mg/dl (Normal)
[2020-12-24 13:55] LABS: Urine Bilirubin Dipstick 1 mg/dL (Negative)
[2020-12-24 13:57] LABS: Bacteria 4+ /hpf (None Seen); Red Blood Cells-Urine 0-5 SEEN /hpf (0-5); Squamous Epithelial Cells - UA 0-5 SEEN /hpf (5-10); White Blood Cells 10-25 SEEN /hpf (0-5)
[2020-12-24 13:58] LABS: Mucous, Urine RARE /hpf (<or=2+)
--- NOTE | 2020-12-24 14:00 | RAD_ITS ---
STUDY: X-RAY - RIGHT TIBIA AND FIBULA REASON FOR EXAM: Female, 60 years old. Pain TECHNIQUE: Frontal and lateral view(s) of the tibia and fibula were obtained. COMPARISON: None. FINDINGS: There is demineralization of the tibia. There is demineralization of the fibula. There is fracture of the shaft of the fibula of uncertain age. The soft tissue structures are unremarkable. RAD/Tibia & Fibula 2 Views IMPRESSION: Demineralization of the osseous structures. Fibular shaft fracture of uncertain age. Electronically Signed: Carlos Enrique Jamil MD at 15:27 EDT , Service support ,
--- NOTE | 2020-12-24 14:20 | CM.ED ---
SOCIAL WORK Referral Source: NurseLeydi Reason for Consult: Discharge planning/Adult Protective Services Referral Met with patient in room. Introduced role and reason for referral. Patient A&Ox3, unkempt. Patient reports lives home with 2 friends. Patient states the only time I walk is when I go up and down the stairs. And I just couldn't do it today. Patient denies any history of mental health or substance abuse. Discussed discharge planning and options for rehab. Patient refusing SNF and home health. Patient states wishes to return home as before. Discussed concerns with patient's safety. Patient adamantly refuses any assistance. Nursing staff updated. Call to Ashwin with Adult Protective Services. Updated on concerns for patient's ability to care for self. Report made. Plan: Home, report made to GREGG Escobar, [employer]
[2020-12-24] MEDS: 0.9% Normal Saline 1,000 ML 999 ML IV (14:43)
[2020-12-24 14:58] VITALS: BP 92/63; PULSE 106; RESP 18; O2SAT 98
[2020-12-24 16:08] VITALS: BP 89/64
== END 2020-12-24 16:00 | disposition left against medical advice (07) ==
PROVIDERS: Emergency Provider Student in an Organized Health Care Education/Training Program; PCP Family Medicine
DX: R53.1 Weakness (principal); R74.01 Elevation of levels of liver transaminase levels; N39.0 Urinary tract infection, site not specified; E72.20 Disorder of urea cycle metabolism, unspecified; J90 Pleural effusion, not elsewhere classified; E03.9 Hypothyroidism, unspecified; F17.210 Nicotine dependence, cigarettes, uncomplicated; G89.29 Other chronic pain; J44.9 Chronic obstructive pulmonary disease, unspecified; K21.9 Gastro-esophageal reflux disease without esophagitis; R17 Unspecified jaundice
CPT/HCPCS: 71045; 73590; 80048; 80076; 81001; 82077; 82140; 83735; 84484; 85025; 85610; 87077; 87086; 87088; 87186; 87426; 93005; 96361; 96374; 99285; J7030

== ENCOUNTER 2021-01-06 04:34 | Inpatient (IN) | payer MEDICARE, MEDICAID, SELFPAY ==
[2021-01-06] VITALS (12 sets, daily range): BP systolic 91–124; BP diastolic 53–77; PULSE 68–108; RESP 14–18; TEMP 36.2–36.7; O2SAT 94–100; BMI 24.7; BMI 20.2
--- NOTE | 2021-01-06 05:09 | CT_ITS ---
STUDY: CT BRAIN WITHOUT CONTRAST REASON FOR EXAM: Female, 60 years old. confusion RADIATION DOSAGE (If Supplied By Facility): CTDIvol = ( 44.99 ) mGy, DLP = ( 779.24 ) mGycm TECHNIQUE: Transaxial CT imaging of the brain was performed without administration of intravenous contrast material. Individualized dose optimization techniques were used for this CT. COMPARISON: CT brain noncontrast 10/14/2019. 11/06/2019. FINDINGS: Remote left frontal temporal parietal craniotomy. Right greater than left frontotemporal encephalomalacia. There is mild cerebral atrophy with widening of the extra-axial spaces and ventricular dilatation. There are areas of decreased attenuation within the white matter tracts of the supratentorial brain, consistent with microvascular disease changes. Hyperattenuation left temporal lobe sulci remain stable. Normal basal ganglia and thalami. Normal brainstem. There is mild cerebellar atrophy. There is no intracranial hemorrhage. There are no findings of an acute ischemic infarction. Normal visualized paranasal sinuses. The bilateral mastoid air cells and ossicles are unopacified. CT/Brain/Head without Contrast IMPRESSION: Chronic involutional changes of the brain. Right greater than left frontotemporal encephalomalacia and postsurgical changes are stable. There is no acute intracranial pathology. Electronically Signed: Bridgette Blair MD at 6:41 EDT , Service support ,
--- NOTE | 2021-01-06 05:10 | EKG12_ITS ---
Test Reason : DYSRHYTHMIA Blood Pressure : / mmHG Vent. Rate : 095 BPM Atrial Rate : 095 BPM P-R Int : 150 ms QRS Dur : 090 ms QT Int : 376 ms P-R-T Axes : 067 049 069 degrees QTc Int : 472 ms Normal sinus rhythm Low voltage QRS Borderline ECG Confirmed by MARIANA PEGUERO, SUSI ([id number]), food editor DIONNA MASTERSON ([id number]) on 01/06/2021 10:42:09 AM Referred By: BB Confirmed By:SUSI PEÑA MD
--- NOTE | 2021-01-06 05:11 | EDS_ITS ---
HPI History of Present Illness Chief Complaint: General Illness Informant: patient and friend Limited: other (pt confused) Onset/Context/Timing Onset: Weeks (1) Context: Gradual Onset Timing: Continuous Quality: weakness Location: all over, eric legs Current Severity: Severe Maximum Severity: Severe Worsened by: nothing Relieved by: nothing Associated Symptoms Associated Symptoms: abd swelling, BRBPR, intermittent abd cramping Narrative Narrative: Patient presents with gradually worsening abdominal swelling due to a liver problem that she states she is following with her doctor for, she has an ultrasound of her abdomen scheduled for tomorrow. She is an alcohol drinker, she continues to drink daily and actually had a couple of beers prior to coming here this morning at 0430 AM. She presents because she was trying to go up some steps and her legs physically would not allow her to happen due to being extremely weak. Friend of hers who helps her with her medication helps to provide much of the history. She states that for at least a week she has been getting more and more confused, and more and more weak all over. She had a urinary tract infection that was treated this past week, patient states for the last 3 days or so she has seen small amounts of blood in her stool not her urine. Her medication list includes lactulose, the friend states she helps to get her medicines in order for her and assumes she is taking them. [facility] Medical History Chronic alcohol abuse Chronic back pain COPD (chronic obstructive pulmonary disease) Debility Degenerated intervertebral disc Epidural hematoma GERD (gastroesophageal reflux disease) Hypothyroidism Liver disease Smoker TBI (traumatic brain injury) Tobacco abuse disorder Home Medications levothyroxine 112 mcg PO DAILY 11/06/19 [History Last Taken 11/06/19] multivitamin with minerals 1 ea PO DAILY 11/06/19 [History Last Taken 11/06/19] omeprazole 40 mg PO DAILY 11/06/19 [History Last Taken 11/06/19] tiotropium bromide 2 puff INHALATION DAILY 11/06/19 [History Last Taken 11/06/19] lactulose 20 gm PO Q8H udc 11/10/19 [Rx Last Taken Unknown] fluticasone propionate 1 spray INTRANASAL DAILY 08/25/20 [History Last Taken 08/25/20] furosemide 20 mg PO DAILY 08/25/20 [History Last Taken Unknown] potassium chloride 20 meq PO DAILY 08/25/20 [History Last Taken Unknown] midodrine 10 mg PO TIDCM #90 tab 08/27/20 [Rx Last Taken Unknown] Allergy/AdvReac Type Severity Reaction Status Date / Time bee venom protein (honey bee) Allergy Unknown Verified 01/06/21 04:40 oxycodone AdvReac Intermediate Other Verified 01/06/21 04:40 Family History Father Cancer Mother COPD (chronic obstructive pulmonary disease) Uncle Pulmonary embolism Surgical History History of craniotomy Social History Smoking Status: Current every day smoker tobacco type: cigarettes Tobacco: How many years used: 45 alcohol intake: current alcohol intake frequency: 3 or more drinks per day ROS ROS ED Constitutional Constitutional ED: Reports weakness; Denies chills or fever(s) Eyes Eyes: Denies change in vision or diplopia ENT ENT ED: Denies rhinorrhea or sore throat Cardiovascular Cardiovascular: Reports edema; Denies chest pain or palpitations Respiratory/Chest Respiratory/Chest: Denies cough or dyspnea Gastrointestinal Gastrointestinal: Reports as per HPI, abdominal pain and rectal bleeding; Denies diarrhea, hemorrhoids, nausea or vomiting Genitourinary Genitourinary ED: Denies dysuria or hematuria Musculoskeletal Musculoskeletal: Denies back pain or neck pain Integumentary Denies abscess or rash Neurologic Neurologic: Reports confusion; Denies headache(s), paresthesias or weakness Psychiatric Psychiatric: Denies anxiety or suicidal thoughts Hematologic/Lymphatic Hematologic/Lymphatic: Reports easy bleeding and easy bruising EXAM Physical Exam Const Vital Signs: 01/06/21 04:36 Temperature 97.9 F Temperature Source Temporal Pulse Rate 101 H Respiratory Rate 18 Blood Pressure 101/73 Blood Pressure Mean 82 Pulse Ox 98 Oxygen Delivery Method Room Air Positive well nourished and well developed General Appearance ED: well developed and NAD HEENT Reports moist mucous membranes normocephalic and atraumatic Eyes PERRL and EOMs intact bilaterally General Eye ED: Yes scleral icterus Neck full ROM and supple Lymph Lymphatic: no lymphadenopathy noted Resp normal respiratory effort and clear to auscultation bilaterally Cardio regular rate, regular rhythm and no murmurs GI non-tender GI Narrative: Distended with fluid wave. No tenderness or rebound tenderness. Auscultation: normoactive bowel sounds Palpation: soft Percussion: fluid wave Back/Spine no CVA tenderness General Back: other FROM Extremity normal to inspection General Extremety ED: Yes edema; Negative for pulses abnormal or tenderness General Extremity: edema bilateral lower extremity (Symmetric) Details: moderate; Negative for pulses abnormal Neuro CN's II-XII intact bilaterally and no sensory deficits noted Neuro Narrative: Generally weak but able to move all 4 extremities symmetrically Sensorium / Orientation: awake, alert, oriented to person and oriented to place; Negative for oriented to time Speech: speech normal Skin no rashes or lesions noted and no wounds Skin Narrative: Telangiectasias noted to face and chest MDM MDM MDM Narrative Medical decision making narrative: Patient is anemic but not low enough to require transfusion, she has some mild renal sufficiency, elevated bilirubin and ammonia, along with her clinical exam/syndrome, consistent with alcoholic cirrhosis. She and her friend states she is too weak and too confused to go home. She has an elevated troponin although she usually does and this is lower than usual, and her EKG looks okay. She did not have any active rectal bleeding in the emergency department. She is also having a lot of discomfort from her ascites, although she is not extremely taut and I do not think it needs to be drained emergently since she is breathing fine and not in need of a diagnostic paracentesis since she really does not have any tenderness right now. However, therapeutic paracentesis may be of benefit, in addition to albumin infusion since she is edematous all over. Will discuss with hospitalist. Lab Data Attestation: I reviewed the patient's lab results. Labs: Laboratory Results - last 24 hr 01/06/21 01/06/21 01/06/21 04:48 04:48 04:48 WBC 8.3 RBC 2.16 L Hgb 8.6 L Hct 27.0 L MCV 125.0 H MCH 39.8 H MCHC 31.9 L RDW Std Deviation 73.7 H RDW Coeff of Judith 17.6 H Plt Count 157 MPV 10.1 Immature Gran % (Auto) 1.100 H Neut % (Auto) 57.1 Lymph % (Auto) 28.1 [place] % (Auto) 12.0 H Eos % (Auto) 1.1 Baso % (Auto) 0.6 Absolute Neuts (auto) 4.7 Absolute Lymphs (auto) 2.32 Nucleated RBC % 0 Differential Comment SCANNED Anisocytosis 2+ Macrocytosis 2+ PT 18.4 H INR 1.6 Sodium 135 L Potassium 3.9 Chloride 106 Carbon Dioxide 19.0 L Anion Gap 10 BUN 15 Creatinine 1.26 H Estim Creat Clear Calc 43.89 Est GFR (MDRD) Af Amer 55 L Est GFR (MDRD) Non-Af 46 L BUN/Creatinine Ratio 11.9 Glucose 96 Calcium 8.7 Total Bilirubin 2.70 H Direct Bilirubin 1.63 H AST 52 H ALT 24 Alkaline Phosphatase 177 H Ammonia Troponin I High Sens 299 H* Total Protein 7.2 Albumin 1.6 L Globulin 5.6 H Urine Color Urine Clarity Urine pH Ur Specific [place] Urine Protein Urine Glucose (UA) Urine Ketones Urine Occult Blood Urine Nitrite Urine Bilirubin Urine Urobilinogen Ur Leukocyte Esterase Urine RBC Urine WBC Ur Squamous Epith Cells Amorphous Sediment Urine Bacteria Hyaline Casts Urine Mucus Ethyl Alcohol 01/06/21 01/06/21 01/06/21 04:48 05:40 06:03 WBC RBC Hgb Hct MCV MCH MCHC RDW Std Deviation RDW Coeff of Judith Plt Count MPV Immature Gran % (Auto) Neut % (Auto) Lymph % (Auto) [place] % (Auto) Eos % (Auto) Baso % (Auto) Absolute Neuts (auto) Absolute Lymphs (auto) Nucleated RBC % Differential Comment Anisocytosis Macrocytosis PT INR Sodium Potassium Chloride Carbon Dioxide Anion Gap BUN Creatinine Estim Creat Clear Calc Est GFR (MDRD) Af Amer Est GFR (MDRD) Non-Af BUN/Creatinine Ratio Glucose Calcium Total Bilirubin Direct Bilirubin AST ALT Alkaline Phosphatase Ammonia 65.0 H Troponin I High Sens Total Protein Albumin Globulin Urine Color Yellow Urine Clarity Clear Urine pH 6.5 Ur Specific [place] 1.010 Urine Protein 15 H Urine Glucose (UA) Normal Urine Ketones 5 H Urine Occult Blood Negative Urine Nitrite Negative Urine Bilirubin 1 H Urine Urobilinogen 4 H Ur Leukocyte Esterase 25 H Urine RBC 0 SEEN Urine WBC 0-5 SEEN Ur Squamous Epith Cells 0-5 SEEN Amorphous Sediment 2+ Urine Bacteria 1+ Hyaline Casts 0-5 SEEN Urine Mucus 0 SEEN Ethyl Alcohol 122.0 Radiography Chest X-Ray - ED: 1 View, Read by ED Physician, No Acute Disease and No Infiltrates Diagnostic Testing: Radiology Impression Brain CT 01/06/21 05:09 IMPRESSION: Chronic involutional changes of the brain. Right greater than left frontotemporal encephalomalacia and postsurgical changes are stable. There is no acute intracranial pathology. Electronically Signed: Bridgette Blair MD at 6:41 EDT , Service support , EKG Initial EKG: Attestation: I personally reviewed and interpreted this EKG as follows: Interpretation: Sinus Rhythm and No Acute Injury Pattern Comments: low voltage. no electrical alternans. Prior EKG tracings: available for review Prior: Unchanged Discharge Plan Dx/Rx/DC Orders Clinical Impression: Acute hepatic encephalopathy, Elevated troponin, Alcoholic cirrhosis of liver with ascites, Rectal bleeding Disposition Disposition: Acute Care Hospital [facility]
[2021-01-06 05:16] LABS: Absolute Lymphocyte Count 2.32 X10^3/uL (0.83-4.51); Absolute Neutrophil Count 4.7 X10^3/uL (2.0-7.7); Basophil# 0.05 X10^3/uL; Basophil% 0.6 % (0-1); Eosinophil# 0.09 X10^3/uL; Eosinophils% 1.1 % (0-5); Hemoglobin 8.6 g/dL (12.0-15.0); Lymphocyte # 2.32 X10^3/ul (0.83-4.51); Lymphocyte % 28.1 % (19-41); Mean Corp Hgb Conc 31.9 g/dL (32-36); Mean Corpuscular Hgb 39.8 pg (27.0-32.0); Mean Platelet Vol. 10.1 fl (6.2-12.0); Monocyte# 0.99 X10^3/uL; NRBC Flagged by Analyzer 0 % (0-5); Neutrophil # 4.72 X10^3/uL (2.7-7.7); Neutrophil % 57.1 % (47-70); POSITIVE MORPHOLOGY YES; Platelet Count 157 K/mm3 (150-450); RBC Distribution Width CV 17.6 % (11.6-14.6); RBC Distribution Width SD 73.7 fl (35.1-43.9); Red Blood Count 2.16 M/mm3 (4.2-5.4); White Blood Count 8.3 K/mm3 (4.4-11.0)
[2021-01-06 05:29] LABS: Differential Indicated SCAN CRITERIA MET
[2021-01-06 05:40] LABS: AST(SGOT) 52 U/L (15-37); Alanine Aminotransfer ALT/SGPT 24 U/L (13-56); Albumin, Serum 1.6 g/dL (3.2-5.0); Alkaline Phosphatase 177 U/L (45-117); Anion Gap 10 (5-15); BUN 15 mg/dL (7-18); BUN/Creat Ratio 11.9 RATIO (10-20); Bilirubin, Direct 1.63 mg/dL (0.00-0.30); Calcium,Total 8.7 mg/dL (8.5-10.1); Chloride 106 mmol/L (98-107); Creatinine, Serum 1.26 mg/dL (0.55-1.02); EST Glomerular Filtration Rate 46 mL/min (>60); Est Glom Filt Rate - Afr Amer 55 mL/min (>60); Estimated Creatinine Clearance 43.89 ml/min; Globulin 5.6 g/dL (2.2-4.2); Glucose 96 mg/dL (74-106); Potassium 3.9 mmol/L (3.5-5.1); Protein, Total 7.2 g/dL (6.4-8.2); Sodium Level 135 mmol/L (136-145); Troponin-I HS 299 pg/mL (3.0-54.0)
--- NOTE | 2021-01-06 05:50 | RAD_ITS ---
STUDY: X-RAY CHEST REASON FOR EXAM: Female, 60 years old. weakness TECHNIQUE: Single AP portable view of the chest. COMPARISON: 12/24/2020 FINDINGS: Persistent shallow inspiratory level. Compression of parenchyma in the right greater than left base. There is no demonstrated pleural abnormality. Normal size heart. Normal mediastinum and eva. Normal visualized pulmonary arteries. Normal visualized aortic arch and descending thoracic aorta. Normal visualized thoracic spine. Normal visualized ribs, clavicles, and shoulders. There is no demonstrated abnormality of the visualized soft tissue structures of the upper abdomen. RAD/Chest 1 View (Portable) IMPRESSION: Persistent low lung volumes with compression of dependent lung parenchyma in the bases. Pneumonia in the right base is not excluded. There is no significant interval change. Electronically Signed: Bridgette Blair MD at 7:59 EDT , Service support ,
[2021-01-06 06:11] LABS: Mucous, Urine 0 SEEN /hpf (<or=2+); Red Blood Cells-Urine 0 SEEN /hpf (0-5)
[2021-01-06 06:12] LABS: Glucose, Dipstick Normal (Normal); Ketone-Dipstick 5 mg/dl (Negative); Leukocyte Esterase-Dipstick 25 /ul (Negative); Nitrite-Dipstick Negative (Negative); Occult Blood-Urine Negative /ul (Negative); Protein-Dipstick 15 mg/dl (Negative); Urine Urobilinogen 4 mg/dl (Normal); Urine pH 6.5 (5.0 - 8.0)
[2021-01-06 06:23] LABS: Color, Urine Yellow (Yellow); Urine Bilirubin Dipstick 1 mg/dL (Negative); Urine Clarity Clear (Clear)
[2021-01-06 06:24] LABS: Amorphous Sediment 2+; Bacteria 1+ /hpf (None Seen); Hyaline Cast 0-5 SEEN /lpf (0-5); Squamous Epithelial Cells - UA 0-5 SEEN /hpf (5-10); White Blood Cells 0-5 SEEN /hpf (0-5)
[2021-01-06 06:37] LABS: Anisocytosis 2+; Differential Comment SCANNED; Macrocytosis 2+
[2021-01-06 06:42] LABS: International Normalized Ratio 1.6; Prothrombin Time (Protime)PT. 18.4 SECONDS (11.7-14.9)
--- NOTE | 2021-01-06 07:03 | PCM.HP.STD ---
HPI - General HPI Narrative JUDY KLEIN, is a 60 F who presents [facility] TO [facility] Medical History Chronic alcohol abuse Chronic back pain COPD (chronic obstructive pulmonary disease) Debility Degenerated intervertebral disc Epidural hematoma GERD (gastroesophageal reflux disease) Hypothyroidism Liver disease Smoker TBI (traumatic brain injury) Tobacco abuse disorder Home Medications levothyroxine 112 mcg PO DAILY 11/06/19 [History Last Taken 11/06/19] multivitamin with minerals 1 ea PO DAILY 11/06/19 [History Last Taken 11/06/19] omeprazole 40 mg PO DAILY 11/06/19 [History Last Taken 11/06/19] tiotropium bromide 2 puff INHALATION DAILY 11/06/19 [History Last Taken 11/06/19] lactulose 20 gm PO Q8H udc 11/10/19 [Rx Last Taken Unknown] fluticasone propionate 1 spray INTRANASAL DAILY 08/25/20 [History Last Taken 08/25/20] furosemide 20 mg PO DAILY 08/25/20 [History Last Taken Unknown] potassium chloride 20 meq PO DAILY 08/25/20 [History Last Taken Unknown] midodrine 10 mg PO TIDCM #90 tab 08/27/20 [Rx Last Taken Unknown] Allergy/AdvReac Type Severity Reaction Status Date / Time bee venom protein (honey bee) Allergy Unknown Verified 01/06/21 04:40 oxycodone AdvReac Intermediate Other Verified 01/06/21 04:40 Family History Father Cancer Mother COPD (chronic obstructive pulmonary disease) Uncle Pulmonary embolism Surgical History History of craniotomy Social History Smoking Status: Current every day smoker tobacco type: cigarettes Tobacco: How many years used: 45 alcohol intake: current alcohol intake frequency: 3 or more drinks per day Vital Signs Vital Signs Vital Signs: 01/06/21 04:36 Temperature 97.9 F Temperature Source Temporal Pulse Rate 101 H Respiratory Rate 18 Blood Pressure 101/73 Blood Pressure Mean 82 Pulse Ox 98 Oxygen Delivery Method Room Air Weight Weight: 153 lb 3.54 oz Body Mass Index (BMI) 24.7 Results Lab / Micro Data Result Diagrams: 01/06/21 04:48 01/06/21 04:48 Labs: Laboratory Results - last 24 hr 01/06/21 04:48: WBC 8.3, RBC 2.16 L, Hgb 8.6 L, Hct 27.0 L, MCV 125.0 H, MCH 39.8 H, MCHC 31.9 L, RDW Std Deviation 73.7 H, RDW Coeff of Judith 17.6 H, Plt Count 157, MPV 10.1, Immature Gran % (Auto) 1.100 H, Neut % (Auto) 57.1, Lymph % (Auto) 28.1, [place] % (Auto) 12.0 H, Eos % (Auto) 1.1, Baso % (Auto) 0.6, Absolute Neuts (auto) 4.7, Absolute Lymphs (auto) 2.32, Nucleated RBC % 0, Differential Comment SCANNED, Anisocytosis 2+, Macrocytosis 2+ 01/06/21 04:48: Sodium 135 L, Potassium 3.9, Chloride 106, Carbon Dioxide 19.0 L, Anion Gap 10, BUN 15, Creatinine 1.26 H, Estim Creat Clear Calc 43.89, Est GFR (MDRD) Af Amer 55 L, Est GFR (MDRD) Non-Af 46 L, BUN/Creatinine Ratio 11.9, Glucose 96, Calcium 8.7, Total Bilirubin 2.70 H, Direct Bilirubin 1.63 H, AST 52 H, ALT 24, Alkaline Phosphatase 177 H, Troponin I High Sens 299 H*, Total Protein 7.2, Albumin 1.6 L, Globulin 5.6 H 01/06/21 04:48: PT 18.4 H, INR 1.6 01/06/21 04:48: Ethyl Alcohol 122.0 01/06/21 05:40: Ammonia 65.0 H 01/06/21 06:03: Urine Color Yellow, Urine Clarity Clear, Urine pH 6.5, Ur Specific [place] 1.010, Urine Protein 15 H, Urine Glucose (UA) Normal, Urine Ketones 5 H, Urine Occult Blood Negative, Urine Nitrite Negative, Urine Bilirubin 1 H, Urine Urobilinogen 4 H, Ur Leukocyte Esterase 25 H, Urine RBC 0 SEEN, Urine WBC 0-5 SEEN, Ur Squamous Epith Cells 0-5 SEEN, Amorphous Sediment 2+, Urine Bacteria 1+, Hyaline Casts 0-5 SEEN, Urine Mucus 0 SEEN Radiology Impression Brain CT 01/06/21 05:09 IMPRESSION: Chronic involutional changes of the brain. Right greater than left frontotemporal encephalomalacia and postsurgical changes are stable. There is no acute intracranial pathology. Electronically Signed: Bridgette Blair MD at 6:41 EDT , Service support ,
[2021-01-06 08:11] LABS: Probe Check PASS; Specimen Processing Control PASS
--- NOTE | 2021-01-06 08:34 | HP.PCM.HOS_ITS ---
HPI - General HPI Narrative JUDY KLEIN, is a 60 F who presents presents with progressive weakness. Patient is requiring assistance going to and from the bathroom, getting off the toilet. Just progressively getting weaker over this period of time. Patient is also been more confused. Patient does have confusion at baseline due to history of traumatic brain injury that she sustained several years ago where she developed a brain bleed. But the friend, whom she lives with, is noted the patient has been progressively more confused. Patient does drink alcohol. Her friend does not know how much she drinks but it can range from more recently 3 to about 12/day. States that she typically was drinking 12 pack/day. Patient has suspected alcoholic cirrhosis but has not been formally diagnosed as such. [facility], [facility] Medical History Chronic alcohol abuse Chronic back pain COPD (chronic obstructive pulmonary disease) Debility Degenerated intervertebral disc Epidural hematoma GERD (gastroesophageal reflux disease) Hypothyroidism Liver disease Smoker TBI (traumatic brain injury) Tobacco abuse disorder Home Medications levothyroxine 112 mcg PO DAILY 11/06/19 [History Last Taken 11/06/19] multivitamin with minerals 1 ea PO DAILY 11/06/19 [History Last Taken 11/06/19] omeprazole 40 mg PO DAILY 11/06/19 [History Last Taken 11/06/19] tiotropium bromide 2 puff INHALATION DAILY 11/06/19 [History Last Taken 11/06/19] lactulose 20 gm PO Q8H udc 11/10/19 [Rx Last Taken Unknown] fluticasone propionate 1 spray INTRANASAL DAILY 08/25/20 [History Last Taken 08/25/20] furosemide 20 mg PO DAILY 08/25/20 [History Last Taken Unknown] potassium chloride 20 meq PO DAILY 08/25/20 [History Last Taken Unknown] midodrine 10 mg PO TIDCM #90 tab 08/27/20 [Rx Last Taken Unknown] Allergy/AdvReac Type Severity Reaction Status Date / Time bee venom protein (honey bee) Allergy Unknown Verified 01/06/21 04:40 oxycodone AdvReac Intermediate Other Verified 01/06/21 04:40 Family History Father Cancer Mother COPD (chronic obstructive pulmonary disease) Uncle Pulmonary embolism Surgical History History of craniotomy Social History Smoking Status: Current every day smoker tobacco type: cigarettes Tobacco: How many years used: 45 alcohol intake: current alcohol intake frequency: 3 or more drinks per day ROS Review of Systems ROS Unobtainable: due to encephalopathy Vital Signs Vital Signs Vital Signs: 01/06/21 04:36 01/06/21 07:12 Temperature 36.6 C Temperature Source Temporal Pulse Rate 101 H Respiratory Rate 18 Blood Pressure 101/73 91/53 L Blood Pressure Mean 82 65 Pulse Ox 98 Oxygen Delivery Method Room Air Weight Weight: 69.5 kg Body Mass Index (BMI) 24.7 Physical Exam Const Constitutional Narrative: Alert to place, does not know the date. Cachectic. Afebrile. HEENT head/scalp atraumatic Eyes Eyes Narrative: Scleral icterus Neck no lymphadenopathy Neck Narrative: No thyromegaly Resp normal respiratory effort, no retractions and no use of accessory muscles Cardio regular rate, regular rhythm, S1 normal heart sound and S2 normal heart sound GI soft to palpation and non-tender GI Narrative: Distended. Positive fluid wave. Abdomen is not taut. Extremity normal to inspection Skin Skin Narrative: Bruising on the right lower extremity. Patient does have a hematoma on her anterior goodson with 2 different lesions. Does have some macular patches on her chest. Neuro Neuro Narrative: Confused. No asterixis. Sensorium / Orientation: awake Results Lab / Micro Data Attestation: I reviewed the patient's lab results. Result Diagrams: 01/06/21 04:48 01/06/21 04:48 Labs: Laboratory Results - last 24 hr 01/06/21 04:48: WBC 8.3, RBC 2.16 L, Hgb 8.6 L, Hct 27.0 L, MCV 125.0 H, MCH 39.8 H, MCHC 31.9 L, RDW Std Deviation 73.7 H, RDW Coeff of Judith 17.6 H, Plt Count 157, MPV 10.1, Immature Gran % (Auto) 1.100 H, Neut % (Auto) 57.1, Lymph % (Auto) 28.1, [place] % (Auto) 12.0 H, Eos % (Auto) 1.1, Baso % (Auto) 0.6, Absolute Neuts (auto) 4.7, Absolute Lymphs (auto) 2.32, Nucleated RBC % 0, Differential Comment SCANNED, Anisocytosis 2+, Macrocytosis 2+ 01/06/21 04:48: Sodium 135 L, Potassium 3.9, Chloride 106, Carbon Dioxide 19.0 L , Anion Gap 10, BUN 15, Creatinine 1.26 H, Estim Creat Clear Calc 43.89, Est GFR (MDRD) Af Amer 55 L, Est GFR (MDRD) Non-Af 46 L, BUN/Creatinine Ratio 11.9, Glucose 96, Calcium 8.7, Total Bilirubin 2.70 H, Direct Bilirubin 1.63 H, AST 52 H, ALT 24, Alkaline Phosphatase 177 H, Troponin I High Sens 299 H*, Total Pro tein 7.2, Albumin 1.6 L, Globulin 5.6 H 01/06/21 04:48: PT 18.4 H, INR 1.6 01/06/21 04:48: Ethyl Alcohol 122.0 01/06/21 05:40: Ammonia 65.0 H 01/06/21 06:03: Urine Color Yellow, Urine Clarity Clear, Urine pH 6.5, Ur Specific [place] 1.010, Urine Protein 15 H, Urine Glucose (UA) Normal, Urine Ketones 5 H, Urine Occult Blood Negative, Urine Nitrite Negative, Urine Bilirubin 1 H, Urine Urobilinogen 4 H, Ur Leukocyte Esterase 25 H, Urine RBC 0 SEEN, Urine WBC 0-5 SEEN, Ur Squamous Epith Cells 0-5 SEEN, Amorphous Sediment 2+, Urine Bacteria 1+, Hyaline Casts 0-5 SEEN, Urine Mucus 0 SEEN 01/06/21 07:05: COVID-19 (PADMINI) Negative Radiology Impression Brain CT 01/06/21 05:09 IMPRESSION: Chronic involutional changes of the brain. Right greater than left frontotemporal encephalomalacia and postsurgical changes are stable. There is no acute intracranial pathology. Electronically Signed: Bridgette Blair MD at 6:41 EDT , Service support , Chest X-Ray 01/06/21 05:50 IMPRESSION: Persistent low lung volumes with compression of dependent lung parenchyma in the bases. Pneumonia in the right base is not excluded. There is no significant interval change. Electronically Signed: Bridgette Blair MD at 7:59 EDT , Service support , Assessment & Plan Assessment/Plan (1) Acute hepatic encephalopathy: (2) Debility: PLAN: 1. Acute hepatic encephalopathy Patient is notably confused according the patient's friend to whom she lives with. Ammonia level 65. We will continue with her previous prescribed lactulose as of not sure how far off baseline the patient currently is. Avoid any potentiating medications 2. Debility Progressive debility over the past few weeks. Probably more likely related with the patient's chronic medical disease PT OT evaluate and treat I suspect patient may require senior living facility upon discharge 3. Ascites I do not suspect any spontaneous bacterial peritonitis Patient already on 20 mg of furosemide. We will add 50 mg of spironolactone and observe. Patient was to have the ultrasound this week. Told patient's friend that I would not order that as this not can change my clinical treatment for the patient at this time. If patient continues to get more distended, then we could consider proceeding with a ultrasound-guided paracentesis Consider albumin if condition deteriorates. Fluid restrict 1.5 L/day. Restrict sodium to 2 g/day. 4. Suspected alcoholic cirrhosis Patient still actively drinking First and foremost, patient needs to have complete abstinence Meld score of 18, child Bhandari score of 12 5. Severe protein malnutrition Nutrition consult 6. Alcohol abuse Would avoid any lorazepam or phenobarbital at this time but consider patient s tarts going through active withdrawal which she currently is not at this time Thiamine and folate I am holding off on additional medications for somatic complaints associated withdraw given her confusion at this time. 7. Right leg hematomas and ecchymosis Secondary to injury patient received apparently last week. The patient's friend thinks it was related with ENT picking the patient up I advised just monitoring. No surgical indication to open up the hematomas at this time. There is no active infection currently. 8. VTE prophylaxis SCDs. Chemical prophylaxis conjugate in regards to patient's coagulopathy and hematomas 9. Advanced care planning Patient's friend is unsure if she is a power of litigation attorney associate medically anyways. So no formal decision is made on CODE STATUS. I did recommend DNR Comfort Care arrest but she does not have the authority that she is aware of to make that decision. Patient does have daughter but they are apparently estranged at this time. Patient will be full CODE STATUS. She will need follow-up with gastroenterology Charges/Coding Visit Charges Inpatient E&M: 74165 Init Hosp L3
--- NOTE | 2021-01-06 14:10 | PCS.PANDOC ---
PANDEMIC DOCUMENTATION INITIATED: Date: 12/06/2020 Time: 190
[2021-01-06] MEDS: Levothyroxine 112 MCG Tablet PO (15:19)
[2021-01-06] MEDS: Spironolactone 50 MG Tablet PO (15:19)
[2021-01-06] MEDS: Lactulose 20 GM/30 ML UDC PO ×2 (15:19→21:27)
[2021-01-06] MEDS: Pantoprazole Sodium 40 MG Tablet PO (15:19)
[2021-01-06] MEDS: Midodrine HCl 5 MG Tablet 10 MG PO ×2 (15:19→17:50)
[2021-01-06] MEDS: Furosemide 20 MG Tablet PO (15:19)
[2021-01-06] MEDS: Ipratropium 0.5 MG/2.5 ML SOLUTION INHALATION (19:40)
[2021-01-07] VITALS (12 sets, daily range): BP systolic 90–99; BP diastolic 56–69; PULSE 85–99; RESP 14–20; TEMP 36.6; O2SAT 96–100
[2021-01-07] MEDS: Levothyroxine 112 MCG Tablet PO (05:42)
[2021-01-07 05:51] LABS: Absolute Neutrophil Count 3.6 X10^3/uL (2.0-7.7); Basophil# 0.03 X10^3/uL; Basophil% 0.5 % (0-1); Eosinophil# 0.09 X10^3/uL; Eosinophils% 1.4 % (0-5); Hematocrit 20.9 % (37-47); Hemoglobin 6.8 g/dL (12.0-15.0); Lymphocyte % 29.8 % (19-41); Mean Corp Hgb Conc 32.5 g/dL (32-36); Mean Corpuscular Hgb 39.8 pg (27.0-32.0); Mean Corpuscular Volume 122.2 fL (81-99); Mean Platelet Vol. 9.5 fl (6.2-12.0); Monocyte# 0.73 X10^3/uL; Monocyte% 11.5 % (0-10); NRBC Flagged by Analyzer 0 % (0-5); Neutrophil # 3.58 X10^3/uL (2.7-7.7); Neutrophil % 56.2 % (47-70); POSITIVE MORPHOLOGY YES; Platelet Count 136 K/mm3 (150-450); RBC Distribution Width CV 18.1 % (11.6-14.6); RBC Distribution Width SD 73.1 fl (35.1-43.9); Red Blood Count 1.71 M/mm3 (4.2-5.4); White Blood Count 6.4 K/mm3 (4.4-11.0)
[2021-01-07 06:00] LABS: Differential Indicated SCAN CRITERIA MET
[2021-01-07 06:21] LABS: ALB/GLOB Ratio 0.3 RATIO (0.9-2.4); AST(SGOT) 39 U/L (15-37); Alanine Aminotransfer ALT/SGPT 20 U/L (13-56); Albumin, Serum 1.2 g/dL (3.2-5.0); Alkaline Phosphatase 143 U/L (45-117); Anion Gap 8 (5-15); BUN 16 mg/dL (7-18); BUN/Creat Ratio 14.3 RATIO (10-20); Calcium,Total 8.5 mg/dL (8.5-10.1); Chloride 108 mmol/L (98-107); Creatinine, Serum 1.12 mg/dL (0.55-1.02); EST Glomerular Filtration Rate 53 mL/min (>60); Est Glom Filt Rate - Afr Amer 64 mL/min (>60); Estimated Creatinine Clearance 51.88 ml/min; Globulin 4.7 g/dL (2.2-4.2); Glucose 92 mg/dL (74-106); Protein, Total 5.9 g/dL (6.4-8.2); Sodium Level 136 mmol/L (136-145)
[2021-01-07] MEDS: Lactulose 20 GM/30 ML UDC PO ×3 (06:22→21:03)
[2021-01-07] MEDS: Ipratropium 0.5 MG/2.5 ML SOLUTION INHALATION ×3 (06:36→19:18)
[2021-01-07 06:50] LABS: Anisocytosis 2+; Differential Comment SCANNED; Hypochromasia 1+; Macrocytosis 2+
[2021-01-07] MEDS: Multivitamins,Ther W-Minerals Tablet 1 TABLET PO (09:22)
[2021-01-07] MEDS: Folic Acid 1 MG Tablet PO (09:22)
[2021-01-07] MEDS: Midodrine HCl 5 MG Tablet 10 MG PO ×3 (09:22→18:28)
[2021-01-07] MEDS: Furosemide 20 MG Tablet PO (09:23)
[2021-01-07] MEDS: Fluticasone 0.05% 1 SPRAY NASAL.SRY NASAL (09:23)
[2021-01-07] MEDS: Pantoprazole Sodium 40 MG Tablet PO (09:23)
[2021-01-07] MEDS: Thiamine Hydrochloride 100 MG Tablet PO (09:23)
[2021-01-07 09:49] LABS: Absolute Lymphocyte Count 2.01 X10^3/uL (0.83-4.51); Absolute Neutrophil Count 3.8 X10^3/uL (2.0-7.7); Basophil# 0.02 X10^3/uL; Basophil% 0.3 % (0-1); Eosinophil# 0.08 X10^3/uL; Eosinophils% 1.2 % (0-5); Hematocrit 22.1 % (37-47); Hemoglobin 7.2 g/dL (12.0-15.0); Lymphocyte # 2.01 X10^3/ul (0.83-4.51); Lymphocyte % 29.7 % (19-41); Mean Corp Hgb Conc 32.6 g/dL (32-36); Mean Corpuscular Hgb 39.6 pg (27.0-32.0); Mean Corpuscular Volume 121.4 fL (81-99); Mean Platelet Vol. 9.4 fl (6.2-12.0); Monocyte# 0.78 X10^3/uL; Monocyte% 11.5 % (0-10); NRBC Flagged by Analyzer 0 % (0-5); Neutrophil # 3.82 X10^3/uL (2.7-7.7); Neutrophil % 56.6 % (47-70); POSITIVE MORPHOLOGY YES; Platelet Count 118 K/mm3 (150-450); RBC Distribution Width CV 18.4 % (11.6-14.6); RBC Distribution Width SD 76.6 fl (35.1-43.9); Red Blood Count 1.82 M/mm3 (4.2-5.4); White Blood Count 6.8 K/mm3 (4.4-11.0)
[2021-01-07 09:50] LABS: Differential Indicated SCAN CRITERIA MET
[2021-01-07 10:19] LABS: Anisocytosis 1+
[2021-01-07] MEDS: Spironolactone 50 MG Tablet PO (11:37)
--- NOTE | 2021-01-07 13:47 | CASEMGMT ---
[address] L[address] assessment: Call to patient's HPOA, Rosanne Linn, for initial transition planning/care coordination assessment d/t pt's mentation. [address] introduced self and role at [facility] to friend, pt's friend voices understanding and consents to assessment. Per friend, pt has been declining for weeks and has not come up out of her basement area with bedroom/bathroom/family room. Pt is A/Ox2 per nursing and is sleeping at this time. Pt is on room air and CIWA score is currently 2. Care providers, pharmacy, and demographics verified. Presentation: Pt c/o weakness, abd distention, pt still drinking ETOH Admitting dx: Hepatic encephalopathy PCP: Cayla Specialists: No current specialists Preferred Pharmacy: [facility] Insurance: [facility] A/B Prescription Benefit: Yes Living Will/HPOA: Pt has LW/HPOA and they are currently on file at [facility]. Pt's friend, Rosanne Linn, is HPOA. LNOK: Rosanne Linn, friend Living Arrangements: Pt lives with friend, Rosanne, as well as her and son in basement of [employer] home. Friends have been assisting with ADL's. Transportation: Friends drive pt and state no transportation concerns. DME/HHC: Pt has the following DME: shower chair, walker, and raised toilet seat. Per friend, no need for any further DME. Pt has been to [facility] and [facility] in the past. Rosanne states she would like pt to go to [facility], [facility], in that order and states does not want pt to go to [facility]. Rosanne states concerns with pt coming home at time of discharge and would like pt to go to SNF, see above. Pt is on disability. Pt smoke daily and drinks ETOH daily, but Rosanne is unsure how much of each. Rosanne states would like to speak with pt's nurse at some point today and Yovana GIBSON aware, voices understanding. CM to follow for any further discharge planning/needs. Advised HPOA to ask for CM if any further questions/concerns/needs arise, voices understanding. HPOA Goal: SNF Plan: SNF, pending acceptance/med clearance. Lisette GIBSON CM
--- NOTE | 2021-01-07 16:30 | PN.HOSP_ITS ---
Subjective Subjective still confused. Objective Data Objective Data Vital Signs: Vital Signs Temp Pulse Resp BP Pulse Ox 36.6 C 85 14 99/69 100 01/07/21 14:00 01/07/21 14:59 01/07/21 14:00 01/07/21 14:00 01/07/21 14:00 Oxygen Delivery Method Room Air Weight: 62.3 kg Body Mass Index (BMI) 20.2 Intake & Output: Intake and Output for Last 24 Hours 01/05/21 01/06/21 01/07/21 23:59 23:59 23:59 Intake Total 360 / 360 Output Total 150 / 150 Balance 210 / 210 Medical Nutrition Assessment Dietitian: Malnutrition Criteria Met Start: 01/07/21 13:05 Freq: Status: Active Protocol: Document 01/07/21 13:05 (Rec: 01/07/21 13:05 [id number]) Nutrition Malnutrition Evidence of Malnutrition Exists Yes Malnutrition (moderate): Social/Behavioral/ Environmental Evidenced By Suboptimal Energy Intake ( Moderate),Weight Loss ( Moderate),Physical Changes ( Moderate) Clinical Problem Chronic Disease or Condition Related Malnutrition Etiology moderate malnutrition r/t inadequate protein-energy intake w/ predicted excessive ETOH intake Signs/Symptoms as evidenced by unintentional wt loss of 75.9#/36% x 14 months, estimated PO intake meeting <75% of estimated nutritional needs > 3 months, mild muscle wasting/fat loss Status Active Problem Recommendation Dietitian Recommendations/Changes Continue cardiac diet, fluid restriction as indicated. Will add ensure pudding or magic cup w/ meals BID. If PO intake at meals remains poor, recommend regular, no added salt diet. Lab / Micro Data Result Diagrams: 01/07/21 09:40 01/07/21 05:23 Labs: Laboratory Results - last 24 hr 01/07/21 05:23: WBC 6.4, RBC 1.71 L, Hgb 6.8 L, Hct 20.9 L, MCV 122.2 H, MCH 39.8 H, MCHC 32.5, RDW Std Deviation 73.1 H, RDW Coeff of Judith 18.1 H, Plt Count 136 L, MPV 9.5, Immature Gran % (Auto) 0.600, Neut % (Auto) 56.2, Lymph % (Auto) 29.8, Benzie % (Auto) 11.5 H, Eos % (Auto) 1.4, Baso % (Auto) 0.5, Absolute Neuts (auto) 3.6, Absolute Lymphs (auto) 1.90, Nucleated RBC % 0, Differential Comment SCANNED, Hypochromasia 1+, Anisocytosis 2+, Macrocytosis 2+ 01/07/21 05:23: Sodium 136, Potassium 4.0, Chloride 108 H, Carbon Dioxide 20.0 L , Anion Gap 8, BUN 16, Creatinine 1.12 H, Estim Creat Clear Calc 51.88, Est GFR (MDRD) Af Amer 64, Est GFR (MDRD) Non-Af 53 L, BUN/Creatinine Ratio 14.3, Glucose 92, Calcium 8.5, Total Bilirubin 2.30 H, AST 39 H, ALT 20, Alkaline Phos phatase 143 H, Total Protein 5.9 L, Albumin 1.2 L, Globulin 4.7 H, Albumin/Globulin Ratio 0.3 L 01/07/21 09:40: WBC 6.8, RBC 1.82 L, Hgb 7.2 L, Hct 22.1 L, MCV 121.4 H, MCH 39.6 H, MCHC 32.6, RDW Std Deviation 76.6 H, RDW Coeff of Judith 18.4 H, Plt Count 118 L, MPV 9.4, Immature Gran % (Auto) 0.700, Neut % (Auto) 56.6, Lymph % (Auto) 29.7, Benzie % (Auto) 11.5 H, Eos % (Auto) 1.2, Baso % (Auto) 0.3, Absolute Neuts (auto) 3.8, Absolute Lymphs (auto) 2.01, Nucleated RBC % 0, Anisocytosis 1+ Physical Exam Const Constitutional Narrative: cachectic. afebrile. jaundiced. Orientation / Consciousness: confused Resp normal respiratory effort and no retractions Cardio regular rate, regular rhythm, S1 normal heart sound and S2 normal heart sound GI normal to inspection, nondistended, normoactive bowel sounds, soft to palpation and non-tender GI Narrative: distended Skin Skin Narrative: jaundice Assessment & Plan Assessment/Plan (1) Acute hepatic encephalopathy: (2) Debility: PLAN: 1. Acute hepatic encephalopathy Patient is notably confused according the patient's friend to whom she lives with. Ammonia level 65. We will continue with her previous prescribed lactulose as of not sure how far off baseline the patient currently is. Avoid any potentiating medications 2. Debility Progressive debility over the past few weeks. Probably more likely related with the patient's chronic medical disease PT OT evaluate and treat I suspect patient may require custodial facility upon discharge 3. Ascites I do not suspect any spontaneous bacterial peritonitis Patient already on 20 mg of furosemide. We will add 50 mg of spironolactone and observe. Patient was to have the ultrasound this week. Told patient's friend that I would not order that as this not can change my clinical treatment for the patient at this time. If patient continues to get more distended, then we could consider proceeding with a ultrasound-guided paracentesis Consider albumin if condition deteriorates. Fluid restrict 1.5 L/day. Restrict sodium to 2 g/day. 4. Suspected alcoholic cirrhosis Patient still actively drinking First and foremost, patient needs to have complete abstinence Meld score of 18, child Bhandari score of 12 5. Severe protein malnutrition Nutrition consult continue diet with supplements 6. Alcohol abuse Would avoid any lorazepam or phenobarbital at this time but consider patient starts going through active withdrawal which she currently is not at this time Thiamine and folate I am holding off on additional medications for somatic complaints associated withdraw given her confusion at this time. 7. Right leg hematomas and ecchymosis Secondary to injury patient received apparently last week. The patient's friend thinks it was related with ENT picking the patient up I advised just monitoring. No surgical indication to open up the hematomas at this time. There is no active infection currently. 8. VTE prophylaxis SCDs. Chemical prophylaxis conjugate in regards to patient's coagulopathy and hematomas 9. Advanced care planning Patient's friend is unsure if she is a power of consumer insight manager medically anyways. So no formal decision is made on CODE STATUS. I did recommend DNR Comfort Care arrest but she does not have the authority that she is aware of to make that decision. Patient does have daughter but they are apparently estranged at this time. Patient will be full CODE STATUS. 10. Anemia check iron studies, B12, Folate transfuse for Hg less than 7. She will need follow-up with gastroenterology Charges/Coding Visit Charges Inpatient E&M: 06354 Subs Hosp L2
[2021-01-07 17:15] LABS: Ferritin 569 ng/mL (8-252); Iron Binding Capacity,Total 106 ug/dL (250-450)
[2021-01-07 18:16] LABS: Vitamin B12 1823 pg/mL (211-911)
[2021-01-08] VITALS (7 sets, daily range): BP systolic 92–105; BP diastolic 54–75; PULSE 89–109; RESP 16–18; TEMP 36.2–36.6; O2SAT 100
[2021-01-08 05:15] LABS: Absolute Lymphocyte Count 1.84 X10^3/uL (0.83-4.51); Absolute Neutrophil Count 2.8 X10^3/uL (2.0-7.7); Basophil# 0.02 X10^3/uL; Basophil% 0.4 % (0-1); Eosinophil# 0.08 X10^3/uL; Eosinophils% 1.5 % (0-5); Hematocrit 24.2 % (37-47); Hemoglobin 7.9 g/dL (12.0-15.0); Lymphocyte # 1.84 X10^3/ul (0.83-4.51); Lymphocyte % 34.3 % (19-41); Mean Corp Hgb Conc 32.6 g/dL (32-36); Mean Corpuscular Hgb 39.3 pg (27.0-32.0); Mean Corpuscular Volume 120.4 fL (81-99); Mean Platelet Vol. 9.4 fl (6.2-12.0); Monocyte# 0.64 X10^3/uL; Monocyte% 11.9 % (0-10); NRBC Flagged by Analyzer 0 % (0-5); Neutrophil # 2.75 X10^3/uL (2.7-7.7); Neutrophil % 51.3 % (47-70); POSITIVE MORPHOLOGY YES; Platelet Count 140 K/mm3 (150-450); RBC Distribution Width CV 18.1 % (11.6-14.6); RBC Distribution Width SD 78.8 fl (35.1-43.9); Red Blood Count 2.01 M/mm3 (4.2-5.4); White Blood Count 5.4 K/mm3 (4.4-11.0)
[2021-01-08 05:17] LABS: Differential Indicated SCAN CRITERIA MET
[2021-01-08 05:30] LABS: International Normalized Ratio 1.8; Prothrombin Time (Protime)PT. 20.1 SECONDS (11.7-14.9)
[2021-01-08] MEDS: Lactulose 20 GM/30 ML UDC PO ×3 (05:36→21:22)
[2021-01-08] MEDS: Levothyroxine 112 MCG Tablet PO (05:36)
[2021-01-08 05:39] LABS: ALB/GLOB Ratio 0.3 RATIO (0.9-2.4); AST(SGOT) 44 U/L (15-37); Alanine Aminotransfer ALT/SGPT 23 U/L (13-56); Albumin, Serum 1.3 g/dL (3.2-5.0); Alkaline Phosphatase 156 U/L (45-117); Anion Gap 7 (5-15); BUN 13 mg/dL (7-18); BUN/Creat Ratio 13.9 RATIO (10-20); Chloride 106 mmol/L (98-107); Creatinine, Serum 0.94 mg/dL (0.55-1.02); EST Glomerular Filtration Rate 64 mL/min (>60); Est Glom Filt Rate - Afr Amer 78 mL/min (>60); Estimated Creatinine Clearance 61.81 ml/min; Glucose 90 mg/dL (74-106); Potassium 3.6 mmol/L (3.5-5.1); Protein, Total 6.3 g/dL (6.4-8.2); Sodium Level 135 mmol/L (136-145)
[2021-01-08 05:50] LABS: Anisocytosis 2+; Differential Comment SCANNED; Hypochromasia 1+; Macrocytosis 2+
[2021-01-08] MEDS: Ipratropium 0.5 MG/2.5 ML SOLUTION INHALATION ×2 (06:48→11:29)
[2021-01-08] MEDS: Multivitamins,Ther W-Minerals Tablet 1 TABLET PO (08:48)
[2021-01-08] MEDS: Folic Acid 1 MG Tablet PO (08:49)
[2021-01-08] MEDS: Fluticasone 0.05% 1 SPRAY NASAL.SRY NASAL (08:49)
[2021-01-08] MEDS: Pantoprazole Sodium 40 MG Tablet PO (08:49)
[2021-01-08] MEDS: Furosemide 20 MG Tablet PO (08:49)
[2021-01-08] MEDS: Midodrine HCl 5 MG Tablet 10 MG PO ×3 (08:50→16:48)
[2021-01-08] MEDS: Spironolactone 50 MG Tablet PO (08:51)
[2021-01-08] MEDS: Thiamine Hydrochloride 100 MG Tablet PO (08:51)
--- NOTE | 2021-01-08 17:58 | PCM.PN.HOSP ---
Subjective Subjective feels well Objective Data Objective Data Vital Signs: Vital Signs Temp Pulse Resp BP Pulse Ox 36.6 C 101 H 18 93/61 100 01/08/21 14:42 01/08/21 14:42 01/08/21 14:42 01/08/21 14:42 01/08/21 14:42 Oxygen Delivery Method Room Air Weight: 62.3 kg Body Mass Index (BMI) 20.2 Intake & Output: Intake and Output for Last 24 Hours 01/06/21 01/07/21 01/08/21 23:59 23:59 23:59 Intake Total 710 / 830 290 / 290 Output Total 150 / 350 200 / 200 Balance 560 / 480 90 / 90 Medical Nutrition Assessment Dietitian: Malnutrition Criteria Met Start: 01/07/21 13:05 Freq: Status: Active Protocol: Document 01/07/21 13:05 (Rec: 01/07/21 13:05 [id number]) Nutrition Malnutrition Evidence of Malnutrition Exists Yes Malnutrition (moderate): Social/Behavioral/ Environmental Evidenced By Suboptimal Energy Intake ( Moderate),Weight Loss ( Moderate),Physical Changes ( Moderate) Clinical Problem Chronic Disease or Condition Related Malnutrition Etiology moderate malnutrition r/t inadequate protein-energy intake w/ predicted excessive ETOH intake Signs/Symptoms as evidenced by unintentional wt loss of 75.9#/36% x 14 months, estimated PO intake meeting <75% of estimated nutritional needs > 3 months, mild muscle wasting/fat loss Status Active Problem Recommendation Dietitian Recommendations/Changes Continue cardiac diet, fluid restriction as indicated. Will add ensure pudding or magic cup w/ meals BID. If PO intake at meals remains poor, recommend regular, no added salt diet. Lab / Micro Data Result Diagrams: 01/08/21 05:00 01/08/21 05:00 Labs: Laboratory Results - last 24 hr 01/07/21 16:55: Vitamin B12 1823 H 01/08/21 05:00: WBC 5.4, RBC 2.01 L, Hgb 7.9 L, Hct 24.2 L, MCV 120.4 H, MCH 39.3 H, MCHC 32.6, RDW Std Deviation 78.8 H, RDW Coeff of Judith 18.1 H, Plt Count 140 L, MPV 9.4, Immature Gran % (Auto) 0.600, Neut % (Auto) 51.3, Lymph % (Auto) 34.3, [place] % (Auto) 11.9 H, Eos % (Auto) 1.5, Baso % (Auto) 0.4, Absolute Neuts (auto) 2.8, Absolute Lymphs (auto) 1.84, Nucleated RBC % 0, Differential Comment SCANNED, Hypochromasia 1+, Anisocytosis 2+, Macrocytosis 2+ 01/08/21 05:00: PT 20.1 H, INR 1.8 01/08/21 05:00: Sodium 135 L, Potassium 3.6, Chloride 106, Carbon Dioxide 22.0, Anion Gap 7, BUN 13, Creatinine 0.94, Estim Creat Clear Calc 61.81, Est GFR (MDRD) Af Amer 78, Est GFR (MDRD) Non-Af 64, BUN/Creatinine Ratio 13.9, Glucose 90, Calcium 8.0 L, Total Bilirubin 2.50 H, AST 44 H, ALT 23, Alkaline Phosphatase 156 H, Total Protein 6.3 L, Albumin 1.3 L, Globulin 5.0 H, Albumin/Globulin Ratio 0.3 L Physical Exam Const alert Cardio regular rate, regular rhythm, S1 normal heart sound and S2 normal heart sound GI normal to inspection, nondistended, normoactive bowel sounds and soft to palpation GI Narrative: Seems to be more distended though difficult to definitively ascertain as patient is lying on her right side. Is slightly tender to palpation but no rebound. Extremity General Extremity: edema Assessment & Plan Assessment/Plan (1) Acute hepatic encephalopathy: (2) Debility: PLAN: 1. Acute hepatic encephalopathy Patient is notably confused according the patient's friend to whom she lives with. Ammonia level 65. We will continue with her previous prescribed lactulose as of not sure how far off baseline the patient currently is. Avoid any potentiating medications 2. Debility Progressive debility over the past few weeks. Probably more likely related with the patient's chronic medical disease PT OT evaluate and treat I suspect patient may require senior care facility upon discharge 3. Ascites I do not suspect any spontaneous bacterial peritonitis Patient already on 20 mg of furosemide. We will add 50 mg of spironolactone and observe. Patient was to have the ultrasound this week. Told patient's friend that I would not order that as this not can change my clinical treatment for the patient at this time. If patient continues to get more distended, then we could consider proceeding with a ultrasound-guided paracentesis Consider albumin if condition deteriorates. Fluid restrict 1.5 L/day. Restrict sodium to 2 g/day. Abdomen may be getting more distended. We will continue to watch. If continues to get more distended then may consider ultrasound-guided paracentesis early next week. We will need to correct her coagulopathy if that is still an ongoing issue. 4. Suspected alcoholic cirrhosis Patient still actively drinking First and foremost, patient needs to have complete abstinence Meld score of 18, child Bhandari score of 12 5. Severe protein malnutrition Nutrition consult continue diet with supplements 6. Alcohol abuse Would avoid any lorazepam or phenobarbital at this time but consider patient starts going through active withdrawal which she currently is not at this time Thiamine and folate I am holding off on additional medications for somatic complaints associated withdraw given her confusion at this time. 7. Right leg hematomas and ecchymosis Secondary to injury patient received apparently last week. The patient's friend thinks it was related with ENT picking the patient up I advised just monitoring. No surgical indication to open up the hematomas at this time. There is no active infection currently. 8. VTE prophylaxis SCDs. Chemical prophylaxis conjugate in regards to patient's coagulopathy and hematomas 9. Advanced care planning Patient's friend is unsure if she is a power of commercial litigation attorney medically anyways. So no formal decision is made on CODE STATUS. I did recommend DNR Comfort Care arrest but she does not have the authority that she is aware of to make that decision. Patient does have daughter but they are apparently estranged at this time. Patient will be full CODE STATUS. 10. Anemia check iron studies, B12, Folate transfuse for Hg less than 7. She will need follow-up with gastroenterology Charges/Coding Visit Charges Inpatient E&M: 74981 Subs Hosp L2
[2021-01-09 02:20] VITALS: BP 98/54; PULSE 89; RESP 16; TEMP 36.4; O2SAT 100
[2021-01-09] MEDS: Lactulose 20 GM/30 ML UDC PO ×3 (06:33→21:00)
[2021-01-09] MEDS: Levothyroxine 112 MCG Tablet PO (06:33)
[2021-01-09 06:43] VITALS: PULSE 102; RESP 16; O2SAT 100
[2021-01-09] MEDS: Ipratropium 0.5 MG/2.5 ML SOLUTION INHALATION (06:43)
[2021-01-09 09:15] VITALS: BP 100/73; PULSE 98; RESP 18; TEMP 36.7; O2SAT 98
[2021-01-09] MEDS: Furosemide 20 MG Tablet PO (09:18)
[2021-01-09] MEDS: Folic Acid 1 MG Tablet PO (09:18)
[2021-01-09] MEDS: Spironolactone 50 MG Tablet PO (09:18)
[2021-01-09] MEDS: Pantoprazole Sodium 40 MG Tablet PO (09:18)
[2021-01-09] MEDS: Midodrine HCl 5 MG Tablet 10 MG PO ×3 (09:18→17:25)
[2021-01-09] MEDS: Multivitamins,Ther W-Minerals Tablet 1 TABLET PO (09:18)
[2021-01-09] MEDS: Thiamine Hydrochloride 100 MG Tablet PO (09:19)
[2021-01-09 15:02] VITALS: BP 93/55; PULSE 92; RESP 18; TEMP 36.6; O2SAT 100
--- NOTE | 2021-01-09 16:15 | PCM.PN.HOSP ---
Subjective Subjective Feels fine states her belly is feeling more distended Objective Data Objective Data Vital Signs: Vital Signs Temp Pulse Resp BP Pulse Ox 36.6 C 92 18 93/55 L 100 01/09/21 15:02 01/09/21 15:02 01/09/21 15:02 01/09/21 15:02 01/09/21 15:02 Oxygen Delivery Method Room Air Weight: 62.3 kg Body Mass Index (BMI) 20.2 Intake & Output: Intake and Output for Last 24 Hours 01/07/21 01/08/21 01/09/21 23:59 23:59 23:59 Intake Total 710 / 830 770 / 770 360 / 360 Output Total 150 / 350 200 / 200 Balance 560 / 480 570 / 570 360 / 360 Medical Nutrition Assessment Dietitian: Malnutrition Criteria Met Start: 01/07/21 13:05 Freq: Status: Active Protocol: Document 01/07/21 13:05 (Rec: 01/07/21 13:05 [id number]) Nutrition Malnutrition Evidence of Malnutrition Exists Yes Malnutrition (moderate): Social/Behavioral/ Environmental Evidenced By Suboptimal Energy Intake ( Moderate),Weight Loss ( Moderate),Physical Changes ( Moderate) Clinical Problem Chronic Disease or Condition Related Malnutrition Etiology moderate malnutrition r/t inadequate protein-energy intake w/ predicted excessive ETOH intake Signs/Symptoms as evidenced by unintentional wt loss of 75.9#/36% x 14 months, estimated PO intake meeting <75% of estimated nutritional needs > 3 months, mild muscle wasting/fat loss Status Active Problem Recommendation Dietitian Recommendations/Changes Continue cardiac diet, fluid restriction as indicated. Will add ensure pudding or magic cup w/ meals BID. If PO intake at meals remains poor, recommend regular, no added salt diet. Lab / Micro Data Result Diagrams: 01/08/21 05:00 01/08/21 05:00 Physical Exam Const Constitutional Narrative: Appears much older than stated age. Afebrile. Jaundiced. Eyes Eyes Narrative: Icterus Resp normal respiratory effort, no retractions, no use of accessory muscles and clear to auscultation bilaterally Cardio regular rate, regular rhythm, S1 normal heart sound and S2 normal heart sound GI normal to inspection, nondistended, normoactive bowel sounds and soft to palpation GI Narrative: Distended with fluid wave and tender Assessment & Plan Assessment/Plan (1) Acute hepatic encephalopathy: (2) Debility: PLAN: 1. Acute hepatic encephalopathy Patient is notably confused according the patient's friend to whom she lives with. Ammonia level 65. We will continue with her previous prescribed lactulose as of not sure how far off baseline the patient currently is. Avoid any potentiating medications 2. Debility Progressive debility over the past few weeks. Probably more likely related with the patient's chronic medical disease PT OT evaluate and treat I suspect patient may require fdc facility upon discharge 3. Ascites I do not suspect any spontaneous bacterial peritonitis Patient already on 20 mg of furosemide. We will add 50 mg of spironolactone and observe. Patient was to have the ultrasound this week. Told patient's friend that I would not order that as this not can change my clinical treatment for the patient at this time. If patient continues to get more distended, then we could consider proceeding with a ultrasound-guided paracentesis Consider albumin if condition deteriorates. Fluid restrict 1.5 L/day. Restrict sodium to 2 g/day. Abdomen getting more distended. I will plan for paracentesis. You to give the patient 5 mg of vitamin K as her INR is previously elevated we will check her INR in the morning. 4. Suspected alcoholic cirrhosis Patient still actively drinking First and foremost, patient needs to have complete abstinence Meld score of 18, child Bhandari score of 12 5. Severe protein malnutrition Nutrition consult continue diet with supplements 6. Alcohol abuse Would avoid any lorazepam or phenobarbital at this time but consider patient starts going through active withdrawal which she currently is not at this time Thiamine and folate I am holding off on additional medications for somatic complaints associated withdraw given her confusion at this time. 7. Right leg hematomas and ecchymosis Secondary to injury patient received apparently last week. The patient's friend thinks it was related with ENT picking the patient up I advised just monitoring. No surgical indication to open up the hematomas at this time. There is no active infection currently. 8. VTE prophylaxis SCDs. Chemical prophylaxis conjugate in regards to patient's coagulopathy and hematomas 9. Advanced care planning Patient's friend is unsure if she is a power of litigation attorney medically anyways. So no formal decision is made on CODE STATUS. I did recommend DNR Comfort Care arrest but she does not have the authority that she is aware of to make that decision. Patient does have daughter but they are apparently estranged at this time. Patient will be full CODE STATUS. 10. Anemia check iron studies, B12, Folate transfuse for Hg less than 7. She will need follow-up with gastroenterology Overall prognosis long-term is poor. Charges/Coding Visit Charges Inpatient E&M: 15397 Subs Hosp L2
[2021-01-09] MEDS: Phytonadione (Vit K1) 5 MG TABLET PO (17:25)
[2021-01-09 20:59] VITALS: BP 82/49; PULSE 89; RESP 16; TEMP 36.2; O2SAT 100
[2021-01-09 23:20] VITALS: BP 82/55; PULSE 91; RESP 14; TEMP 36.9; O2SAT 100
[2021-01-10] VITALS (9 sets, daily range): BP systolic 79–97; BP diastolic 45–73; PULSE 90–106; RESP 15–18; TEMP 36.4–36.7; O2SAT 99–100
--- NOTE | 2021-01-10 | FLU_PTH ---
PATIENT: JUDY MAYO LOC: [facility] U#:[id number] AGE/SX: 60/F ROOM: [facility] RE01/06/[address]: Dr. Juan Ramon Santiago DO : 1960 BED: 1 DIS: 01/11/2021 SPEC #: [id number] RECD: 01/10/21 14:00 STATUS: FIGUEROA LAURA #: [id number] REZA: 01/10/21 00:[address]: Juan Ramon Santiago DEPT: CYTOLOGY RECD BY: Juan Arizmendi ENTERED: 01/11/21 10:13 SP TYPE: Fluid OTHR DR: Dr. Tony Kulkarni MD Tissues: PARACENTESIS FLUID Procedures: Special Stain Group II Surgery Specimen Level IV Cytospin Fluid HEADER OPERATION: Ultrasound-guided right paracentesis PRE-OP DIAGNOSIS: Hepatic encephalopathy TISSUE SUBMITTED: Paracentesis fluid for cytology DIAGNOSIS CYTOLOGY Paracentesis fluid for cytology (cytospin and cell block): Negative for malignant cells. AM:danyelle 01/12/2021 CYTOLOGY STUDY Slides are reviewed. CYTOLOGY GROSS Received is 90 ml of yellow cloudy fluid labeled with the patient's name and and designated per the requisition as paracentesis. Submitted for cytology preparation including cell block. / danyelle 01/11/2021 TC:5 CPT: 13539, 19787
[2021-01-10] MEDS: Lactulose 20 GM/30 ML UDC PO ×3 (05:02→21:35)
[2021-01-10] MEDS: Levothyroxine 112 MCG Tablet PO (05:02)
[2021-01-10 06:37] LABS: Absolute Lymphocyte Count 2.15 X10^3/uL (0.83-4.51); Absolute Neutrophil Count 3.1 X10^3/uL (2.0-7.7); Basophil# 0.04 X10^3/uL; Basophil% 0.6 % (0-1); Eosinophil# 0.08 X10^3/uL; Eosinophils% 1.3 % (0-5); Hematocrit 22.7 % (37-47); Hemoglobin 7.4 g/dL (12.0-15.0); Lymphocyte # 2.15 X10^3/ul (0.83-4.51); Lymphocyte % 34.6 % (19-41); Mean Corp Hgb Conc 32.6 g/dL (32-36); Mean Corpuscular Hgb 39.4 pg (27.0-32.0); Mean Corpuscular Volume 120.7 fL (81-99); Mean Platelet Vol. 9.6 fl (6.2-12.0); Monocyte# 0.84 X10^3/uL; Monocyte% 13.5 % (0-10); NRBC Flagged by Analyzer 0 % (0-5); Neutrophil # 3.07 X10^3/uL (2.7-7.7); Neutrophil % 49.5 % (47-70); POSITIVE MORPHOLOGY YES; Platelet Count 129 K/mm3 (150-450); RBC Distribution Width CV 18.2 % (11.6-14.6); RBC Distribution Width SD 79.6 fl (35.1-43.9); Red Blood Count 1.88 M/mm3 (4.2-5.4); White Blood Count 6.2 K/mm3 (4.4-11.0)
[2021-01-10 06:51] LABS: International Normalized Ratio 1.8; Prothrombin Time (Protime)PT. 19.9 SECONDS (11.7-14.9)
[2021-01-10 07:07] LABS: ALB/GLOB Ratio 0.3 RATIO (0.9-2.4); AST(SGOT) 55 U/L (15-37); Alanine Aminotransfer ALT/SGPT 21 U/L (13-56); Albumin, Serum 1.4 g/dL (3.2-5.0); Alkaline Phosphatase 152 U/L (45-117); Anion Gap 9 (5-15); BUN 11 mg/dL (7-18); BUN/Creat Ratio 11.6 RATIO (10-20); Chloride 105 mmol/L (98-107); Creatinine, Serum 0.95 mg/dL (0.55-1.02); EST Glomerular Filtration Rate 64 mL/min (>60); Est Glom Filt Rate - Afr Amer 77 mL/min (>60); Estimated Creatinine Clearance 61.16 ml/min; Globulin 4.8 g/dL (2.2-4.2); Glucose 97 mg/dL (74-106); Potassium 3.2 mmol/L (3.5-5.1); Protein, Total 6.2 g/dL (6.4-8.2); Sodium Level 136 mmol/L (136-145)
[2021-01-10 07:13] LABS: Differential Indicated SCAN CRITERIA MET
[2021-01-10 08:19] LABS: Anisocytosis 1+
[2021-01-10] MEDS: Multivitamins,Ther W-Minerals Tablet 1 TABLET PO (08:29)
[2021-01-10] MEDS: Midodrine HCl 5 MG Tablet 10 MG PO ×3 (08:29→16:14)
[2021-01-10] MEDS: Folic Acid 1 MG Tablet PO (08:29)
[2021-01-10] MEDS: Thiamine Hydrochloride 100 MG Tablet PO (08:29)
[2021-01-10] MEDS: Furosemide 20 MG Tablet PO (10:48)
[2021-01-10] MEDS: Pantoprazole Sodium 40 MG Tablet PO (10:48)
[2021-01-10] MEDS: Spironolactone 50 MG Tablet PO (10:48)
[2021-01-10] MEDS: Fluticasone 0.05% 1 SPRAY NASAL.SRY NASAL (10:48)
--- NOTE | 2021-01-10 10:53 | CASEMGMT ---
Patient's POA expressed interest in patient going to [facility] or [facility] ([facility]). SW faxed referral to [facility] and left a voice mail. Daksha DOLAN
[2021-01-10] MEDS: Phytonadione (Vit K1) 5 MG TABLET PO (11:43)
--- NOTE | 2021-01-10 12:45 | CASEMGMT ---
SW called [facility] and left a message for Malina regarding status of referral. SW also faxed a referral to [facility] (2nd choice). SW called and left a voice mail regarding status of referral. Daksha Otto MSW MAGDALENO
--- NOTE | 2021-01-10 14:39 | CASEMGMT ---
SW received a call from [facility] and [facility] ([facility]). Both have declined patient. [facility] is full. SW called patient's Healthcare Power of Incident Response Specialist and left her a voice mail requesting a return call regarding other SNF choices. Daksha DOLAN
[2021-01-10 15:02] LABS: Protein, Body Fluid 1.3 g/dL (Not Establ.)
[2021-01-10 15:05] LABS: Body Fluid Mononuclear WBC # 0.028 10^3/uL; Body Fluid Mononuclear WBC % 77.8 %; Body Fluid Polynuclear WBC # 0.008 10^3/uL; Body Fluid Polynuclear WBC % 22.2 %; White Blood Count/Body Fluid 0.036 10^3/uL
[2021-01-10 15:06] LABS: Auto B Fluid Analyzer BKGD Ct COUNTS W/IN LIMITS (W/IN LIMITS); Source- Body Fluid THORACENTESIS
[2021-01-10 15:07] LABS: Appearance/Body Fluid SL CLDY; Color/Body Fluid YELLOW
[2021-01-10 15:19] LABS: Body Fluid QC Type(s) BF1Q; Lymphocytes 16 %; Monocytes 12 %; Neutrophil (Segs) 20 %; Other Cell Type/BF 52 %; Red Cell Count/Body Fluid 17 /mm3
--- NOTE | 2021-01-10 15:29 | CASEMGMT ---
[facility]. ALEC told her SW will make a referral and get back with her. SW called [facility] and left a message regarding referral and also faxed information. Daksha Otto MACHINERY CLEANER MAGDALENO
--- NOTE | 2021-01-10 16:14 | US_ITS ---
PROCEDURE: Ultrasound guided paracentesis. DATE OF EXAMINATION: 01/10/2021. INDICATION: Female, 60 years old. Ascites. PHYSICIAN: Magdiel Neal M.D. TECHNIQUE: The risks, benefits, and alternatives to the procedure were explained to the patient. The specific risks of bleeding, infection, and damage to bowel were detailed and accepted. Witnessed informed consent was obtained. The abdomen was ultrasonographically surveyed. An appropriate pocket of fluid was identified at the right lower quadrant. The skin were cleaned and prepped in the usual sterile fashion. Using ultrasound guidance, the peritoneal cavity was accessed with a 5-Tanzanian paracentesis needle/catheter system. The trocar was removed. A total of 6850 ml of saad-colored fluid were removed from the peritoneal cavity. The catheter was removed and a sterile dressing was applied. A 100 mL sample was sent to the laboratory for evaluation. The procedure was well tolerated. US/Paracentesis with US IMPRESSION: Ultrasound guided paracentesis. Electronically Signed: Magdiel Neal MD at 14:46 EDT , Service support ,
--- NOTE | 2021-01-10 16:22 | CASEMGMT ---
Addendum entered by Daksha Otto 01/10/21 16:45: CIWA scoring sent to [facility]. Daksha DOLAN Original Note: ALEC spoke with Wilma at [facility]. She had some questions for ALEC regarding patient. SW answered her questions. She asked about patient's withdrawal from alcohol. She asked if SW could send her CIWA assessments. ALEC will fax these to Wilma. She said she will have an answer for ALEC tomorrow. Daksha DOLAN
--- NOTE | 2021-01-10 17:14 | PCM.PN.HOSP ---
Subjective Subjective Still with abdominal pain. Objective Data Objective Data Vital Signs: Vital Signs Temp Pulse Resp BP Pulse Ox 36.6 C 97 15 84/45 L 99 01/10/21 16:15 01/10/21 16:15 01/10/21 16:15 01/10/21 16:15 01/10/21 16:15 Oxygen Delivery Method [3] Room Air Oxygen Delivery Method [1 ( Room Air Initial Baseline)] Oxygen Delivery Method Room Air Weight: 62.3 kg Body Mass Index (BMI) 20.2 Intake & Output: Intake and Output for Last 24 Hours 01/08/21 01/09/21 01/10/21 23:59 23:59 23:59 Intake Total 770 / 770 440 / 440 335 / 335 Output Total 200 / 200 6850 / 6850 Balance 570 / 570 440 / 440 -6515 / -6515 Medical Nutrition Assessment Dietitian: Malnutrition Criteria Met Start: 01/07/21 13:05 Freq: Status: Active Protocol: Document 01/07/21 13:05 (Rec: 01/07/21 13:05 [id number]) Nutrition Malnutrition Evidence of Malnutrition Exists Yes Malnutrition (moderate): Social/Behavioral/ Environmental Evidenced By Suboptimal Energy Intake ( Moderate),Weight Loss ( Moderate),Physical Changes ( Moderate) Clinical Problem Chronic Disease or Condition Related Malnutrition Etiology moderate malnutrition r/t inadequate protein-energy intake w/ predicted excessive ETOH intake Signs/Symptoms as evidenced by unintentional wt loss of 75.9#/36% x 14 months, estimated PO intake meeting <75% of estimated nutritional needs > 3 months, mild muscle wasting/fat loss Status Active Problem Recommendation Dietitian Recommendations/Changes Continue cardiac diet, fluid restriction as indicated. Will add ensure pudding or magic cup w/ meals BID. If PO intake at meals remains poor, recommend regular, no added salt diet. Lab / Micro Data Result Diagrams: 01/10/21 05:50 01/10/21 05:50 Labs: Laboratory Results - last 24 hr 01/10/21 05:50: WBC 6.2, RBC 1.88 L, Hgb 7.4 L, Hct 22.7 L, MCV 120.7 H, MCH 39.4 H, MCHC 32.6, RDW Std Deviation 79.6 H, RDW Coeff of Judith 18.2 H, Plt Count 129 L, MPV 9.6, Immature Gran % (Auto) 0.500, Neut % (Auto) 49.5, Lymph % (Auto) 34.6, [place] % (Auto) 13.5 H, Eos % (Auto) 1.3, Baso % (Auto) 0.6, Absolute Neuts (auto) 3.1, Absolute Lymphs (auto) 2.15, Nucleated RBC % 0, Anisocytosis 1+ 01/10/21 05:50: PT 19.9 H, INR 1.8 01/10/21 05:50: Sodium 136, Potassium 3.2 L, Chloride 105, Carbon Dioxide 22.0, Anion Gap 9, BUN 11, Creatinine 0.95, Estim Creat Clear Calc 61.16, Est GFR (MDRD) Af Amer 77, Est GFR (MDRD) Non-Af 64, BUN/Creatinine Ratio 11.6, Glucose 97, Calcium 8.0 L, Total Bilirubin 2.50 H, AST 55 H, ALT 21, Alkaline Phosphatase 152 H, Total Protein 6.2 L, Albumin 1.4 L, Globulin 4.8 H, Albumin/Globulin Ratio 0.3 L 01/10/21 08:10: Blood Type O POSITIVE, Antibody Screen NEGATIVE, Crossmatch See Detail 01/10/21 14:02: Fluid Total Protein 1.3 01/10/21 14:02: Fluid Source THORACENTESIS, Fluid Color YELLOW, Fluid Appearance SL CLDY, Fluid WBC 0.036, Fluid RBC 17, Fluid Tot Cell Count 0.060 H, Fld Polynuclear WBCs # 0.008, Fld Polynuclear WBCs % 22.2, Fluid Mononuclear WBCs 0.028, Fld Mononuclear WBCs % 77.8, Fluid Neutrophils 20, Fluid Lymphocytes 16, Fluid Monocytes 12, Fluid Other Cells 52, Fl Pathologist Comment May follow, Fluid Comment 2 SEE COMMENT Radiography Diagnostic Testing: Radiology Impression Paracentesis Ultrasound 01/10/21 16:14 IMPRESSION: Ultrasound guided paracentesis. Electronically Signed: Magdiel Neal MD at 14:46 EDT , Service support , Physical Exam Const Constitutional Narrative: listless. afebrile. appears older than stated age. Neck no lymphadenopathy Resp normal respiratory effort, no retractions, no use of accessory muscles and clear to auscultation bilaterally Cardio regular rate, regular rhythm, S1 normal heart sound and S2 normal heart sound GI normal to inspection, nondistended, normoactive bowel sounds and soft to palpation Assessment & Plan Assessment/Plan (1) Acute hepatic encephalopathy: (2) Debility: PLAN: 1. Acute hepatic encephalopathy Patient is notably confused according the patient's friend to whom she lives with. Ammonia level 65. We will continue with her previous prescribed lactulose as of not sure how far off baseline the patient currently is. Avoid any potentiating medications 2. Debility Progressive debility over the past few weeks. Probably more likely related with the patient's chronic medical disease PT OT evaluate and treat I suspect patient may require halfway facility upon discharge 3. Ascites I do not suspect any spontaneous bacterial peritonitis Patient already on 20 mg of furosemide. We will add 50 mg of spironolactone and observe. Patient was to have the ultrasound this week. Told patient's friend that I would not order that as this not can change my clinical treatment for the patient at this time. Fluid restrict 1.5 L/day. Restrict sodium to 2 g/day. Paracentesis today removal of 6850cc. Will administer 50g of Albumin. 4. Suspected alcoholic cirrhosis Patient still actively drinking First and foremost, patient needs to have complete abstinence Meld score of 18, child Bhandari score of 12 5. Severe protein malnutrition Nutrition consult continue diet with supplements 6. Alcohol abuse Would avoid any lorazepam or phenobarbital at this time but consider patient starts going through active withdrawal which she currently is not at this time Thiamine and folate I am holding off on additional medications for somatic complaints associated withdraw given her confusion at this time. 7. Right leg hematomas and ecchymosis Secondary to injury patient received apparently last week. The patient's friend thinks it was related with ENT picking the patient up I advised just monitoring. No surgical indication to open up the hematomas at this time. There is no active infection currently. 8. VTE prophylaxis SCDs. Chemical prophylaxis conjugate in regards to patient's coagulopathy and hematomas 9. Advanced care planning Patient's friend is unsure if she is a power of catalyst manufacturing operator medically anyways. So no formal decision is made on CODE STATUS. I did recommend DNR Comfort Care arrest but she does not have the authority that she is aware of to make that decision. Patient does have daughter but they are apparently estranged at this time. Patient will be full CODE STATUS. 10. Anemia check iron studies, B12, Folate transfuse for Hg less than 7. She will need follow-up with gastroenterology Overall prognosis long-term is poor. Charges/Coding Visit Charges Inpatient E&M: 17611 Subs Hosp L2
[2021-01-10] MEDS: Albumin Human 25% (100 mL) 25 GM/100 ML BAG IV ×2 (19:36→21:35)
[2021-01-11] VITALS (10 sets, daily range): BP systolic 85–100; BP diastolic 52–65; PULSE 88–98; RESP 12–18; TEMP 36.4–36.8; O2SAT 95–100
[2021-01-11] MEDS: 0.9% Saline Lock 10 ML Syringe IV ×2 (05:03→06:54)
[2021-01-11] MEDS: Lactulose 20 GM/30 ML UDC PO (05:03)
[2021-01-11] MEDS: Levothyroxine 112 MCG Tablet PO (05:03)
[2021-01-11 05:40] LABS: Absolute Lymphocyte Count 1.91 X10^3/uL (0.83-4.51); Absolute Neutrophil Count 2.8 X10^3/uL (2.0-7.7); Basophil# 0.03 X10^3/uL; Basophil% 0.5 % (0-1); Eosinophil# 0.06 X10^3/uL; Eosinophils% 1.1 % (0-5); Hematocrit 19.7 % (37-47); Hemoglobin 6.4 g/dL (12.0-15.0); Lymphocyte # 1.91 X10^3/ul (0.83-4.51); Lymphocyte % 34.2 % (19-41); Mean Corp Hgb Conc 32.5 g/dL (32-36); Mean Corpuscular Hgb 39.8 pg (27.0-32.0); Mean Corpuscular Volume 122.4 fL (81-99); Mean Platelet Vol. 9.6 fl (6.2-12.0); Monocyte# 0.74 X10^3/uL; Monocyte% 13.2 % (0-10); NRBC Flagged by Analyzer 0 % (0-5); Neutrophil # 2.82 X10^3/uL (2.7-7.7); Neutrophil % 50.5 % (47-70); POSITIVE MORPHOLOGY YES; Platelet Count 107 K/mm3 (150-450); RBC Distribution Width CV 18.1 % (11.6-14.6); RBC Distribution Width SD 80.5 fl (35.1-43.9); Red Blood Count 1.61 M/mm3 (4.2-5.4); White Blood Count 5.6 K/mm3 (4.4-11.0)
[2021-01-11 05:43] LABS: Differential Indicated SCAN CRITERIA MET
[2021-01-11 06:01] LABS: ALB/GLOB Ratio 0.5 RATIO (0.9-2.4); AST(SGOT) 45 U/L (15-37); Alanine Aminotransfer ALT/SGPT 20 U/L (13-56); Alkaline Phosphatase 127 U/L (45-117); Anion Gap 8 (5-15); BUN 11 mg/dL (7-18); BUN/Creat Ratio 10.8 RATIO (10-20); Calcium,Total 7.9 mg/dL (8.5-10.1); Chloride 105 mmol/L (98-107); Creatinine, Serum 1.02 mg/dL (0.55-1.02); EST Glomerular Filtration Rate 58 mL/min (>60); Est Glom Filt Rate - Afr Amer 71 mL/min (>60); Estimated Creatinine Clearance 56.96 ml/min; Glucose 100 mg/dL (74-106); Potassium 3.3 mmol/L (3.5-5.1); Sodium Level 136 mmol/L (136-145)
[2021-01-11 07:19] LABS: Anisocytosis 2+
[2021-01-11] MEDS: Fluticasone 0.05% 1 SPRAY NASAL.SRY NASAL (08:16)
[2021-01-11] MEDS: Thiamine Hydrochloride 100 MG Tablet PO (08:17)
[2021-01-11] MEDS: Folic Acid 1 MG Tablet PO (08:17)
[2021-01-11] MEDS: Pantoprazole Sodium 40 MG Tablet PO (08:17)
[2021-01-11] MEDS: Multivitamins,Ther W-Minerals Tablet 1 TABLET PO (08:17)
[2021-01-11] MEDS: Midodrine HCl 5 MG Tablet 10 MG PO ×2 (08:17→11:10)
[2021-01-11] MEDS: Furosemide 20 MG Tablet PO (09:23)
[2021-01-11] MEDS: Spironolactone 50 MG Tablet PO (09:23)
--- NOTE | 2021-01-11 10:59 | PCM.TXEXTCAR ---
Diet 01/06/21 13:56 Diet: Cardiac - Heart Healthy Food consistency:: Regular Liquid Consistency:: Regular/Thin Fluid restriction:: 1500 mL Diet Comments: ensure pudding or magic cup w/ lunch and dinner Routine Orders/Code Status Routine Lab Work: CBC, BMP and INR Code Status: Full Code Wound(s) Rt hand: Wound Type: Abrasion Marvel upper thigh: Wound Type: Abrasion RUQ abdomen: Wound Type: Puncture Therapies Weight Bearing: Full weight bearing Physical Therapy: Eval and Treat Occupational Therapy: Eval and Treat Problem/Diagnosis (1) Acute hepatic encephalopathy: Status: Acute (2) Debility: Status: Acute Allergies/Procedures Done in Hospital Allergies bee venom protein (honey bee) Allergy (Verified 01/06/21 04:40) Unknown oxycodone Adverse Reaction (Intermediate, Verified 01/06/21 04:40) Other LIGHTHEADED DIZZY Procedures: Paracentesis Type of Care/Length of Stay Estimated LOS: Convalescent Care Less Than 30 days Type of Care Needed: Skilled Rehab Potential: Fair Prognosis: Poor Additional Orders/Day of Discharge Day of Discharge: 01/11/21 Dietary and Speech Recommendations Dietitian Recommendations/Changes: Continue cardiac diet, fluid restriction as indicated. Will add ensure pudding or magic cup w/ meals BID. If PO intake at meals remains poor, recommend regular, no added salt diet. Discharge Plan Admission Admit Date/Time: 01/06/21 08:24 Primary Reason for Your Visit: Debility. Ascites. Attending Provider: Juan Ramon Santiago Primary Care Provider: Tony Kulkarni Instructions Patient Instructions: Paracentesis Dc Discharge Orders/Prescriptions Prescriptions: New folic acid 1 mg Tablet 1 mg PO BREAKFAST Qty: 0 RF: 0 thiamine HCl (vitamin B1) [Vitamin B-1] 100 mg Tablet 100 mg PO DAILYCM Qty: 0 RF: 0 spironolactone 50 mg Tablet 50 mg PO DAILY Qty: 0 RF: 0 Continued omeprazole 40 MG capsule,delayed release(DR/EC) 40 mg PO DAILY RF: 0 multivitamin with minerals 1 EACH tablet 1 ea PO DAILY RF: 0 levothyroxine 112 MCG tablet 112 mcg PO DAILY RF: 0 tiotropium bromide 4 GM mist 2 puff inhalation DAILY RF: 0 lactulose 20 GM/30 ML solution 20 gm PO Q8H RF: 0 furosemide 20 mg tablet 20 mg PO DAILY RF: 0 fluticasone propionate 50 mcg/actuation spray,suspension 1 spray INTRANASAL DAILY RF: 0 midodrine 5 mg Tablet 10 mg PO TIDCM Qty: 90 RF: 0 Discontinued potassium chloride 20 mEq tablet extended release 20 meq PO DAILY RF: 0 Referrals / Follow Up: Tony Kulkarni MD [Primary Care Provider] - Within 2 Weeks Hamzah Martinez DO [STAFF PHYSICIAN] - Within 1 Month Disposition Disposition (needs filled in before D/C Order can be placed): Senior Living Facility
--- NOTE | 2021-01-11 11:03 | DS.PCM_ITS ---
Providers Date of Admission: 01/06/21 Primary Care Physician: Dr. Tony Kulkarni MD Reason For Visit: HEPATIC ENCEPHALOPATHY Diagnosis Discharge Diagnosis (1) Acute hepatic encephalopathy: Status: Acute Code(s): K72.00 - Acute and subacute hepatic failure without coma (2) Debility: Status: Acute Code(s): R53.81 - Other malaise Medications at Discharge Home Medications levothyroxine 112 mcg PO DAILY 11/06/19 multivitamin with minerals 1 ea PO DAILY 11/06/19 omeprazole 40 mg PO DAILY 11/06/19 tiotropium bromide 2 puff INHALATION DAILY 11/06/19 lactulose 20 gm PO Q8H udc 11/10/19 fluticasone propionate 1 spray INTRANASAL DAILY 08/25/20 furosemide 20 mg PO DAILY 08/25/20 midodrine 10 mg PO TIDCM #90 tab 08/27/20 folic acid 1 mg PO BREAKFAST #0 tab 01/11/21 spironolactone 50 mg PO DAILY #0 tab 01/11/21 thiamine HCl (vitamin B1) [Vitamin B-1] 100 mg PO DAILYCM #0 tab 01/11/21 Hospital Course Operations None Procedures Paracentesis Summary of Care Provided Minutes Spent on Discharge: 32 Hospital Course: Male presents with weakness. Patient was at her friend's house and which is notably getting weaker. Patient is a known alcoholic but her f riend did not know how much she drank but could be anywhere from 3 to 12 beers per day. Patient is has known cirrhosis and ascites. Patient was started here did not go through any alcohol withdrawal but her abdomen did get more distended despite adding spironolactone onto her furosemide. Cannot go up much on her diuretics given borderline blood pressures the patient did undergo a ultrasound-guided paracentesis on the that removed 6850 cc. Patient afterwards did receive 50 g of IV albumin. Patient is still just very weak and flat affect but she is stable. Overall, the patient's long-term prognosis is poor. Patient is not a candidate for liver transplant given her recent drinking. Would advise patient follow-up gastroenterology as outpatient and patient will be given the number for Dr. Martinez to follow-up with. Physical Exam Const Constitutional Narrative: Appears older than stated age. Jaundiced. Icterus. Afebrile. Resp normal respiratory effort and no use of accessory muscles GI GI Narrative: Abdomen distended but less so than on the . Extremity normal to inspection Medical Records Data Medical Nutrition Assessment Dietitian: Malnutrition Criteria Met Start: 01/07/21 13:05 Freq: Status: Active Protocol: Document 01/07/21 13:05 ELY (Rec: 01/07/21 13:05 [id number]) Nutrition Malnutrition Evidence of Malnutrition Exists Yes Malnutrition (moderate): Social/Behavioral/ Environmental Evidenced By Suboptimal Energy Intake ( Moderate),Weight Loss ( Moderate),Physical Changes ( Moderate) Clinical Problem Chronic Disease or Condition Related Malnutrition Etiology moderate malnutrition r/t inadequate protein-energy intake w/ predicted excessive ETOH intake Signs/Symptoms as evidenced by unintentional wt loss of 75.9#/36% x 14 months, estimated PO intake meeting <75% of estimated nutritional needs > 3 months, mild muscle wasting/fat loss Status Active Problem Recommendation Dietitian Recommendations/Changes Continue cardiac diet, fluid restriction as indicated. Will add ensure pudding or magic cup w/ meals BID. If PO intake at meals remains poor, recommend regular, no added salt diet. Weight / BMI Weight Weight: 62.3 kg Body Mass Index (BMI) 20.2 ABG / Lab / Microbiology Data Result Diagrams: 01/11/21 05:12 01/11/21 05:12 Laboratory: Laboratory Results - last 24 hr 01/10/21 08:10: Blood Type O POSITIVE, Antibody Screen NEGATIVE, Crossmatch See Detail 01/10/21 14:02: Fluid Total Protein 1.3 01/10/21 14:02: Fluid Source THORACENTESIS, Fluid Color YELLOW, Fluid Appearance SL CLDY, Fluid WBC 0.036, Fluid RBC 17, Fluid Tot Cell Count 0.060 H, Fld Polynuclear WBCs # 0.008, Fld Polynuclear WBCs % 22.2, Fluid Mononuclear WBCs 0.028, Fld Mononuclear WBCs % 77.8, Fluid Neutrophils 20, Fluid Lymphocytes 16, Fluid Monocytes 12, Fluid Other Cells 52, Fl Pathologist Comment May follow, Fluid Comment 2 SEE COMMENT 01/11/21 05:12: WBC 5.6, RBC 1.61 L, Hgb 6.4 L, Hct 19.7 L, MCV 122.4 H, MCH 39.8 H, MCHC 32.5, RDW Std Deviation 80.5 H, RDW Coeff of Judith 18.1 H, Plt Count 107 L, MPV 9.6, Immature Gran % (Auto) 0.500, Neut % (Auto) 50.5, Lymph % (Auto) 34.2, [place] % (Auto) 13.2 H, Eos % (Auto) 1.1, Baso % (Auto) 0.5, Absolute Neuts (auto) 2.8, Absolute Lymphs (auto) 1.91, Nucleated RBC % 0, Anisocytosis 2+ 01/11/21 05:12: Sodium 136, Potassium 3.3 L, Chloride 105, Carbon Dioxide 23.0, Anion Gap 8, BUN 11, Creatinine 1.02, Estim Creat Clear Calc 56.96, Est GFR (MDRD) Af Amer 71, Est GFR (MDRD) Non-Af 58 L, BUN/Creatinine Ratio 10.8, Glucose 100, Calcium 7.9 L, Total Bilirubin 2.30 H, AST 45 H, ALT 20, Alkaline Phosphatase 127 H, Total Protein 6.0 L, Albumin 2.0 L, Globulin 4.0, Albumin/Globulin Ratio 0.5 L Radiography Diagnostic Testing: Radiology Impression Paracentesis Ultrasound 01/10/21 16:14 IMPRESSION: Ultrasound guided paracentesis. Electronically Signed: Magdiel Neal MD at 14:46 EDT , Service support , Meaningful Use Info Meaningful Use Diagnoses (Choose all that apply): None applicable Discharge Plan Admission Admit Date/Time: 01/06/21 08:24 Primary Reason for Your Visit: Debility. Ascites. Attending Provider: Juan Ramon Santiago Primary Care Provider: Tony Kulkarni Instructions Patient Instructions: Paracentesis Dc Discharge Orders/Prescriptions Prescriptions: New folic acid 1 mg Tablet 1 mg PO BREAKFAST Qty: 0 RF: 0 thiamine HCl (vitamin B1) [Vitamin B-1] 100 mg Tablet 100 mg PO DAILYCM Qty: 0 RF: 0 spironolactone 50 mg Tablet 50 mg PO DAILY Qty: 0 RF: 0 Continued omeprazole 40 MG capsule,delayed release(DR/EC) 40 mg PO DAILY RF: 0 multivitamin with minerals 1 EACH tablet 1 ea PO DAILY RF: 0 levothyroxine 112 MCG tablet 112 mcg PO DAILY RF: 0 tiotropium bromide 4 GM mist 2 puff inhalation DAILY RF: 0 lactulose 20 GM/30 ML solution 20 gm PO Q8H RF: 0 furosemide 20 mg tablet 20 mg PO DAILY RF: 0 fluticasone propionate 50 mcg/actuation spray,suspension 1 spray INTRANASAL DAILY RF: 0 midodrine 5 mg Tablet 10 mg PO TIDCM Qty: 90 RF: 0 Discontinued potassium chloride 20 mEq tablet extended release 20 meq PO DAILY RF: 0 Referrals / Follow Up: Tony Kulkarni MD [Primary Care Provider] - Within 2 Weeks Hamazh Martinez DO [STAFF PHYSICIAN] - Within 1 Month Disposition Disposition (needs filled in before D/C Order can be placed): [facility] Charges/Coding Visit Charges Inpatient E&M: 20738 [facility] Hosp
--- NOTE | 2021-01-11 11:08 | CASEMGMT ---
ALEC called Wilma at [facility] around 1040a to see if they will take patient. She said she will call SW back. She called SW back about 11am and they will accept patient. She asked if she was vaccinated. ALEC told her SW will have to ask patient's friend Sally. ALEC called Sally and left her a voice mail letting her know [facility] can take patient. ALEC also asked her to call back regarding whether or not patient is vaccinated. Plan: [facility] under skilled level of care. Daksha Otto ARTIST CONSULTANTManuel DOLAN
--- NOTE | 2021-01-11 11:21 | PHA.DC.MR ---
Pharmacy Service has performed discharge medication reconciliation for this patient. The patient's discharge medication list was reviewed for discrepancies and discrepancies were resolved. Home Medications levothyroxine 112 mcg PO DAILY 11/06/19 multivitamin with minerals 1 ea PO DAILY 11/06/19 omeprazole 40 mg PO DAILY 11/06/19 tiotropium bromide 2 puff INHALATION DAILY 11/06/19 lactulose 20 gm PO Q8H udc 11/10/19 fluticasone propionate 1 spray INTRANASAL DAILY 08/25/20 furosemide 20 mg PO DAILY 08/25/20 midodrine 10 mg PO TIDCM #90 tab 08/27/20 folic acid 1 mg PO BREAKFAST #0 tab 01/11/21 spironolactone 50 mg PO DAILY #0 tab 01/11/21 thiamine HCl (vitamin B1) [Vitamin B-1] 100 mg PO DAILYCM #0 tab 01/11/21
--- NOTE | 2021-01-11 12:58 | CASEMGMT ---
ALEC notified physician that patient can go today. ALEC faxed orders to [facility] as well as negative COVID test and Healthcare POA papers. SW completed convalescent on HENS. ALEC arranged for patient to get picked up at 230 via cot. ALEC notified RN, residential youth counselor, and Wilma at [facility]. ALEC received a return call from Sally and patient is not vaccinated. SW let her know about picking machine operator helper time. ALEC also gave her the phone number to [facility]. She thanked ALEC for the help. Plan: d/c to [facility] under skilled level of care on a convalescent stay. [facility] transported via cot. Daksha Otto DOUBLE CUT SAWYER MAGDALENO
[2021-01-11 13:26] LABS: Pathologist Comment/Body Fluid Reviewed
--- NOTE | 2021-01-11 14:16 | NURSING ---
3 attempts made to call report to [facility] at times 1328, 1340,and 1410.
== END 2021-01-11 14:35 | DRG 441 ==
LOC: ED 06:43 → PCU 13:14
PROVIDERS: Emergency Provider Emergency Medicine; PCP Family Medicine
DX: K72.00 Acute and subacute hepatic failure without coma (principal); E43 Unspecified severe protein-calorie malnutrition; K70.31 Alcoholic cirrhosis of liver with ascites; Z68.20 Body mass index [BMI] 20.0-20.9, adult; Z66 Do not resuscitate; S80.11XA Contusion of right lower leg, initial encounter; E03.9 Hypothyroidism, unspecified; K21.9 Gastro-esophageal reflux disease without esophagitis; F17.210 Nicotine dependence, cigarettes, uncomplicated; R19.00 Intra-abdominal and pelvic swelling, mass and lump, unspecified site; F10.20 Alcohol dependence, uncomplicated; Y90.9 Presence of alcohol in blood, level not specified; G89.29 Other chronic pain; J44.9 Chronic obstructive pulmonary disease, unspecified; Z82.5 Family history of asthma and other chronic lower respiratory diseases
CPT/HCPCS: 36415; 49083; 70450; 71045; 80048; 80053; 80076; 81001; 82077; 82140; 82607; 82728; 82746; 83550; 84157; 84484; 85025; 85610; 86850; 86900; 86901; 86920; 86922; 87426; 87635; 88108; 88305; 88313; 89050; 93005; 94640; 97110; 97162; 97166; 97530; 97535; 97802; 97803; 99285; 99406; J7040; P9016; P9047; P9612; U0005; A4216; U0003